=== PATIENT | female | born 1940 | race Caucasian/White ===

== ENCOUNTER 2016-09-04 19:56 | Emergency (ER) | payer MEDICARE, OTHER ==
[~2016-09-04] VITALS: Ht 170.2 cm; Wt 70.8 kg
[~2016-09-04 19:56] MED LIST: ACHD5005 PO; ALPR0.25 PO; ALPR0.254 PO; ALPR0.2550 PO; AMOX-355 PO; ASP81TEC PO; ASPI1TAB22 PO; BSP5T PO; DOXY100C2 PO; ESCI10TA55 PO; ESCT10T; ESCT10T PO; GFN600TCR; HYDR-3820 PO; LEVO25TA2 PO; LEVO500T69 PO; LSRT50T PO; MELO15TA14 PO; MELO15TA39 PO; MELO7.5T PO; METO-270 PO; MTP25TSR PO; NF-ESOM40C PO; POTA10TA14 PO; POTA10TA6 PO; PRD10T PO; PREG75CA PO; RIZA10TA23 PO; ROPI1TAB2 PO; ROPI2TAB3 PO; RPN.25T; TRAZ150T42 PO; TRAZ150T72 PO; TRAZ50TA67 PO; [UNRECOGNIZED DRUG - OTHER]
--- OUTSIDE RECORDS SUMMARY | 2016-09-04 20:00 | XMS REPORT | Continuity of Care Document ---
Author Author [facility] Organization [facility] Address Unknown Phone Unavailable Care Team Providers Care Spray Maker Name Role Phone MYRON AMARO MD PCP Insurance Providers Payer Name Policy Number Subscriber Name Relationship s Medicare [id number] Rosanna Fernando 17 Self / Same As Patient [facility] [id number] Rosanna Fernando 17 Self / Same As Patient Advance Directives Directive Response Recorded Date/Time Advance Directives No 12/04/14 8:29pm Health Care Power of All Source Intelligence No 12/04/14 8:29pm Organ Donor No 12/04/14 8:29pm Resuscitation Status Full Code 12/04/14 8:29pm Problems Medical Problems Problem Onset Date Status forearm sprain Unknown Active Cellulitis of right leg Unknown Active Medications Medication Dose Route Sig Days/Qty Instructions Order Date Discontinued Date Status Escitalopram Oxalate 02/25/08 08/28/10 Discontinued Ropinirole HCl 1 Mg TWICE A DAY 02/25/08 06/28/11 Discontinued [Dyserel] 07/09/08 08/28/10 Discontinued Escitalopram Oxalate 10 Mg PO DAILY 07/09/08 Active Meloxicam 15 Mg PO DAILY 07/09/08 06/28/11 Discontinued Guaifenesin 07/09/08 08/28/10 Discontinued Trazodone Hcl 50 Mg PO BEDTIME 08/28/10 06/28/11 Discontinued Esomeprazole Magnesium 40 Mg PO DAILY 08/28/10 Active Potassium Chloride 10 Meq PO TWICE A DAY WITH MEALS 06/27/11 Active Trazodone Hcl 150 Mg PO DAILY 06/27/11 06/27/11 Discontinued Pregabalin 75 Mg PO TWICE A DAY 06/27/11 06/27/11 Discontinued Aspirin 81 Mg PO DAILY 06/28/11 Active Metoprolol Succinate 25 Mg PO DAILY 06/28/11 06/08/12 Discontinued Meloxicam 15 Mg PO DAILY 06/28/11 06/08/12 Discontinued Ropinirole Hcl 1 Mg PO DAILY 1100 06/28/11 Active Trazodone Hcl 150 Mg PO BEDTIME 06/28/11 Active Acetaminophen/Hydrocodone Bitart (Lorcet 5/325MG) 1 - 2 Tab PO EVERY 6 HOURS 20 Qty 07/07/11 06/01/12 Discontinued Acetaminophen/Hydrocodone Bitart 1 Each PO EVERY 6 HOURS PRN PAIN 06/01 Active Ropinirole Hcl 2 Mg PO BEDTIME 06/01/12 Active Prednisone 10 Mg PO DAILY 06/08/12 08/19/13 Discontinued Levofloxacin 1 Each PO DAILY 06/08/12 08/19/13 Discontinued Losartan Potassium 50 Mg PO DAILY 06/08/12 Active Doxycycline Hyclate (Vibramycin) 1 Each PO TWICE A DAY 14 Qty 12/04/14 Active Social History Social History Problem Response Recorded Date/Time Alcohol Use Denies Use 12/04/2014 8:29pm Recreational Drug Use No 12/04/2014 8:29pm Recent Foreign Travel No 12/04/2014 8:21pm Recent Infectious Disease Exposure No 12/04/2014 8:21pm Hospitalization with Isolation Denies 12/04/2014 8:21pm Sexually Transmitted Disease No 12/04/2014 8:29pm Smoking Status Former Smoker 12/04/2014 8:29pm Query Response Start Date Stop Date Smoking Status Former Smoker 12/04/2014 Hospital Discharge Instructions No hospital discharge instructions. Plan of Care No plan of care. Functional Status No functional status results. Allergies, Adverse Reactions, Alerts Allergen Type Severity Reaction Status Last Updated Sulfa (Sulfonamide Antibiotics) ([id number]) Allergy Unknown Active 24/02 Immunizations Name Given Type Tetanus Booster (TDap) More than 5yrs Historical Vital Signs Acute Vital Signs Vital Response Date/Time Temperature (Fahrenheit) 97.3 degrees F (97.6 - 99.5) Temperature (Calculated Celsius) 36.56405 degrees C (36.4 - 37.5) Temperature Source Temporal Pulse Rate (adult) 67 bpm (60 - 90) Respiratory Rate 20 bpm (12 - 24) O2 Sat by Pulse Oximetry 93 % (88 - 100) Blood Pressure 128/80 mm Hg Pain Pain Intensity 4 Height (Feet) 5 feet Height (Inches) 7 inches Height (Calculated Centimeters) 170.429277 cm Weight (Pounds) 155 pounds Weight (Calculated Kilograms) 70.128293 kilograms Calculated BMI 24.27 Results No known relevant diagnostic tests, laboratory data and/or discharge summary. Procedures No known history of procedures. Encounters Encounter Location Date/Time Departed Emergency Room [facility] 12/04/14 8:17pm Recent Diagnosis
[2016-09-04] MEDS ORDERED: fentaNYL INJECTION 100 MCG/2 ML AMP IVP ONE ×2 (20:30→22:30)
[2016-09-04 20:48] LABS: PROTHROMBIN TIME PATIENT 13.2 SEC (12.2-14.7)
[2016-09-04 20:50] LABS: BASOPHILS % (AUTO) 0 % (0-10); EOSINOPHILS # (AUTO) 0.2 10^3/uL (0.0-0.3); EOSINOPHILS % (AUTO) 2 % (0-10); LYMPHOCYTES # (AUTO) 2.8 X 10^3 (1.0-4.0); LYMPHOCYTES % (AUTO) 26 % (12-44); MEAN CORPUSCULAR HEMOGLOBIN 31 PG (25-34); MEAN CORPUSCULAR HGB CONC 34 G/DL (32-36); MEAN CORPUSCULAR VOLUME 93 FL (80-99); MEAN PLATELET VOLUME 10.9 FL (7.4-10.4); MONOCYTES # (AUTO) 0.8 X 10^3 (0.0-1.0); MONOCYTES % (AUTO) 8 % (0-12); NEUTROPHILS # (AUTO) 6.9 X 10^3 (1.8-7.8); NEUTROPHILS % (AUTO) 64 % (42-75); PLATELET COUNT 234 10^3/uL (130-400); RED BLOOD COUNT 4.65 10^6/uL (4.35-5.85); RED CELL DISTRIBUTION WIDTH 13.6 % (10.0-14.5); WHITE BLOOD COUNT 10.7 10^3/uL (4.3-11.0)
[2016-09-04 21:01] LABS: CALCIUM 9.3 MG/DL (8.5-10.1); CREATININE SERUM 1.34 MG/DL (0.60-1.30); POTASSIUM 4.7 MMOL/L (3.6-5.0)
--- NOTE | 2016-09-04 21:48 | Diagnostic Imaging Report ---
PROCEDURE: CT chest without contrast. TECHNIQUE: Multiple contiguous axial images were obtained through the chest without the use of intravenous contrast. INDICATION: Left chest pain. Trauma. COMPARISON: Chest radiograph 05/17/2016. FINDINGS: Mild scarring in the lung apices and lung bases. The lungs are otherwise clear. Osseous structures are intact. Specifically, no rib fractures. No pleural effusion or pneumothorax. No pericardial effusion. Degenerative changes in the thoracic spine. Nonspecific enlargement of the left thyroid lobe containing small calcification. Mild arterial calcifications including the aortic arch. No mediastinal or hilar lymphadenopathy. The visualized upper abdominal contents, including the adrenal glands, are negative on this noncontrast exam. IMPRESSION: No acute CT findings in the chest. Specifically, the osseous structures are intact. Dictated by: Dictated on workstation # [id number]
--- NOTE | 2016-09-04 22:14 | ED Fall/Injury ---
General Chief Complaint: Trauma-Non Activation Stated Complaint: L ARM PAIN Nursing Triage Note: SEE TRAUMA NOTE. Source: patient Exam Limitations: no limitations History of Present Illness Time seen by provider: 19:58 Initial Comments This 76-year-old woman presents to the emergency room after having a fall at her home. She missed a step while walking down the [place] and fell into a 4 x 4 porch post. She complains of pain and bruising of the left upper arm and pain in the left chest where she struck the post. She denies head injury or loss of consciousness. Location Injury Occurred: HOME Occurred: just prior to arrival Allergies and Home Medications Allergies Coded Allergies: Iodinated Contrast Media - IV Dye (Unverified Allergy, Unknown, 05/06/16) Sulfa (Sulfonamide Antibiotics) (Verified Allergy, Unknown, 02/25/08) ciprofloxacin (Unverified Allergy, Unknown, 05/06/16) Home Medications Alprazolam 0.25 Mg Tablet 0.5-1 TAB PO BID PRN PRN ANXIETY (Reported) Alprazolam 0.25 Mg Tablet #20 0.5 MG PO Q8H PRN PRN anxiety Prescribed by: KANDY BENOIT on 05/09/16 1110 Amoxicillin/Potassium Clav 1 Each Tablet #10 1 EACH PO BID Prescribed by: KANDY BENOIT on 05/09/16 1058 Aspirin 81 Mg Tabec 81 MG PO DAILY (Reported) Aspirin/Acetaminophen/Caffeine 1 Each Tablet 2 TAB PO DAILY PRN PRN MIGRAINE ( Reported) Escitalopram Oxalate 10 Mg Tablet 10 MG PO DAILY (Reported) Hydrocodone/Acetaminophen 1 Each Tablet #30 1 TAB PO Q6H PRN PRN PAIN Prescribed by: KANDY BENOIT on 05/09/16 1058 Meloxicam 15 Mg Tablet 15 MG PO DAILY (Reported) Metoprolol Succinate 25 Mg Tab.er.24h 25 MG PO DAILY (Reported) Potassium Chloride 10 Meq Tab.er.prt 10 MEQ PO BID (Reported) Ropinirole HCl 1 Mg Tablet 2 MG PO HS (Reported) TAKES 2 (1MG) TABLETS Ropinirole Hcl 1 Mg Tablet 1 MG PO DAILY PRN PRN RESTLESSNESS (Reported) Trazodone HCl 150 Mg Tablet 150 MG PO HS (Reported) Constitutional: no symptoms reported Eyes: No Symptoms Reported Ears, Nose, Mouth, Throat: no symptoms reported Respiratory: no symptoms reported Cardiovascular: no symptoms reported Gastrointestinal: no symptoms reported Genitourinary: no symptoms reported : No Musculoskeletal: see HPI Skin: see HPI Psychiatric/Neurological: No Symptoms Reported Past Iqbjkuo-Uqngjj-Pqvttl Hx Patient Social History Alcohol Use: Denies Use Recreational Drug Use: No Smoking Status: Never a Smoker Former Smoker/When Quit: Dec 04, 2014 2nd Hand Smoke Exposure: No Recent Foreign Travel: No Contact w/Someone Who Travel: No Recent Infectious Disease Expo: No Recent Hopitalizations: No Immunizations Up To Date Tetanus Booster (TDap): More than 5yrs Seasonal Allergies Seasonal Allergies: Yes Surgeries HX Surgeries: Yes (HYSTERECTOMY) Surgeries: Hysterectomy Respiratory Hx Respiratory Disorders: No Cardiovascular Hx Cardiac Disorders: Yes Cardiac Disorders: Hypertension Neurological Hx Neurological Disorders: Yes Reproductive System Hx Reproductive Disorders: Yes Sexually Transmitted Disease: No 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 Genitourinary Hx Genitourinary Disorders: Yes Gastrointestinal Hx Gastrointestinal Disorders: No Musculoskeletal Hx Musculoskeletal Disorders: Yes Musculoskeletal Disorders: Arthritis Endocrine Hx Endocrine Disorders: Yes Endocrine Disorders: Hypothyroidsim HEENT HX ENT Disorders: Yes (CATARACTS REMOVED) HEENT Disorders: Cataract Cancer Hx Cancer: No Psychosocial Hx Psychiatric Problems: Yes Behavioral Health Disorders: Depression Integumentary HX Skin/Integumentary Disorder: No Blood Transfusions Hx Blood Disorders: No Physical Exam Vital Signs Vital Sign - Last 12Hours 09/04/16 20:10 Temp 97.1 Pulse 58 Resp 16 B/P 136/74 Pulse Ox 97 O2 Delivery Room Air Capillary Refill : Less Than 3 Seconds General Appearance: WD/WN mild distress HEENT: PERRL/EOMI normal ENT inspection Neck: normal inspection Cardiovascular: regular rate, rhythm no edema no murmur Respiratory: lungs clear normal breath sounds no respiratory distress no accessory muscle use other (left lateral and anterior lower chest wall tenderness to palpation) Gastrointestinal: non tender soft Extremities: no pedal edema other (tenderness over the left humerus and shoulder with significant ecchymosis to the mid humeral region.) 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 as tested no motor/sensory deficits alert normal mood/affect oriented x 3 Skin: normal color warm/dry Brittney Coma Score Best Eye Response: (4) Open Spontaneously Best Verbal Response: (5) Oriented Best Motor Response: (6) Obeys Commands Brittney Total: 15 Progress/Results/Core Measures Results/Orders Lab Results Laboratory Tests Test 09/04/16 20:25 Range/Units Activated Partial Thromboplast Time 29 24-35 SEC Anion Gap 13 5-14 MMOL/L BUN/Creatinine Ratio 19 Basophils # (Auto) 0.0 0.0-0.1 10^3/uL Basophils (%) (Auto) 0 0-10 % Blood Urea Nitrogen 25 H 7-18 MG/DL Calcium Level 9.3 8.5-10.1 MG/DL Carbon Dioxide Level 19 L 21-32 MMOL/L Chloride Level 101 98-107 MMOL/L Creatinine 1.34 H 0.60-1.30 MG/DL Eosinophils # (Auto) 0.2 0.0-0.3 10^3/uL Eosinophils (%) (Auto) 2 0-10 % Estimat Glomerular Filtration Rate 38 Glucose Level 122 H 70-105 MG/DL Hematocrit 43 35-52 % Hemoglobin 14.6 11.5-16.0 G/DL INR Comment 1.0 0.8-1.4 Lymphocytes # (Auto) 2.8 1.0-4.0 X 10^3 Lymphocytes (%) (Auto) 26 12-44 % Mean Corpuscular Hemoglobin 31 25-34 PG Mean Corpuscular Hemoglobin Concent 34 32-36 G/DL Mean Corpuscular Volume 93 80-99 FL Mean Platelet Volume 10.9 H 7.4-10.4 FL Monocytes # (Auto) 0.8 0.0-1.0 X 10^3 Monocytes (%) (Auto) 8 0-12 % Neutrophils # (Auto) 6.9 1.8-7.8 X 10^3 Neutrophils (%) (Auto) 64 42-75 % Platelet Count 234 130-400 10^3/uL Potassium Level 4.7 3.6-5.0 MMOL/L Prothrombin Time 13.2 12.2-14.7 SEC Red Blood Count 4.65 4.35-5.85 10^6/uL Red Cell Distribution Width 13.6 10.0-14.5 % Sodium Level 133 L 135-145 MMOL/L White Blood Count 10.7 4.3-11.0 10^3/uL My Orders Orders-FARHAN TANG MD Basic Metabolic Panel (09/04/16 20:22) Cbc With Automated Diff (09/04/16 20:22) Protime With Inr (09/04/16 20:22) Partial Thromboplastin Time (09/04/16 20:22) Shoulder, Left, 3 Views (09/04/16 20:22) Humerus, Left, 2 Views (09/04/16 20:22) Fentanyl Injection (Sublimaze Injection (09/04/16 20:30) Saline Lock/Iv-Start (09/04/16 20:22) Ct Chest Wo (09/04/16 21:09) Fentanyl Injection (Sublimaze Injection (09/04/16 22:30) Hydrocodone/Apap 5/325 Tablet (Lortab 5 (09/04/16 22:30) Medications Given in ED Current Medications Medications Dose Ordered Sig/Essie Route Start Time Stop Time Status Last Admin Dose Admin Acetaminophen/ Hydrocodone Bitart 1 tab ONCE ONCE PO 09/04/16 22:30 09/04/16 22:31 DC 09/04/16 22:34 1 TAB Fentanyl Citrate 25 mcg ONCE ONCE IVP 09/04/16 20:30 09/04/16 20:31 DC 09/04/16 20:50 25 MCG Fentanyl Citrate 25 mcg ONCE ONCE IVP 09/04/16 22:30 09/04/16 22:31 DC 09/04/16 22:35 25 MCG Vital Signs/I&O Vital Sign - Last 12Hours 09/04/16 09/04/16 20:10 22:36 Temp 97.1 97.1 Pulse 58 58 Resp 16 16 B/P 136/74 Pulse Ox 97 97 O2 Delivery Room Air Blood Pressure Mean: 94 Progress Note : Progress Note Patient was treated with fentanyl for initial pain management. Labs revealed renal insufficiency. For this reason IV contrast was avoided on the CT of the chest. No significant injuries were identified on the CT. Additional dose of fentanyl and a hydrocodone were given prior to dismissal. Patient was encouraged to increase oral hydration which started in the emergency room. Diagnostic Imaging Diagonstic Imaging: Xray Plain Films/CT/US/NM/MRI: other (left shoulder) Comments left shoulder x-ray viewed by me. Report not yet available. No acute abnormalities appreciated. Diagonstic Imaging: Xray Plain Films/CT/US/NM/MRI: other (humerus) Comments left humerus x-ray viewed by me. Report not yet available. No acute bony injury identified. Diagonstic Imaging: CT Plain Films/CT/US/NM/MRI: chest Comments CT chest without contrast viewed by me. Report reviewed. See report below: NAME: CELIO DE LA ROSA [facility] REC#: [id number] PT STATUS: DEP ER : 1940 PHYSICIAN: FARHAN TANG MD ADMIT DATE: 09/04/16/ER Signed Date of Exam: 09/04/16 CT CHEST WO PROCEDURE: CT chest without contrast. TECHNIQUE: Multiple contiguous axial images were obtained through the chest without the use of intravenous contrast. INDICATION: Left chest pain. Trauma. COMPARISON: Chest radiograph 05/17/2016. FINDINGS: Mild scarring in the lung apices and lung bases. The lungs are otherwise clear. Osseous structures are intact. Specifically, no rib fractures. No pleural effusion or pneumothorax. No pericardial effusion. Degenerative changes in the thoracic spine. Nonspecific enlargement of the left thyroid lobe containing small calcification. Mild arterial calcifications including the aortic arch. No mediastinal or hilar lymphadenopathy. The visualized upper abdominal contents, including the adrenal glands, are negative on this noncontrast exam. IMPRESSION: No acute CT findings in the chest. Specifically, the osseous structures are intact. Dictated by: Dictated on workstation # [id number] Dict: 09/04/162138 Trans: 09/04/162315 [facility] [id number] Interpreted by: EFRAIN NULL MD Electronically signed by:EFRAIN NULL MD 09/04/168 Departure Impression Impression: Primary Impression: Contusion of left arm Qualified Code: S40.022A - Contusion of left upper arm, initial encounter Additional Impressions: Chest wall contusion Qualified Code: S20.212A - Contusion of left front wall of thorax, initial encounter Fall on same level Qualified Code: W18.30XA - Fall on same level, unspecified, initial encounter Renal insufficiency Disposition: 01 HOME, SELF-CARE Condition: Improved Departure-Patient Inst. Decision time for Depature: 22:11 Referrals: MYRON AMARO MD (PCP/Family) Primary Care Physician Patient Instructions: Contusion (DC) Add. Discharge Instructions: You may continue taking your usual medications for pain. You may apply ice in 20 minute intervals to help with pain as well. Please increase your hydration as your kidney function is not as good as it has historically been. Your primary care provider needs to monitor your kidney function. You may need adjustment of your medications if it does not improve with better hydration. All discharge instructions reviewed with patient and/or family. Voiced understanding. Copy Copies To 1: MYRON AMARO MD, JOSHUA T MD Sep 04, 2016 22:14
[2016-09-04] MEDS ORDERED: HYDROcodone/APAP 5 MG/325 MG (LORTAB) TAB PO ONE (22:30)
[2016-09-04 22:36] VITALS: BP 136/74
--- NOTE | 2016-09-12 13:30 | RADIOLOGY REPORT ---
NAME: CELIO DE LA ROSA [facility] REC#: [id number] PT STATUS: REG ER : 1940 PHYSICIAN: FARHAN TANG MD ADMIT DATE: 09/04/16/ER Date of Exam:09/04/16 SHOULDER, LEFT, 3 VIEWS EXAM: SHOULDER, LEFT, 3 VIEWS INDICATION: Fall. Left arm and shoulder pain. COMPARISON: None. FINDINGS: No fracture or malalignment. No substantial degenerative changes. No radiopaque foreign bodies. IMPRESSION: Negative left shoulder. Dictated on workstation # [id number] Dict: 09/04/162107 Trans: 09/04/162110 [facility] [id number] Interpreted by: EFRAIN NULL MD Electronically signed by: EFRAIN NULL MD MTDD
--- NOTE | 2016-09-12 13:32 | RADIOLOGY REPORT ---
NAME: CELIO DE LA ROSA [facility] REC#: [id number] PT STATUS: REG ER : 1940 PHYSICIAN: FARHAN TANG MD ADMIT DATE: 09/04/16/ER Date of Exam:09/04/16 HUMERUS, LEFT, 2 VIEWS EXAM: HUMERUS, LEFT, 2 VIEWS INDICATION: Fall. Left arm and shoulder pain. COMPARISON: None. FINDINGS: No fracture or malalignment. No substantial degenerative changes. No radiopaque foreign bodies. IMPRESSION: Negative left humerus radiographs. Dictated on workstation # [id number] Dict: 09/04/162107 Trans: 09/04/16 211 [facility] [id number] Interpreted by: EFRAIN NULL MD Electronically signed by: EFRAIN NULL MD MTDD
== END 2016-09-04 22:36 | disposition home or self-care (01) ==
LOC: EDUNIT# 19:56 → ER 19:57
DX: S20.212A Contusion of left front wall of thorax, initial encounter (principal); S40.022A Contusion of left upper arm, initial encounter; N28.9 Disorder of kidney and ureter, unspecified; I10 Essential (primary) hypertension; Z79.82 Long term (current) use of aspirin; Z79.899 Other long term (current) drug therapy; W10.9XXA Fall (on) (from) unspecified stairs and steps, initial encounter; Y92.018 Other place in single-family (private) house as the place of occurrence of the external cause; Y99.8 Other external cause status
CPT/HCPCS: 36415; 71250; 73030; 73060; 80048; 85025; 85610; 85730; 96374; 96376

== ENCOUNTER 2017-05-21 18:04 | Emergency (ER) | payer MEDICARE, OTHER ==
[~2017-05-21] VITALS: Ht 170.2 cm; Wt 70.8 kg
[~2017-05-21 18:04] MED LIST changes: +ASPI-789 PO; -ASPI1TAB22 PO; -METO-270 PO; +METO-387 PO
[2017-05-21 18:15] VITALS: BP 148/102
[2017-05-21] MEDS ORDERED: fentaNYL INJECTION 100 MCG/2 ML AMP IM ONE (18:30)
--- NOTE | 2017-05-21 18:52 | ED Fall/Injury ---
General Stated Complaint: LT ARM INJ Source: patient, spouse Exam Limitations: no limitations History of Present Illness Time seen by provider: 18:19 Initial Comments Bending over to turn the lights on for her [place] tree and her left ankle twisted causing her to fall landing on her left forearm. She has no history of trauma to this forearm however she started having quite a bit of significant pain and swelling. She is able to move her wrist and move her fingers albeit very painfully. She has sensation in her hand. She has no numbness. She is not on a blood thinner other than a 81 mg aspirin daily. She takes blood pressure medicines and depression medicines as well. She does not smoke drink or use alcohol routinely. She denies loss of consciousness or striking her head. Allergies and Home Medications Allergies Coded Allergies: Iodinated Contrast Media - Oral and (Unverified Allergy, Unknown, 05/06/16) Sulfa (Sulfonamide Antibiotics) (Verified Allergy, Unknown, 02/25/08) ciprofloxacin (Unverified Allergy, Unknown, 05/06/16) Home Medications Alprazolam 0.25 Mg Tablet, 0.5-1 TAB PO BID PRN for ANXIETY, (Reported) Alprazolam 0.25 Mg Tablet, 0.5 MG PO Q8H PRN for anxiety, #20 Prescribed by: KANDY BENOIT on 05/09/16 1110 Amoxicillin/Potassium Clav 1 Each Tablet, 1 EACH PO BID, #10 Prescribed by: KANDY BENOIT on 05/09/16 1058 Aspirin 81 Mg Tabec, 81 MG PO DAILY, (Reported) Aspirin/Acetaminophen/Caffeine 1 Each Tablet, 2 TAB PO DAILY PRN for MIGRAINE, ( Reported) Escitalopram Oxalate 10 Mg Tablet, 10 MG PO DAILY, (Reported) Hydrocodone/Acetaminophen 1 Each Tablet, 1 TAB PO Q6H PRN for PAIN, #30 Prescribed by: KANDY BENOIT on 05/09/16 1058 Meloxicam 15 Mg Tablet, 15 MG PO DAILY, (Reported) Metoprolol Succinate 25 Mg Tab.er.24h, 25 MG PO DAILY, (Reported) Potassium Chloride 10 Meq Tab.er.prt, 10 MEQ PO BID, (Reported) Ropinirole HCl 1 Mg Tablet, 2 MG PO HS, (Reported) TAKES 2 (1MG) TABLETS Ropinirole Hcl 1 Mg Tablet, 1 MG PO DAILY PRN for RESTLESSNESS, (Reported) Trazodone HCl 150 Mg Tablet, 150 MG PO HS, (Reported) Constitutional: no symptoms reported Eyes: No Symptoms Reported, Denies Blindness, Denies Blurred Vision Ears, Nose, Mouth, Throat: no symptoms reported Respiratory: No cough, No short of breath Cardiovascular: no symptoms reported Gastrointestinal: No nausea, No vomiting Genitourinary: No discharge, No dysuria Musculoskeletal: see HPI, No back pain, joint pain (Left wrist), other Skin: No pruritus, No rash Psychiatric/Neurological: Denies Headache, Denies Numbness, Denies Paresthesia Past Bomiojp-Xoqemx-Zhoswu Hx Patient Social History Alcohol Use: Denies Use Recreational Drug Use: No Smoking Status: Never a Smoker 2nd Hand Smoke Exposure: No Recent Foreign Travel: No Contact w/Someone Who Travel: No Recent Hopitalizations: No Immunizations Up To Date Tetanus Booster (TDap): More than 5yrs Seasonal Allergies Seasonal Allergies: Yes Surgeries Surgeries: Hysterectomy Cardiovascular Cardiac Disorders: Hypertension Reproductive System Hx Reproductive Disorders: Yes Sexually Transmitted Disease: No 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 Musculoskeletal Musculoskeletal Disorders: Arthritis Endocrine Endocrine Disorders: Hypothyroidsim HEENT HEENT Disorders: Cataract Psychosocial Behavioral Health Disorders: Depression Physical Exam Vital Signs Vital Sign - Last 12Hours 05/21/17 18:15 Temp 98.2 Pulse 61 Resp 22 B/P (MAP) 148/102 Pulse Ox 97 Capillary Refill : General Appearance: WD/WN, mild distress HEENT: PERRL/EOMI, pharynx normal Neck: non-tender, full range of motion, normal inspection Cardiovascular: normal peripheral pulses, regular rate, rhythm, no edema Respiratory: chest non-tender, lungs clear, normal breath sounds Peripheral Pulses: 3+ Radial Pulses (R), 3+ Radial Pulses (L) Gastrointestinal: non tender, soft Neurologic/Psychiatric: alert, normal mood/affect, oriented x 3 Skin: warm/dry, ecchymosis Progress/Results/Core Measures Results/Orders My Orders Orders - JUAN MANUEL CHAVIRA Wrist, Left, 3 Views Or More (05/21/17 18:24) Fentanyl Injection (Sublimaze Injection (05/21/17 18:30) Medications Given in ED Current Medications Medications Dose Ordered Sig/Essie Route Start Time Stop Time Status Last Admin Dose Admin Fentanyl Citrate 25 mcg ONCE ONCE IM 05/21/17 18:30 05/21/17 18:31 DC 05/21/17 18:54 25 MCG Vital Signs/I&O Vital Sign - Last 12Hours 05/21/17 18:15 Temp 98.2 Pulse 61 Resp 22 B/P (MAP) 148/102 Pulse Ox 97 Diagnostic Imaging Diagonstic Imaging: Xray Plain Films/CT/US/NM/MRI: other Comments Closed nondisplaced ulnar styloid fracture and radial distal head compression fracture. NAME: CELIO DE LA ROSA MED REC#: [id number] PHYSICIAN: JUAN MANUEL CHAVIRA MD CC: KATHERINE CAMPBELL MD; JUAN MANUEL CHAVIRA Page 1 of 1 RADIOLOGY REPORT VIA [facility], [place] CC: KATHERINE CAMPBELL MD; JUAN MANUEL CHAVIRA Page 1 of 1 RADIOLOGY REPORT NAME: CELIO DE LA ROSA [place] MED REC#: [id number] PT STATUS: REG ER : 1940 PHYSICIAN: JUAN MANUEL CHAVIRA MD ADMIT DATE: 05/21/17/ER Signed Date of Exam: 05/21/17 WRIST, LEFT, 3 VIEWS OR MORE INDICATION: Fell, wrist pain FINDINGS: Three views of the right wrist demonstrate an angulated fracture through the left radial metaphysis and a nondisplaced fracture through the base of the ulnar styloid. Joint space is intact. Osteopenia is present. IMPRESSION: There is an angulated radial metaphyseal fracture and a nondisplaced ulnar styloid fracture. Dictated by: Dictated on workstation # [id number] Dict: 05/21/171914 Trans: 05/21/171920 Interpreted by: KATHERINE CAMPBELL MD Electronically signed by: KATHERINE CAMPBELL MD 05/21/171920 Reviewed: Reviewed by Me Departure Impression Impression: Primary Impression: Fall on same level Qualified Codes: W18.30XA - Fall on same level, unspecified, initial encounter Additional Impressions: Mild ankle sprain Qualified Codes: S93.402A - Sprain of unspecified ligament of left ankle, initial encounter Radial head fracture, closed Qualified Codes: S52.125A - Nondisplaced fracture of head of left radius, initial encounter for closed fracture Fracture of ulnar styloid Qualified Codes: S52.615A - Nondisplaced fracture of left ulna styloid process , initial encounter for closed fracture Disposition: 01 HOME, SELF-CARE Condition: Stable Departure-Patient Inst. Decision time for Depature: 19:28 Referrals: MYRON AMARO MD (PCP/Family) Primary Care Physician Patient Instructions: Wrist Fracture (DC) Add. Discharge Instructions: Ice, compression breath dressing, rest and keep it elevated above the level of your heart when possible. Continue taking her Mobic but do not use any other NSAIDs such as Aleve, ibuprofen, Naprosyn. He may use Tylenol 1000 mg every 8 hours or you may use your pain pills you have at home. While on opiate medicines such as the hydrocodone you should be using a stool softener such as Colace or laxative such as MiraLAX daily. Opiates can increase drowsiness and your risk of falls. Keep the sling and splint in place except to bathe. You have a closed, nondisplaced fracture of your ulnar styloid and a closed, angulated, nondisplaced compression fracture of the distal radial head. Tomorrow morning call Dr. Starkey at his clinic at [phone] [place] [address] to get an appointment to be seen either this week or early next week. Scripts Hydrocodone/Acetaminophen (Hydrocodon -Acetaminophen 5-325) 1 Each Tablet 1-2 EACH PO Q6H Y for BREAKTHROUGH PAIN, #20 TAB 0 Refills Prov: JUAN MANUEL CHAVIRA 05/21/17 Copy Copies To 1: MYRON AMARO MD Copies To 2: REDDY STARKEY MD, TITUS J May 21, 2017 18:51
--- NOTE | 2017-05-21 19:18 | Diagnostic Imaging Report ---
INDICATION: Fell, wrist pain FINDINGS: Three views of the right wrist demonstrate an angulated fracture through the left radial metaphysis and a nondisplaced fracture through the base of the ulnar styloid. Joint space is intact. Osteopenia is present. IMPRESSION: There is an angulated radial metaphyseal fracture and a nondisplaced ulnar styloid fracture. Dictated by: Dictated on workstation # [id number]
[2017-05-21] MEDS ORDERED: HYDR-3812 PO (19:31)
== END 2017-05-21 19:49 | disposition home or self-care (01) ==
LOC: EDUNIT# 18:04 → ER 18:06
DX: S52.125A Nondisplaced fracture of head of left radius, initial encounter for closed fracture (principal); S52.615A Nondisplaced fracture of left ulna styloid process, initial encounter for closed fracture; F32.9 Major depressive disorder, single episode, unspecified; I10 Essential (primary) hypertension; E03.9 Hypothyroidism, unspecified; M19.90 Unspecified osteoarthritis, unspecified site; Z90.710 Acquired absence of both cervix and uterus; Z79.82 Long term (current) use of aspirin; X50.0XXA Overexertion from strenuous movement or load, initial encounter; W18.39XA Other fall on same level, initial encounter
CPT/HCPCS: 73110; 96372; 99282

== ENCOUNTER → 2017-11-06 | Outpatient (CLI) | payer MEDICARE, OTHER ==
--- NOTE | 2017-11-06 12:48 | Diagnostic Imaging Report ---
PROCEDURE: MRI lumbar spine. TECHNIQUE: Multiplanar, multisequence MRI of the lumbar spine was performed without contrast. INDICATION: Chronic back pain, bilateral leg pain. FINDINGS: The previous MRI lumbar spine exam performed on 09/14/2013 noted degenerative disc and bony disease throughout the lumbar spine but failed to show any sign of spinal stenosis or nerve root encroachment. On this exam, the disc bulge at the L4-L5 level is perhaps slightly greater than on the prior exam. The disc indents the ventral aspect of the thecal sac and narrows the AP diameter to approximately 13.9 mm. On the prior exam, the AP diameter of the thecal sac at L4-L5 measured approximately 14.8 mm. There is mild narrowing of the neuroforamen bilaterally at this level. The neuroforaminal narrowing is also similar to the prior study. The disc bulge at the L3-L4 level seen previously is somewhat greater as well. The AP diameter of the thecal sac is narrowed to 13.4 mm as opposed to 13.7 mm on the prior study. There does not appear to be any significant neuroforaminal narrowing at this level. The remainder of the lumbar spine is essentially no different than on the prior exam. No new area of spinal stenosis or nerve root encroachment has developed. There is no abnormal signal arising from the cord or other vertebral bodies to indicate an acute abnormality. There is no sign of a paraspinal mass. The sacral cysts on the right at S1-S2 noted on the prior study are again evident and unchanged. IMPRESSION: 1. When compared to the previous study, there does not appear to have been any significant change. There is slightly greater narrowing of the thecal sac at L3-L4 and L4-L5 than noted on the prior exam but there is still no evidence for spinal stenosis or nerve root encroachment at either of these two levels. 2. There is no sign of an acute bony abnormality or of a cord lesion. Dictated by: Dictated on workstation # [id number]
== END ==
LOC: RAD 09:46
PROVIDERS: ATTEND Physician Assistant
DX: M54.9 Dorsalgia, unspecified (principal); M79.605 Pain in left leg; M79.604 Pain in right leg
CPT/HCPCS: 72148

== ENCOUNTER 2019-11-28 21:01 | Emergency (ER) | payer MEDICARE, OTHER ==
[~2019-11-28] VITALS: Ht 67 cm; Wt 68.0 kg
[~2019-11-28 21:01] MED LIST changes: +ACHYD1T PO; -HYDR-3820 PO; -METO-387 PO; +ROPI1TAB PO
--- OUTSIDE RECORDS SUMMARY | 2019-11-28 21:07 | XMS REPORT ---
Author Author [employer] [facility] [employer] Address [address] [address] Care Team Providers Care Utilities Service Investigator Name Role Phone MYRON AMARO Edilson Unavailable KITTY HIDALGO, FARHAN Dukes Unavailable Unavailable Unavailable Unavailable Allergies Normalized Allergy Reported Date of Reaction(s) Care Provider Facility Allergy Type classification allergen Allergy Onset DA (20 Unclassified Iodinated 05-06-2016 - no information BELEN WEBBER Not Available sources.) Contrast- Oral KITTY , (58040) and IV Dye Medications No Information Problems Active Problems Problem Normalized Date Last Normalized Normalized Provider Fa cility Classification Problem(s) Recorded Problem Problem Sta tus Duration Osteoporosis Age-related Chronic Active no name no info rmation (2 sources.) osteoporosis without current pathological fracture NEGATED Anxiety state, Chronic Active no name no info rmation no unspecified information (4 Translations: sources.) [ GENERALIZED ANXIETY DISORDER] Asthma (2 Asthma, Chronic Active no name no informatio n sources.) unspecified type, unspecified Spondylosis; 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; intervertebral other back disc problems (2 sources.) Mood disorders Depressive Chronic Active no name no inf ormation (2 sources.) disorder, not elsewhere classified Diverticulosis Diverticulosis Chronic Active no name no information and of colon diverticulitis (without (2 sources.) mention of hemorrhage) Esophageal Esophageal Chronic Active no name no informa tion disorders (2 reflux sources.) Thyroid Hypothyroidism Chronic Active no name no info rmation disorders (3 , unspecified sources.) NEGATED Low back pain Episodic Active no name no infor mation no Translations: information (4 [ PAIN IN sources.) THORACIC SPINE, DORSALGIA, UNSPECIFIED] Other Pain in left Episodic Active no name no inform ation connective leg tissue disease (2 sources.) Other Pain in right Episodic Active no name no infor mation connective leg tissue disease (2 sources.) Other Restless legs Chronic Active no name no infor mation hereditary and syndrome (RLS) degenerative nervous system conditions (2 sources.) Spondylosis; 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 ble intervertebral stenosis, (80864) disc thoracic disorders; region other back Translations: problems (1 [ SPONDYLOSIS source.) W/O MYELOPATHY OR RADICULOPA] Essential Unspecified Chronic Active FARHAN Not Availa ble hypertension essential CARAGEMANN , (23696) (11 sources.) hypertension MD Translations: [ ESSENTIAL (PRIMARY) HYPERTENSION] NEGATED Unspecified Chronic Active no name no informa tion no osteoarthritis information (5 , unspecified sources.) site Past or Other Problems Problem Normalized Date Last Normalized Normalized Provider Fa cility Classification Problem(s) Recorded Problem Problem Sta tus Duration Abdominal pain Abdominal Episodic Completed no name no info rmation (2 sources.) pain, generalized Unclassified Acquired Episodic Completed no name no informa tion (3 sources.) absence of both cervix and uterus Acute Acute Episodic Completed no name no informatio n bronchitis (2 bronchitis sources.) External Adverse effect no information no information no name no information Injury - of other Adverse synthetic effects of narcotics, medical drugs initial (2 sources.) encounter Other bone Chondrocostal Episodic Completed no name no info rmation disease and junction musculoskeleta syndrome l deformities [Tietze] (2 sources.) Other Constipation, Episodic Completed no name no infor mation gastrointestin unspecified al disorders (2 sources.) Superficial Contusion of Episodic Completed FARHAN Not Marcy ilable injury; left front KITTY , (86933) contusion (6 wall of MD sources.) thorax, initial encounter Translations: [ CONTUSION OF LEFT UPPER ARM, INITIAL ENC] Other lower Cough Episodic Completed no name no informat ion respiratory disease (2 sources.) Other diseases Disorder of Episodic Completed FARHAN Not A vailable of kidney and kidney and KITTY , (92458) ureters (4 ureter, MD sources.) unspecified External Exposure to no information no information no name no information Injury - other Natural / specified Environment (2 factors, sources.) initial encounter Hemorrhoids (2 External Episodic Completed no name no infor mation sources.) hemorrhoids without mention of complication External Fall from no information no information no name no information Injury - other Overexertion slipping, (2 sources.) tripping, or stumbling Allergic Localized skin Episodic Completed no name no info rmation reactions (2 eruption due sources.) to drugs and medicaments taken internally Other halfway Episodic Completed FARHAN Not Availabl e aftercare (7 (current) use MOIZASHLEY , (39702) sources.) of aspirin MD Mood disorders Major no information no information no name no information (3 sources.) depressive disorder, single episode, unspecified Fracture of Nondisplaced Episodic Completed no name no info rmation upper limb (3 fracture of sources.) head of left radius, initial encounter for closed fracture Translations: [ NONDISP FX OF LEFT ULNA STYLOID PROCESS,] External cause Other external no information no information MARIAH MARY Not Available codes: cause status KITTY , (48676) Unspecified (8 Translations: MD sources.) [ OTHER EXTERNAL CAUSE STATUS] External cause Other fall on no information no information BELEN UA Not Available codes: Fall (7 same level, KITTY , (79909) sources.) initial MD encounter Translations: [ FALL (ON) (FROM) UNSPECIFIED STAIRS AND ] Other Other long Episodic Completed FARHAN Not Availab le aftercare (4 term (current) BRUASHLEY , (90505) sources.) drug therapy MD External cause Other place in no information no information MARIAH MARY Not Available codes: Place single-family MOIZASHLEY , (94430) of occurrence (private) MD (6 sources.) house as the place of occurrence of the external cause Translations: [ ACCIDENT IN HOME] Bacterial Other Episodic Completed no name no informatio n infection (2 specified sources.) bacterial agents as the cause of diseases classified elsewhere Translations: [ KLEBSIELLA PNEUMONIAE THE CAUSE OF DI] Other Other Episodic Completed no name no informatio n gastrointestin specified al disorders disorders of (2 sources.) intestine Unclassified Overexertion no information no information no name no information (3 sources.) from strenuous movement or load, initial encounter Other Pain in left Episodic Completed no name no inform ation non-traumatic ankle and joint joints of left disorders (3 foot sources.) Other Pain in limb Episodic Completed no name no inform ation connective tissue disease (2 sources.) Abdominal pain Pelvic and no information no information no name no information (2 sources.) perineal pain Screening or Personal Episodic Completed no name no informa tion history of history of mental health nicotine and substance dependence abuse (2 sources.) Other injuries Shoulder and Episodic Completed no name no i nformation and conditions upper arm due to injury external causes (2 sources.) Unclassified Special Episodic Completed no name no informa tion (2 sources.) screening for malignant neoplasms of colon Other Swelling of Episodic Completed no name no informa tion connective limb tissue disease (2 sources.) Urinary tract Tubulo-interst Episodic Completed no name no information infections (2 itial sources.) nephritis, not specified as acute or chronic Other injuries Unspecified Episodic Completed FARHAN Not A vailable and conditions injury of left BRUEGBILLY , (42183) due to shoulder and MD external upper arm, causes (4 initial sources.) encounter Procedures The data below is from unstructured sourcesNo known history of procedures. Immunizations No Information Results The data below is from unstructured sourcesNo known relevant diagnostic tests, laboratory data and/or discharge summary. Vital Signs The data below is from unstructured sources Vital Response Date/Time Temperature (Fahrenheit) 97.3 degree s F (97.6 - 99.5) Temperature (Calculated Celsius) 36. 21657 degrees C (36.4 - 37.5) Temperature Source Temporal Pulse Rate (adult) 67 bpm (60 - 90) Respiratory Rate 20 bpm (12 - 24) O2 Sat by Pulse Oximetry 93 % (88 - 100) Blood Pressure 128/80 mm Hg Pain Pain Intensity 4 Height (Feet) 5 feet Height (Inches) 7 inches Height (Calculated Centimeters) 170. 434896 cm Weight (Pounds) 155 pounds Weight (Calculated Kilograms) 70.306 818 kilograms Calculated BMI 24.27 Vital Response Date/Time Temperature (Fahrenheit) 98.2 degree s F (97.6 - 99.5) 05/21/2017 6:15pm Temperature (Calculated Celsius) 36. 37011 degrees C (36.4 - 37.5) 05/21/2017 6:15pm Pulse Rate (adult) 61 bpm (60 - 90) 05/21/2017 6:15pm Respiratory Rate 22 bpm (12 - 24) 05/21/2017 6:15pm O2 Sat by Pulse Oximetry 97 % (88 - 100) 05/21/2017 6:15pm Blood Pressure 148/102 mm Hg 05/21/2017 6:15pm Blood Pressure Mean 117 mm Hg (65 - 110) 05/21/2017 6:15pm Pain Numeric Pain Scale 5-Moderate Pain 05/21/2017 6:15pm Height (Feet) 5 feet 6:15pm Height (Inches) 7.00 inches 05/21/2017 6:15pm Height (Calculated Centimeters) 170. 262680 cm 05/21/2017 6:15pm Height Method Stated 6:15pm Weight (Pounds) 156 pounds 05/21/2017 6:15pm Weight (Ounces) 0 oz 6:15pm Weight (Calculated Grams) 32804.410 gm 05/21/2017 6:15pm Weight (Calculated Kilograms) 70.760 410 kilograms 05/21/2017 6:15pm Calculated BMI 25.8 05/02 6:15pm Weight Method Stated 6:15pm Capillary Refill Capillary Refill Less Than 3 Seconds 05/21/2017 6:15pm Vital Response Date/Time Temperature (Fahrenheit) 98.2 degree s F (97.6 - 99.5) 05/21/2017 6:15pm Temperature (Calculated Celsius) 36. 03193 degrees C (36.4 - 37.5) 05/21/2017 6:15pm Pulse Rate (adult) 61 bpm (60 - 90) 05/21/2017 6:15pm Respiratory Rate 22 bpm (12 - 24) 05/21/2017 6:15pm O2 Sat by Pulse Oximetry 97 % (88 - 100) 05/21/2017 6:15pm Blood Pressure 148/102 mm Hg 05/21/2017 6:15pm Blood Pressure Mean 117 mm Hg (65 - 110) 05/21/2017 6:15pm Pain Numeric Pain Scale 5-Moderate Pain 05/21/2017 6:15pm Height (Feet) 5 feet 6:15pm Height (Inches) 7.00 inches 05/21/2017 6:15pm Height (Calculated Centimeters) 170. 740600 cm 05/21/2017 6:15pm Height Method Stated 6:15pm Weight (Pounds) 156 pounds 05/21/2017 6:15pm Weight (Ounces) 0 oz 6:15pm Weight (Calculated Grams) 52908.410 gm 05/21/2017 6:15pm Weight (Calculated Kilograms) 70.760 410 kilograms 05/21/2017 6:15pm Calculated BMI 25.8 05/02 6:15pm Weight Method Stated 6:15pm Capillary Refill Capillary Refill Less Than 3 Seconds 05/21/2017 6:15pm Interventions No Information Plan of Treatment The data below is from unstructured sources Discharge Date 05/21/17 7:49pm Disposition 01 HOME, SELF-CARE Condition at Discharge Stable Instructions/Education Provided Wris t Fracture (DC) Prescriptions See Medication Section Referrals MYRON AMARO MD Order Date: Primary Care Physician Address: [address] [place] [phone] [id number] Additional Instructions/Education Ic e, compression breath dressing, rest and keep it elevated above the level of your heart when possible. Continue taking her Mobic but do not use any other NSAIDs such as Aleve, ibuprofen, Naprosyn. He may use Tylenol 1000 mg every 8 hours or you may use your pain pills you have at home. While on opiate medicines such as the hydrocodone you should be using a stool softener such as Colace or laxative such as MiraLAX daily. Opiates can increase drowsiness and your risk of falls. Keep the sling and splint in place except to bathe. You have a closed, nondisplaced fracture of your ulnar styloid and a closed, angulated, nondisplaced compression fracture of the distal radial head. Tomorrow morning call Dr. Starkey at his clinic at [phone] to get an appointment to be seen either this week or early next week. Goals No Information Social History No Information Functional Status The data below is from unstructured sourcesNo functional status results.No functional status information available.No functional status information available. Mental Status No Information Encounters Encounter Normalized Encounter Encounter Diagnosis Care Provi parmjit Organization Date Type 09-04-2016 Emergency department no information no name no organization name - patient visit 09-04-2016 12-04-2014 Emergency department no information no name no organization name - patient visit 12-04-2014 08-19-2013 Emergency department no information no name no organization name - patient visit 08-19-2013 05-06-2016 Evaluation and no information no name no organ ization name - management of 05-09-2016 inpatient 06-01-2012 Evaluation and no information no name no organ ization name - management of 06-08-2012 inpatient 11-16-2017 Patient encounter no information no name no or ganization name 11-06-2017 Patient encounter no information no name no or ganization name 05-21-2017 Patient encounter no information no name no or ganization name 06-07-2016 Patient encounter no information no name no or ganization name 05-17-2016 Patient encounter no information no name no or ganization name 10-26-2015 Patient encounter no information no name no or ganization name 09-14-2013 Patient encounter no information no name no or ganization name 02-25-2013 Patient encounter no information no name no or ganization name 07-28-2012 Patient encounter no information no name no or ganization name - 07-28-2012 07-24-2012 Patient encounter no information no name no or ganization name 05-19-2012 Patient encounter no information no name no or ganization name 09-04-2016 Patient encounter no information no name no or ganization name procedure no information Pre-operative no name no organization name examination, unspecified Medical Equipment No Information Payers No Information Advance Directives Directive Response Recor ded Date/Time Advance Directives No 8:29pm Health Care Power of Composition Roll Maker And Cutter No 12/04/14 8:29pm Organ Donor No 12/04/14 8:29pm Resuscitation Status Full Code 12/04/14 8:29pm Directive Response Recor ded Date/Time Advance Directives No 6:15pm Health Care Power of Composition Roll Maker And Cutter No 05/21/17 6:15pm Organ Donor No 05/21/17 6:15pm Resuscitation Status Full Code 05/21/17 6:15pm Discharge Instructions No hospital discharge instructions.No hospital discharge instruction information available. Additional Source Comments This clinical document has been generated using [employer] software that has been certified by the Office of the National Coordinator for Health Information Technology (ONC 15.99.04.3023.Diam.[id number]) and the National Committee for Medical Billing And Coding Specialist (NCQA, as an eMeasure certified technology). FOR RECORDS PERTAINING TO PATIENTS WHO ARE OR HAVE BEEN ENROLLED IN A CHEMICAL D EPENDENCY/SUBSTANCE ABUSE PROGRAM, SOME INFORMATION MAY BE OMITTED. This clinica l summary was aggregated from multiple sources. Caution should be exercised in using it in the provision of clinical care. This summary normalizes information from multiple sources, and as a consequence, information in this document may ma terially change the coding, format and clinical context of patient data. In estrellita tion, data may be omitted in some cases. CLINICAL DECISIONS SHOULD BE BASED ON T HE PRIMARY CLINICAL RECORDS. [facility] [employer] [facility]. provides no warranty or guara ntee of the accuracy or completeness of information in this document.The followi information is based on time limited clinical information
--- OUTSIDE RECORDS SUMMARY | 2019-11-28 21:08 | XMS REPORT | Continuity of Care Document ---
Author Organization Unknown Address Unknown Phone Unavailable Allergies Active Description Code Type Severity Reaction Onset Reported/Identified Relationship to Patient Clinical Status Yes Sulfa (Sulfonamide Antibiotics) [id number] Drug Allergy Unknown N/A 008 Yes ciprofloxacin [id number] Aidan g Allergy Unknown N/A 05/06/2016 Yes Iodinated Contrast Media [id number] Drug Allergy Unknown N/A 05/06/2016 Yes Iodinated Contrast Media - IV Dye [id number] [id number] Drug Allergy Unknown N/A 016 Yes Iodinated Contrast Media - Oral and [id number] Drug Allergy Unknown N/A 05/06/2016 Yes Iodinated Contrast- Oral and IV Dye [id number] Drug Allergy Unknown N/A 05/06/2016 Medications There is no data. Problems Date Dx Coded Attending Type Code Diagnosis Diagnosed By 09/01/2010 Ot 112.1 CAND IDAL VULVOVAGINITIS 09/01/2010 Ot 276.8 HYPO POTASSEMIA 09/01/2010 Ot 292.81 AIDAN G-INDUCED DELIRIUM 09/01/2010 Ot 300.4 DYST HYMIC DISORDER 09/01/2010 Ot 530.81 ESO PHAGEAL REFLUX 09/01/2010 Ot 599.0 URIN TRACT INFECTION NOS 06/20/2011 Ot 780.79 OTH MALAISE FATIGUE 06/20/2011 Ot 791.9 ABN URINE FINDINGS NEC 06/28/2011 Ot 414.01 COR ONARY ATHEROSCLEROSIS OF [place] CORON 06/28/2011 Ot 427.69 PRE MATURE BEATS NEC 06/28/2011 Ot 427.89 CAR DIAC DYSRHYTHMIAS NEC 06/28/2011 Ot 780.79 OTH MALAISE FATIGUE 06/28/[address] PAIN NOS 06/28/2011 Ot 794.30 ABN CARDIOVASC STUDY NOS 07/07/2011 Ot 338.18 OTH ER ACUTE POSTOPERATIVE PAIN 07/07/2011 Ot 789.09 ABD OMINAL PAIN, OTHER SPECIFIED SITE 07/07/2011 Ot 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 06/08/2012 Ot 300.00 ANX IETY STATE NOS 06/08/2012 Ot 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 06/08/2012 Ot 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 06/08/2012 Ot 401.9 HYPE RTENSION NOS 06/08/2012 Ot 466.0 ACUT E BRONCHITIS 06/08/2012 Ot 493.90 AST HMA, UNSPECIFIED 06/08/2012 Ot 530.81 ESO PHAGEAL REFLUX 06/08/2012 Ot 564.00 UNS PEC CONSTIPATION 07/28/2012 Ot 455.3 EXT HEMORRHOID W/O COMPL 07/28/2012 Ot 562.10 DIV ERTICULOSIS COLON (W/O MENT OF HEMORR 07/28/2012 Ot 569.89 INT ESTINAL DISORDERS NEC 07/28/2012 Ot 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 6 CELLULITIS OF LEG 12/04/2014 AL HIDALGO, FORTUNATO Malagon Ot 729. 5 PAIN IN LIMB 12/07/2014 AL HIDALGO, FORTUNATO Malagon Ot 682. 6 12/07/2014 AL HIDALGO, FORTUNATO Malagon Ot 729. 5 12/25/2014 AL HIDALGO, FORTUNATO Malagon Ot 682. 6 12/25/2014 AL HIDALGO, FORTUNATO Malagon Ot 729. 5 10/26/[address] PAIN NOS 10/26/2015 Ot 789.07 ABD OMINAL PAIN, GENERALIZED 10/26/2015 Ot V72.84 EXA M PRE- OPERATIVE NOS 10/26/2015 PREM HIDALGO, MYRON Waggoner Ot 729.81 SWELLING OF LIMB 10/26/2015 CASTRO MILLIGAN DO Ot 722.52 LUMB/LUMBOSAC DISC DEGEN 10/28/2015 MRYON AMARO MD, Ot M94.0 CHONDROCOSTAL JUNCTION SYNDROME [TIETZE] 10/28/2015 MYRON AMARO MD Ot S23.3XXA SPRAIN OF LIGAMENTS OF THORACIC SPINE, I 10/28/2015 MYRON AMARO MD Ot X58.XXXA EXPOSURE TO OTHER SPECIFIED FACTORS, INI 10/28/2015 MYRON AMARO MD Ot Y99.8 OTHER EXTERNAL CAUSE STATUS 11/16/2015 MYRON AMARO MD, Ot M94.0 CHONDROCOSTAL JUNCTION SYNDROME [TIETZE] 11/16/2015 MYRON AMARO MD, Ot S23.3XXA SPRAIN OF LIGAMENTS OF THORACIC SPINE, I 11/16/2015 MYRON AMARO MD Ot X58.XXXA EXPOSURE TO OTHER SPECIFIED FACTORS, INI 11/16/2015 MYRON AMARO MD Ot Y99.8 OTHER EXTERNAL CAUSE STATUS 05/07/2016 CLOVER QUINTANILLA MD Ot B96.89 OTH BACTERIAL AGENTS THE CAUSE OF DIS 05/07/2016 CLOVER QUINTANLILA MD Ot F41 .1 GENERALIZED ANXIETY DISORDER 05/07/2016 CLOVER QUINTANILLA MD Ot I10 ESSENTIAL (PRIMARY) HYPERTENSION 05/07/2016 CLOVER QUINTANILLA MD Ot L27 .1 LOC SKIN ERUPTION DUE TO DRUGS AND MEDS 05/07/2016 CLOVER QUINTANILLA MD Ot M19.90 UNSPECIFIED OSTEOARTHRITIS, UNSPECIFIED 05/07/2016 CLOVER QUINTANILLA MD Ot N12 TUBULO-INTERSTITIAL NEPHRITIS, NOT SPCF 05/07/2016 CLOVER QUINTANILLA MD Ot T40.4X5A ADVERSE EFFECT OF OTHER SYNTHETIC NARCOT 05/07/2016 CLOVER QUINTANILLA MD Ot Z87.891 PERSONAL HISTORY OF NICOTINE DEPENDENCE 05/09/2016 CLOVER QUINTANILLA MD Ot B96 .1 KLEBSIELLA PNEUMONIAE THE CAUSE OF DI 05/09/2016 CLOVER QUINTANILLA MD Ot B96.89 OTH BACTERIAL AGENTS THE CAUSE OF DIS 05/09/2016 CLOVER QUINTANILLA MD Ot F41 .1 GENERALIZED ANXIETY DISORDER 05/09/2016 CLOVER QUINTANILLA MD Ot I10 ESSENTIAL (PRIMARY) HYPERTENSION 05/09/2016 CLOVER QUINTANILLA MD Ot L27 .1 LOC SKIN ERUPTION DUE TO DRUGS AND MEDS 05/09/2016 CLOVER QUINTANILLA MD Ot M19.90 UNSPECIFIED OSTEOARTHRITIS, UNSPECIFIED 05/09/2016 CLOVER QUINTANILLA MD Ot N12 TUBULO-INTERSTITIAL NEPHRITIS, NOT SPCF 05/09/2016 CLOVER QUINTANILLA MD Ot T40.4X5A ADVERSE EFFECT OF OTHER SYNTHETIC NARCOT 05/09/2016 CLOVER QUINTANILLA MD Ot Z87.891 PERSONAL HISTORY OF NICOTINE DEPENDENCE 05/15/[address] PAIN NOS 05/15/2016 Ot 789.07 ABD OMINAL PAIN, GENERALIZED 05/15/2016 Ot V72.84 EXA M PRE- OPERATIVE NOS 05/15/2016 MYRON AMARO MD Ot 729.81 SWELLING OF LIMB 05/15/2016 CHEL JOHN CASTRO Al Ot 722.52 LUMB/LUMBOSAC DISC DEGEN 05/15/2016 MYRON AMARO MD Ot M94.0 CHONDROCOSTAL JUNCTION SYNDROME [TIETZE] 05/15/2016 MYRON AMARO MD Ot S23.3XXA SPRAIN OF LIGAMENTS OF THORACIC SPINE, I 05/15/2016 MYRON AMARO MD Ot X58.XXXA EXPOSURE TO OTHER SPECIFIED FACTORS, INI 05/15/2016 MYRON AMARO MD Ot Y99.8 OTHER EXTERNAL CAUSE STATUS 05/18/2016 MYRON AMARO MD Ot M54.5 LOW BACK PAIN 05/18/2016 MYRON AMARO MD Ot M54.6 PAIN IN THORACIC SPINE 05/18/2016 MYRON AMARO MD Ot R0 5 COUGH 05/18/2016 MYRON AMARO MD Ot R10.2 PELVIC AND PERINEAL PAIN 06/07/2016 MYRON AMARO MD Ot M81.0 AGE-RELATED OSTEOPOROSIS W/O CURRENT PAT 06/08/2016 MYRON AMARO MD Ot M54.5 LOW BACK PAIN 06/08/2016 MYRON AMARO MD Ot M54.6 PAIN IN THORACIC SPINE 06/08/2016 MYRON AMARO MD Ot R0 5 COUGH 06/08/2016 MYRON AMARO MD Ot R10.2 PELVIC AND PERINEAL PAIN 06/08/2016 MYRON AMARO MD Ot M81.0 AGE-RELATED OSTEOPOROSIS W/O CURRENT PAT 06/11/2016 MYRON AMARO MD Ot M81.0 AGE-RELATED OSTEOPOROSIS W/O CURRENT PAT 06/29/2016 MYRON AMARO MD Ot M81.0 AGE-RELATED OSTEOPOROSIS W/O CURRENT PAT 09/04/2016 FARHAN TANG MD, Ot I10 ESSENTIAL (PRIMARY) HYPERTENSION 09/04/2016 FARHAN TANG MD Ot N28.9 DISORDER OF KIDNEY AND URETER, UNSPECIFI 09/04/2016 FARHAN TANG MD, Ot S20.212A CONTUSION OF LEFT FRONT WALL OF THORAX, 09/04/2016 FARHAN TANG MD, Ot S40.022A CONTUSION OF LEFT UPPER ARM, INITIAL ENC 09/04/2016 FARHAN TANG MD, Ot S49.92XA UNSP INJURY OF LEFT SHOULDER AND UPPER A 09/04/2016 FARHAN TANG MD Ot W10.9XXA FALL (ON) (FROM) UNSPECIFIED STAIRS AND 09/04/2016 FARHAN TANG MD, Ot Y92.[address] IN [facility] 09/04/2016 FARHAN TANG MD Ot Y99.8 OTHER EXTERNAL CAUSE STATUS 09/04/2016 FARHAN TANG MD Ot Z79.82 FPC (CURRENT) USE OF ASPIRIN 09/04/2016 FARHAN TANG MD Ot Z79.899 OTHER FPC (CURRENT) DRUG THERAPY 09/05/2016 FARHAN TANG MD, Ot I10 ESSENTIAL (PRIMARY) HYPERTENSION 09/05/2016 FARHAN TANG MD, Ot N28.9 DISORDER OF KIDNEY AND URETER, UNSPECIFI 09/05/2016 FARHAN TANG MD Ot S20.212A CONTUSION OF LEFT FRONT WALL OF THORAX, 09/05/2016 FARHAN TANG MD, Ot S40.022A CONTUSION OF LEFT UPPER ARM, INITIAL ENC 09/05/2016 FARHAN TANG MD Ot S49.92XA UNSP INJURY OF LEFT SHOULDER AND UPPER A 09/05/2016 FARHAN TANG MD, Ot W10.9XXA FALL (ON) (FROM) UNSPECIFIED STAIRS AND 09/05/2016 FARHAN TANG MD Ot Y92.[address] IN [facility] 09/05/2016 FARHAN TANG MD Ot Y99.8 OTHER EXTERNAL CAUSE STATUS 09/05/2016 FARHAN TANG MD Ot 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 09/05/2016 FARHAN TANG MD Ot Z79.899 OTHER BIOPHYSICS PROFESSOR (CURRENT) DRUG THERAPY 09/06/2016 FARHAN TANG MD Ot I10 ESSENTIAL (PRIMARY) HYPERTENSION 09/06/2016 FARHAN TANG MD Ot N28.9 DISORDER OF KIDNEY AND URETER, UNSPECIFI 09/06/2016 FARHAN TANG MD Ot S20.212A CONTUSION OF LEFT FRONT WALL OF THORAX, 09/06/2016 FARHAN TANG MD Ot S40.022A CONTUSION OF LEFT UPPER ARM, INITIAL ENC 09/06/2016 FARHAN TANG MD Ot S49.92XA UNSP INJURY OF LEFT SHOULDER AND UPPER A 09/06/2016 FARHAN TANG MD Ot W10.9XXA FALL (ON) (FROM) UNSPECIFIED STAIRS AND 09/06/2016 FARHAN TANG MD Ot Y92.[address] IN [facility] 09/06/2016 FARHAN TANG MD Ot Y99.8 OTHER EXTERNAL CAUSE STATUS 09/06/2016 FARHAN TANG MD Ot 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 9 HYPOTHYROIDISM, UNSPECIFIED 05/21/2017 JUAN MANUEL CHAVIRA MD Ot F32. 9 MAJOR DEPRESSIVE DISORDER, SINGLE EPISOD 05/21/2017 JUAN MANUEL CHAVIRA MD Ot I10 ESSENTIAL (PRIMARY) HYPERTENSION 05/21/2017 UJAN MANUEL CHAVIRA MD Ot M19. 90 UNSPECIFIED OSTEOARTHRITIS, UNSPECIFIED 05/21/2017 JUAN MANUEL CHAVIRA MD Ot M25.572 PAIN IN LEFT ANKLE AND JOINTS OF LEFT FO 05/21/2017 JUAN MANUEL CHAVIRA MD Ot S52.125A NONDISP FX OF HEAD OF LEFT RADIUS, INIT 05/21/2017 JUAN MANUEL CHAVIRA MD Ot S52.615A NONDISP FX OF LEFT ULNA STYLOID PROCESS, 05/21/2017 JUAN MANUEL CHAVIRA MD Ot W18.39XA OTHER FALL ON SAME LEVEL, INITIAL ENCOUN 05/21/2017 JUAN MANUEL CHAVIRA MD Ot X50.0XXA OVEREXERTION FROM STRENUOUS MOVEMENT OR 05/21/2017 JUAN MANUEL CHAVIRA MD Ot Z79. 82 BIOPHYSICS PROFESSOR (CURRENT) USE OF ASPIRIN 05/21/2017 JUAN MANUEL CHAVIRA MD Ot Z90.710 ACQUIRED ABSENCE OF BOTH CERVIX AND UTER 05/24/2017 JUAN MANUEL CHAVIRA MD Ot E03. 9 HYPOTHYROIDISM, UNSPECIFIED 05/24/2017 JUAN MANUEL CHAVIRA MD Ot F32. 9 MAJOR DEPRESSIVE DISORDER, SINGLE EPISOD 05/24/2017 JUAN MANUEL CHAVIRA MD Ot I10 ESSENTIAL (PRIMARY) HYPERTENSION 05/24/2017 JUAN MANUEL CHAVIRA MD Ot M19. 90 UNSPECIFIED OSTEOARTHRITIS, UNSPECIFIED 05/24/2017 JUAN MANUEL CHAVIRA MD Ot M25.572 PAIN IN LEFT ANKLE AND JOINTS OF LEFT FO 05/24/2017 JUAN MANUEL CHAVIRA MD Ot S52.125A NONDISP FX OF HEAD OF LEFT RADIUS, INIT 05/24/2017 JUAN MANUEL CHAVIRA MD Ot S52.615A NONDISP FX OF LEFT ULNA STYLOID PROCESS, 05/24/2017 JUAN MANUEL CHAVIRA MD Ot W18.39XA OTHER FALL ON SAME LEVEL, INITIAL ENCOUN 05/24/2017 JUAN MANUEL CHAVIRA MD Ot X50.0XXA OVEREXERTION FROM STRENUOUS MOVEMENT OR 05/24/2017 JUAN MANUEL CHAVIRA MD Ot Z79. 82 BIOPHYSICS PROFESSOR (CURRENT) USE OF ASPIRIN 05/24/2017 JUAN MANUEL CHAVIRA MD Ot Z90.710 ACQUIRED ABSENCE OF BOTH CERVIX AND UTER 11/04/2017 Ot 789.07 ABD OMINAL PAIN, GENERALIZED 11/04/2017 Ot V72.84 EXA M PRE- OPERATIVE NOS 11/04/2017 MYRON AMARO MD Ot 729.81 SWELLING OF LIMB 11/04/2017 CHEL DO, CASTRO F Ot 722.52 LUMB/LUMBOSAC DISC DEGEN 11/04/2017 MYRON AMARO MD Ot M94.0 CHONDROCOSTAL JUNCTION SYNDROME [TIETZE] 11/04/2017 MYRON AMARO MD Ot S23.3XXA SPRAIN OF LIGAMENTS OF THORACIC SPINE, I 11/04/2017 MYRON AMARO MD Ot X58.XXXA EXPOSURE TO OTHER SPECIFIED FACTORS, INI 11/04/2017 MYRON AMARO MD Ot Y99.8 OTHER EXTERNAL CAUSE STATUS 11/04/2017 MYRON AMARO MD Ot M54.5 LOW BACK PAIN 11/04/2017 MYRON AMARO MD Ot M54.6 PAIN IN THORACIC SPINE 11/04/2017 MYRON AMARO MD Ot R0 5 COUGH 11/04/2017 MYRON AMARO MD Ot R10.2 PELVIC AND PERINEAL PAIN 11/04/2017 MYRON AMARO MD Ot M81.0 AGE-RELATED OSTEOPOROSIS W/O CURRENT PAT 11/05/2017 Ot 789.07 ABD OMINAL PAIN, GENERALIZED 11/05/2017 Ot V72.84 EXA M PRE- OPERATIVE NOS 11/05/2017 MYRON AMARO MD Ot 729.81 SWELLING OF LIMB 11/05/2017 CHEL DO, CASTRO F Ot 722.52 LUMB/LUMBOSAC DISC DEGEN 11/05/2017 MYRON AMARO MD Ot M94.0 CHONDROCOSTAL JUNCTION 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 9 DORSALGIA, UNSPECIFIED 11/07/2017 SWEET PA, FARHAN R Ot M79.604 PAIN IN RIGHT LEG 11/07/2017 SWEET PA, FARHAN R Ot M79.605 PAIN IN LEFT LEG 11/27/2017 SWEET PA, FARHAN R Ot M54. 9 DORSALGIA, UNSPECIFIED 11/27/2017 SWEET PA, FARHAN R Ot M79.604 PAIN IN RIGHT LEG 11/27/2017 SWEET PA, FARHAN R Ot M79.605 PAIN IN LEFT LEG 12/06/2017 SWEET PA, FARHAN R Ot M47.814 SPONDYLOSIS W/O MYELOPATHY OR RADICULOPA 12/06/2017 SWEET PA, FARHAN R Ot M48. 04 SPINAL STENOSIS, THORACIC REGION Procedures There is no data. Results Test Result Range Complete urinalysis with reflex to cultu re - 05/06/16 09:00 Urine color determination YELLOW NRG Urine clarity determination SLIGHTLY CLOUDY NRG Urine pH measurement by test strip 7 5-9 Specific gravity of urine by test strip 1.010 1.016-1.022 Urine protein assay by test strip, semi-quantitative 1+ NEGATIVE Urine glucose detection by automated test strip NE GATIVE NEGATIVE Erythrocytes detection in urine sediment by light micr oscopy 2+ NEGATIVE Urine ketones detection by automated test strip NE GATIVE NEGATIVE Urine nitrite detection by test strip POSITIVE NEGATIVE Urine total bilirubin detection by test strip NEGA TIVE NEGATIVE Urine urobilinogen measurement by automated test strip (mass/volume) NORMAL NORMAL Urine leukocyte esterase detection by dipstick 3+ NEGATIVE Automated urine sediment erythrocyte cou nt by microscopy (number/high power field) NONE NRG Automated urine sediment leukocyte count by microscopy (number/high power field) [HPF] NRG Bacteria detection in urine sediment by light microsco py LARGE NRG Squamous epithelial cells detection in u rine sediment by light microscopy 10-25 NRG Crystals detection in urine sediment by light microsco py NONE NRG Casts detection in urine sediment by light microscopy NONE NRG Mucus detection in urine sediment by light microscopy NEGATIVE NRG Complete urinalysis with reflex to culture YES NRG Bacterial urine culture - 05/06/16 09:00 Bacterial urine culture [id number] NRG COLONY COUNT >100,000/ML NRG FTX;REPORTABLE SENSITIVITY REPORTED 05/07 17:00 NRG URINE CULTURE RESULTS <10,000/ML NRG Bacterial susceptibility panel - 6 09:00 Gentamicin susceptibility test by minimum inhibitory c oncentration <= NRG Trimethoprim/sulfamethoxazole susceptibi lity test by minimum inhibitoryconcentration <= NRG Ampicillin susceptibility test by minimum inhibitory c oncentration R NRG Tobramycin susceptibility test by minimum inhibitory c oncentration <= NRG Cefazolin susceptibility test by minimum inhibitory co ncentration <= NRG Ceftriaxone susceptibility test by minimum inhibitory concentration <= NRG Ampicillin/sulbactam susceptibility test by minimum inhibitory concentration <= NRG Piperacillin/tazobactam susceptibility t est by minimum inhibitory concentration <= NRG Ciprofloxacin susceptibility test by minimum inhibitor y concentration <= NRG Meropenem susceptibility test by minimum inhibitory co ncentration <= NRG Nitrofurantoin susceptibility test by mi nimum inhibitory concentration <= NRG Aztreonam susceptibility test by minimum inhibitory co ncentration <= NRG Extended spectrum beta lactamase (ESBL) producing bacteria susceptibility test by minimum inhibitory concentration - NRG Complete blood count (CBC) with automate d white blood cell (WBC) differential - 05/06/16 09:09 Blood leukocytes automated count (number/volume) 7.5 10*3/uL 4.3-11.0 Blood erythrocytes automated count (number/volume) 4.82 10*6/uL 4.35-5.85 Venous blood hemoglobin measurement (mass/volume) 15.3 g/dL 11.5-16.0 Blood hematocrit (volume fraction) 46 % 35-52 Automated erythrocyte mean corpuscular volume 94 [ foz_us] 80-99 Automated erythrocyte mean corpuscular h emoglobin (mass per erythrocyte) 32 pg 25-34 Automated erythrocyte mean corpuscular h emoglobin concentration measurement (mass/volume) 34 g/dL 32-36 Automated erythrocyte distribution width ratio 14. 2 % 10.0- 14.5 Automated blood platelet count (count/volume) 229 10*3/uL 130-400 Automated blood platelet mean volume measurement 10.2 [foz_us] 7.4-10.4 Automated blood neutrophils/100 leukocytes 58 % 42-75 Automated blood lymphocytes/100 leukocytes 29 % 12-44 Blood monocytes/100 leukocytes 10 % 0-12 Automated blood eosinophils/100 leukocytes 2 % 0-10 Automated blood basophils/100 leukocytes 0 % 0-10 Blood neutrophils automated count (number/volume) 4.4 10*3 1.8-7.8 Blood lymphocytes automated count (number/volume) 2.2 10*3 1.0-4.0 Blood monocytes automated count (number/volume) 0. 8 10*3 0.0-1.0 Automated eosinophil count 0.1 10*3/uL 0 .0-0.3 Automated blood basophil count (count/volume) 0.0 10*3/uL 0.0-0.1 Comprehensive metabolic panel - 05/06/16 09:09 Serum or plasma sodium measurement (moles/volume) 137 mmol/L 135-145 Serum or plasma potassium measurement (moles/volume) 4.1 mmol/L 3.6-5.0 Serum or plasma chloride measurement (moles/volume) 104 mmol/L 98-107 Carbon dioxide 23 mmol/L 21-32 Serum or plasma anion gap determination (moles/volume) 10 mmol/L 5-14 Serum or plasma urea nitrogen measurement (mass/volume ) 15 mg/dL 7-18 Serum or plasma creatinine measurement (mass/volume) 0.76 mg/dL 0.60-1.30 Serum or plasma urea nitrogen/creatinine mass ratio 20 NRG Serum or plasma creatinine measurement w ith calculation of estimated glomerular filtration rate > NRG Serum or plasma glucose measurement (mass/volume) 97 mg/dL 70-105 Serum or plasma calcium measurement (mass/volume) 9.5 mg/dL 8.5-10.1 Serum or plasma total bilirubin measurement (mass/volu me) 0.5 mg/dL 0.1-1.0 Serum or plasma alkaline phosphatase deborah surement (enzymatic activity/volume) 110 U/L 40-136 Serum or plasma aspartate aminotransfera se measurement (enzymatic activity/volume) 15 U/L 5-34 Serum or plasma alanine aminotransferase measurement (enzymatic activity/volume) 17 U/L 0-55 Serum or plasma protein measurement (mass/volume) 6.8 g/dL 6.4-8.2 Serum or plasma albumin measurement (mass/volume) 4.1 g/dL 3.2-4.5 Lipase - 05/06/16 09:09 Lipase 16 U/L 8-78 Complete urinalysis with reflex to cultu re - 05/07/16 04:22 Urine color determination YELLOW NRG Urine clarity determination CLEAR NR G Urine pH measurement by test strip 7 5-9 Specific gravity of urine by test strip 1.010 1.016-1.022 Urine protein assay by test strip, semi-quantitative 1+ NEGATIVE Urine glucose detection by automated test strip 3+ NEGATIVE Erythrocytes detection in urine sediment by light micr oscopy 1+ NEGATIVE Urine ketones detection by automated test strip NE GATIVE NEGATIVE Urine nitrite detection by test strip NEGATIVE NEGATIVE Urine total bilirubin detection by test strip NEGA TIVE NEGATIVE Urine urobilinogen measurement by automated test strip (mass/volume) NORMAL NORMAL Urine leukocyte esterase detection by dipstick 1+ NEGATIVE Automated urine sediment erythrocyte cou nt by microscopy (number/high power field) [HPF] NRG Automated urine sediment leukocyte count by microscopy (number/high power field) [HPF] NRG Bacteria detection in urine sediment by light microsco py TRACE NRG Squamous epithelial cells detection in u rine sediment by light microscopy 5-10 NRG Crystals detection in urine sediment by light microsco py NONE NRG Casts detection in urine sediment by light microscopy NONE NRG Mucus detection in urine sediment by light microscopy SMALL NRG Complete urinalysis with reflex to culture NO NRG Complete blood count (CBC) with automate d white blood cell (WBC) differential - 05/07/16 05:50 Blood leukocytes automated count (number/volume) 13.5 10*3/uL 4.3-11.0 Blood erythrocytes automated count (number/volume) 4.53 10*6/uL 4.35-5.85 Venous blood hemoglobin measurement (mass/volume) 14.3 g/dL 11.5-16.0 Blood hematocrit (volume fraction) 43 % 35-52 Automated erythrocyte mean corpuscular volume 95 [ foz_us] 80-99 Automated erythrocyte mean corpuscular h emoglobin (mass per erythrocyte) 32 pg 25-34 Automated erythrocyte mean corpuscular h emoglobin concentration measurement (mass/volume) 33 g/dL 32-36 Automated erythrocyte distribution width ratio 14. 1 % 10.0- 14.5 Automated blood platelet count (count/volume) 225 10*3/uL 130-400 Automated blood platelet mean volume measurement 10.7 [foz_us] 7.4-10.4 Automated blood neutrophils/100 leukocytes 80 % 42-75 Automated blood lymphocytes/100 leukocytes 13 % 12-44 Blood monocytes/100 leukocytes 7 % 0-12 Automated blood eosinophils/100 leukocytes 0 % 0-10 Automated blood basophils/100 leukocytes 0 % 0-10 Blood neutrophils automated count (number/volume) 10.8 10*3 1.8-7.8 Blood lymphocytes automated count (number/volume) 1.7 10*3 1.0-4.0 Blood monocytes automated count (number/volume) 1. 0 10*3 0.0-1.0 Automated eosinophil count 0.0 10*3/uL 0 .0-0.3 Automated blood basophil count (count/volume) 0.0 10*3/uL 0.0-0.1 Complete blood count (CBC) with automate d white blood cell (WBC) differential - 05/09/16 09:19 Blood leukocytes automated count (number/volume) 7.0 10*3/uL 4.3-11.0 Blood erythrocytes automated count (number/volume) 4.59 10*6/uL 4.35-5.85 Venous blood hemoglobin measurement (mass/volume) 14.3 g/dL 11.5-16.0 Blood hematocrit (volume fraction) 44 % 35-52 Automated erythrocyte mean corpuscular volume 95 [ foz_us] 80-99 Automated erythrocyte mean corpuscular h emoglobin (mass per erythrocyte) 31 pg 25-34 Automated erythrocyte mean corpuscular h emoglobin concentration measurement (mass/volume) 33 g/dL 32-36 Automated erythrocyte distribution width ratio 14. 5 % 10.0- 14.5 Automated blood platelet count (count/volume) 214 10*3/uL 130-400 Automated blood platelet mean volume measurement 10.4 [foz_us] 7.4-10.4 Automated blood neutrophils/100 leukocytes 55 % 42-75 Automated blood lymphocytes/100 leukocytes 31 % 12-44 Blood monocytes/100 leukocytes 11 % 0-12 Automated blood eosinophils/100 leukocytes 3 % 0-10 Automated blood basophils/100 leukocytes 1 % 0-10 Blood neutrophils automated count (number/volume) 3.9 10*3 1.8-7.8 Blood lymphocytes automated count (number/volume) 2.1 10*3 1.0-4.0 Blood monocytes automated count (number/volume) 0. 8 10*3 0.0-1.0 Automated eosinophil count 0.2 10*3/uL 0 .0-0.3 Automated blood basophil count (count/volume) 0.0 10*3/uL 0.0-0.1 Comprehensive metabolic panel - 05/09/16 09:19 Serum or plasma sodium measurement (moles/volume) 139 mmol/L 135-145 Serum or plasma potassium measurement (moles/volume) 3.7 mmol/L 3.6-5.0 Serum or plasma chloride measurement (moles/volume) 106 mmol/L 98-107 Carbon dioxide 25 mmol/L 21-32 Serum or plasma anion gap determination (moles/volume) 8 mmol/L 5-14 Serum or plasma urea nitrogen measurement (mass/volume ) 8 mg/dL 7-18 Serum or plasma creatinine measurement (mass/volume) 0.73 mg/dL 0.60-1.30 Serum or plasma urea nitrogen/creatinine mass ratio 11 NRG Serum or plasma creatinine measurement w ith calculation of estimated glomerular filtration rate > NRG Serum or plasma glucose measurement (mass/volume) 84 mg/dL 70-105 Serum or plasma calcium measurement (mass/volume) 8.7 mg/dL 8.5-10.1 Serum or plasma total bilirubin measurement (mass/volu me) 0.4 mg/dL 0.1-1.0 Serum or plasma alkaline phosphatase deborah surement (enzymatic activity/volume) 88 U/L 40-136 Serum or plasma aspartate aminotransfera se measurement (enzymatic activity/volume) 13 U/L 5-34 Serum or plasma alanine aminotransferase measurement (enzymatic activity/volume) 19 U/L 0-55 Serum or plasma protein measurement (mass/volume) 6.1 g/dL 6.4-8.2 Serum or plasma albumin measurement (mass/volume) 3.6 g/dL 3.2-4.5 Complete blood count (CBC) with automate d white blood cell (WBC) differential - 09/04/16 20:25 Blood leukocytes automated count (number/volume) 10.7 10*3/uL 4.3-11.0 Blood erythrocytes automated count (number/volume) 4.65 10*6/uL 4.35-5.85 Venous blood hemoglobin measurement (mass/volume) 14.6 g/dL 11.5-16.0 Blood hematocrit (volume fraction) 43 % 35-52 Automated erythrocyte mean corpuscular volume 93 [ foz_us] 80-99 Automated erythrocyte mean corpuscular h emoglobin (mass per erythrocyte) 31 pg 25-34 Automated erythrocyte mean corpuscular h emoglobin concentration measurement (mass/volume) 34 g/dL 32-36 Automated erythrocyte distribution width ratio 13. 6 % 10.0- 14.5 Automated blood platelet count (count/volume) 234 10*3/uL 130-400 Automated blood platelet mean volume measurement 10.9 [foz_us] 7.4-10.4 Automated blood neutrophils/100 leukocytes 64 % 42-75 Automated blood lymphocytes/100 leukocytes 26 % 12-44 Blood monocytes/100 leukocytes 8 % 0-12 Automated blood eosinophils/100 leukocytes 2 % 0-10 Automated blood basophils/100 leukocytes 0 % 0-10 Blood neutrophils automated count (number/volume) 6.9 10*3 1.8-7.8 Blood lymphocytes automated count (number/volume) 2.8 10*3 1.0-4.0 Blood monocytes automated count (number/volume) 0. 8 10*3 0.0-1.0 Automated eosinophil count 0.2 10*3/uL 0 .0-0.3 Automated blood basophil count (count/volume) 0.0 10*3/uL 0.0-0.1 PT panel in platelet poor plasma by coag ulation assay - 09/04/16 20:25 Prothrombin time (PT) in platelet poor plasma by coagu lation assay 13.2 s 12.2-14.7 INR in platelet poor plasma or blood by coagulation as say 1.0 0.8-1.4 Activated partial thromboplastin time (a PTT) in platelet poor plasma bycoagulation assay - 09/04/16 20:25 Activated partial thromboplastin time (a PTT) in platelet poor plasma bycoagulation assay 29 s 24-35 Whole blood basic metabolic panel - 01/14 20:25 Serum or plasma sodium measurement (moles/volume) 133 mmol/L 135-145 Serum or plasma potassium measurement (moles/volume) 4.7 mmol/L 3.6-5.0 Serum or plasma chloride measurement (moles/volume) 101 mmol/L 98-107 Carbon dioxide 19 mmol/L 21-32 Serum or plasma anion gap determination (moles/volume) 13 mmol/L 5-14 Serum or plasma urea nitrogen measurement (mass/volume ) 25 mg/dL 7-18 Serum or plasma creatinine measurement (mass/volume) 1.34 mg/dL 0.60-1.30 Serum or plasma urea nitrogen/creatinine mass ratio 19 NRG Serum or plasma creatinine measurement w ith calculation of estimated glomerular filtration rate 38 NRG Serum or plasma glucose measurement (mass/volume) 122 mg/dL 70-105 Serum or plasma calcium measurement (mass/volume) 9.3 mg/dL 8.5-10.1 Encounters ACCT No. Visit Date/Time Discharge Status Pt. Type Provider Facility Loc./Unit Complaint [id number] 04/02/2019 16:15:00 019 23:59:59 CLS Preadmit MYRON AMARO MD [facility] RAD ABN WEIGHT LOSS [id number] 11/16/2017 08:18:00 018 23:59:59 CLS Outpatient FARHAN GONZALES [facility] RAD THORACIC PAIN [id number] 11/06/2017 09:46:00 018 23:59:59 CLS Outpatient FARHAN GONZALES [facility] RAD BACK PAIN M54.9 [id number] 05/21/2017 18:06:00 017 19:49:00 DIS Emergency JUAN MANUEL CHAVIRA MD [facility] ER LT ARM INJ [id number] 10/23/2016 14:31:00 017 23:59:59 CLS Preadmit MYRON AMARO MD [facility] REHAB LBP RADIATING INTO LOWE R EXTREMITIES [id number] 09/04/2016 19:57:00 017 22:36:00 DIS Emergency FARHAN TANG MD [facility] ER L ARM PAIN [id number] 06/07/2016 07:49:00 016 23:59:59 CLS Outpatient MYRON AMARO MD [facility] RAD M81.0 [id number] 05/17/2016 15:43:00 016 23:59:59 CLS Outpatient MYRON AMARO MD [facility] RAD PELVIC AND PERINEAL PA IN [id number] 05/06/2016 10:53:00 016 12:14:00 DIS Inpatient SOCORRO HIDALGO, CLOVER Schneider [facility] 4TH RIGHT PYELONEPHRITIS [id number] 10/26/2015 10:16:00 016 23:59:59 CLS Outpatient MYRON AMARO MD [facility] RAD THORACIC BACK SPRAIN, L SIDE PAIN [id number] 12/04/2014 20:17:00 015 21:33:00 DIS Emergency FORTUNATO MELENDEZ MD [facility] ER R LEG PAIN,SWELLING,RED NESS [id number] 09/14/2013 10:16:00 014 23:59:59 CLS Outpatient CASTRO MILLIGAN DO F [facility] RAD LUMBAR RADICULO KIM [id number] 08/19/2013 17:32:00 014 18:58:00 DIS Emergency FARHAN TANG MD [facility] ER LEFT ARM INJ [id number] 02/25/2013 13:30:00 013 23:59:59 CLS Outpatient MYRON AMARO MD [facility] RAD SWELLING [id number] 07/28/2012 08:22:00 Document Registration [id number] 07/24/2012 07:12:00 Document Registration [id number] 06/01/2012 08:48:00 Document Registration [id number] 05/19/2012 13:48:00 Document Registration [id number] 07/06/2011 22:09:00 Document Registration [id number] 06/28/2011 09:01:00 Document Registration [id number] 06/27/2011 07:55:00 Document Registration [id number] 06/20/2011 17:10:00 Document Registration [id number] 08/28/2010 16:52:00 Document Registration
--- NOTE | 2019-11-28 21:27 | ED Fall/Injury ---
General Chief Complaint: Trauma-Non Activation Stated Complaint: FELL AT ,L FT PAIN, R HAND PAIN Source: patient Exam Limitations: no limitations History of Present Illness Date Seen by Provider: November 28, 2019 Time Seen by Provider: 21:04 Initial Comments The patient arrives to the ER by private conveyance from home by her and chief complaint that about an hour prior to arrival she had a fall while standing up out of her bed to go to the bathroom. She said she did not lose consciousness nor feel dizzy. She does not think she took a step. She has some pain swelling and difficulty when doing pressure on her left foot as well as her right wrist where she fell on outstretched forearms. She rates her pain as a 5 out of 10 and does not want anything for it presently. She did not take anything for at home. She did get to the bathroom before coming to the ER. She did not strike her head. No loss of consciousness nausea vomiting headache and neckache. No other soreness anywhere else. She is on aspirin but no blood thinners. She denies dysuria fever, chills, recent travel, cough, shortness of air or chest pain. Allergies and Home Medications Allergies Coded Allergies: Iodinated Contrast Media - Oral and (Unverified Allergy, Unknown, 05/06/16) Sulfa (Sulfonamide Antibiotics) (Verified Allergy, Unknown, 02/25/08) ciprofloxacin (Unverified Allergy, Unknown, 05/06/16) Home Medications Alprazolam 0.25 Mg Tablet, 0.5-1 TAB PO BID PRN for ANXIETY, (Reported) Alprazolam 0.25 Mg Tablet, 0.5 MG PO Q8H PRN for anxiety Prescribed by: KANDY BENOIT on 05/09/16 1110 Amoxicillin/Potassium Clav 1 Each Tablet, 1 EACH PO BID Prescribed by: KANDY BENOIT on 05/09/16 1058 Aspirin 81 Mg Tabec, 81 MG PO DAILY, (Reported) Aspirin/Acetaminophen/Caffeine 1 Each Tablet, 2 TAB PO DAILY PRN for MIGRAINE, (Reported) Escitalopram Oxalate 10 Mg Tablet, 10 MG PO DAILY, (Reported) Hydrocodone Bit/Acetaminophen 1 Each Tablet, 1 TAB PO Q6H PRN for PAIN Prescribed by: KANDY BENOIT on 05/09/16 1058 Hydrocodone Bit/Acetaminophen 1 Each Tablet, 1-2 EACH PO Q6H PRN for BREAKTHROUGH PAIN Prescribed by: JUAN MANUEL CHAVIRA on 05/21/171930 Meloxicam 15 Mg Tablet, 15 MG PO DAILY, (Reported) Metoprolol Succinate 25 Mg Tab.er.24h, 25 MG PO DAILY, (Reported) Potassium Chloride 10 Meq Tab.er.prt, 10 MEQ PO BID, (Reported) Ropinirole HCl 1 Mg Tablet, 2 MG PO HS, (Reported) TAKES 2 (1MG) TABLETS Ropinirole Hcl 1 Mg Tablet, 1 MG PO DAILY PRN for RESTLESSNESS, (Reported) Trazodone HCl 150 Mg Tablet, 150 MG PO HS, (Reported) Patient Home Medication List Home Medication List Reviewed: Yes Review of Systems Review of Systems Constitutional: No chills, No diaphoresis Eyes: Denies Blindness, Denies Blurred Vision, Denies Drainage Ears, Nose, Mouth, Throat: denies ear pain, denies ear discharge Respiratory: No cough, No short of breath Cardiovascular: No chest pain, No edema Gastrointestinal: No abdominal pain, No nausea Genitourinary: No discharge, No dysuria Musculoskeletal: see HPI; No back pain; joint pain All Other Systems Reviewed Negative Unless Noted: Yes Past Kfnmewi-Nwnlwk-Ziztmt Hx Patient Social History Alcohol Use: Denies Use Recreational Drug Use: No Smoking Status: Former Smoker 2nd Hand Smoke Exposure: No Recent Foreign Travel: No Contact w/Someone Who Travel: No Recent Hopitalizations: No Immunizations Up To Date Tetanus Booster (TDap): More than 5yrs Seasonal Allergies Seasonal Allergies: Yes Past Medical History Surgeries: Yes (HYSTERECTOMY) Hysterectomy Respiratory: No Cardiac: Yes Hypertension Neurological: Yes Reproductive Disorders: Yes 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 0oz. 70.082072lw; 25.8 BMI Method:Stated General Appearance: WD/WN, mild distress HEENT: PERRL/EOMI, normal ENT inspection, TMs normal, pharynx normal, other (atraumatic head without Johnson sign, hemotympanum or raccoon eyes.) Neck: non-tender, full range of motion, supple, normal inspection Cardiovascular: normal peripheral pulses, regular rate, rhythm Respiratory: lungs clear, normal breath sounds, no respiratory distress, no accessory muscle use Peripheral Pulses: 2+ Dorsalis Pedis (R), 2+ Left Dors-Pedis (L), 2+ Radial Pulses (R) (ulnar pulse also palpable 2 out of 4), 2+ Radial Pulses (L) Extremities: normal range of motion, normal capillary refill, other (moderate 4 x 6 cm hematoma over the left dorsum foot with tenderness over the proximal first second and third metatarsals. Range of motion intact. Right wrist with no deformity but tenderness over the ulnar styloid process and proximal carpals on the ulnar side. No pain over anatomic snuffbox. No pain on palpation of ulnar shaft. Full range of motion and strength) Neurologic/Psychiatric: planning supervisor II-XII nml as tested, no motor/sensory deficits, alert, normal mood/affect, oriented x 3 Progress/Results/Core Measures Results/Orders My Orders Orders - JUAN MANUEL CHAVIRA Ct Head/Cervical Spine Wo (11/28/19 21:19) Wrist, Right, 3 Views Or More (11/28/19 21:19) Foot, Left, 3 Views (11/28/19 21:19) Vital Signs/I&O 11/28/19 21:16 Temp 36.7 Pulse 84 Resp 18 B/P (MAP) 182/84 (116) Pulse Ox 94 O2 Delivery Room Air Progress Progress Note : Time: 21:[address] of the head and neck without IV contrast, x-ray of the right wrist, x-ray of the left foot. No pain over the ankle to suggest ankle fracture. She has declined anything for pain at this time. There is no call coverage with orthopedics today. Plan to have her follow-up with her primary care provider to help direct her appropriate outpatient resources. Diagnostic Imaging Diagonstic Imaging: Xray Plain Films/CT/US/NM/MRI: hand (right wrist) Comments NAME: CELIO DE LA ROSA MED REC#: [id number] PT STATUS: REG ER : 1940 PHYSICIAN: JUAN MANUEL CHAVIRA MD ADMIT DATE: 11/28/19/ER Draft Date of Exam:11/28/19 WRIST, RIGHT, 3 VIEWS OR MORE INDICATION: Right wrist pain. EXAMINATION: Three views of the right wrist. FINDINGS: Narrowing of the intercarpal joint spaces. There is some calcification of the triangular fibrocartilage. There is slight widening of the scapholunate joint space. There is no fracture or dislocation. IMPRESSION: Degenerative changes in the right wrist with slight widening of the scapholunate joint space that could be due to ligamentous injury. No fracture is seen. Dictated on workstation # [id number] Dict: 11/28/192149 Trans: 11/28/192154 P[facility] [id number] Interpreted by: GRUPO REYNOLDS MD Electronically signed by: Reviewed: Reviewed by Vt Diagonstic Imaging: Xray Plain Films/CT/US/NM/MRI: other (left foot) Comments Proximal fifth metatarsal, proximal fracture, closed, nondisplaced left foot [facility] [place], [place] NAME: CELIO DE LA ROSA [facility] REC#: [id number] PT STATUS: REG ER : 1940 PHYSICIAN: JUAN MANUEL CHAVIRA MD ADMIT DATE: 11/28/19/ER Signed Date of Exam:11/28/19 FOOT, LEFT, 3 VIEWS Indication: Left foot pain 3 views of left foot show nondisplaced avulsion fracture at base of the 5th metatarsal. IMPRESSION: Nondisplaced avulsion fracture of the base of 5th metatarsal. Dictated by: Dictated on workstation # [id number] Dict: 11/28/192158 Trans: 11/28/192200 TB [id number] Interpreted by: GRUPO REYNOLDS MD Electronically signed by: GRUPO REYNOLDS MD 11/28/192200 Reviewed: Reviewed by Vt Diagonstic Imaging: CT (without IV contrast) Plain Films/CT/US/NM/MRI: c-spine, head Comments No acute intracranial hemorrhage, mass effect, midline shift or tumor. No calvarial fracture. No C-spine malalignment or fracture. NAME: CELIO DE LA ROSA [facility] REC#: [id number] PT STATUS: REG ER : 1940 PHYSICIAN: JUAN MANUEL CHAVIRA MD ADMIT DATE: 11/28/19/ER Draft Date of Exam:11/28/19 CT HEAD/CERVICAL SPINE WO PROCEDURE: CT head and CT cervical spine without contrast. TECHNIQUE: Multiple contiguous axial images were obtained through the brain and cervical spine without the use of intravenous contrast. Sagittal and coronal reformations through the cervical spine were then performed. Auto Exposure Controls were utilized during the CT exam to meet ALARA standards for radiation dose reduction. INDICATION: Head injury from a fall. FINDINGS: CT head: The ventricles are normal in size, shape and position. There is no mass or hemorrhage. There is no extra-axial fluid collection. IMPRESSION: Negative CT head. CT cervical spine: Vertebral body height and alignment appear normal. There appears to be chronic herniated disc of C4-C5 causing a moderate ventral extradural defect. Sagittal diameter of the canal is reduced to 8 mm at that level. There are mild degenerative changes at C3-C4 and C6-C7. There is no fracture. IMPRESSION: Chronic appearing herniated disc at C4-C5 causing a central stenosis. No fracture or acute abnormality seen. Dictated on workstation # [id number] Dict: 11/28/192147 Trans: 11/28/192156 [facility] [id number] Interpreted by: GRUPO REYNOLDS MD Electronically signed by: Reviewed: Reviewed by Me Departure Impression Primary Impression: Fall on same level Qualified Codes: W18.30XA - Fall on same level, unspecified, initial encounter Additional Impressions: Traumatic hematoma of left foot Qualified Codes: S90.32XA - Contusion of left foot, initial encounter Fracture of metatarsal of left foot, closed Qualified Codes: S92.355A - Nondisplaced fracture of fifth metatarsal bone, left foot, initial encounter for closed fracture Sprain of right wrist Qualified Codes: S63.501A - Unspecified sprain of right wrist, initial enc ounter Disposition: 01 HOME, SELF-CARE Condition: Stable Departure-Patient Inst. Decision time for Depature: 22:05 Referrals: MYRON AMARO MD (PCP/Family) Primary Care Physician Patient Instructions: Foot Fracture (DC), HEMATOMA, Wrist Sprain (DC) Add. Discharge Instructions: Remove any obstacles between your bed and the bathroom. Obtain adequate nightlight lighting to help reduce her risk of falls. Tylenol 1000 mg every 8 hours as needed for pain. Ice applied for 20 minutes every couple hours as necessary for pain and swelling. Heating pads and topical creams can also be helpful. The hematoma on your foot will go away over the next couple weeks after changing several colors. Walking with weightbearing as tolerated. Use the walker for stability. Wear the boot while walking. Wear the wrist brace for the next 1-2 weeks to help stabilize her wrist. Plan on following up with the primary care doctor in the next week for appropriate referral to orthopedic surgery if necessary as well as management of your ongoing pain. Hydrocodone one tablet every 6 hours as needed for pain not controlled by Tylenol and/or ibuprofen. Hydrocodone will cause constipation as well as drowsiness and increase your risk of falls so use it with caution. All discharge instructions reviewed with patient and/or family. Voiced understanding. Scripts Walker (Ultra-Light Rollator) 1 Each Each EACH MC for Pain, #1 0 Refills Use as directed. Weightbearing as tolerated. Prov: JUAN MANUEL CHAVIRA 11/28/19 Hydrocodone/Acetaminophen (Hydrocodone-Acetamin 5-325 mg) 1 Each Tablet 1 EACH PO Q6H PRN for PAIN-BREAKTHROUGH, #15 TAB 0 Refills Prov: JUAN MANUEL CHAVIRA 11/28/19 Copy Copies To 1: MYRON AMARO MD, TITUS J November 28, 2019 21:27
--- NOTE | 2019-11-28 21:56 | Diagnostic Imaging Report ---
INDICATION: Right wrist pain. EXAMINATION: Three views of the right wrist. FINDINGS: Narrowing of the intercarpal joint spaces. There is some calcification of the triangular fibrocartilage. There is slight widening of the scapholunate joint space. There is no fracture or dislocation. IMPRESSION: Degenerative changes in the right wrist with slight widening of the scapholunate joint space that could be due to ligamentous injury. No fracture is seen. Dictated by: Dictated on workstation # [id number]
--- NOTE | 2019-11-28 21:58 | Diagnostic Imaging Report ---
PROCEDURE: CT head and CT cervical spine without contrast. TECHNIQUE: Multiple contiguous axial images were obtained through the brain and cervical spine without the use of intravenous contrast. Sagittal and coronal reformations through the cervical spine were then performed. Auto Exposure Controls were utilized during the CT exam to meet ALARA standards for radiation dose reduction. INDICATION: Head injury from a fall. FINDINGS: CT head: The ventricles are normal in size, shape and position. There is no mass or hemorrhage. There is no extra-axial fluid collection. IMPRESSION: Negative CT head. CT cervical spine: Vertebral body height and alignment appear normal. There appears to be chronic herniated disc of C4-C5 causing a moderate ventral extradural defect. Sagittal diameter of the canal is reduced to 8 mm at that level. There are mild degenerative changes at C3-C4 and C6-C7. There is no fracture. IMPRESSION: Chronic appearing herniated disc at C4-C5 causing a central stenosis. No fracture or acute abnormality seen. Dictated by: Dictated on workstation # [id number]
--- NOTE | 2019-11-28 22:03 | Diagnostic Imaging Report ---
Indication: Left foot pain 3 views of left foot show nondisplaced avulsion fracture at base of the 5th metatarsal. IMPRESSION: Nondisplaced avulsion fracture of the base of 5th metatarsal. Dictated by: Dictated on workstation # [id number]
[2019-11-28] MEDS ORDERED: WALK1EAC23 MC (22:09)
[2019-11-28] MEDS ORDERED: HYDR-83 PO (22:09)
[2019-11-28] MEDS ORDERED: RX-HYDROCODONE/APAP 5/325 MG #4 TAB PK PO PRN (22:30)
[2019-11-28 22:33] VITALS: BP 182/84
== END 2019-11-28 22:32 | disposition home or self-care (01) ==
LOC: EDUNIT# 21:01 → ER 21:03
DX: S92.355A Nondisplaced fracture of fifth metatarsal bone, left foot, initial encounter for closed fracture (principal); S90.32XA Contusion of left foot, initial encounter; S63.501A Unspecified sprain of right wrist, initial encounter; I10 Essential (primary) hypertension; F32.9 Major depressive disorder, single episode, unspecified; Z87.891 Personal history of nicotine dependence; Z91.041 Radiographic dye allergy status; Z88.1 Allergy status to other antibiotic agents; Z88.2 Allergy status to sulfonamides; W18.39XA Other fall on same level, initial encounter
CPT/HCPCS: 70450; 72125; 73110; 73630

== ENCOUNTER → 2020-01-19 | Outpatient (CLI) | payer MEDICARE, OTHER ==
[~2020-01-19] MED LIST changes: +HYDR-83 PO; +WALK1EAC23 MC
--- NOTE | 2020-01-19 13:07 | Diagnostic Imaging Report ---
INDICATION: Left foot pain. FINDINGS: Three views of the left foot show a subacute fracture at the base of the 5th metatarsal with lucency of the fracture line suggesting this may be healing by fibrous union. IMPRESSION: Avulsion fracture at the base of the 5th metatarsal may be healing by fibrous union. Dictated by: Dictated on workstation # [id number]
--- NOTE | 2020-01-19 13:10 | Diagnostic Imaging Report ---
INDICATION: Right hand pain. FINDINGS: Three views of the right hand show generalized osteopenia. There is no acute fracture or dislocation. There are degenerative changes of the intercarpal joints with joint space narrowing and some sclerosis of the opposing articular surfaces. IMPRESSION: Osteopenia. No acute fracture is seen in the hand. Degenerative arthritis of the intercarpal joints. Dictated by: Dictated on workstation # [id number]
== END ==
LOC: RAD 12:22
DX: S92.355D Nondisplaced fracture of fifth metatarsal bone, left foot, subsequent encounter for fracture with routine healing (principal); M19.041 Primary osteoarthritis, right hand; M85.841 Other specified disorders of bone density and structure, right hand
CPT/HCPCS: 73130; 73630

== ENCOUNTER → 2020-03-18 | Outpatient (CLI) | payer MEDICARE, OTHER ==
[~2020-03-18] MED LIST changes: -HYDR-83 PO
--- NOTE | 2020-03-18 11:28 | Diagnostic Imaging Report ---
EXAMINATION: Left foot, 3 views INDICATION: Follow-up of left 5th metatarsal fracture. COMPARISON: Multiple priors, most recent performed on 01/19/2020. FINDINGS: There is marked osteopenia of the visualized bones, limiting detailed evaluation. Again demonstrated is an avulsion injury involving the base of the 5th metatarsal. Fracture margins are more well-defined, with increasing sclerotic borders. No significant periosteal reaction is demonstrated. No new fracture is appreciated. Bony alignment is maintained. Soft tissues are unremarkable. IMPRESSION: Continued healing of avulsion fracture involving the base of the 5th metatarsal. Dictated by: Dictated on workstation # [id number]
--- NOTE | 2020-03-18 11:32 | Diagnostic Imaging Report ---
EXAMINATION: Left ankle, 2 views. INDICATION: Left ankle pain. COMPARISON: Prior left foot radiographs. FINDINGS: There is diffuse osteopenia of the visualized bones, limiting detailed evaluation. Again demonstrated is a healing avulsion fracture of the base of the 5th metatarsal, seen on the lateral view. No fracture or acute osseous abnormality involving the ankle. Soft tissues are unremarkable. No radiopaque foreign bodies demonstrated. IMPRESSION: No acute fracture or dislocation involving the ankle. Dictated by: Dictated on workstation # [id number]
== END ==
LOC: RAD 10:53
DX: S92.352D Displaced fracture of fifth metatarsal bone, left foot, subsequent encounter for fracture with routine healing (principal)
CPT/HCPCS: 73600; 73630

== ENCOUNTER 2020-04-23 11:23 | Inpatient (IN) | payer MEDICARE, OTHER ==
[~2020-04-23] VITALS: Ht 170.2 cm; Wt 70.8 kg
[~2020-04-23 11:23] MED LIST changes: +ALPR.25T PO; -ALPR0.254 PO
--- NOTE | 2020-04-23 12:08 | ED Cough/URI ---
General Chief Complaint: Respiratory Problems Stated Complaint: COUGH / SOA Nursing Triage Note: Pt to ED with c/o SOB and non-productive cough for the past several days. Pt pursed lip breathing at time of assessment. Pt reports being exposed to flu and COVID. is a pt at [facility]. Pt has fentanyl patch to R upper arm, pt reports for restless leg. Sepsis Screen: No Definite Risk History of Present Illness Date Seen by Provider: Apr 23, 2020 Time Seen by Provider: 11:55 Initial Comments This is an 79-year-old female who presents to the ER with complaints of not feeling well, cough, shortness of breath. States that her has been hospitalized at this facility with COVID on the of this month. Her symptom onset was 2 days ago. Unknown fever, denies chills, chest pain, nausea, vomiting, diarrhea, abdominal pain. Has no specific complaints other than "not feeling well". Has not taken any medications at home. Allergies and Home Medications Allergies Coded Allergies: Iodinated Contrast Media (Unverified Allergy, Unknown, 05/06/16) Sulfa (Sulfonamide Antibiotics) (Verified Allergy, Unknown, 02/25/08) ciprofloxacin (Unverified Allergy, Unknown, 05/06/16) Home Medications ALPRAZolam 0.25 Mg Tablet, 0.5 MG PO Q8H PRN for anxiety Prescribed by: KANDY BENOIT on 05/09/16 1110 Alprazolam 0.25 Mg Tablet, 0.5-1 TAB PO BID PRN for ANXIETY, (Reported) Amoxicillin/Potassium Clav 1 Each Tablet, 1 EACH PO BID Prescribed by: KANDY BENOIT on 05/09/16 1058 Aspirin 81 Mg Tabec, 81 MG PO DAILY, (Reported) Aspirin/Acetaminophen/Caffeine 1 Each Tablet, 2 TAB PO DAILY PRN for MIGRAINE, (Reported) Escitalopram Oxalate 10 Mg Tablet, 10 MG PO DAILY, (Reported) Hydrocodone Bit/Acetaminophen 1 Each Tablet, 1 TAB PO Q6H PRN for PAIN Prescribed by: KANDY BENOIT on 05/09/16 1058 Hydrocodone Bit/Acetaminophen 1 Each Tablet, 1-2 EACH PO Q6H PRN for BREAKTHROUGH PAIN Prescribed by: JUAN MANUEL CHAVIRA on 05/21/17 193 Hydrocodone/Acetaminophen 1 Each Tablet, 1 EACH PO Q6H PRN for PAIN-BREAKTHROUGH Prescribed by: JUAN MANUEL CHAVIRA on 11/28/192208 Meloxicam 15 Mg Tablet, 15 MG PO DAILY, (Reported) Metoprolol Succinate 25 Mg Tab.er.24h, 25 MG PO DAILY, (Reported) Potassium Chloride 10 Meq Tab.er.prt, 10 MEQ PO BID, (Reported) Ropinirole HCl 1 Mg Tablet, 2 MG PO HS, (Reported) TAKES 2 (1MG) TABLETS Ropinirole Hcl 1 Mg Tablet, 1 MG PO DAILY PRN for RESTLESSNESS, (Reported) Trazodone HCl 150 Mg Tablet, 150 MG PO HS, (Reported) Patient Home Medication List Home Medication List Reviewed: Yes Review of Systems Review of Systems Constitutional: see HPI EENTM: no symptoms reported Respiratory: see HPI Cardiovascular: no symptoms reported Gastrointestinal: no symptoms reported Genitourinary: no symptoms reported Musculoskeletal: no symptoms reported Skin: no symptoms reported Psychiatric/Neurological: No Symptoms Reported Hematologic/Lymphatic: No Symptoms Reported Immunological/Allergic: no symptoms reported Past Lntqlct-Qgfgft-Goxvzo Hx Patient Social History Alcohol Use: Denies Use Recreational Drug Use: No 2nd Hand Smoke Exposure: No Recent Foreign Travel: No Contact w/Someone Who Travel: No Recent Infectious Disease Expo: No Recent Hopitalizations: No Immunizations Up To Date Tetanus Booster (TDap): More than 5yrs Seasonal Allergies Seasonal Allergies: Yes Past Medical History Surgeries: Yes (HYSTERECTOMY) Hysterectomy Respiratory: No Cardiac: Yes Hypertension Neurological: Yes 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 0oz. 70.365420ll; 23.00 BMI Method:Stated General Appearance: WD/WN, mild distress Eyes: Bilateral Eye Normal Inspection, Bilateral Eye PERRL, Bilateral Eye EOMI HEENT: PERRL/EOMI, normal ENT inspection, pharynx normal Neck: non-tender, full range of motion, supple, normal inspection Respiratory: decreased breath sounds; No accessory muscle use; wheezing, expiration Cardiovascular: normal peripheral pulses, no edema, no murmur Gastrointestinal: normal bowel sounds, non tender, soft, no organomegaly, no pulsatile mass Extremities: normal range of motion, non-tender, normal inspection, no pedal edema, no calf tenderness, normal capillary refill Neurologic/Psychiatric: no motor/sensory deficits, alert, normal mood/affect, oriented x 3 Skin: normal color, warm/dry Focused Exam Lactate Level 04/23/20 12:50: Lactic Acid Level 1.80 Lactic Acid Level Laboratory Tests Test 04/23/20 12:50 Lactic Acid Level 1.80 MMOL/L (0.50-2.00) Progress/Results/Core Measures Suspected Sepsis Recent Fever Within 48 Hours: Yes Infection Criteria Present: None New/Unexplained Altered Menta: No Sepsis Screen: No Definite Risk SIRS Temperature: Pulse: 106 Respiratory Rate: 25 Laboratory Tests 04/23/20 12:50: White Blood Count 8.2 Blood Pressure 145 /79 Mean: 101 04/23/20 12:50: Lactic Acid Level 1.80 Laboratory Tests 04/23/20 12:50: Creatinine 0.66, INR Comment 1.0, Platelet Count 223, Total Bilirubin 0.5 Results/Orders Lab Results Laboratory Tests Test 04/23/20 12:04 04/23/20 12:45 04/23/20 12:50 Range/Units Coronavirus 2019 (MARILYN) Positive H Negative Urine Color YELLOW Urine Clarity SL CLOUDY Urine pH 6.5 5-9 Urine Specific [place] 1.025 H 1.016-1.022 Urine Protein 2+ H NEGATIVE Urine Glucose (UA) NEGATIVE NEGATIVE Urine Ketones 3+ H NEGATIVE Urine Nitrite NEGATIVE NEGATIVE Urine Bilirubin 1+ H NEGATIVE Urine Urobilinogen 1.0 < = 1.0 MG/DL Urine Leukocyte Esterase NEGATIVE NEGATIVE Urine RBC (Auto) 1+ H NEGATIVE Urine RBC 0-2 /HPF Urine WBC NONE /HPF Urine Squamous Epithelial Cells 2-5 /HPF Urine Crystals NONE /LPF Urine Bacteria FEW H /HPF Urine Casts NONE /LPF Urine Mucus SMALL H /LPF Urine Culture Indicated NO White Blood Count 8.2 4.3-11.0 10^3/uL Red Blood Count 5.42 H 3.80-5.11 10^6/uL Hemoglobin 16.4 H 11.5-16.0 g/dL Hematocrit 50 35-52 % Mean Corpuscular Volume 92 80-99 fL Mean Corpuscular Hemoglobin 30 25-34 pg Mean Corpuscular Hemoglobin Concent 33 32-36 g/dL Red Cell Distribution Width 14.1 10.0-14.5 % Platelet Count 223 130-400 10^3/uL Mean Platelet Volume 10.6 9.0-12.2 fL Immature Granulocyte % (Auto) 1 % Neutrophils (%) (Auto) 84 H 42-75 % Lymphocytes (%) (Auto) 9 L 12-44 % Monocytes (%) (Auto) 7 0-12 % Eosinophils (%) (Auto) 0 0-10 % Basophils (%) (Auto) 0 0-10 % Neutrophils # (Auto) 6.8 1.8-7.8 10^3/uL Lymphocytes # (Auto) 0.7 L 1.0-4.0 10^3/uL Monocytes # (Auto) 0.6 0.0-1.0 10^3/uL Eosinophils # (Auto) 0.0 0.0-0.3 10^3/uL Basophils # (Auto) 0.0 0.0-0.1 10^3/uL Immature Granulocyte # (Auto) 0.1 0.0-0.1 10^3/uL Prothrombin Time 13.9 12.2-14.7 SEC INR Comment 1.0 0.8-1.4 Activated Partial Thromboplast Time 33 24-35 SEC Sodium Level 137 135-145 MMOL/L Potassium Level 3.8 3.6-5.0 MMOL/L Chloride Level 102 98-107 MMOL/L Carbon Dioxide Level 23 21-32 MMOL/L Anion Gap 12 5-14 MMOL/L Blood Urea Nitrogen 13 7-18 MG/DL Creatinine 0.66 0.60-1.30 MG/DL Estimat Glomerular Filtration Rate > 60 BUN/Creatinine Ratio 20 Glucose Level 110 H 70-105 MG/DL Lactic Acid Level 1.80 0.50-2.00 MMOL/L Calcium Level 8.6 8.5-10.1 MG/DL Corrected Calcium 9.0 8.5-10.1 MG/DL Total Bilirubin 0.5 0.1-1.0 MG/DL Aspartate Amino Transf (AST/SGOT) 35 H 5-34 U/L Alanine Aminotransferase (ALT/SGPT) 18 0-55 U/L Alkaline Phosphatase 88 40-136 U/L Lactate Dehydrogenase 569 H 125-220 U/L C-Reactive Protein High Sensitivity 15.72 H 0.00-0.50 MG/DL Total Protein 7.2 6.4-8.2 GM/DL Albumin 3.5 3.2-4.5 GM/DL Micro Results Microbiology 04/23/20 Influenza Types A,B Antigen (DASHA) - Final, Complete My Orders Orders - PATIENCE TRAVIS APRN Influenza A And B Antigens (04/23/20 11:48) Cbc With Automated Diff (04/23/20 11:48) Comprehensive Metabolic Panel (04/23/20 11:48) Ua Culture If Indicated (04/23/20 11:48) Chest 1 View, Ap/Pa Only (04/23/20 11:48) Blood Culture (04/23/20 11:50) Sputum Culture (04/23/20 11:50) Protime With Inr (04/23/20 11:50) Partial Thromboplastin Time (04/23/20 11:50) Ed Iv/Invasive Line Start (04/23/20 11:50) Vital Signs Adult Sepsis Patie Q15M (04/23/20 11:50) O2 (04/23/20 11:50) Remove Rings In Anticipation O (04/23/20 11:50) Lactic Acid Analyzer (04/23/20 11:50) Vital Signs: Every 4 Hours (Or (04/23/20 11:50) Monitor-Rhythm Ecg Trace Only (04/23/20 11:50) Ferritin (04/23/20 11:50) LDH (04/23/20 11:50) Hs C Reactive Protein (04/23/20 11:50) Covid 19 Inhouse Test (04/23/20 11:57) Albuterol Inhaler (Ventolin Hfa) (04/23/20 12:45) Dexamethasone Oral Soln (Ed) (Decadron I (04/23/20 12:45) Dexamethasone Injection (Decadron Injec (04/23/20 12:43) Medications Given in ED Current Medications Medications Dose Ordered Sig/Essie Route Start Time Stop Time Status Last Admin Dose Admin Albuterol Sulfate Give 4 puffs with spacer ONCE ONCE IH 04/23/20 12:45 04/23/20 12:46 DC 04/23/20 12:57 18 GM Dexamethasone Sodium Phosphate 4 mg STK-MED ONCE .ROUTE 04/23/20 12:43 04/23/20 12:45 DC 04/23/20 13:02 6 MG Vital Signs/I&O 04/23/20 04/23/20 11:35 13:09 Temp 37.2 Pulse 106 Resp 25 B/P (MAP) 145/79 (101) Pulse Ox 86 94 O2 Delivery Room Air Nasal Cannula O2 Flow Rate 4.00 Capillary Refill : Less Than 3 Seconds Blood Pressure Mean: 101 Progress Note : Progress Note Upon ED arrival, she was noted to have oxygen saturation of 86% with increased respiratory effort. Was placed on oxygen 4 L via nasal cannula, which improved her oxygen saturation to 94%. Plan to proceed with COVID and a sepsis workup. Other than oxygen saturation remaining vitals are stable. Continued with increased respiratory effort, increased oxygen to 6 L to maintain oxygen saturation of 94%. Received first dose of dexamethasone and albuterol via inhaler and spacer. Tolerated well. Discussed case with Dr. Stanley, recommended inpatient ICU admission due to increasing oxygen needs. Discussed case with the patient and she is agreeable with inpatient admission. Diagnostic Imaging Diagonstic Imaging: Xray Plain Films/CT/US/NM/MRI: chest Comments NAME: CELIO DE LA ROSA [facility] REC#: [id number] PT STATUS: REG ER : 1940 PHYSICIAN: PATIENCE TRAVIS APRN ADMIT DATE: 04/23/20/ER Draft Date of Exam:04/23/20 CHEST 1 VIEW, AP/PA ONLY INDICATION: Hypoxia. Person under investigation for Covid. Comparison made to prior study from 05/17/2016. FINDINGS: There is enlargement of the cardiac silhouette but no evidence of current failure. While there are chronic interstitial changes within the lungs there appears to be some increased prominence of the basilar interstitial markings compared to the prior examination and a developing interstitial viral pneumonia cannot be excluded. There is no dense alveolar consolidation. There is no effusion. There is no pneumothorax. IMPRESSION: While there are chronic interstitial changes within the lungs, there is increased prominence of the basilar pulmonary interstitial markings compared to the prior examination which may be reflective of a developing interstitial pneumonia. There is no significant effusion. There is enlargement of the cardiac silhouette but the pulmonary vascularity appears appropriate. Dictated on workstation # [id number] Dict: 04/23/20 1334 Trans: 04/23/20 1346 [facility] [id number] Interpreted by: MEGHAN LANGSTON MD Electronically signed by: Departure Communication (Admissions) Time/Spoke to Admitting Phy: 13:[address] Stanley agreeable with inpatient admission to the ICU unit. Impression Primary Impression: COVID-19 Disposition: 09 ADMITTED INPATIENT Condition: Stable Admissions Decision to Admit Reason: Admit from ER (General) Decision to Admit/Date: Apr 23, 2020 Time/Decision to Admit Time: 13:15 Departure-Patient Inst. Referrals: MYRON AMARO MD (PCP/Family) Primary Care Physician PATIENCE TRAVIS APRN Apr 23, 2020 12:08
[2020-04-23] MEDS ORDERED: RT-ALBUTEROL INHALER HFA (VENTOLIN HFA) 18 GM IH ONE (12:45)
[2020-04-23 12:51] LABS: CLARITY,URINE SL CLOUDY; COLOR,URINE YELLOW; GLUCOSE, URINE (UA) NEGATIVE (NEGATIVE); KETONES,URINE 3+ (NEGATIVE); LEUKOCYTE ESTERASE ,URINE NEGATIVE (NEGATIVE); NITRITE,URINE NEGATIVE (NEGATIVE); PH,URINE 6.5 (5-9); PROTEIN,URINE 2+ (NEGATIVE)
[2020-04-23 13:04] LABS: BACTERIA,URINE FEW /HPF; BILIRUBIN,URINE 1+ (NEGATIVE); RBC,URINE 0-2 /HPF
[2020-04-23 13:07] LABS: BASOPHILS % (AUTO) 0 % (0-10); EOSINOPHILS % (AUTO) 0 % (0-10); HEMATOCRIT 50 % (35-52); HEMOGLOBIN 16.4 g/dL (11.5-16.0); LYMPHOCYTES # (AUTO) 0.7 10^3/uL (1.0-4.0); LYMPHOCYTES % (AUTO) 9 % (12-44); MEAN CORPUSCULAR HEMOGLOBIN 30 pg (25-34); MEAN CORPUSCULAR HGB CONC 33 g/dL (32-36); MEAN CORPUSCULAR VOLUME 92 fL (80-99); MEAN PLATELET VOLUME 10.6 fL (9.0-12.2); MONOCYTES # (AUTO) 0.6 10^3/uL (0.0-1.0); MONOCYTES % (AUTO) 7 % (0-12); NEUTROPHILS # (AUTO) 6.8 10^3/uL (1.8-7.8); NEUTROPHILS % (AUTO) 84 % (42-75); PLATELET COUNT 223 10^3/uL (130-400); WHITE BLOOD COUNT 8.2 10^3/uL (4.3-11.0)
[2020-04-23 13:18] LABS: ALBUMIN 3.5 GM/DL (3.2-4.5); CHLORIDE 102 MMOL/L (98-107); POTASSIUM 3.8 MMOL/L (3.6-5.0); SODIUM 137 MMOL/L (135-145)
[2020-04-23 13:20] LABS: CALCIUM 8.6 MG/DL (8.5-10.1); PROTHROMBIN TIME PATIENT 13.9 SEC (12.2-14.7)
[2020-04-23 13:21] LABS: GLUCOSE 110 MG/DL (70-105); TOTAL PROTEIN 7.2 GM/DL (6.4-8.2)
[2020-04-23 13:22] LABS: BILIRUBIN,TOTAL 0.5 MG/DL (0.1-1.0); CARBON DIOXIDE 23 MMOL/L (21-32)
[2020-04-23 13:24] LABS: ALKALINE PHOSPHATASE 88 U/L (40-136); CREATININE SERUM 0.66 MG/DL (0.60-1.30); GFR ESTIMATED > 60
--- NOTE | 2020-04-23 13:24 | NUR ---
Spoke to pt's son re: plan of care.
[2020-04-23 13:25] LABS: BUN/CREATININE RATIO 20
[2020-04-23 13:27] LABS: ALANINE AMINOTRANSFERASE 18 U/L (0-55)
--- NOTE | 2020-04-23 13:47 | Diagnostic Imaging Report ---
INDICATION: Hypoxia. Person under investigation for Covid. Comparison made to prior study from 05/17/2016. FINDINGS: There is enlargement of the cardiac silhouette but no evidence of current failure. While there are chronic interstitial changes within the lungs there appears to be some increased prominence of the basilar interstitial markings compared to the prior examination and a developing interstitial viral pneumonia cannot be excluded. There is no dense alveolar consolidation. There is no effusion. There is no pneumothorax. IMPRESSION: While there are chronic interstitial changes within the lungs, there is increased prominence of the basilar pulmonary interstitial markings compared to the prior examination which may be reflective of a developing interstitial pneumonia. There is no significant effusion. There is enlargement of the cardiac silhouette but the pulmonary vascularity appears appropriate. Dictated by: Dictated on workstation # [id number]
[2020-04-23] MEDS ORDERED: RT-ALBUTEROL INHALER HFA (VENTOLIN HFA) 18 GM IH PRN (15:15)
[2020-04-23] MEDS ORDERED: CATHETER FLUSH 10 ML SYR IV PRN (15:15)
[2020-04-23] MEDS ORDERED: ACETAMINOPHEN 325 MG TABLET PO PRN (15:15)
[2020-04-23] MEDS ORDERED: PANTOPRAZOLE 40 MG (PROTONIX) VIAL IV NR (15:45)
[2020-04-23] MEDS ORDERED: NS IV 500 ML 500 ML IV SCH (15:46)
[2020-04-23] MEDS ORDERED: REMDESIVIR INJ 200 MG in NS (IVPB) 210 ML IV NR (16:00)
[2020-04-23 16:29] VITALS: BP 145/79
[2020-04-23] MEDS ORDERED: rOPINIRole 1 MG (REQUIP) TABLET PO PRN (16:45)
[2020-04-23] MEDS: AZITHROMYCIN INJECTION 500 MG in NS (IVPB) 250 ML IV SCH (16:58)
[2020-04-23] MEDS: ENOXAPARIN 40 MG/0.4 ML (LOVENOX) SYR SC SCH (16:59)
[2020-04-23 17:47] VITALS: BP 156/87
[2020-04-23 17:52] VITALS: BP 159/86
[2020-04-23 17:57] VITALS: BP 155/87
[2020-04-23 18:02] VITALS: BP 162/83
[2020-04-23] MEDS: RT-ALBUTEROL INHALER HFA (VENTOLIN HFA) 18 GM IH SCH (18:39)
[2020-04-23] MEDS: rOPINIRole 1 MG (REQUIP) TABLET PO SCH (20:12)
[2020-04-23] MEDS: CATHETER FLUSH 10 ML SYR IV SCH (22:00)
--- NOTE | 2020-04-24 02:25 | NUR ---
PT ARRIVED ON FLOOR ACCOMPANIED BY ICU NURSE, REPORT RECEIVED FROM ALCON LI. PT INTRODUCED TO ROOM, CALL LIGHT GIVEN TO PT. ASSESSMENT DONE AT THIS TIME, FINE INSPIRATORY CRACKLES HEARD BILATERAL BASES. TEMP 96.8 F, HEART RATE 61, B/P 160/66. RR 30. PT REPORTS SOB, O2 85% WITH 1 L O2, INCREASED O2 TO 3.5L PT O2 SAT 90%, INHALER DONE PER ORDER, SEE EMAR, AFTER INHALER PT REPORTS FEELING BETTER, AND O2 SAT INCREASED TO 93% ON 2L. WILL CONTINUE TO MONITOR
[2020-04-24] MEDS: RT-ALBUTEROL INHALER HFA (VENTOLIN HFA) 18 GM IH SCH ×6 (03:03→22:50)
[2020-04-24 04:00] VITALS: BP 168/80
[2020-04-24] MEDS: CATHETER FLUSH 10 ML SYR IV SCH ×3 (06:35→22:08)
[2020-04-24 06:49] LABS: BASOPHILS % (AUTO) 0 % (0-10); EOSINOPHILS % (AUTO) 0 % (0-10); HEMATOCRIT 41 % (35-52); HEMOGLOBIN 13.8 g/dL (11.5-16.0); LYMPHOCYTES # (AUTO) 0.7 10^3/uL (1.0-4.0); LYMPHOCYTES % (AUTO) 17 % (12-44); MEAN CORPUSCULAR HEMOGLOBIN 31 pg (25-34); MEAN CORPUSCULAR HGB CONC 34 g/dL (32-36); MEAN CORPUSCULAR VOLUME 91 fL (80-99); MEAN PLATELET VOLUME 10.6 fL (9.0-12.2); MONOCYTES # (AUTO) 0.6 10^3/uL (0.0-1.0); MONOCYTES % (AUTO) 14 % (0-12); NEUTROPHILS # (AUTO) 2.8 10^3/uL (1.8-7.8); NEUTROPHILS % (AUTO) 69 % (42-75); PLATELET COUNT 203 10^3/uL (130-400); WHITE BLOOD COUNT 4.1 10^3/uL (4.3-11.0)
[2020-04-24 07:09] LABS: ALANINE AMINOTRANSFERASE 19 U/L (0-55); ALBUMIN 3.1 GM/DL (3.2-4.5); ALKALINE PHOSPHATASE 75 U/L (40-136); BILIRUBIN,TOTAL 0.5 MG/DL (0.1-1.0); BUN/CREATININE RATIO 25; CALCIUM 8.2 MG/DL (8.5-10.1); CARBON DIOXIDE 19 MMOL/L (21-32); CHLORIDE 106 MMOL/L (98-107); GFR ESTIMATED > 60; GLUCOSE 136 MG/DL (70-105); MAGNESIUM 1.8 MG/DL (1.6-2.4); POTASSIUM 2.7 MMOL/L (3.6-5.0); SODIUM 139 MMOL/L (135-145); TOTAL PROTEIN 6.3 GM/DL (6.4-8.2)
[2020-04-24 07:26] LABS: LYMPHOCYTES % (MANUAL) 6 %; MONOCYTES % (MANUAL) 11 %; NEUTROPHILS % (MANUAL) 83 %; RBC MORPH NORMAL
[2020-04-24] MEDS: PANTOPRAZOLE 40 MG (PROTONIX) VIAL IV SCH (08:21)
[2020-04-24] MEDS: AZITHROMYCIN INJECTION 500 MG in NS (IVPB) 250 ML IV SCH (08:31)
--- NOTE | 2020-04-24 08:40 | NUR ---
RN WENT TO ROOM TO ASSESSS AND PT LIPS WERE CYANOTIC AND SHE IS USING PURSED LIP BREATHING ON 3 L NC. 02 CHECKED AND SHE WAS AY 86%, RN HAD TO TURN UP AIR TO 6L AND NOW SHE IS UP TO 92%. SHE REPORTS ANXIETY AND REQUESTING NERVE PILL, WHICH ON HOME MED LIST IS XANAX 0.[address] YATES NOTIFIED, AWAITING ANSWER.
[2020-04-24] MEDS ORDERED: ALPRAZolam 0.25 MG (XANAX) TAB ONE (09:06)
[2020-04-24] MEDS ORDERED: ALPRAZolam 0.25 MG (XANAX) TAB PO PRN (09:15)
[2020-04-24 12:00] VITALS: BP 174/77
--- NOTE | 2020-04-24 12:14 | History & Physical-Hospitalist ---
History of Present Illness HPI/Chief Complaint Pt is an 79yoCF with a PMH of HTN, anxiety, who presented to the ER due to shortness of breath, fatigue, and cough. Her is COVID positive and was admitted to the hospital on 04/11. She started to develop worsening symptoms 3 days ago on 04/21 but had mild malaise for a few days prior to that. She denies fever. She has had poor appetite and lose of taste and smell. She was hypoxic on arrival as well. She was tested for COVID and that was positive in the ER. This morning she states she is feeling better but is very anxious. Source: patient Date Seen 04/24/20 Time Seen by a Provider: 12:34 Attending Physician Irvin Yates MD PCP Easton Palacios MD Referring Physician Date of Admission Apr 23, 2020 at 14:50 Home Medications & Allergies Home Medications Reviewed patient Home Medication Reconciliation performed by pharmacy medication reconciliations greenhouse technician and/or nursing. Patients Allergies have been reviewed. Allergies Allergies Coded Allergies Iodinated Contrast Media (Unverified Allergy, Unknown, 05/06/16) Sulfa (Sulfonamide Antibiotics) (Verified Allergy, Unknown, 02/25/08) ciprofloxacin (Unverified Allergy, Unknown, 05/06/16) Past Xukraux-Qrbbon-Zueoey Hx Past Med/Social Hx: Reviewed Nursing Past Med/Soc Hx Patient Social History Marrital Status: Employed/Student: retired Alcohol Use: Denies Use Recreational Drug Use: No Smoking Status: Unknown if Ever Smoked 2nd Hand Smoke Exposure: No Recent Foreign Travel: No Contact w/other who traveled: No Recent Hopitalizations: No Recent Infectious Disease Expo: No Immunizations Up To Date Tetanus Booster (TDap): More than 5yrs Seasonal Allergies Seasonal Allergies: Yes Past Medical History Surgeries: Hysterectomy Cardiac: Hypertension Reproductive: Yes Sexually Transmitted Disease: No Hysterectomy Musculoskeletal: Arthritis Endocrine: Hypothyroidsim HEENT: Cataract Psychosocial: Depression History of Blood Disorders: No Family History Reviewed Nursing Family Hx Review of Systems Constitutional: No fever; malaise EENTM: No nose congestion, No throat pain Respiratory: cough, short of breath Cardiovascular: No chest pain, No edema, No palpitations Gastrointestinal: No abdominal pain; loss of appetite; No nausea Genitourinary: no symptoms reported Musculoskeletal: no symptoms reported Skin: no symptoms reported Psychiatric/Neurological: Anxiety Physical Exam Physical Exam Vital Signs Vital Signs - First Documented 04/23/20 04/23/20 11:35 13:09 Temp 37.2 Pulse 106 Resp 25 B/P (MAP) 145/79 (101) Pulse Ox 86 O2 Delivery Room Air O2 Flow Rate 4.00 Capillary Refill : Less Than 3 Seconds Height, Weight, BMI Height: 5'7.00" Weight: 156lbs. 0oz. 70.056205ad; 23.00 BMI Method:Stated General Appearance: No Apparent Distress, WD/WN, Anxious HEENT: PERRL/EOMI, Moist Mucous Membranes; No Scleral Icterus (L), No Scleral Icterus (R) Neck: Normal Inspection, Supple Respiratory: Lungs Clear, No Accessory Muscle Use, Other (on 3lpm) Cardiovascular: Regular Rate, Rhythm, No Murmur Gastrointestinal: Normal Bowel Sounds, Non Tender, Soft Genital/Rectal: Other (cather in place) Extremity: Normal Capillary Refill, No Calf Tenderness, No Pedal Edema Neurologic/Psychiatric: Alert, Oriented x3, Other (very anxious) Skin: Normal Color, Warm/Dry Results Results/Procedures Labs Laboratory Tests 04/23/20 12:50 04/24/20 06:05 Patient resulted labs reviewed. Imaging: Reviewed Imaging Report Imaging [facility] [place] NAME: CELIO DE LA ROSA [facility] REC#: [id number] PT STATUS: REG ER : 1940 PHYSICIAN: PATIENCE TRAVIS APRN ADMIT DATE: 04/23/20/ER Signed Date of Exam:04/23/20 CHEST 1 VIEW, AP/PA ONLY INDICATION: Hypoxia. Person under investigation for Covid. Comparison made to prior study from 05/17/2016. FINDINGS: There is enlargement of the cardiac silhouette but no evidence of current failure. While there are chronic interstitial changes within the lungs there appears to be some increased prominence of the basilar interstitial markings compared to the prior examination and a developing interstitial viral pneumonia cannot be excluded. There is no dense alveolar consolidation. There is no effusion. There is no pneumothorax. IMPRESSION: While there are chronic interstitial changes within the lungs, there is increased prominence of the basilar pulmonary interstitial markings compared to the prior examination which may be reflective of a developing interstitial pneumonia. There is no significant effusion. There is enlargement of the cardiac silhouette but the pulmonary vascularity appears appropriate. Dictated by: Dictated on workstation # [id number] Dict: 04/23/20 1334 Trans: 04/23/20 1433 [facility] [id number] Interpreted by: MEGHAN LANGSTON MD Electronically signed by: MEGHAN LANGSTON MD 04/23/20 8271 Assessment/Plan Admission Diagnosis Acute hypoxic Respiratory Failure due to COVID19 Admission Status: Inpatient Order (span 2 midnights) Reason for Inpatient Admission: see below Assessment and Plan Acute hypoxic Respiratory Failure due to COVID19 Continue oxygen supplementation, wean as able Decadron EUA status of Remdesivir and convalescent plasma discussed with patient- patient agrees IS Lovenox Add procal Anxiety Visibly shaking while I was in room Resume home Xanax HTN BP trending up will resume home meds Hypothyroidism Continue home synthroid Chronic pain Wears a fentanyl patch at home, resume Resume hydrocodone DVT ppx: lovenox Gi ppx: Protonix Diet: Regular Diagnosis/Problems Diagnosis/Problems (1) Hypertension Qualifiers: Hypertension type: essential hypertension Qualified Codes: I10 - Essential (primary) hypertension (2) Hypothyroidism Status: Chronic Qualifiers: Hypothyroidism type: unspecified Qualified Codes: E03.9 - Hypothyroidism, unspecified (3) Acute respiratory failure Status: Acute Qualifiers: Respiratory failure complication: hypoxia Qualified Codes: J96.01 - Acute respiratory failure with hypoxia (4) Chronic pain Status: Chronic Qualifiers: Chronic pain type: other chronic pain Qualified Codes: G89.29 - Other chronic pain (5) Anxiety Status: Chronic (6) COVID-19 Status: Acute Clinical Quality Measures DVT/VTE Risk/Contraindication: Risk Factor Score Per Nursin RFS Level Per Nursing on Admit: 2=Moderate IRVIN YATES MD Apr 24, 2020 12:14
[2020-04-24] MEDS ORDERED: ANTACID SUSP 30 ML UDC (MYLANTA) PO PRN (12:30)
[2020-04-24] MEDS ORDERED: BENZONATATE 100 MG (TESSALON) CAPSULE PO PRN (12:30)
[2020-04-24] MEDS ORDERED: guaiFENesin/DM (ROBITUSSIN DM) 10 ML UDC PO PRN (12:30)
[2020-04-24] MEDS ORDERED: MILK OF MAGNESIA 400 MG/5 ML 30 ML UDC PO PRN (12:30)
[2020-04-24] MEDS ORDERED: ONDANSETRON 4 MG/2 ML (SDV) Z0FRAN IV PRN (12:30)
[2020-04-24] MEDS: ALPRAZolam 0.25 MG (XANAX) TAB PO PRN ×2 (13:39→20:11)
[2020-04-24] MEDS: fentaNYL PATCH 75 MCG (DURAGESIC) TD SCH (14:57)
[2020-04-24] MEDS: FENTANYL PATCH REMOVAL TP SCH (14:57)
[2020-04-24] MEDS: ENOXAPARIN 40 MG/0.4 ML (LOVENOX) SYR SC SCH (15:52)
[2020-04-24] MEDS: REMDESIVIR INJ 100 MG in NS (IVPB) 230 ML IV SCH (15:52)
[2020-04-24 16:59] VITALS: BP 187/81
[2020-04-24 17:20] VITALS: BP 140/64
[2020-04-24] MEDS: ACETAMINOPHEN 325 MG TABLET PO PRN (18:50)
[2020-04-24 19:06] VITALS: BP 140/50
[2020-04-24] MEDS: rOPINIRole 1 MG (REQUIP) TABLET PO SCH (20:11)
[2020-04-24] MEDS: traZODone 150 MG (DESYREL) TABLET PO SCH (20:12)
[2020-04-24] MEDS: MELATONIN 3 MG TABLET PO PRN (20:12)
[2020-04-24 23:16] VITALS: BP 133/65
[2020-04-25] MEDS: ACETAMINOPHEN 325 MG TABLET PO PRN (00:23)
[2020-04-25] MEDS: HYDROcodone/APAP 10 MG/325 MG (LORTAB) TAB PO PRN (02:49)
[2020-04-25] MEDS: RT-ALBUTEROL INHALER HFA (VENTOLIN HFA) 18 GM IH SCH ×6 (03:31→21:20)
[2020-04-25 06:01] LABS: BASOPHILS % (AUTO) 0 % (0-10); EOSINOPHILS % (AUTO) 0 % (0-10); HEMATOCRIT 42 % (35-52); HEMOGLOBIN 14.2 g/dL (11.5-16.0); LYMPHOCYTES # (AUTO) 0.8 10^3/uL (1.0-4.0); LYMPHOCYTES % (AUTO) 8 % (12-44); MEAN CORPUSCULAR HEMOGLOBIN 31 pg (25-34); MEAN CORPUSCULAR HGB CONC 34 g/dL (32-36); MEAN CORPUSCULAR VOLUME 91 fL (80-99); MEAN PLATELET VOLUME 10.8 fL (9.0-12.2); MONOCYTES # (AUTO) 0.9 10^3/uL (0.0-1.0); MONOCYTES % (AUTO) 9 % (0-12); NEUTROPHILS # (AUTO) 8.5 10^3/uL (1.8-7.8); NEUTROPHILS % (AUTO) 83 % (42-75); PLATELET COUNT 310 10^3/uL (130-400); WHITE BLOOD COUNT 10.2 10^3/uL (4.3-11.0)
[2020-04-25 06:22] LABS: ALBUMIN 3.2 GM/DL (3.2-4.5)
[2020-04-25 06:23] LABS: CHLORIDE 109 MMOL/L (98-107); POTASSIUM 3.1 MMOL/L (3.6-5.0); SODIUM 142 MMOL/L (135-145)
[2020-04-25 06:24] LABS: CALCIUM 8.4 MG/DL (8.5-10.1)
[2020-04-25 06:25] LABS: GLUCOSE 133 MG/DL (70-105); TOTAL PROTEIN 6.4 GM/DL (6.4-8.2)
[2020-04-25 06:26] LABS: CARBON DIOXIDE 20 MMOL/L (21-32)
[2020-04-25 06:27] LABS: BILIRUBIN,TOTAL 0.5 MG/DL (0.1-1.0)
[2020-04-25 06:28] LABS: ALKALINE PHOSPHATASE 74 U/L (40-136); PHOSPHORUS 2.6 MG/DL (2.3-4.7)
[2020-04-25 06:29] LABS: CREATININE SERUM 0.62 MG/DL (0.60-1.30); GFR ESTIMATED > 60
[2020-04-25 06:30] LABS: BUN/CREATININE RATIO 24
[2020-04-25 06:31] LABS: ALANINE AMINOTRANSFERASE 22 U/L (0-55)
[2020-04-25] MEDS: LEVOTHYROXINE 25 MCG (LEVOTHROID) TAB PO SCH (06:35)
[2020-04-25] MEDS: CATHETER FLUSH 10 ML SYR IV SCH ×3 (06:35→21:06)
[2020-04-25] MEDS: ALPRAZolam 0.25 MG (XANAX) TAB PO PRN ×3 (06:40→21:06)
[2020-04-25 07:20] VITALS: BP 165/87
[2020-04-25] MEDS: MAGNESIUM 1 GM/100 ML IVPB 100 ML IV SCH (08:27)
[2020-04-25] MEDS ORDERED: POTASSIUM CL 10MEQ/50ML IVPB 50 ML IV SCH (08:30)
[2020-04-25] MEDS: AZITHROMYCIN INJECTION 500 MG in NS (IVPB) 250 ML IV SCH (09:49)
[2020-04-25] MEDS: PANTOPRAZOLE 40 MG (PROTONIX) VIAL IV SCH (09:50)
[2020-04-25] MEDS: POTASSIUM CL 10MEQ/50ML IVPB 50 ML IV SCH (09:59)
[2020-04-25] MEDS: KCL 20 MEQ TAB (K-DUR) PO SCH (09:59)
[2020-04-25] MEDS: AZITHROMYCIN 250 MG TAB (ZITHROMAX) PO SCH (09:59)
[2020-04-25] MEDS ORDERED: KCL 20 MEQ TAB (K-DUR) PO ONE (11:45)
[2020-04-25] MEDS ORDERED: LEVO25TA2 PO (12:56)
[2020-04-25] MEDS ORDERED: MELO7.5T46 PO (12:56)
[2020-04-25] MEDS ORDERED: ESCI20TA45 PO (12:56)
--- NOTE | 2020-04-25 13:03 | Progress Note - Hospitalist ---
Subjective HPI/CC On Admission Date Seen by Provider: Apr 25, 2020 Time Seen by Provider: 11:00 Pt is an 79yoCF with a PMH of HTN, anxiety, who presented to the ER due to shortness of breath, fatigue, and cough. Her is COVID positive and was admitted to the hospital on 04/11. She started to develop worsening symptoms 3 days ago on 04/21 but had mild malaise for a few days prior to that. She denies fever. She has had poor appetite and lose of taste and smell. She was hypoxic on arrival as well. She was tested for COVID and that was positive in the ER. This morning she states she is feeling better but is very anxious. Subjective/Events-last exam She reports feeling well today. She says she is feeling better. She denies shortness of breath. She is asking about going home. We discussed the need for ongoing treatment due to her oxygen need. Focused Exam Lactate Level 04/23/20 12:50: Lactic Acid Level 1.80 Objective Exam Vital Signs Vital Signs Date Time Temp Pulse Resp B/P (MAP) Pulse Ox O2 Delivery O2 Flow Rate FiO2 04/25/20 09:00 93 High Flow N/C 5.00 04/25/20 07:20 35.8 68 20 165/87 (113) Capillary Refill : Less Than 3 Seconds General Appearance: No Apparent Distress, WD/WN Respiratory: Lungs Clear, Normal Breath Sounds, No Respiratory Distress Cardiovascular: Regular Rate, Rhythm, No Edema, No Murmur Gastrointestinal: Normal Bowel Sounds, Non Tender, Soft Extremity: Normal Inspection, Non Tender, No Pedal Edema Neurologic/Psychiatric: Alert, Oriented x3, No Motor/Sensory Deficits, Normal Mood/Affect Skin: Normal Color, Warm/Dry Results/Procedures Lab Laboratory Tests 04/25/20 05:34 Patient resulted labs reviewed. Imaging: Reviewed Imaging Report Assessment/Plan Assessment and Plan Assess & Plan/Chief Complaint Acute respiratory failure due to COVID-19 Continue oxygen supplementation, wean as able Decadron Remdesivir Convalescent plasma ordered IS Lovenox Anxiety Xanax HTN Continue home meds Hypothyroidism Continue synthroid Chronic pain Fentanyl patch Hydrocodone DVT prophylaxis: Lovenox Diagnosis/Problems Diagnosis/Problems (1) Acute respiratory failure due to COVID-19 Status: Acute (2) Hypokalemia Status: Acute (3) HTN (hypertension) Status: Chronic Qualifiers: Hypertension type: essential hypertension Qualified Codes: I10 - Essential (primary) hypertension (4) Hypothyroidism Status: Chronic Qualifiers: Hypothyroidism type: unspecified Qualified Codes: E03.9 - Hypothyroidism, unspecified (5) Anxiety Status: Chronic (6) Chronic pain Status: Chronic Qualifiers: Chronic pain type: other chronic pain Qualified Codes: G89.29 - Other chronic pain Clinical Quality Measures DVT/VTE Risk/Contraindication: Risk Factor Score Per Nursin RFS Level Per Nursing on Admit: 2=Moderate CELIA PEREZ MD Apr 25, 2020 13:02
[2020-04-25] MEDS ORDERED: FENT1PAT10 TD (13:17)
[2020-04-25] MEDS ORDERED: ASPI-1238 PO (13:17)
--- NOTE | 2020-04-25 13:22 | NUR ---
I SPOKE WITH THE PATIENT ON THE PHONE AND WENT THROUGH THE EXTERNAL MED HISTORY TO COMPLETE THIS MED REC. OTC: ASPIRIN
--- NOTE | 2020-04-25 13:26 | NUR ---
pt refuses albuterol inhaler. pt will not do it. rt tried to educate pt on why she needs an inhaler but still will not do. pt is refusing to do IS. Addendum: 04/25/20 at 1327 by JOSE ANTONIO BLOOM RT Amended: Links added.
--- NOTE | 2020-04-25 13:59 | NUR ---
"RD ASSESSMENT PMHx: HTN; hypothyroidism; PT INTERACTION: Note pt is currently in COVID isolation, per chart review. Note all diet information for nutrition assessment is per Yin PCT, or per chart review. Yin states current appetite is good. Note avg PO intake <25% meals, per chart review. Yin states recent issues with diarrhea. Note last BM was 04/24, and pt not currently on bowel regimen per chart review. Note recent 26# wt loss x5mon, per chart review. ABNORMAL NUTRITION-RELATED LAB VALUES LOW: K 3.1; Ca 8.2; HIGH: Cl 109; glu 133; AST 36 Est. kcal needs: 1700 kcal | 30 kcal/kg Est. Pro needs: 56 g Pro | 1.0 g Pro/kg PES STATEMENT: Inadequate oral intake (NI-2.1) related to loss of appetite | diarrhea as evidenced by chart review | avg PO intake <25% INTERVENTION: Continue with current diet order of Regular diet. Add Ensure Enlive (vary) to meals TID, for increased kcal intake. Provides 350 kcal and 20 g Pro per serving. Would encourage pt to eat when able. Will continue to follow and reassess as pt needs, intake, and status change. Imtiaz Barriga, MS RD LD"
--- NOTE | 2020-04-25 14:31 | Physical Therapy Evaluation ---
PT Evaluation-General Medical Diagnosis Admission Date Apr 23, 2020 at 14:50 Medical Diagnosis: covid, resp failure Onset Date: Apr 23, 2020 Therapy Diagnosis Therapy Diagnosis: impaired mobility, endurance Height/Weight Height (Feet): 5 Height (Inches): 7.00 Weight (Pounds): 156 Weight (Ounces): 0 Precautions Precautions/Isolations: Contact Isolation, Droplet Isolation, Fall Prevention Referral Physician: Ruth Ann Reason for Referral: Evaluation/Treatment Medical History Additional Medical History Past Medical History Surgeries: Hysterectomy Cardiac: Hypertension Reproductive: Yes Sexually Transmitted Disease: No Hysterectomy Musculoskeletal: Arthritis Endocrine: Hypothyroidsim HEENT: Cataract Psychosocial: Depression Reviewed History: Yes Social History Home: Multilevel Current Living Status: Spouse Entry Into Home: Stairs With Railing PT Steps Into Home: 6 PT Steps Inside Home: 5 Her is also in the hospital with covid Prior Prior Level of Function SCALE: Activities may be completed with or without assistive devices. 5-Jvpyddtvxw-unwienn completes the activity by him/herself with no assistance from a helper. 5-Set-up or Clean-up Assistance-helper sets up or cleans up; patient completes activity. [place] assists only prior to or following the activity. 4-Supervision or Touching Assistance-helper provides verbal cues and/or touching/steadying and/or contact guard assistance as patient completes activity. Assistance may be provided throughout the activity or intermittently. 3-Partial/Moderate Assistance-helper does LESS THAN HALF the effort. [place] li fts, holds or supports trunk or limbs, but provides less than half the effort. 2-Substantial/Maximal Assistance-helper does MORE THAN HALF the effort. [place] lifts or holds trunk or limbs and provides more than half the effort. 2-Lahajhvch-osrfcl does ALL the effort. Patient does none of the effort to complete the activity. Or, the assistance of 2 or more helpers is required for the patient to complete the activity. If activity was not attempted, code reason: 7-Patient Refused. 9-Not Applicable-not attempted and the patient did not perform the activity before the current illness, exacerbation or injury. 10-Not Attempted due to Environmental Limitations-(lack of equipment, weather restraints, etc.). 88-Not Attempted due to Medical Conditions or Safety Concerns. Bed Mobility: 6 Transfers (B,C,W/C): 6 Gait: 6 Stairs: 6 Indoor Mobility (Ambulation): Independent Stairs: Independent Patient is normally independent with mobility but recently she was using a rolling walker due to a left ankle fx. PT Evaluation-Current Subjective Patient in bed pre tx, agrees to PT, has no complaints of pain. Patient is currently very SOB she says just from trying to find her phone. Proper PPE donned before entering room. Pt/Family Goals "to breathe better" Objective Patient Orientation: Person, Place, Situation Attachments: Oxygen, [place] Catheter, IV ROM/Strength ROM Lower Extremities WNL (left ankle not tested) Strength Lower Extremities gross BLE 4+/5 Sensory Hearing: Functional Sensation Right Lower Extremit: Intact Sensation Left Lower Extremity: Intact Transfers Roll Left to Right (QC): 6 Sit to Lying (QC): 6 Lying to Sitting/Side of Bed(Q: 6 Patient refused to stand but was able to sit on the side of the bed for about 5 min for testing before needing to lay back down. After laying down she seemed to recover better than she was when PT first entered the room. Balance Sitting Static: Normal Sitting Dynamic: Normal Treatment BLE supine exercises x10 (AP, QS, HS), patient instructed to perform exercises a few times in the morning and a few times in the afternoon. Assessment/Needs Patient gets SOB very quickly with activity, poor endurance. Patient BTB post tx with nurse call, phone, tray, all needs met. Rehab Potential: Guarded PT Prison Goals Partner Goals PT Prison Goals Time Frame: May 02, 2020 Roll Left & Right (QC): 6 Sit to Lying (QC): 6 Lying-Sitting on Side/Bed(QC): 6 Sit to Stand (QC): 4 Chair/Lln-wd-Fuujb Xfer(QC): 4 Walk 10 feet (QC): 4 PT Plan Problem List Problem List: Activity Tolerance, Functional Strength, Safety, Balance, Gait, Transfer, Bed Mobility Treatment/Plan Treatment Plan: Continue Plan of Care Treatment Plan: Bed Mobility, Education, Functional Activity Yovana, Functional Strength, Gait, Safety, Therapeutic Exercise, Transfers Treatment Duration: May 02, 2020 Frequency: 6 times per week Estimated Hrs Per Day: .25 hour per day Patient and/or Family Agrees t: Yes Safety Risks/Education Patient Education: Correct Positioning, Safety Issues Teaching Recipient: Patient Teaching Methods: Demonstration, Discussion Response to Teaching: Reinforcement Needed Discharge Recommendations Plan Patient will perform bed mobility and transfer training, balance and endurance training, functional strengthening, stair training, gait training, and education, to improve functional mobility and independence at home. Therapy Discharge Recommendati: Post Acute PT Time/GCodes Time In: 1345 Time Out: 1358 Total Billed Treatment Time: 13 Total Billed Treatment 1 visit AIDE 13' JANES BARAJAS PT Apr 25, 2020 14:31
[2020-04-25 16:15] VITALS: BP 134/87
[2020-04-25] MEDS: ENOXAPARIN 40 MG/0.4 ML (LOVENOX) SYR SC SCH (16:22)
[2020-04-25] MEDS: REMDESIVIR INJ 100 MG in NS (IVPB) 230 ML IV SCH (16:40)
[2020-04-25] MEDS: traZODone 150 MG (DESYREL) TABLET PO SCH (20:21)
[2020-04-25] MEDS: rOPINIRole 1 MG (REQUIP) TABLET PO SCH (20:21)
[2020-04-26] VITALS: BP 127/87
[2020-04-26] MEDS: RT-ALBUTEROL INHALER HFA (VENTOLIN HFA) 18 GM IH SCH ×2 (02:33→07:07)
[2020-04-26] MEDS: CATHETER FLUSH 10 ML SYR IV SCH ×3 (05:59→22:01)
[2020-04-26] MEDS: LEVOTHYROXINE 25 MCG (LEVOTHROID) TAB PO SCH (05:59)
[2020-04-26 06:15] LABS: BASOPHILS % (AUTO) 0 % (0-10); EOSINOPHILS % (AUTO) 0 % (0-10); HEMATOCRIT 46 % (35-52); HEMOGLOBIN 15.2 g/dL (11.5-16.0); LYMPHOCYTES # (AUTO) 0.9 10^3/uL (1.0-4.0); LYMPHOCYTES % (AUTO) 8 % (12-44); MEAN CORPUSCULAR HEMOGLOBIN 30 pg (25-34); MEAN CORPUSCULAR HGB CONC 33 g/dL (32-36); MEAN CORPUSCULAR VOLUME 91 fL (80-99); MEAN PLATELET VOLUME 11.1 fL (9.0-12.2); MONOCYTES # (AUTO) 0.9 10^3/uL (0.0-1.0); MONOCYTES % (AUTO) 9 % (0-12); NEUTROPHILS # (AUTO) 8.4 10^3/uL (1.8-7.8); NEUTROPHILS % (AUTO) 82 % (42-75); PLATELET COUNT 255 10^3/uL (130-400); WHITE BLOOD COUNT 10.2 10^3/uL (4.3-11.0)
[2020-04-26 06:33] LABS: ALANINE AMINOTRANSFERASE 21 U/L (0-55); ALBUMIN 3.1 GM/DL (3.2-4.5); ALKALINE PHOSPHATASE 76 U/L (40-136); BILIRUBIN,TOTAL 0.7 MG/DL (0.1-1.0); BUN/CREATININE RATIO 31; CALCIUM 8.4 MG/DL (8.5-10.1); CARBON DIOXIDE 18 MMOL/L (21-32); CHLORIDE 109 MMOL/L (98-107); CREATININE SERUM 0.67 MG/DL (0.60-1.30); GFR ESTIMATED > 60; GLUCOSE 113 MG/DL (70-105); MAGNESIUM 1.9 MG/DL (1.6-2.4); PHOSPHORUS 2.2 MG/DL (2.3-4.7); SODIUM 138 MMOL/L (135-145); TOTAL PROTEIN 6.5 GM/DL (6.4-8.2)
[2020-04-26] MEDS: MAGNESIUM 1 GM/100 ML IVPB 100 ML IV SCH (06:46)
[2020-04-26] MEDS: KCL 20 MEQ TAB (K-DUR) PO SCH (06:48)
[2020-04-26] MEDS: POTASSIUM CL 10MEQ/50ML IVPB 50 ML IV SCH (06:48)
[2020-04-26 07:56] VITALS: BP 133/73
[2020-04-26] MEDS: PANTOPRAZOLE 40 MG (PROTONIX) VIAL IV SCH (09:02)
[2020-04-26] MEDS: AZITHROMYCIN 250 MG TAB (ZITHROMAX) PO SCH (09:03)
--- NOTE | 2020-04-26 11:51 | Physical Therapy Daily Note ---
PT Daily Note-Current Subjective Patient is very tearful about her transferring to ICU and currently on ventilator. Patient reluctantly agrees to PT. Mental Status Patient Orientation: Normal For Age Attachments: Oxygen Transfers SCALE: Activities may be completed with or without assistive devices. 8-Qrnmxryxey-klfobeu completes the activity by him/herself with no assistance fr om a helper. 5-Set-up or Clean-up Assistance-helper sets up or cleans up; patient completes activity. [place] assists only prior to or following the activity. 4-Supervision or Touching Assistance-helper provides verbal cues and/or touching/steadying and/or contact guard assistance as patient completes activity. Assistance may be provided throughout the activity or intermittently. 3-Partial/Moderate Assistance-helper does LESS THAN HALF the effort. [place] lifts, holds or supports trunk or limbs, but provides less than half the effort. 2-Substantial/Maximal Assistance-helper does MORE THAN HALF the effort. [place] lifts or holds trunk or limbs and provides more than half the effort. 2-Dvzjfgzad-pdaoyd does ALL the effort. Patient does none of the effort to complete the activity. Or, the assistance of 2 or more helpers is required for the patient to complete the activity. If activity was not attempted, code reason: 7-Patient Refused. 9-Not Applicable-not attempted and the patient did not perform the activity before the current illness, exacerbation or injury. 10-Not Attempted due to Environmental Limitations-(lack of equipment, weather restraints, etc.). 88-Not Attempted due to Medical Conditions or Safety Concerns. Sit to Lying (QC): 5 Lying to Sitting/Side of Bed(Q: 5 Sit to Stand (QC): 5 Gait Training Does the Patient Walk?: Yes Distance: 80' Walk 10 feet (QC): 5 Walk 50 ft with 2 Turns(QC): 5 Gait Assistive Device: FWW very slow, steady gait sequence Assessment Patient ceased treatment due to waiting on a phone call from family on the plan with her spouse. PT to increase activity as tolerated by patient. PT Residential Goals Residential Goals PT Admissions Officer Goals Time Frame: May 02, 2020 Roll Left & Right (QC): 6 Sit to Lying (QC): 6 Lying-Sitting on Side/Bed(QC): 6 Sit to Stand (QC): 4 Chair/Hfu-fd-Ymbih Xfer(QC): 4 Walk 10 feet (QC): 4 PT Plan Treatment/Plan Treatment Plan: Continue Plan of Care Treatment Plan: Bed Mobility, Education, Functional Activity Yovana, Functional Strength, Gait, Safety, Therapeutic Exercise, Transfers Treatment Duration: May 02, 2020 Frequency: 6 times per week Estimated Hrs Per Day: .25 hour per day Patient and/or Family Agrees t: Yes Time/GCodes Time In: 1055 Time Out: 1110 Total Billed Treatment Time: 15 Total Billed Treatment 1 visit GT 15 min HUGO COLEMAN PT Apr 26, 2020 11:51
--- NOTE | 2020-04-26 12:13 | Progress Note - Hospitalist ---
Subjective HPI/CC On Admission Date Seen by Provider: Apr 26, 2020 Time Seen by Provider: 10:05 Pt is an 79yoCF with a PMH of HTN, anxiety, who presented to the ER due to shortness of breath, fatigue, and cough. Her is COVID positive and was admitted to the hospital on 04/11. She started to develop worsening symptoms 3 days ago on 04/21 but had mild malaise for a few days prior to that. She denies fever. She has had poor appetite and lose of taste and smell. She was hypoxic on arrival as well. She was tested for COVID and that was positive in the ER. This morning she states she is feeling better but is very anxious. Subjective/Events-last exam She is anxious today. She is worried about her . He was transferred to the ICU yesterday and was intubated this morning. Focused Exam Lactate Level 04/23/20 12:50: Lactic Acid Level 1.80 Objective Exam Vital Signs Vital Signs Date Time Temp Pulse Resp B/P (MAP) Pulse Ox O2 Delivery O2 Flow Rate FiO2 04/26/20 09:00 95 High Flow N/C 5.00 04/26/20 07:56 35.6 63 20 133/73 (93) Capillary Refill : Less Than 3 Seconds General Appearance: No Apparent Distress, WD/WN Respiratory: Lungs Clear, Normal Breath Sounds, No Respiratory Distress Cardiovascular: Regular Rate, Rhythm, No Edema, No Murmur Gastrointestinal: Normal Bowel Sounds, Non Tender, Soft Extremity: Normal Inspection, Non Tender, No Pedal Edema Neurologic/Psychiatric: Alert, Oriented x3, No Motor/Sensory Deficits, Normal Mood/Affect Skin: Normal Color, Warm/Dry Results/Procedures Lab Laboratory Tests 04/26/20 05:48 Patient resulted labs reviewed. Imaging: Reviewed Imaging Report Assessment/Plan Assessment and Plan Assess & Plan/Chief Complaint Acute respiratory failure due to COVID-19 Pneumonia due to COVID-19 Continue oxygen supplementation, wean as able Decadron Remdesivir Convalescent plasma ordered IS Lovenox Anxiety Xanax HTN Continue home meds Hypothyroidism Continue synthroid Chronic pain Fentanyl patch Hydrocodone DVT prophylaxis: Lovenox Diagnosis/Problems Diagnosis/Problems (1) Acute respiratory failure due to COVID-19 Status: Acute (2) Pneumonia due to COVID-19 virus Status: Acute (3) Hypokalemia Status: Acute (4) HTN (hypertension) Status: Chronic Qualifiers: Hypertension type: essential hypertension Qualified Codes: I10 - Essential (primary) hypertension (5) Hypothyroidism Status: Chronic Qualifiers: Hypothyroidism type: unspecified Qualified Codes: E03.9 - Hypothyroidism, unspecified (6) Anxiety Status: Chronic (7) Chronic pain Status: Chronic Qualifiers: Chronic pain type: other chronic pain Qualified Codes: G89.29 - Other chronic pain Clinical Quality Measures DVT/VTE Risk/Contraindication: Risk Factor Score Per Nursin RFS Level Per Nursing on Admit: 2=Moderate CELIA PEREZ MD Apr 26, 2020 12:13
[2020-04-26] MEDS: ALPRAZolam 0.25 MG (XANAX) TAB PO PRN ×2 (12:54→21:02)
[2020-04-26] MEDS: ENOXAPARIN 40 MG/0.4 ML (LOVENOX) SYR SC SCH (15:26)
[2020-04-26] MEDS: REMDESIVIR INJ 100 MG in NS (IVPB) 230 ML IV SCH (15:26)
[2020-04-26 16:27] VITALS: BP 153/87
[2020-04-26] MEDS: traZODone 150 MG (DESYREL) TABLET PO SCH (21:02)
[2020-04-26] MEDS: rOPINIRole 1 MG (REQUIP) TABLET PO SCH (21:08)
[2020-04-26] MEDS: HYDROcodone/APAP 10 MG/325 MG (LORTAB) TAB PO PRN (23:00)
[2020-04-26] MEDS: MELATONIN 3 MG TABLET PO PRN (23:00)
[2020-04-26 23:52] VITALS: BP 150/89
[2020-04-27] MEDS: CATHETER FLUSH 10 ML SYR IV SCH ×3 (06:00→21:36)
[2020-04-27 06:07] LABS: HEMATOCRIT 44 % (35-52); HEMOGLOBIN 14.8 G/DL (11.5-16.0); MEAN CORPUSCULAR HEMOGLOBIN 31 PG (25-34); WHITE BLOOD COUNT 9.8 10^3/uL (4.3-11.0)
[2020-04-27 06:08] LABS: BASOPHILS % (AUTO) 0 % (0-10); EOSINOPHILS % (AUTO) 0 % (0-10); LYMPHOCYTES % (AUTO) 10 % (12-44); MEAN CORPUSCULAR HGB CONC 33 G/DL (32-36); MEAN CORPUSCULAR VOLUME 92 FL (80-99); MEAN PLATELET VOLUME 10.8 FL (7.4-10.4); MONOCYTES % (AUTO) 10 % (0-12); NEUTROPHILS # (AUTO) 7.8 X 10^3 (1.8-7.8); NEUTROPHILS % (AUTO) 80 % (42-75); PLATELET COUNT 262 10^3/uL (130-400)
[2020-04-27 06:20] LABS: BUN/CREATININE RATIO 47; CALCIUM 8.2 MG/DL (8.5-10.1); CARBON DIOXIDE 18 MMOL/L (21-32); CHLORIDE 109 MMOL/L (98-107); CREATININE SERUM 0.64 MG/DL (0.60-1.30); GFR ESTIMATED > 60; GLUCOSE 123 MG/DL (70-105); MAGNESIUM 2.2 MG/DL (1.6-2.4); PHOSPHORUS 3.2 MG/DL (2.3-4.7); SODIUM 138 MMOL/L (135-145)
[2020-04-27 06:21] LABS: ALANINE AMINOTRANSFERASE 17 U/L (0-55); ALBUMIN 2.9 GM/DL (3.2-4.5); ALKALINE PHOSPHATASE 66 U/L (40-136); BILIRUBIN,TOTAL 0.6 MG/DL (0.1-1.0)
[2020-04-27] MEDS: KCL 20 MEQ TAB (K-DUR) PO SCH (06:23)
[2020-04-27] MEDS: POTASSIUM CL 10MEQ/50ML IVPB 50 ML IV SCH (06:23)
[2020-04-27] MEDS: MAGNESIUM 1 GM/100 ML IVPB 100 ML IV SCH (06:23)
[2020-04-27] MEDS: LEVOTHYROXINE 25 MCG (LEVOTHROID) TAB PO SCH (06:35)
[2020-04-27 08:00] VITALS: BP 176/91
[2020-04-27] MEDS: PANTOPRAZOLE 40 MG (PROTONIX) TAB PO SCH (09:04)
--- NOTE | 2020-04-27 10:26 | NUR ---
Note from 04/26 at approx 1415: Background: Primary care nurse Bella spoke with me about patient voicing that she wants for her to be extubated. On 04/25 Rosanna spoke with her Rajeev before he went up to the ICU d/t worsen respiratory status r/t COVID 19. When she talked with her , he made her promise not to let us intubate him. However, once he got to ICU and continued to decompensate he changed his mind and requested to be intubated. This conversation was had with Dr. Coker and so I called and talked with Dr. Coker before going to talk with Rosanna. Dr. Coker indicated that Rajeev was alert and orientated and made the decision for intubation. After talking with Dr. Coker I looked up the patient's son Job's telephone number to take with me in case she wanted to talk with Job about Rajeev's continued plan of care. Primary Care Nurse, Service Control Operator, and this Nurse went to room to visit with Rosanna about her voiced concerns. Upon entering the room the patient's son Job called into the room to talk with his mom. After their conversation was completed Rosanna voiced that she wants to continue with the plan of care set in place and to keep Rajeev on the ventilator at this time. We talked for quite a long time and she was able to voice her concerns and wanting to honor her husbands wishes. She voiced understanding that this will be a trial to see if Rajeev is able to improve. Encouraged her that we would continue to support her and the doctors would be keeping her informed on if Rajeev is improving vs. not improving. She voiced relief from her conversation with her son and satisfaction in her decision to continue with the plan of care. They are a very close family and so we talked about that for quite some time. She requested that I go and talk with her Grand Daughter In Law, Tre that works as nurse in the [employer] [facility] here at the hospital and update her. I did f/u with Tre and she voiced relief in her grandmothers decision. I will be checking in and following along as support. No further needs noted at that time.
--- NOTE | 2020-04-27 10:32 | Physical Therapy Daily Note ---
PT Daily Note-Current Subjective Patient sitting EOB pre tx, agrees to PT, has no complaints of pain, has to use the restroom, she is able to push down her brief and clean and pull it back up herself, PT dons proper PPE before entering room. Appearance Patient sitting EOB post tx with nurse call, phone, tray, all needs met. Mental Status Patient Orientation: Normal For Age Attachments: Oxygen Transfers SCALE: Activities may be completed with or without assistive devices. 6-Lyimknvjvf-kfrtubq completes the activity by him/herself with no assistance from a helper. 5-Set-up or Clean-up Assistance-helper sets up or cleans up; patient completes activity. [place] assists only prior to or following the activity. 4-Supervision or Touching Assistance-helper provides verbal cues and/or touching/steadying and/or contact guard assistance as patient completes activity. Assistance may be provided throughout the activity or intermittently. 3-Partial/Moderate Assistance-helper does LESS THAN HALF the effort. [place] lifts, holds or supports trunk or limbs, but provides less than half the effort. 2-Substantial/Maximal Assistance-helper does MORE THAN HALF the effort. [place] lifts or holds trunk or limbs and provides more than half the effort. 3-Rcrwifdwn-mnqsql does ALL the effort. Patient does none of the effort to complete the activity. Or, the assistance of 2 or more helpers is required for the patient to complete the activity. If activity was not attempted, code reason: 7-Patient Refused. 9-Not Applicable-not attempted and the patient did not perform the activity before the current illness, exacerbation or injury. 10-Not Attempted due to Environmental Limitations-(lack of equipment, weather restraints, etc.). 88-Not Attempted due to Medical Conditions or Safety Concerns. Sit to Stand (QC): 4 SBA Gait Training Distance: 60' Walk 10 feet (QC): 4 Walk 50 ft with 2 Turns(QC): 4 Gait Persons Needed: 1 Gait Assistive Device: FWW close SBA, patient has some unsteadiness but no LOB, slow ambulation Exercises Seated Therapy Exercises: Ankle pumps, Long arc quads Seated Reps: 20 Treatments transfers, ambulation, toileting, LE exercise Assessment Current Status: Fair Progress less SOB with activity PT Wet Process Assistant Head Miller Goals Wet Process Assistant [place] Goals PT Senior Living Goals Time Frame: May 02, 2020 Roll Left & Right (QC): 6 Sit to Lying (QC): 6 Lying-Sitting on Side/Bed(QC): 6 Sit to Stand (QC): 4 Chair/Iyn-ao-Cbvrl Xfer(QC): 4 Walk 10 feet (QC): 4 PT Plan Problem List Problem List: Activity Tolerance, Functional Strength, Safety, Balance, Gait, Transfer Treatment/Plan Treatment Plan: Continue Plan of Care Treatment Plan: Bed Mobility, Education, Functional Activity Yovana, Functional Strength, Gait, Safety, Therapeutic Exercise, Transfers Treatment Duration: May 02, 2020 Frequency: 6 times per week Estimated Hrs Per Day: .25 hour per day Patient and/or Family Agrees t: Yes Safety Risks/Education Patient Education: Gait Training, Transfer Techniques, Correct Positioning, Safety Issues Teaching Recipient: Patient Teaching Methods: Demonstration, Discussion Response to Teaching: Reinforcement Needed Time/GCodes Time In: 1004 Time Out: 1018 Total Billed Treatment Time: 14 Total Billed Treatment 1 visit FA JANES AGUDELO PT Apr 27, 2020 10:32
--- NOTE | 2020-04-27 14:00 | NUR ---
RN Stephanie and this nurse took Rosanna up to ICU to see her Rajeev per Rosanna's request from yesterday. She voiced to me that she wanted to see that he is resting comfortably on the machine/vent. Stephanie stayed in the room with them while she visited. All of Rosanna's questions were answered and she spoke with Rajeev's primary care nurse Kris as well. She voiced that she felt better after seeing that he appears to be comfortable on the ventilator. We then helped her back to her room and Stephanie helped her get back into bed. She denies any other needs or requests at this time.
--- NOTE | 2020-04-27 14:06 | Progress Note - Hospitalist ---
Subjective HPI/CC On Admission Date Seen by Provider: Apr 27, 2020 Time Seen by Provider: 10:40 Pt is an 79yoCF with a PMH of HTN, anxiety, who presented to the ER due to shortness of breath, fatigue, and cough. Her is COVID positive and was admitted to the hospital on 04/11. She started to develop worsening symptoms 3 days ago on 04/21 but had mild malaise for a few days prior to that. She denies fever. She has had poor appetite and lose of taste and smell. She was hypoxic on arrival as well. She was tested for COVID and that was positive in the ER. This morning she states she is feeling better but is very anxious. Subjective/Events-last exam She is feeling better today. She is not feeling short of breath. She has been eating and drinking. She has no other complaints or concerns. Objective Exam Vital Signs Vital Signs Date Time Temp Pulse Resp B/P (MAP) Pulse Ox O2 Delivery O2 Flow Rate FiO2 04/27/20 11:15 Nasal Cannula 3.00 04/27/20 09:00 95 04/27/20 08:00 36.3 62 8 176/91 (119) Capillary Refill : Less Than 3 Seconds General Appearance: No Apparent Distress, WD/WN Respiratory: Lungs Clear, Normal Breath Sounds, No Respiratory Distress Cardiovascular: Regular Rate, Rhythm, No Edema, No Murmur Gastrointestinal: Normal Bowel Sounds, Non Tender, Soft Extremity: Normal Inspection, Non Tender, No Pedal Edema Neurologic/Psychiatric: Alert, Oriented x3, No Motor/Sensory Deficits, Normal Mood/Affect Skin: Normal Color, Warm/Dry Results/Procedures Lab Laboratory Tests 04/27/20 05:39 Patient resulted labs reviewed. Imaging: Reviewed Imaging Report Assessment/Plan Assessment and Plan Assess & Plan/Chief Complaint Acute respiratory failure due to COVID-19 Pneumonia due to COVID-19 Continue oxygen supplementation, wean as able Decadron Remdesivir s/p 1 unit convalescent plasma Anxiety Xanax HTN Continue home meds Hypothyroidism Continue synthroid Chronic pain Fentanyl patch Hydrocodone DVT prophylaxis: Lovenox Diagnosis/Problems Diagnosis/Problems (1) Acute respiratory failure due to COVID-19 Status: Acute (2) Pneumonia due to COVID-19 virus Status: Acute (3) Hypokalemia Status: Acute (4) HTN (hypertension) Status: Chronic Qualifiers: Hypertension type: essential hypertension Qualified Codes: I10 - Essential (primary) hypertension (5) Hypothyroidism Status: Chronic Qualifiers: Hypothyroidism type: unspecified Qualified Codes: E03.9 - Hypothyroidism, unspecified (6) Anxiety Status: Chronic (7) Chronic pain Status: Chronic Qualifiers: Chronic pain type: other chronic pain Qualified Codes: G89.29 - Other chronic pain Clinical Quality Measures DVT/VTE Risk/Contraindication: Risk Factor Score Per Nursin RFS Level Per Nursing on Admit: 2=Moderate CELIA PEREZ MD Apr 27, 2020 14:06
[2020-04-27] MEDS ORDERED: hydrALAZINE (APRESOLINE) 25 MG TAB PO PRN (14:15)
[2020-04-27] MEDS: REMDESIVIR INJ 100 MG in NS (IVPB) 230 ML IV SCH (14:34)
[2020-04-27] MEDS: fentaNYL PATCH 75 MCG (DURAGESIC) TD SCH (14:34)
[2020-04-27] MEDS: FENTANYL PATCH REMOVAL TP SCH (14:34)
[2020-04-27] MEDS: ALPRAZolam 0.25 MG (XANAX) TAB PO PRN ×2 (14:36→21:36)
[2020-04-27] MEDS: ENOXAPARIN 40 MG/0.4 ML (LOVENOX) SYR SC SCH (14:36)
[2020-04-27 15:52] VITALS: BP 136/80
[2020-04-27] MEDS: HYDROcodone/APAP 10 MG/325 MG (LORTAB) TAB PO PRN ×2 (16:50→21:36)
[2020-04-27] MEDS: rOPINIRole 1 MG (REQUIP) TABLET PO SCH (21:36)
[2020-04-27] MEDS: traZODone 150 MG (DESYREL) TABLET PO SCH (21:36)
[2020-04-28 00:14] VITALS: BP 154/70
[2020-04-28 05:57] LABS: BASOPHILS % (AUTO) 0 % (0-10); EOSINOPHILS % (AUTO) 0 % (0-10); HEMATOCRIT 44 % (35-52); HEMOGLOBIN 14.8 g/dL (11.5-16.0); LYMPHOCYTES # (AUTO) 1.1 10^3/uL (1.0-4.0); LYMPHOCYTES % (AUTO) 12 % (12-44); MEAN CORPUSCULAR HEMOGLOBIN 31 pg (25-34); MEAN CORPUSCULAR HGB CONC 34 g/dL (32-36); MEAN CORPUSCULAR VOLUME 92 fL (80-99); MEAN PLATELET VOLUME 10.8 fL (9.0-12.2); MONOCYTES # (AUTO) 0.9 10^3/uL (0.0-1.0); MONOCYTES % (AUTO) 10 % (0-12); NEUTROPHILS % (AUTO) 78 % (42-75); PLATELET COUNT 403 10^3/uL (130-400)
[2020-04-28] MEDS: LEVOTHYROXINE 25 MCG (LEVOTHROID) TAB PO SCH (06:06)
[2020-04-28] MEDS: CATHETER FLUSH 10 ML SYR IV SCH (06:14)
[2020-04-28 06:19] LABS: CHLORIDE 107 MMOL/L (98-107); SODIUM 138 MMOL/L (135-145)
[2020-04-28 06:21] LABS: CALCIUM 8.3 MG/DL (8.5-10.1)
[2020-04-28 06:22] LABS: GLUCOSE 115 MG/DL (70-105); TOTAL PROTEIN 6.1 GM/DL (6.4-8.2)
[2020-04-28] MEDS: POTASSIUM CL 10MEQ/50ML IVPB 50 ML IV SCH (06:22)
[2020-04-28 06:23] LABS: CARBON DIOXIDE 20 MMOL/L (21-32)
[2020-04-28] MEDS: KCL 20 MEQ TAB (K-DUR) PO SCH (06:23)
[2020-04-28 06:24] LABS: BILIRUBIN,TOTAL 0.6 MG/DL (0.1-1.0)
[2020-04-28 06:25] LABS: ALKALINE PHOSPHATASE 74 U/L (40-136); PHOSPHORUS 2.9 MG/DL (2.3-4.7)
[2020-04-28 06:26] LABS: CREATININE SERUM 0.69 MG/DL (0.60-1.30); GFR ESTIMATED > 60
[2020-04-28 06:27] LABS: BUN/CREATININE RATIO 43
[2020-04-28 06:28] LABS: ALANINE AMINOTRANSFERASE 17 U/L (0-55); MAGNESIUM 2.1 MG/DL (1.6-2.4)
[2020-04-28] MEDS: MAGNESIUM 1 GM/100 ML IVPB 100 ML IV SCH (06:31)
[2020-04-28] MEDS ORDERED: dexAMETHasone 6 MG TAB (DECADRON) PO SCH (07:00)
[2020-04-28 07:41] VITALS: BP 138/65
[2020-04-28] MEDS: PANTOPRAZOLE 40 MG (PROTONIX) TAB PO SCH (08:23)
--- NOTE | 2020-04-28 10:36 | NUR ---
pt was placed on room air for 30 minutes after 30 minutes pt saturation was 86%. pt was then placed on 3L nc and saturation came up to 90%. Addendum: 04/28/20 at 1037 by JOSE ANTONIO BLOOM RT Amended: Links added.
--- NOTE | 2020-04-28 12:01 | Discharge Summary ---
Discharge Summary Reconcile Patient Problems Problems Reviewed?: Yes Instructions for Patient [facility] Assessment/Instructions Take medications as prescribed. Follow up with Dr. Palacios. You are being set up with oxygen 3 L continuously. Return with worsening shortness of breath or if you feel like you are getting worse. Physician to follow Patient: Philip Discharge Diet for Home: No Restrictions Hospital Course Date of Admission: Apr 23, 2020 at 14:50 Admission Diagnosis : Acute respiratory failure due to COVID-19 Family Physician/Provider: Easton Palacios MD Date of Discharge: 04/28/20 Discharge Diagnosis: Acute respiratory failure due to COVID-19 Hospital Course: Rosanna Fernando is an 79-year-old female who was admitted with acute respiratory failure due to COVID-19. She was treated with Decadron. She received a course of Remdesivir. She received a dose of convalescent plasma. Her oxygen requirement improved, but she was still requiring 3 L continuously at the time of discharge. She was discharged home in stable condition. She should follow up with Dr. Palacios in a week or two. Labs and Pending Lab Test: Laboratory Tests 04/27/20 18:15: Troponin I < 0.028 04/28/20 05:33: White Blood Count 9.0, Red Blood Count 4.80, Hemoglobin 14.8, Hematocrit 44, Mean Corpuscular Volume 92, Mean Corpuscular Hemoglobin 31, Mean Corpuscular Hemoglobin Concent 34, Red Cell Distribution Width 13.7, Platelet Count 403H, Mean Platelet Volume 10.8, Immature Granulocyte % (Auto) 1, Neutrophils (%) (Auto) 78H, Lymphocytes (%) (Auto) 12, Monocytes (%) (Auto) 10, Eosinophils (%) (Auto) 0, Basophils (%) (Auto) 0, Neutrophils # (Auto) 7.0, Lymphocytes # (Auto) 1.1, Monocytes # (Auto) 0.9, Eosinophils # (Auto) 0.0, Basophils # (Auto) 0.0, Immature Granulocyte # (Auto) 0.1, Sodium Level 138, Potassium Level 4.0, Chloride Level 107, Carbon Dioxide Level 20L, Anion Gap 11, Blood Urea Nitrogen 30H, Creatinine 0.69, Estimat Glomerular Filtration Rate > 60, BUN/Creatinine Ratio 43, Glucose Level 115H, Calcium Level 8.3L, Corrected Calcium 9.1, Phosphorus Level 2.9, Magnesium Level 2.1, Total Bilirubin 0.6, Aspartate Amino Transf (AST/SGOT) 17, Alanine Aminotransferase (ALT/SGPT) 17, Alkaline Phosphatase 74, Total Protein 6.1L, Albumin 3.0L Microbiology 04/23/20 MRSA Screen - Final, Complete MRSA not isolated 04/23/20 Blood Culture - Preliminary, Resulted No growth Home Meds Active Reported Fentanyl Patch 75MCG (Fentanyl) 1 Each Patch.td72 75 Mcg TD Q72H Aspirin EC (Aspirin) 81 Mg Tablet.dr 81 Mg PO DAILY Meloxicam 7.5 Mg Tablet 7.5 Mg PO DAILY Synthroid (Levothyroxine Sodium) 25 Mcg Tablet 25 Mcg PO DAILY Escitalopram Oxalate 20 Mg Tablet 20 Mg PO DAILY Xanax (Alprazolam) 0.25 Mg Tablet 0.125-0.25 Mg PO BID PRN Metoprolol Succinate 25 Mg Tab.er.24h 25 Mg PO DAILY Klor-Con M10 (Potassium Chloride) 10 Meq Tab.er.prt 10 Meq PO BID Trazodone HCl 150 Mg Tablet 150 Mg PO HS Ropinirole HCl 1 Mg Tablet 2 Mg PO HS TAKES 2 (1MG) TABLETS Patient Allergies: Coded Allergies: Iodinated Contrast Media (Unverified Allergy, Unknown, 05/06/16) Sulfa (Sulfonamide Antibiotics) (Verified Allergy, Unknown, 02/25/08) ciprofloxacin (Unverified Allergy, Unknown, 05/06/16) Height (Feet): 5 Height (Inches): 7.00 Weight (Pounds): 156 Weight (Ounces): 0 Home Health Need/Face to Face Date of Face to Face: Apr 28, 2020 Clinical Findings: Shortness of breath I have seen Pt [id number]: Yes Discharged To: Home Diagnosis/Conditions: Acute respiratory failure due to COVID-19 Problems/Diagnosis/Condition: (1) Acute respiratory failure due to COVID-19 Patient is Homebound due to: Shortness of breath/distress Homebound Status Due to the above stated illness, injury or surgical procedure (medical condition or diagnosis) and associated clinical findings, the patient is homebound because of his/her inability to leave home except with aid of a supportive device and/or person AND leaving the home requires a considerable and taxing effort or is medically contraindicated. Pt req the following assistanc: Aid of another person Home Health Nursing Orders Home Health Services Order: Nursing Services, Physical Therapy-Evaluate & Treat Home Health Infusion Therapy Line Start Date: Apr 23, 2020 Therapy Orders Therapy Orders: Physical Therapy, PT to assess for OT Therapy Specific Orders: Teach enviro modifications/safety, Increase strength/endurance Certify Stmt I certify that this patient is under my care and that I, a nurse practitioner or a physician; a assistant to the vice president working with me, had a face to face encounter that - meets the physician face to face encounter requirements with this patient as dated. Discharge Physical Exam General: Alert, Oriented X3, Cooperative, No Acute Distress HEENT: Atraumatic, EOMI, Mucous Memb Moist/[place] Lungs: Clear to Auscultation, Normal Air Movement Heart: Regular Rate, Normal S1, Normal S2, No Murmurs Abdomen: Normal Bowel Sounds, Soft, No Tenderness Extremities: No Edema, No Tenderness/Swelling Skin: No Rashes, No Significant Lesion Neuro: Normal Speech Psych/Mental Status: Mental Status NL, Mood NL CELIA PEREZ MD Apr 28, 2020 12:00
--- NOTE | 2020-04-28 13:30 | NUR ---
CM FINALIZED DISCHARGE PLAN: Patient is discharging to home today with [facility] and [facility] for new O2 need. Patient offered choices for HHC and DME and she chose the above. HHC: [facility] for Nursing and Physical Therapy to evaluate for need of Occupational Therapy. Patient is out of the window for needing to be isolated d/t COVID 19. She continues to report that she is very weak and would like therapy to work with her for strengthening. She will also have new O2 and would like nursing to monitor her oxygen saturations and give education on new O2. DME: [facility] for new continuous oxygen need of O2 at 3LPM via [facility]. When O2 is delivered to the hospital then patient is ready for dismissal from a social work standpoint. Her son Job will pick her up. Spoke with Job and her grand daughter in law Debre about the above information.
[2020-04-28 14:30] VITALS: BP 138/65
--- NOTE | 2020-04-28 14:30 | NUR ---
CELIO DE LA ROSA demonstrates understanding of discharge instructions and accurately returns instructions upon questioning. Copy of Post-Discharge Instructions and Medication Discharge Instructions given to PT. CELIO DE LA ROSA is to manage continuing needs after discharge. Patients belongings returned to PT. Skin dry and intact; no breakdown noted. Patient discharged from 428-1 on at 1430. CELIO DE LA ROSA left floor via WC, accompanied by STAFF.
== END 2020-04-28 16:05 | disposition home health service (06) | DRG 177 ==
LOC: EDUNIT# 11:23 → ER 11:24 → ICU 14:50 → 4TH 04-24 02:19 → ICU 04-24 20:32
PROVIDERS: ADMIT Family Medicine; ATTEND Internal Medicine
PROC: XW033E5 Introduction of Remdesivir Anti-infective into Peripheral Vein, Percutaneous Approach, New Technology Group 5 (ICD-10-PCS; principal; 2020-04-23)
PROC: XW13325 Transfusion of Convalescent Plasma (Nonautologous) into Peripheral Vein, Percutaneous Approach, New Technology Group 5 (ICD-10-PCS; 2020-04-23)
DX: U07.1 COVID-19 (principal); J96.01 Acute respiratory failure with hypoxia; J12.89 Other viral pneumonia; I10 Essential (primary) hypertension; E03.9 Hypothyroidism, unspecified; J30.2 Other seasonal allergic rhinitis; M19.91 Primary osteoarthritis, unspecified site; F41.9 Anxiety disorder, unspecified; F32.9 Major depressive disorder, single episode, unspecified; G89.29 Other chronic pain; E87.6 Hypokalemia; G25.81 Restless legs syndrome
CPT/HCPCS: 36415; 71045; 80053; 81000; 82728; 83605; 83615; 83735; 84100; 84145; 84484; 85007; 85025; 85027; 85610; 85730; 86141; 86900; 86901; 87040; 87081; 87635; 87804; 93041; 94640; 94664; 94760; 94761

== ENCOUNTER 2020-05-01 07:23 | Inpatient (IN) | payer MEDICARE, OTHER ==
[~2020-05-01] VITALS: Ht 170 cm; Wt 67.4 kg
[~2020-05-01 07:23] MED LIST changes: +ASPI-1238 PO; +ESCI20TA45 PO; +FENT1PAT10 TD; +MELO7.5T46 PO
[2020-05-01] MEDS ORDERED: RX-ALBUTEROL INHALER (VENTOLIN HFA) 18 GM IH STA (07:31)
[2020-05-01] MEDS ORDERED: NS IV 500 ML 500 ML IV ONE (07:31)
--- NOTE | 2020-05-01 07:31 | ED Cough/URI ---
General Stated Complaint: COVID History of Present Illness Date Seen by Provider: May 01, 2020 Time Seen by Provider: 07:30 Initial Comments 79-year-old female presents with just not feeling well. Patient with known COVID diagnosis around 21 April with associated hospital stay for approximately one week. Patient was sent home with oxygen. Patient sent back in today for reevaluation because she is not getting any better. Her symptoms have not worsened and are similar. Patient's is normally on 2 L home O2 since her COVID diagnosis. EMS reports that she was in the upper 90s on 3 L after they picked her up. No reports of fever, chills, no increased cough. Patient's did pass yesterday at 82 years old following a bout with COVID. Allergies and Home Medications Allergies Coded Allergies: Iodinated Contrast Media (Unverified Allergy, Unknown, 05/06/16) Sulfa (Sulfonamide Antibiotics) (Verified Allergy, Unknown, 02/25/08) ciprofloxacin (Unverified Allergy, Unknown, 05/06/16) Home Medications Alprazolam 0.25 Mg Tablet, 0.125-0.25 MG PO BID PRN for ANXIETY, (Reported) Aspirin 81 Mg Tablet.dr, 81 MG PO DAILY, (Reported) Azithromycin 250 Mg Tablet, 250 MG PO DAILY Prescribed by: BETO AVALOS on 05/01/20923 Escitalopram Oxalate 20 Mg Tablet, 20 MG PO DAILY, (Reported) Fentanyl 1 Each Patch.td72, 75 MCG TD Q72H, (Reported) Levothyroxine Sodium 25 Mcg Tablet, 25 MCG PO DAILY, (Reported) Meloxicam 7.5 Mg Tablet, 7.5 MG PO DAILY, (Reported) Metoprolol Succinate 25 Mg Tab.er.24h, 25 MG PO DAILY, (Reported) Potassium Chloride 10 Meq Tab.er.prt, 10 MEQ PO BID, (Reported) Prednisone 20 Mg Tab, 40 MG PO DAILY Prescribed by: BETO AVALOS on 05/01/20923 Ropinirole HCl 1 Mg Tablet, 2 MG PO HS, (Reported) TAKES 2 (1MG) TABLETS Trazodone HCl 150 Mg Tablet, 150 MG PO HS, (Reported) Patient Home Medication List Home Medication List Reviewed: Yes Review of Systems Review of Systems Constitutional: No chills, No fever; malaise, weakness EENTM: no symptoms reported Respiratory: cough, short of breath Cardiovascular: No chest pain, No palpitations Gastrointestinal: no symptoms reported Genitourinary: no symptoms reported Musculoskeletal: no symptoms reported Skin: no symptoms reported Psychiatric/Neurological: No Symptoms Reported Hematologic/Lymphatic: No Symptoms Reported Immunological/Allergic: no symptoms reported Past Frllpst-Kphfdi-Sazhuw Hx Past Med/Social Hx: Reviewed Nursing Past Med/Soc Hx Patient Social History 2nd Hand Smoke Exposure: No Recent Hopitalizations: No Immunizations Up To Date Tetanus Booster (TDap): More than 5yrs Seasonal Allergies Seasonal Allergies: Yes Past Medical History Surgeries: Yes (HYSTERECTOMY) Hysterectomy Respiratory: No Cardiac: Yes Hypertension Neurological: Yes 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 0oz. 70.062338ms; 23.00 BMI Method:Stated General Appearance: no apparent distress, thin HEENT: PERRL/EOMI Neck: full range of motion Respiratory: no respiratory distress, no accessory muscle use, wheezing Cardiovascular: normal peripheral pulses, regular rate, rhythm (mild diffuse) Gastrointestinal: non tender, soft Extremities: normal range of motion, non-tender Neurologic/Psychiatric: sampler pickup II-XII nml as tested, no motor/sensory deficits, alert, normal mood/affect, oriented x 3 Skin: normal color, warm/dry Progress/Results/Core Measures Suspected Sepsis SIRS Temperature: Pulse: Respiratory Rate: Laboratory Tests 05/01/20 07:35: White Blood Count 17.4H Blood Pressure / Mean: Laboratory Tests 05/01/20 07:35: Creatinine 0.64, Platelet Count 230, Total Bilirubin 1.1H Results/Orders Lab Results Laboratory Tests Test 05/01/20 07:35 Range/Units White Blood Count 17.4 H 4.3-11.0 10^3/uL Red Blood Count 5.29 H 3.80-5.11 10^6/uL Hemoglobin 16.0 11.5-16.0 g/dL Hematocrit 49 35-52 % Mean Corpuscular Volume 92 80-99 fL Mean Corpuscular Hemoglobin 30 25-34 pg Mean Corpuscular Hemoglobin Concent 33 32-36 g/dL Red Cell Distribution Width 13.8 10.0-14.5 % Platelet Count 230 130-400 10^3/uL Mean Platelet Volume 10.7 9.0-12.2 fL Immature Granulocyte % (Auto) 1 % Neutrophils (%) (Auto) 87 H 42-75 % Lymphocytes (%) (Auto) 4 L 12-44 % Monocytes (%) (Auto) 8 0-12 % Eosinophils (%) (Auto) 0 0-10 % Basophils (%) (Auto) 0 0-10 % Neutrophils # (Auto) 15.1 H 1.8-7.8 10^3/uL Lymphocytes # (Auto) 0.6 L 1.0-4.0 10^3/uL Monocytes # (Auto) 1.5 H 0.0-1.0 10^3/uL Eosinophils # (Auto) 0.0 0.0-0.3 10^3/uL Basophils # (Auto) 0.0 0.0-0.1 10^3/uL Immature Granulocyte # (Auto) 0.2 H 0.0-0.1 10^3/uL Neutrophils % (Manual) 86 % Lymphocytes % (Manual) 4 % Monocytes % (Manual) 7 % Band Neutrophils 2 % Atypical Lymphocytes 1 % Blood Morphology Comment NORMAL Sodium Level 138 135-145 MMOL/L Potassium Level 3.9 3.6-5.0 MMOL/L Chloride Level 105 98-107 MMOL/L Carbon Dioxide Level 20 L 21-32 MMOL/L Anion Gap 13 5-14 MMOL/L Blood Urea Nitrogen 21 H 7-18 MG/DL Creatinine 0.64 0.60-1.30 MG/DL Estimat Glomerular Filtration Rate > 60 BUN/Creatinine Ratio 33 Glucose Level 150 H 70-105 MG/DL Calcium Level 9.0 8.5-10.1 MG/DL Corrected Calcium 9.6 8.5-10.1 MG/DL Total Bilirubin 1.1 H 0.1-1.0 MG/DL Aspartate Amino Transf (AST/SGOT) 14 5-34 U/L Alanine Aminotransferase (ALT/SGPT) 15 0-55 U/L Alkaline Phosphatase 89 40-136 U/L Total Protein 7.3 6.4-8.2 GM/DL Albumin 3.3 3.2-4.5 GM/DL Coronavirus 2019 (MARILYN) Positive H Negative Micro Results Microbiology 05/01/20 Influenza Types A,B Antigen (DASHA) - Final, Complete My Orders Orders - BETO AVALOS DO Chest 1 View, Ap/Pa Only (05/01/20 07:31) Cbc With Automated Diff (05/01/20 07:31) Comprehensive Metabolic Panel (05/01/20 07:31) Influenza A And B Antigens (05/01/20 07:31) Covid 19 Inhouse Test (05/01/20 07:31) Ed Iv/Invasive Line Start (05/01/20 07:31) Ns Iv 500 Ml (Sodium Chloride 0.9%) (05/01/20 07:31) Rx-Albuterol Inhaler (Rx-Ventolin Hfa) (05/01/20 07:31) Manual Differential (05/01/20 07:35) Dexamethasone Injection (Decadron Injec (05/01/20 08:30) Azithromycin Tablet (Zithromax Tablet) (05/01/20 08:30) Procalcitonin (Pct) (05/01/20 11:15) Lactic Acid Analyzer (05/01/20 11:17) Blood Culture (05/01/20 11:17) Medications Given in ED Current Medications Medications Dose Ordered Sig/Essie Route Start Time Stop Time Status Last Admin Dose Admin Azithromycin 500 mg ONCE ONCE PO 05/01/20 08:30 05/01/20 08:31 DC 05/01/20 08:31 500 MG Dexamethasone Sodium Phosphate 10 mg ONCE ONCE IV 05/01/20 08:30 05/01/20 08:31 DC 05/01/20 08:39 10 MG Sodium Chloride 500 ml @ 0 mls/hr Q0M ONCE IV 05/01/20 07:31 05/01/20 07:34 DC 05/01/20 08:17 0 MLS/HR Vital Signs/I&O 05/01/20 07:27 Temp 36.7 Pulse 105 Resp 28 B/P (MAP) 157/93 (114) Pulse Ox 93 O2 Delivery Nasal Cannula O2 Flow Rate 4.00 Capillary Refill : Progress Note : Time: 08:29 Progress Note Patient to be admitted due to concerns about potential worsening of symptoms and inability for family to care for her at this time. Patient is still COVID positive. She has some slight increase of infiltrates on her x-rays. She doesn't meet sepsis criteria. Discussed with Dr. Gonzalez. We will check a pro-calcitonin, lactic and blood cultures. We'll admit her for reevaluation and possible prison placement upon discharge for rehabilitation. I do think that there is some depression components due to her just losing her yesterday. Diagnostic Imaging Diagonstic Imaging: Xray Plain Films/CT/US/NM/MRI: chest Comments [facility]. [place], [place] NAME: CELIO DE LA ROSA [facility] REC#: [id number] PT STATUS: REG ER : 1940 PHYSICIAN: BETO AVALOS DO ADMIT DATE: 05/01/20/ER Draft Date of Exam:05/01/20 CHEST 1 VIEW, AP/PA ONLY INDICATION: Cough. EXAMINATION: Chest 05/01/2020 COMPARISON: 04/23/2020 FINDINGS: Scattered airspace opacities are new since previous imaging throughout the right upper lung and left lower lobe. There are no effusions. Heart and pulmonary vasculature stable. IMPRESSION: 1. New bilateral infiltrates as above. Dictated on workstation # [id number] Dict: 05/01/20 0840 Trans: 05/01/20 0847 CV [id number] Interpreted by: ASHER ALVARENGA MD Electronically signed by: Departure Impression Primary Impression: Pneumonia Qualified Codes: J18.9 - Pneumonia, unspecified organism Additional Impressions: COVID-19 Sepsis Qualified Codes: A41.9 - Sepsis, unspecified organism; R65.20 - Severe sepsis without septic shock Disposition: ADMITTED INPATIENT Condition: Stable Admissions Decision to Admit Reason: Admit from ER (General) Decision to Admit/Date: May 01, 2020 Time/Decision to Admit Time: 11:20 Departure-Patient Inst. Referrals: MYRON AMARO MD (PCP/Family) Primary Care Physician Patient Instructions: Pneumonia, Adult (DC), Coronavirus Disease 2019 (COVID- 19) (DC) Add. Discharge Instructions: Follow-up with your primary care provider in 2-3 days for recheck of today symptoms Return to the ER as needed Use the inhaler every 4 hours for the next 24 hours while awake then as needed Scripts Prednisone (Prednisone) 20 Mg Tab 40 MG PO DAILY, #6 TAB 0 Refills Prov: BETO AVALOS DO 05/01/20 Azithromycin (Azithromycin) 250 Mg Tablet 250 MG PO DAILY, #4 TAB 0 Refills Prov: BETO AVALOS DO 05/01/20 BETO AVALOS DO May 01, 2020 07:30
[2020-05-01 07:59] LABS: BASOPHILS % (AUTO) 0 % (0-10); EOSINOPHILS % (AUTO) 0 % (0-10); HEMATOCRIT 49 % (35-52); LYMPHOCYTES # (AUTO) 0.6 10^3/uL (1.0-4.0); LYMPHOCYTES % (AUTO) 4 % (12-44); MEAN CORPUSCULAR HEMOGLOBIN 30 pg (25-34); MEAN CORPUSCULAR HGB CONC 33 g/dL (32-36); MEAN CORPUSCULAR VOLUME 92 fL (80-99); MEAN PLATELET VOLUME 10.7 fL (9.0-12.2); MONOCYTES # (AUTO) 1.5 10^3/uL (0.0-1.0); MONOCYTES % (AUTO) 8 % (0-12); NEUTROPHILS # (AUTO) 15.1 10^3/uL (1.8-7.8); NEUTROPHILS % (AUTO) 87 % (42-75); PLATELET COUNT 230 10^3/uL (130-400); WHITE BLOOD COUNT 17.4 10^3/uL (4.3-11.0)
[2020-05-01 08:08] LABS: ALBUMIN 3.3 GM/DL (3.2-4.5); CHLORIDE 105 MMOL/L (98-107); POTASSIUM 3.9 MMOL/L (3.6-5.0); SODIUM 138 MMOL/L (135-145)
[2020-05-01 08:10] LABS: GLUCOSE 150 MG/DL (70-105); TOTAL PROTEIN 7.3 GM/DL (6.4-8.2)
[2020-05-01 08:11] LABS: CARBON DIOXIDE 20 MMOL/L (21-32)
[2020-05-01 08:12] LABS: BILIRUBIN,TOTAL 1.1 MG/DL (0.1-1.0)
[2020-05-01 08:14] LABS: ALKALINE PHOSPHATASE 89 U/L (40-136); CREATININE SERUM 0.64 MG/DL (0.60-1.30); GFR ESTIMATED > 60
[2020-05-01 08:15] LABS: BUN/CREATININE RATIO 33
[2020-05-01 08:17] LABS: ALANINE AMINOTRANSFERASE 15 U/L (0-55)
[2020-05-01 08:24] LABS: ATYPICAL LYMPHOCYTES 1 %; BAND NEUTROPHILS 2 %; LYMPHOCYTES % (MANUAL) 4 %; MONOCYTES % (MANUAL) 7 %; NEUTROPHILS % (MANUAL) 86 %; RBC MORPH NORMAL
[2020-05-01] MEDS ORDERED: AZITHROMYCIN 250 MG TAB (ZITHROMAX) PO ONE (08:30)
--- NOTE | 2020-05-01 08:47 | Diagnostic Imaging Report ---
INDICATION: Cough. EXAMINATION: Chest 05/01/2020 COMPARISON: 04/23/2020 FINDINGS: Scattered airspace opacities are new since previous imaging throughout the right upper lung and left lower lobe. There are no effusions. Heart and pulmonary vasculature stable. IMPRESSION: 1. New bilateral infiltrates as above. Dictated by: Dictated on workstation # [id number]
[2020-05-01] MEDS ORDERED: AZIT250T12 PO (09:24)
[2020-05-01] MEDS ORDERED: PRD20T PO (09:24)
--- NOTE | 2020-05-01 11:11 | NUR ---
SPOKE W SON AND HE STATES PT IS UNABLE TO CARE FOR SELF AT HOME AT THIS X
[2020-05-01] MEDS ORDERED: NS IV 1000 ML 1,000 ML ONE (12:27)
[2020-05-01] MEDS ORDERED: ANTACID SUSP 30 ML UDC (MYLANTA) PO PRN (13:15)
[2020-05-01] MEDS ORDERED: BISACODYL 10 MG SUPP (DULCOLAX) PR PRN (13:15)
[2020-05-01] MEDS ORDERED: diphenhydrAMINE 25 MG TAB (BENADRYL) PO PRN (13:15)
[2020-05-01] MEDS ORDERED: ONDANSETRON 4 MG (ZOFRAN) ORAL DISSOLVE TAB PO PRN (13:15)
[2020-05-01] MEDS ORDERED: polyethylene glycoL POWDER 17 GM (MIRALAX) PACK PO PRN (13:15)
[2020-05-01] MEDS ORDERED: ONDANSETRON 4 MG/2 ML (SDV) Z0FRAN IV PRN (13:15)
[2020-05-01] MEDS ORDERED: MELATONIN 3 MG TABLET PO PRN (13:15)
[2020-05-01] MEDS: NS IV 1000 ML 1,000 ML IV SCH (13:39)
[2020-05-01] MEDS: ENOXAPARIN 40 MG/0.4 ML (LOVENOX) SYR SC SCH (14:05)
[2020-05-01] MEDS: fentaNYL PATCH 75 MCG (DURAGESIC) TD SCH (14:05)
[2020-05-01 14:21] VITALS: BP 157/93
[2020-05-01] MEDS: RT-ALBUTEROL INHALER HFA (VENTOLIN HFA) 18 GM IH SCH ×3 (15:10→23:10)
[2020-05-01 16:13] VITALS: BP 208/94
[2020-05-01 16:23] VITALS: BP 162/105
[2020-05-01] MEDS ORDERED: hydrALAZINE (APRESOLINE) 25 MG TAB PO ONE (16:45)
[2020-05-01] MEDS ORDERED: rOPINIRole 1 MG (REQUIP) TABLET ONE (16:59)
[2020-05-01] MEDS: inSUlin ASPART (NovoLOG) 1 UNIT/0.01 ML (CHARGE PER UNIT) SC SCH ×2 (17:14→20:02)
[2020-05-01] MEDS: rOPINIRole 1 MG (REQUIP) TABLET PO SCH (17:15)
[2020-05-01 17:42] VITALS: BP 165/70
[2020-05-01 19:51] VITALS: BP 140/67
[2020-05-01] MEDS: CEFEPIME INJECTION 2,000 MG in WATER (STERILE) FOR INJECTION 20 ML IV SCH (21:04)
[2020-05-01] MEDS: DOCUSATE SODIUM 100 MG (COLACE) CAP PO SCH (21:05)
[2020-05-01] MEDS: SENNOSIDES 8.6 MG (SENOKOT) TAB PO SCH (21:05)
[2020-05-01] MEDS: traZODone 150 MG (DESYREL) TABLET PO SCH (21:05)
[2020-05-01] MEDS: ACETAMINOPHEN 325 MG TABLET PO PRN (21:10)
[2020-05-01] MEDS: ALPRAZolam 0.25 MG (XANAX) TAB PO PRN (21:11)
[2020-05-02] VITALS (7 sets, daily range): BP systolic 119–171; BP diastolic 56–78
[2020-05-02] MEDS: NS IV 1000 ML 1,000 ML IV SCH ×2 (03:02→16:12)
[2020-05-02] MEDS: ACETAMINOPHEN 325 MG TABLET PO PRN ×2 (03:22→10:18)
[2020-05-02 04:37] LABS: BASOPHILS % (AUTO) 0 % (0-10); EOSINOPHILS % (AUTO) 0 % (0-10); HEMATOCRIT 42 % (35-52); HEMOGLOBIN 13.6 g/dL (11.5-16.0); LYMPHOCYTES # (AUTO) 0.5 10^3/uL (1.0-4.0); LYMPHOCYTES % (AUTO) 4 % (12-44); MEAN CORPUSCULAR HEMOGLOBIN 30 pg (25-34); MEAN CORPUSCULAR HGB CONC 32 g/dL (32-36); MEAN CORPUSCULAR VOLUME 93 fL (80-99); MEAN PLATELET VOLUME 10.8 fL (9.0-12.2); MONOCYTES # (AUTO) 1.1 10^3/uL (0.0-1.0); MONOCYTES % (AUTO) 8 % (0-12); NEUTROPHILS # (AUTO) 11.4 10^3/uL (1.8-7.8); NEUTROPHILS % (AUTO) 87 % (42-75); PLATELET COUNT 209 10^3/uL (130-400); WHITE BLOOD COUNT 13.2 10^3/uL (4.3-11.0)
[2020-05-02 04:51] LABS: ALBUMIN 3.1 GM/DL (3.2-4.5); CHLORIDE 104 MMOL/L (98-107); POTASSIUM 4.2 MMOL/L (3.6-5.0); SODIUM 137 MMOL/L (135-145)
[2020-05-02 04:52] LABS: CALCIUM 8.7 MG/DL (8.5-10.1)
[2020-05-02 04:54] LABS: GLUCOSE 126 MG/DL (70-105); TOTAL PROTEIN 6.4 GM/DL (6.4-8.2)
[2020-05-02 04:55] LABS: CARBON DIOXIDE 22 MMOL/L (21-32)
[2020-05-02 04:56] LABS: BILIRUBIN,TOTAL 1.2 MG/DL (0.1-1.0)
[2020-05-02] MEDS: inSUlin ASPART (NovoLOG) 1 UNIT/0.01 ML (CHARGE PER UNIT) SC SCH ×4 (04:56→20:11)
[2020-05-02 04:57] LABS: ALKALINE PHOSPHATASE 76 U/L (40-136); CREATININE SERUM 0.59 MG/DL (0.60-1.30); GFR ESTIMATED > 60
[2020-05-02 04:58] LABS: BUN/CREATININE RATIO 25
[2020-05-02 05:00] LABS: ALANINE AMINOTRANSFERASE 20 U/L (0-55)
[2020-05-02] MEDS: LEVOTHYROXINE 25 MCG (LEVOTHROID) TAB PO SCH (05:57)
[2020-05-02] MEDS: AZITHROMYCIN 250 MG TAB (ZITHROMAX) PO SCH (08:02)
[2020-05-02] MEDS: ASPIRIN E.C. 81 MG (ECOTRIN) TAB PO SCH (08:02)
[2020-05-02] MEDS: DOCUSATE SODIUM 100 MG (COLACE) CAP PO SCH ×2 (08:02→21:10)
[2020-05-02] MEDS: PANTOPRAZOLE 40 MG (PROTONIX) TAB PO SCH (08:02)
[2020-05-02] MEDS: SENNOSIDES 8.6 MG (SENOKOT) TAB PO SCH ×2 (08:03→21:11)
[2020-05-02] MEDS: CEFEPIME INJECTION 2,000 MG in WATER (STERILE) FOR INJECTION 20 ML IV SCH (08:04)
[2020-05-02] MEDS: RT-ALBUTEROL INHALER HFA (VENTOLIN HFA) 18 GM IH SCH ×5 (08:26→23:00)
--- NOTE | 2020-05-02 11:14 | NUR ---
I SPOKE WITH THE PATIENT, WENT THROUGH PREVIOUS NOTES FROM LAST VISIT AND WENT THROUGH THE EXTERNAL MED HISTORY TO HELP ME COMPLETE THE MED REC. I AM UNSURE OF THE LAST FENTANYL PATCH APPLIED AT HOME, HOWEVER THEY HAVE RECEIVED ONE DURING THIS ADMISSION AND THEIR PREVIOUS ADMISSION 05/01/2020 @ 1400 04/27/2020 @ 1434 04/24/2020 @ 1457 AZITHROMYCIN AND PREDNISONE WERE SENT TO [facility] ON 05/01/2020 BY BETO AVALOS IN OUR ER. I DIDN'T PUT THIS ON THE MED REC BECAUSE SHE HAS NOT TAKEN THESE MEDICATIONS PRIOR TO BEING ADMITTED HERE ON 05/01/2020. OTC: ASPIRIN
--- NOTE | 2020-05-02 12:18 | History & Physical-Hospitalist ---
History of Present Illness HPI/Chief Complaint Pt is an 79yoCF who was recently admitted due to COVID19 and hypoxia. She was discharged last week with home oxygen. 2 days ago her who was admitted here from COVID19. Yesterday she's unsure if she got more SOB or weak but decided to come back to the ER via EMS. ER staff spoke with the family who state they are unable to care for her. She agrees that she is unable to take care of herself. I attempted to discuss plan for obtaining care and she stated she just wants to worry about getting her buried first. She denies any physical complaints at this time. Source: patient Date Seen 05/02/20 Time Seen by a Provider: 12:13 Attending Physician Tatiana Gonzalez MD PCP Easton Palacios MD Referring Physician Date of Admission May 01, 2020 at 11:20 Home Medications & Allergies Home Medications Reviewed patient Home Medication Reconciliation performed by pharmacy medication reconciliations pharmaceutical laboratory technician and/or nursing. Patients Allergies have been reviewed. Allergies Allergies Coded Allergies Iodinated Contrast Media (Unverified Allergy, Unknown, 05/06/16) Sulfa (Sulfonamide Antibiotics) (Verified Allergy, Unknown, 02/25/08) ciprofloxacin (Unverified Allergy, Unknown, 05/06/16) Past Stdbfrq-Brxekh-Wtsmcd Hx Past Med/Social Hx: Reviewed Nursing Past Med/Soc Hx Patient Social History Marrital Status: Alcohol Use: Denies Use Recreational Drug Use: No Smoking Status: Never a Smoker 2nd Hand Smoke Exposure: No Recent Foreign Travel: No Contact w/other who traveled: No Recent Hopitalizations: Yes (COVID 19) Recent Infectious Disease Expo: No Immunizations Up To Date Tetanus Booster (TDap): More than 5yrs Date of Pneumonia Vaccine: May 01, 2017 Seasonal Allergies Seasonal Allergies: Yes Past Medical History Surgeries: Hysterectomy Cardiac: Hypertension Reproductive: Yes Sexually Transmitted Disease: No Hysterectomy Musculoskeletal: Arthritis Endocrine: Hypothyroidsim HEENT: Cataract Psychosocial: Depression History of Blood Disorders: No Family History Reviewed Nursing Family Hx Patient reports no known family medical history. No Pertinent Family Hx Review of Systems ROS-Unable to Obtain: limited as patient quiet tearful and appropriately distracted Constitutional: No fever; malaise, weakness Respiratory: No cough; short of breath Physical Exam Physical Exam Vital Signs Vital Signs - First Documented 05/01/20 05/01/20 07:27 15:16 Temp 36.7 Pulse 105 Resp 28 B/P (MAP) 157/93 (114) Pulse Ox 93 O2 Delivery Nasal Cannula O2 Flow Rate 4.00 FiO2 88 Capillary Refill : Less Than 3 SecondsLess Than 3 Seconds Height, Weight, BMI Height: 5'7.00" Weight: 156lbs. 0oz. 70.187481wq; 23.32 BMI Method:Stated General Appearance: No Apparent Distress, Chronically ill HEENT: PERRL/EOMI, Moist Mucous Membranes; No Scleral Icterus (L), No Scleral Icterus (R) Neck: Normal Inspection, Supple Respiratory: Lungs Clear, No Accessory Muscle Use, No Respiratory Distress Cardiovascular: Regular Rate, Rhythm, No Murmur Gastrointestinal: Normal Bowel Sounds, Non Tender, Soft Extremity: Normal Capillary Refill, No Calf Tenderness, No Pedal Edema Neurologic/Psychiatric: Alert, Oriented x3, Depressed Affect (tearful) Skin: Normal Color, Warm/Dry Results Results/Procedures Labs Laboratory Tests 05/01/20 07:35 05/02/20 04:15 Patient resulted labs reviewed. Imaging: Reviewed Imaging Report Imaging [facility] [place], [place] NAME: [facility] REC#: [id number] PT STATUS: REG ER : 1940 PHYSICIAN: BETO AVALOS DO ADMIT DATE: 05/01/20/ER Signed Date of Exam:05/01/20 CHEST 1 VIEW, AP/PA ONLY INDICATION: Cough. EXAMINATION: Chest 05/01/2020 COMPARISON: 04/23/2020 FINDINGS: Scattered airspace opacities are new since previous imaging throughout the right upper lung and left lower lobe. There are no effusions. Heart and pulmonary vasculature stable. IMPRESSION: 1. New bilateral infiltrates as above. Dictated by: Dictated on workstation # [id number] Dict: 05/01/2040 Trans: 05/01/20 1020 CV [id number] Interpreted by: ASHER ALVARENGA MD Electronically signed by: ASHER ALVARENGA MD 05/01/20 1020 Assessment/Plan Admission Diagnosis Acute Hypoxic Respiratory Failure due to COVID19 Admission Status: Inpatient Order (span 2 midnights) Reason for Inpatient Admission: see below Assessment and Plan Acute Hypoxic Respiratory Failure due to COVID19 bilateral infiltrates Has completed Remdesivir and Decadron at previous admission New infiltrates on CXR Continue IV abx for now despite negative procal as she is requiring more oxygen Repeat procal in AM MAT protocol Wean oxygen as able Debility PT/OT emergency services director consulted Anxiety Continue Xanax HTN Continue home meds Hypothyroidism Continue synthroid Chronic pain Fentanyl patch Hydrocodone DVT prophylaxis: Lovenox Diagnosis/Problems Diagnosis/Problems (1) COVID-19 Status: Acute (2) Pneumonia due to COVID-19 virus Status: Acute (3) Acute respiratory failure due to COVID-19 Status: Acute (4) HTN (hypertension) Status: Chronic (5) Hypothyroidism Status: Chronic (6) Anxiety Status: Chronic Clinical Quality Measures DVT/VTE Risk/Contraindication: Risk Factor Score Per Nursin RFS Level Per Nursing on Admit: 4+=Very High IRVIN YATES MD May 02, 2020 12:17
[2020-05-02] MEDS: ENOXAPARIN 40 MG/0.4 ML (LOVENOX) SYR SC SCH (13:36)
--- NOTE | 2020-05-02 14:03 | Occupational Therapy Eval ---
OT Evaluation-General/PLF Medical Diagnosis Admission Date May 01, 2020 at 11:20 Medical Diagnosis: COVID+ Onset Date: Apr 27, 2020 Therapy Diagnosis Therapy Diagnosis: weakness, decreased ADL status Height/Weight Height (Feet): 5 Height (Inches): 7.00 Weight (Pounds): 156 Weight (Ounces): 0 Precautions Precautions/Isolations: Airborne Isolation, Droplet Isolation, Fall Prevention, Pressure Ulcer Referral Physician: Ruth Ann Referral Reason: Evaluation/Treatment Medical History Additional Medical History HTN, hysterectomy, arthritis, cataract, depression Current History Pt recently admitted to [facility] with dx of COVID+, pt discharged home last week with home O2. Pt returned to the ED due to SOB/weakness, pt indicates she is unable to take care of herself, and family indicate they are unable to care for her. Pt's in the hospital recently from COVID Reviewed History: Yes Social History Home: Single Level Current Living Status: Children Steps Inside Home: 3 ADL-Prior Level of Function SCALE: Activities may be completed with or without assistive devices. 1-Mtofdtibnf-idifszd completes the activity by him/herself with no assistance from a helper. 5-Set-up or Clean-up Assistance-helper sets up or cleans up; patient completes activity. [place] assists only prior to or following the activity. 4-Supervision or Touching Assistance-helper provides verbal cues and/or touching/steadying and/or contact guard assistance as patient completes activity. Assistance may be provided throughout the activity or intermittently. 3-Partial/Moderate Assistance-helper does LESS THAN HALF the effort. [place] lifts, holds or supports trunk or limbs, but provides less than half the effort. 2-Substantial/Maximal Assistance-helper does MORE THAN HALF the effort. [place] lifts or holds trunk or limbs and provides more than half the effort. 9-Hfyovjtdq-qqhidj does ALL the effort. Patient does none of the effort to com plete the activity. Or, the assistance of 2 or more helpers is required for the patient to complete the activity. If activity was not attempted, code reason: 7-Patient Refused. 9-Not Applicable-not attempted and the patient did not perform the activity before the current illness, exacerbation or injury. 10-Not Attempted due to Environmental Limitations-(lack of equipment, weather restraints, etc.). 88-Not Attempted due to Medical Conditions or Safety Concerns. ADL PLOF Comments Pt indicates she was independent wtih all ADLS and functional mobility at PLOF, without AE/AD Self Care: Independent Functional Cognition: Independent DME/Equipment: Tub/Shower OT Current Status Subjective Pt laying in bed, agreeable to OT Tx. Pt denies pain. Mental Status/Objective Patient Orientation: Person, Place, Time, Situation Attachments: IV, Oxygen Current Upper Extremity ROM WFL, BUE shoulder flexion to approx 150 degrees, Upper Extremity Coordination WFL Upper Extremity Sensation WFL Upper Extremity Strength 3+/5 ADL-Treatment Eating (QC): 6 (pt indicates independence with eating lunch) Other Treatments Pt laying in bed, agreeable to OT evaluation/tx. Pt provides information about PLOF and home set up. Pt transfers supine to sit EOB independently, she is able to reach to her feet and pull her sock up. Pt stands with CGA, slightly unsteady upon standing. Pt able to take a couple steps towards HOB, then sat on bed. Pt only able to stand ~30seconds before needing to sit back down. Pt transferred supine independently. Pt indicates he main concern right now is weakness and getting SOB with activity. OT educated pt on OT POC, including focus on increasing BUE strength and functional endurance, she verbalized agreement. Post OT Tx, pt laying in bed, call light in reach and all needs met. Education OT Patient Education: Correct positioning, Modified ADL techniques, Progress toward Goal/Update tx plan, Purpose of tx/functional activities, Rehab process Teaching Recipient: Patient Teaching Methods: Discussion Response to Teaching: Verbalize Understanding OT Usp Goals Senior Account Representative Goals Time Frame: May 13, 2020 Eating (QC): 6 Oral Hygiene (QC): 6 Toileting Hygiene (QC): 6 Shower/Bathe Self (QC): 6 Upper Body Dressing (QC): 6 Lower Body Dressing (QC): 6 On/Off Footwear (QC): 6 Additional Goals: 1-Demonstrate ADL Tasks, 2-Verbalize Understanding, 3- ImproveStrength/Yovana 1=Demonstrate adherence to instructed precautions during ADL tasks. 2=Patient will verbalize/demonstrate understanding of assistive devices/modifications for ADL. 3=Patient will improve strength/tolerance for activity to enable patient to perform ADL's. OT Education/Plan Problem List/Assessment Assessment: Decreased Activ Tolerance, Decreased UE Strength, Impaired Funct Balance, Impaired I ADL's, Impaired Self-Care Skills Discharge Recommendations Plan/Recommendations: Continue POC Treatment Plan/Plan of Care Patient would benefit from OT for education, treatment and training to promote independence in ADL's, mobility, safety and/or upper extremity function for ADL's. Plan of Care: ADL Retraining, Functional Mobility, UE Funct Exercise/Act Treatment Duration: May 13, 2020 Frequency: 5 times per week Estimated Hrs Per Day: .25 hour per day Agreement: Yes Rehab Potential: Fair Time/GCodes Start Time: 13:55 Stop Time: 14:08 Total Time Billed (hr/min): 13 Billed Treatment Time 1, DEJAH BORRERO OT May 02, 2020 14:03
--- NOTE | 2020-05-02 14:45 | Physical Therapy Evaluation ---
PT Evaluation-General Medical Diagnosis Admission Date May 01, 2020 at 11:20 Medical Diagnosis: COVID+ Onset Date: Apr 23, 2020 Therapy Diagnosis Therapy Diagnosis: impaired mobility, SOB Height/Weight Height (Feet): 5 Height (Inches): 7.00 Weight (Pounds): 156 Weight (Ounces): 0 Precautions Precautions/Isolations: Airborne Isolation, Droplet Isolation, Fall Prevention, Pressure Ulcer Referral Physician: Ruth Ann Reason for Referral: Evaluation/Treatment Medical History Additional Medical History Past Medical History Surgeries: Hysterectomy Cardiac: Hypertension Reproductive: Yes Sexually Transmitted Disease: No Hysterectomy Musculoskeletal: Arthritis Endocrine: Hypothyroidsim HEENT: Cataract Psychosocial: Depression Social History Home: Multilevel Current Living Status: Children Entry Into Home: Stairs With Railing PT Steps Into Home: 6 PT Steps Inside Home: 5 Patient's in the hospital a day or two ago from covid. Prior Prior Level of Function SCALE: Activities may be completed with or without assistive devices. 8-Iaiiuiuyom-uppilth completes the activity by him/herself with no assistance from a helper. 5-Set-up or Clean-up Assistance-helper sets up or cleans up; patient completes activity. [place] assists only prior to or following the activity. 4-Supervision or Touching Assistance-helper provides verbal cues and/or touch ing/steadying and/or contact guard assistance as patient completes activity. Assistance may be provided throughout the activity or intermittently. 3-Partial/Moderate Assistance-helper does LESS THAN HALF the effort. [place] lifts, holds or supports trunk or limbs, but provides less than half the effort. 2-Substantial/Maximal Assistance-helper does MORE THAN HALF the effort. [place] lifts or holds trunk or limbs and provides more than half the effort. 8-Qdlcjsitr-eqfqfq does ALL the effort. Patient does none of the effort to complete the activity. Or, the assistance of 2 or more helpers is required for the patient to complete the activity. If activity was not attempted, code reason: 7-Patient Refused. 9-Not Applicable-not attempted and the patient did not perform the activity before the current illness, exacerbation or injury. 10-Not Attempted due to Environmental Limitations-(lack of equipment, weather restraints, etc.). 88-Not Attempted due to Medical Conditions or Safety Concerns. Bed Mobility: 6 Transfers (B,C,W/C): 6 Gait: 6 Stairs: 6 Indoor Mobility (Ambulation): Independent Stairs: Independent PT Evaluation-Current Subjective Patient in bed pre tx, agrees to PT, has no complaints of pain. Patient states she is awaiting a call from the home to make arrangements for her but can participate for a few minutes. Pt/Family Goals "to breathe better" Objective Patient Orientation: Person, Place, Situation Attachments: Oxygen, IV ROM/Strength ROM Lower Extremities WNL Strength Lower Extremities 4+/5 gross BLE Sensory Hearing: Functional Sensation Right Lower Extremit: Intact Sensation Left Lower Extremity: Intact Transfers Roll Left to Right (QC): 6 Sit to Lying (QC): 6 Lying to Sitting/Side of Bed(Q: 6 Sit to Stand (QC): 4 Patient is able to stand with CGA, she is a little unsteady immediately upon standing, she can only stand for about 30 seconds before needing to sit back down, she is able to take a couple of steps toward the head of the bed before sitting down and then laying back down. Balance Sitting Static: Normal Sitting Dynamic: Normal Standing Static: Fair Assessment/Needs Patient has poor endurance, no ambulation on this date. Rehab Potential: Fair PT Quality Review Trainer Goals Half-Way Goals PT Half-Way Goals Time Frame: May 09, 2020 Roll Left & Right (QC): 6 Sit to Lying (QC): 6 Lying-Sitting on Side/Bed(QC): 6 Sit to Stand (QC): 6 Chair/Gqj-un-Vyjfs Xfer(QC): 6 Toilet Transfer (QC): 6 Walk 10 feet (QC): 4 Walk 50ft with 2 Turns (QC): 4 PT Plan Problem List Problem List: Activity Tolerance, Functional Strength, Safety, Balance, Gait, Transfer Treatment/Plan Treatment Plan: Continue Plan of Care Treatment Plan: Education, Functional Activity Yovana, Functional Strength, Gait, Safety, Therapeutic Exercise, Transfers Treatment Duration: May 09, 2020 Frequency: 6 times per week Estimated Hrs Per Day: .25 hour per day Patient and/or Family Agrees t: Yes Safety Risks/Education Patient Education: Transfer Techniques, Correct Positioning, Safety Issues Teaching Recipient: Patient Teaching Methods: Demonstration, Discussion Response to Teaching: Reinforcement Needed Discharge Recommendations Plan Patient will perform bed mobility and transfer training, balance and endurance training, functional strengthening, stair training, gait training, and education, to improve functional mobility and independence at home. Therapy Discharge Recommendati: Scheduled Assistance, Post Acute PT Time/GCodes Time In: 1400 Time Out: 1410 Total Billed Treatment Time: 10 Total Billed Treatment 1 visit JANES MENDES PT May 02, 2020 14:45
[2020-05-02] MEDS: traZODone 150 MG (DESYREL) TABLET PO SCH (21:11)
[2020-05-02] MEDS: rOPINIRole 1 MG (REQUIP) TABLET PO SCH (21:13)
[2020-05-02] MEDS: ALPRAZolam 0.25 MG (XANAX) TAB PO PRN (23:53)
[2020-05-03] MEDS: RT-ALBUTEROL INHALER HFA (VENTOLIN HFA) 18 GM IH SCH ×6 (02:13→22:09)
[2020-05-03 04:10] VITALS: BP 143/75
[2020-05-03] MEDS: NS IV 1000 ML 1,000 ML IV SCH (04:20)
[2020-05-03] MEDS: LEVOTHYROXINE 25 MCG (LEVOTHROID) TAB PO SCH (05:53)
[2020-05-03] MEDS: inSUlin ASPART (NovoLOG) 1 UNIT/0.01 ML (CHARGE PER UNIT) SC SCH ×4 (05:55→22:47)
[2020-05-03] MEDS: AZITHROMYCIN 250 MG TAB (ZITHROMAX) PO SCH (08:41)
[2020-05-03] MEDS: SENNOSIDES 8.6 MG (SENOKOT) TAB PO SCH ×2 (08:41→21:10)
[2020-05-03] MEDS: DOCUSATE SODIUM 100 MG (COLACE) CAP PO SCH ×2 (08:41→21:10)
[2020-05-03] MEDS: ASPIRIN E.C. 81 MG (ECOTRIN) TAB PO SCH (08:42)
[2020-05-03] MEDS: PANTOPRAZOLE 40 MG (PROTONIX) TAB PO SCH (08:42)
[2020-05-03] MEDS ORDERED: CEFEPIME INJECTION 2,000 MG in WATER (STERILE) FOR INJECTION 20 ML IV SCH (09:00)
--- NOTE | 2020-05-03 10:43 | Progress Note - Hospitalist ---
Subjective HPI/CC On Admission Date Seen by Provider: May 03, 2020 Time Seen by Provider: 10:39 Pt is an 79yoCF who was recently admitted due to COVID19 and hypoxia. She was discharged last week with home oxygen. 2 days ago her who was admitted here from COVID19. Yesterday she's unsure if she got more SOB or weak but decided to come back to the ER via EMS. ER staff spoke with the family who state they are unable to care for her. She agrees that she is unable to take care of herself. I attempted to discuss plan for obtaining care and she stated she just wants to worry about getting her buried first. She denies any physical complaints at this time. Subjective/Events-last exam Pt reports feeling ok. No complaints at this time. Discussed need for continued therapy for strengthening. She would like to pursue IRU if able. Focused Exam Lactate Level 05/01/20 12:00: Lactic Acid Level 1.51 Objective Exam Vital Signs Vital Signs Date Time Temp Pulse Resp B/P (MAP) Pulse Ox O2 Delivery O2 Flow Rate FiO2 05/03/20 08:49 66 92 Nasal Cannula 3.00 05/03/20 08:03 95 05/03/20 04:10 36.0 20 143/75 (97) Capillary Refill : Less Than 3 SecondsLess Than 3 Seconds General Appearance: No Apparent Distress, Chronically ill Respiratory: Lungs Clear, No Respiratory Distress Cardiovascular: Regular Rate, Rhythm, No Murmur Neurologic/Psychiatric: Alert, Oriented x3 Results/Procedures Lab Patient resulted labs reviewed. Imaging: Reviewed Imaging Report Assessment/Plan Assessment and Plan Assess & Plan/Chief Complaint Acute Hypoxic Respiratory Failure due to COVID19 bilateral infiltrates Has completed Remdesivir and Decadron at previous admission Procal is negative so will DC abx MAT protocol Wean oxygen as able Debility PT/OT retail services professional consulted IRU consulted Anxiety Continue Xanax HTN Continue home meds Hypothyroidism Continue synthroid Chronic pain Fentanyl patch Hydrocodone DVT prophylaxis: Lovenox Diagnosis/Problems Diagnosis/Problems (1) COVID-19 Status: Acute (2) Pneumonia due to COVID-19 virus Status: Acute (3) Acute respiratory failure due to COVID-19 Status: Acute (4) HTN (hypertension) Status: Chronic (5) Hypothyroidism Status: Chronic (6) Anxiety Status: Chronic Clinical Quality Measures DVT/VTE Risk/Contraindication: Risk Factor Score Per Nursin RFS Level Per Nursing on Admit: 4+=Very High IRVIN YATES MD May 03, 2020 10:43
[2020-05-03 11:54] VITALS: BP_SYST 103; BP_SYST 146; BP_DIAS 56; BP_DIAS 67
--- NOTE | 2020-05-03 14:31 | Occupational Ther Daily Note ---
OT Current Status-Daily Note Subjective Pt laying in bed, agreeable to OT tx. Pt indicates she wants to return home, but she needs to be stronger. Mental Status/Objective Patient Orientation: Person, Place, Time, Situation Attachments: Oxygen ADL-Treatment Therapy Code Descriptions/Definitions Functional [place] Measure: 0=Not Assessed/NA 4=Minimal Assistance 1=Total Assistance 5=Supervision or Setup 2=Maximal Assistance 6=Modified [place] 3=Moderate Assistance 7=Complete IndependenceSCALE: Activities may be completed with or without assistive devices. 5-Bmsgbbcukp-bziivgt completes the activity by him/herself with no assistance from a helper. 5-Set-up or Clean-up Assistance-helper sets up or cleans up; patient completes activity. [place] assists only prior to or following the activity. 4-Supervision or Touching Assistance-helper provides verbal cues and/or touching/steadying and/or contact guard assistance as patient completes activity. Assistance may be provided throughout the activity or intermittently. 3-Partial/Moderate Assistance-helper does LESS THAN HALF the effort. [place] lifts, holds or supports trunk or limbs, but provides less than half the effort. 2-Substantial/Maximal Assistance-helper does MORE THAN HALF the effort. [place] lifts or holds trunk or limbs and provides more than half the effort. 3-Wczgctspy-mzigql does ALL the effort. Patient does none of the effort to complete the activity. Or, the assistance of 2 or more helpers is required for the patient to complete the activity. If activity was not attempted, code reason: 7-Patient Refused. 9-Not Applicable-not attempted and the patient did not perform the activity before the current illness, exacerbation or injury. 10-Not Attempted due to Environmental Limitations-(lack of equipment, weather restraints, etc.). 88-Not Attempted due to Medical Conditions or Safety Concerns. Other Treatment In order to increase BUE strength and functional endurance, OT educated pt on theraband exercises using moderate resistance red theraband. Pt able to complete x10 reps of each exercise, BUE in all planes, with rest breaks between each exercise. Pt required min assistance with correct technique with each exercise after demonstration. OT educated pt on energy conservation techniques and activity modifications for when she returns home, pt verbalized understanding. Post OT Tx, pt laying in bed, call light in reach and all needs met. Education OT Patient Education: Correct positioning, Energy conservation, Exercise program, Modified ADL techniques, Progress toward Goal/Update tx plan, Purpose of tx/functional activities, Rehab process, Safety issues Teaching Recipient: Patient Teaching Methods: Discussion Response to Teaching: Verbalize Understanding OT Amusement Park Worker Goals Amusement Park Worker Goals Time Frame: May 13, 2020 Eating (QC): 6 Oral Hygiene (QC): 6 Toileting Hygiene (QC): 6 Shower/Bathe Self (QC): 6 Upper Body Dressing (QC): 6 Lower Body Dressing (QC): 6 On/Off Footwear (QC): 6 Additional Goals: 1-Demonstrate ADL Tasks, 2-Verbalize Understanding, 3- ImproveStrength/Yovana 1=Demonstrate adherence to instructed precautions during ADL tasks. 2=Patient will verbalize/demonstrate understanding of assistive devices/modifications for ADL. 3=Patient will improve strength/tolerance for activity to enable patient to perform ADL's. OT Education/Plan Problem List/Assessment Assessment: Decreased Activ Tolerance, Decreased UE Strength Discharge Recommendations Plan/Recommendations: Continue POC Treatment Plan/Plan of Care Patient would benefit from OT for education, treatment and training to promote independence in ADL's, mobility, safety and/or upper extremity function for ADL's. Plan of Care: ADL Retraining, Functional Mobility, UE Funct Exercise/Act Treatment Duration: May 13, 2020 Frequency: 5 times per week Estimated Hrs Per Day: .25 hour per day Agreement: Yes Rehab Potential: Fair Time/GCodes Start Time: 13:50 Stop Time: 14:13 Total Time Billed (hr/min): 23 Billed Treatment Time 1, EX 2 DEJAH TANNER OT May 03, 2020 14:31
--- NOTE | 2020-05-03 15:07 | Physical Therapy Daily Note ---
PT Daily Note-Current Subjective Patient is in bed and agrees to PT. Mental Status Patient Orientation: Normal For Age Attachments: Oxygen (5L [place] HF) Transfers SCALE: Activities may be completed with or without assistive devices. 0-Drhgneulkv-zjtnhpt completes the activity by him/herself with no assistance from a helper. 5-Set-up or Clean-up Assistance-helper sets up or cleans up; patient completes activity. [place] assists only prior to or following the activity. 4-Supervision or Touching Assistance-helper provides verbal cues and/or touching/steadying and/or contact guard assistance as patient completes activity. Assistance may be provided throughout the activity or intermittently. 3-Partial/Moderate Assistance-helper does LESS THAN HALF the effort. [place] lifts, holds or supports trunk or limbs, but provides less than half the effort. 2-Substantial/Maximal Assistance-helper does MORE THAN HALF the effort. [place] lifts or holds trunk or limbs and provides more than half the effort. 4-Urwsszbew-tfhydc does ALL the effort. Patient does none of the effort to complete the activity. Or, the assistance of 2 or more helpers is required for the patient to complete the activity. If activity was not attempted, code reason: 7-Patient Refused. 9-Not Applicable-not attempted and the patient did not perform the activity before the current illness, exacerbation or injury. 10-Not Attempted due to Environmental Limitations-(lack of equipment, weather restraints, etc.). 88-Not Attempted due to Medical Conditions or Safety Concerns. Roll Left & Right (QC): 6 Sit to Lying (QC): 6 Lying to Sitting/Side of Bed(Q: 6 Sit to Stand (QC): 5 Toilet Transfer (QC): 5 patient able to toilet self and wash hands after Gait Training Does the Patient Walk?: Yes Distance: 30' x 2 Walk 10 feet (QC): 5 Gait Assistive Device: FWW slow and steady Exercises Supine Ex: Ankle pumps, Quad Set, Heel Slides, Straight leg raise Supine Reps: 12 Seated Therapy Exercises: Ankle pumps, Long arc quads, Hip flexion Seated Reps: 12 Assessment Patient has increase SOA with minimal activity and requires time to complete all functional tasks. PT Officer Lieutenant Goals Halfway Goals PT Halfway Goals Time Frame: May 09, 2020 Roll Left & Right (QC): 6 Sit to Lying (QC): 6 Lying-Sitting on Side/Bed(QC): 6 Sit to Stand (QC): 6 Chair/Rxz-sr-Dsaeb Xfer(QC): 6 Toilet Transfer (QC): 6 Walk 10 feet (QC): 4 Walk 50ft with 2 Turns (QC): 4 PT Plan Treatment/Plan Treatment Plan: Continue Plan of Care Treatment Plan: Education, Functional Activity Yovana, Functional Strength, Gait, Safety, Therapeutic Exercise, Transfers Treatment Duration: May 09, 2020 Frequency: 6 times per week Estimated Hrs Per Day: .25 hour per day Patient and/or Family Agrees t: Yes Time/GCodes Time In: 1430 Time Out: 1456 Total Billed Treatment Time: 26 Total Billed Treatment 1 visit EX 12 min FA 14 min HUGO COLEMAN PT May 03, 2020 15:07
--- NOTE | 2020-05-03 15:26 | NUR ---
IRF Evaluation Determination: Accepted Chart review complete and findings discussed with Dr. Diop - patient accepted. CM/SS and Dr. Vallecillo notified. Called patient and discussed details specific to rehabilitation program. Patient agreeable to admission. Anticipate admission, 05/04/20. Thank you for this referral.
[2020-05-03] MEDS: ENOXAPARIN 40 MG/0.4 ML (LOVENOX) SYR SC SCH (15:29)
[2020-05-03 16:58] VITALS: BP 139/78
[2020-05-03 20:00] VITALS: BP 154/86
[2020-05-03] MEDS: rOPINIRole 1 MG (REQUIP) TABLET PO SCH (21:10)
[2020-05-03] MEDS: traZODone 150 MG (DESYREL) TABLET PO SCH (21:10)
[2020-05-03] MEDS: ALPRAZolam 0.25 MG (XANAX) TAB PO PRN (21:10)
[2020-05-03 21:13] VITALS: BP 154/86
[2020-05-04] VITALS (7 sets, daily range): BP systolic 117–140; BP diastolic 62–85
[2020-05-04] MEDS: RT-ALBUTEROL INHALER HFA (VENTOLIN HFA) 18 GM IH SCH ×5 (01:33→20:50)
[2020-05-04] MEDS: LEVOTHYROXINE 25 MCG (LEVOTHROID) TAB PO SCH (05:35)
[2020-05-04] MEDS: inSUlin ASPART (NovoLOG) 1 UNIT/0.01 ML (CHARGE PER UNIT) SC SCH ×4 (05:35→20:44)
[2020-05-04] MEDS: SENNOSIDES 8.6 MG (SENOKOT) TAB PO SCH ×2 (08:53→20:44)
[2020-05-04] MEDS: DOCUSATE SODIUM 100 MG (COLACE) CAP PO SCH ×2 (08:53→20:44)
[2020-05-04] MEDS: PANTOPRAZOLE 40 MG (PROTONIX) TAB PO SCH (12:03)
[2020-05-04] MEDS: ASPIRIN E.C. 81 MG (ECOTRIN) TAB PO SCH (12:03)
--- NOTE | 2020-05-04 12:07 | Occupational Ther Daily Note ---
OT Current Status-Daily Note Subjective Pt seen with hospital nursing assistant coming out of shower. Pt agrees to allow OT to assist from here. Pt does not c/o pain, no apparent SOB. Mental Status/Objective Patient Orientation: Person, Place, Situation Attachments: Oxygen ADL-Treatment Therapy Code Descriptions/Definitions Functional [place] Measure: 0=Not Assessed/NA 4=Minimal Assistance 1=Total Assistance 5=Supervision or Setup 2=Maximal Assistance 6=Modified [place] 3=Moderate Assistance 7=Complete IndependenceSCALE: Activities may be completed with or without assistive devices. 8-Jjxgoxvegq-gysvfng completes the activity by him/herself with no assistance from a helper. 5-Set-up or Clean-up Assistance-helper sets up or cleans up; patient completes activity. [place] assists only prior to or following the activity. 4-Supervision or Touching Assistance-helper provides verbal cues and/or touching/steadying and/or contact guard assistance as patient completes activity. Assistance may be provided throughout the activity or intermittently. 3-Partial/Moderate Assistance-helper does LESS THAN HALF the effort. [place] lifts, holds or supports trunk or limbs, but provides less than half the effort. 2-Substantial/Maximal Assistance-helper does MORE THAN HALF the effort. [place] lifts or holds trunk or limbs and provides more than half the effort. 3-Xwmgawxwq-nzlkao does ALL the effort. Patient does none of the effort to complete the activity. Or, the assistance of 2 or more helpers is required for the patient to complete the activity. If activity was not attempted, code reason: 7-Patient Refused. 9-Not Applicable-not attempted and the patient did not perform the activity before the current illness, exacerbation or injury. 10-Not Attempted due to Environmental Limitations-(lack of equipment, weather restraints, etc.). 88-Not Attempted due to Medical Conditions or Safety Concerns. Eating (QC): 6 (left with food in front of pt, no assist needed per pt.) Upper Body Dressing (QC): 5 (per clinical judgment) On/Off Footwear: 6 Other Treatment Pt completes ambulation from sc to chair with CGA. No SOB. Use of walker. Sits with control. Dons socks with IND, no SOB upon rising/ extending trunk. Pt completes hair grooming, blankets cover pt. Pt's vitals machine , is plugged in, unable to assess 02 sats. Pt completes all tasks, states fatigued and denies UE theraband ex. Pt educated on TV remote and use of TV guide. Pt expresses some confusion with this, demonstration provided. Pt states has recently passed, is somewhat tearful. Pt is comforted. All needs met, call light on lap, tray/ table over lap. DO enters upon OT exit. Education OT Patient Education: Correct positioning, Progress toward Goal/Update tx plan, Safety issues, Transfer techniques Teaching Recipient: Patient Teaching Methods: Demonstration, Discussion Response to Teaching: Verbalize Understanding, Return Demonstration OT Hand Ii Cutter Goals Hand Ii Cutter Goals Time Frame: May 13, 2020 Eating (QC): 6 Oral Hygiene (QC): 6 Toileting Hygiene (QC): 6 Shower/Bathe Self (QC): 6 Upper Body Dressing (QC): 6 Lower Body Dressing (QC): 6 On/Off Footwear (QC): 6 Additional Goals: 1-Demonstrate ADL Tasks, 2-Verbalize Understanding, 3- ImproveStrength/Yovana 1=Demonstrate adherence to instructed precautions during ADL tasks. 2=Patient will verbalize/demonstrate understanding of assistive devices/modifications for ADL. 3=Patient will improve strength/tolerance for activity to enable patient to perform ADL's. OT Education/Plan Problem List/Assessment Assessment: Decreased Activ Tolerance, Decreased UE Strength, Impaired I ADL's, Impaired Self-Care Skills Discharge Recommendations Plan/Recommendations: Continue POC Therapy Discharge Recommendati: Home & Family, Post Acute OT Treatment Plan/Plan of Care Treatment,Training & Education: Yes Patient would benefit from OT for education, treatment and training to promote independence in ADL's, mobility, safety and/or upper extremity function for ADL's. Plan of Care: ADL Retraining, Functional Mobility, UE Funct Exercise/Act Treatment Duration: May 13, 2020 Frequency: 5 times per week Estimated Hrs Per Day: .25 hour per day Agreement: Yes Rehab Potential: Fair Time/GCodes Start Time: 11:35 Stop Time: 11:55 Total Time Billed (hr/min): 20 Billed Treatment Time 1, ADL (20) ERIK PRETTY OTR May 04, 2020 12:07
--- NOTE | 2020-05-04 13:08 | Progress Note - Hospitalist ---
Subjective HPI/CC On Admission Date Seen by Provider: May 04, 2020 Time Seen by Provider: 13:02 Pt is an 79yoCF who was recently admitted due to COVID19 and hypoxia. She was discharged last week with home oxygen. 2 days ago her who was admitted here from COVID19. Yesterday she's unsure if she got more SOB or weak but decided to come back to the ER via EMS. ER staff spoke with the family who state they are unable to care for her. She agrees that she is unable to take care of herself. I attempted to discuss plan for obtaining care and she stated she just wants to worry about getting her buried first. She denies any physical complaints at this time. Subjective/Events-last exam Pt reports feeling better today. No complaints. Got a shower. Objective Exam Vital Signs Vital Signs Date Time Temp Pulse Resp B/P (MAP) Pulse Ox O2 Delivery O2 Flow Rate FiO2 05/04/20 11:17 36.4 75 20 140/73 (95) 94 Nasal Cannula 3.00 05/04/20 10:38 94 Capillary Refill : Less Than 3 SecondsLess Than 3 Seconds General Appearance: No Apparent Distress, WD/WN Respiratory: Lungs Clear, No Respiratory Distress Cardiovascular: Regular Rate, Rhythm, No Murmur Neurologic/Psychiatric: Alert, Oriented x3 Results/Procedures Lab Patient resulted labs reviewed. Imaging: Reviewed Imaging Report Assessment/Plan Assessment and Plan Assess & Plan/Chief Complaint Acute Hypoxic Respiratory Failure due to COVID19 bilateral infiltrates Has completed Remdesivir and Decadron at previous admission Procal is negative so will DC abx MAT protocol Wean oxygen as able Debility PT/OT customer technical services manager consulted IRU consulted, hopeful plan for DC there tomorrow Anxiety Continue Xanax HTN Continue home meds Hypothyroidism Continue synthroid Chronic pain Fentanyl patch Hydrocodone DVT prophylaxis: Lovenox Diagnosis/Problems Diagnosis/Problems (1) COVID-19 Status: Acute (2) Pneumonia due to COVID-19 virus Status: Acute (3) Acute respiratory failure due to COVID-19 Status: Acute (4) HTN (hypertension) Status: Chronic (5) Hypothyroidism Status: Chronic (6) Anxiety Status: Chronic Clinical Quality Measures DVT/VTE Risk/Contraindication: Risk Factor Score Per Nursin RFS Level Per Nursing on Admit: 4+=Very High IRVIN YATES MD May 04, 2020 13:08
[2020-05-04] MEDS ORDERED: PATCH REMOVAL TP SCH (14:00)
[2020-05-04] MEDS: ENOXAPARIN 40 MG/0.4 ML (LOVENOX) SYR SC SCH (15:00)
[2020-05-04] MEDS: fentaNYL PATCH 75 MCG (DURAGESIC) TD SCH (15:00)
--- NOTE | 2020-05-04 15:14 | Physical Therapy Daily Note ---
PT Daily Note-Current Subjective Patient in bed pre tx, agrees to PT, has no complaints of pain, patient doesn't want to get into recliner when done, she says she has been in it a lot today. Appearance Patient in bed post tx with nurse call, phone, tray, all needs met. Mental Status Patient Orientation: Normal For Age Attachments: Oxygen Transfers SCALE: Activities may be completed with or without assistive devices. 1-Mjutqvneah-tjqcgvn completes the activity by him/herself with no assistance from a helper. 5-Set-up or Clean-up Assistance-helper sets up or cleans up; patient completes activity. [place] assists only prior to or following the activity. 4-Supervision or Touching Assistance-helper provides verbal cues and/or touching/steadying and/or contact guard assistance as patient completes activity. Assistance may be provided throughout the activity or intermittently. 3-Partial/Moderate Assistance-helper does LESS THAN HALF the effort. [place] lifts, holds or supports trunk or limbs, but provides less than half the effort. 2-Substantial/Maximal Assistance-helper does MORE THAN HALF the effort. [place] lifts or holds trunk or limbs and provides more than half the effort. 6-[place]-qdfiml does ALL the effort. Patient does none of the effort to complete the activity. Or, the assistance of 2 or more helpers is required for the patient to complete the activity. If activity was not attempted, code reason: 7-Patient Refused. 9-Not Applicable-not attempted and the patient did not perform the activity before the current illness, exacerbation or injury. 10-Not Attempted due to Environmental Limitations-(lack of equipment, weather restraints, etc.). 88-Not Attempted due to Medical Conditions or Safety Concerns. Roll Left & Right (QC): 6 Sit to Lying (QC): 6 Lying to Sitting/Side of Bed(Q: 6 Sit to Stand (QC): 4 Chair/Fnr-kw-Lgaqq Xfer(QC): 4 Gait Training Distance: 20'x2 Walk 10 feet (QC): 4 Gait Persons Needed: 1 Gait Assistive Device: FWW CGA, slow but steady ambulation Treatments bed mobility and transfers, ambulation Assessment Current Status: Fair Progress Patient gets SOB with just ambulating 20' but can recover after about 30 seconds. PT Snf Goals Snf Goals PT Powder Expert Goals Time Frame: May 09, 2020 Roll Left & Right (QC): 6 Sit to Lying (QC): 6 Lying-Sitting on Side/Bed(QC): 6 Sit to Stand (QC): 6 Chair/Tbg-bm-Uyrob Xfer(QC): 6 Toilet Transfer (QC): 6 Walk 10 feet (QC): 4 Walk 50ft with 2 Turns (QC): 4 PT Plan Problem List Problem List: Activity Tolerance, Functional Strength, Safety, Balance, Gait, Transfer, Bed Mobility Treatment/Plan Treatment Plan: Continue Plan of Care Treatment Plan: Education, Functional Activity Yovana, Functional Strength, Gait, Safety, Therapeutic Exercise, Transfers Treatment Duration: May 09, 2020 Frequency: 6 times per week Estimated Hrs Per Day: .25 hour per day Patient and/or Family Agrees t: Yes Safety Risks/Education Patient Education: Gait Training, Transfer Techniques, Correct Positioning, Safety Issues Teaching Recipient: Patient Teaching Methods: Demonstration, Discussion Response to Teaching: Reinforcement Needed Time/GCodes Time In: 1455 Time Out: 1509 Total Billed Treatment Time: 14 Total Billed Treatment 1 visit FA JANES AGUDELO PT May 04, 2020 15:14
[2020-05-04] MEDS: traZODone 150 MG (DESYREL) TABLET PO SCH (20:44)
[2020-05-04] MEDS: rOPINIRole 1 MG (REQUIP) TABLET PO SCH (20:44)
[2020-05-04] MEDS: ALPRAZolam 0.25 MG (XANAX) TAB PO PRN (20:52)
[2020-05-04] MEDS ORDERED: RT-ALBUTEROL INHALER HFA (VENTOLIN HFA) 18 GM IH SCH (22:00)
[2020-05-05 00:12] VITALS: BP 145/82
[2020-05-05] MEDS: RT-ALBUTEROL INHALER HFA (VENTOLIN HFA) 18 GM IH SCH ×2 (02:54→08:13)
[2020-05-05 04:00] VITALS: BP 138/77
[2020-05-05] MEDS: inSUlin ASPART (NovoLOG) 1 UNIT/0.01 ML (CHARGE PER UNIT) SC SCH (05:39)
[2020-05-05] MEDS: LEVOTHYROXINE 25 MCG (LEVOTHROID) TAB PO SCH (06:18)
[2020-05-05 08:40] VITALS: BP 154/88
[2020-05-05] MEDS: ALPRAZolam 0.25 MG (XANAX) TAB PO PRN (08:47)
[2020-05-05] MEDS: ASPIRIN E.C. 81 MG (ECOTRIN) TAB PO SCH (08:47)
[2020-05-05] MEDS: SENNOSIDES 8.6 MG (SENOKOT) TAB PO SCH (08:47)
[2020-05-05] MEDS: PANTOPRAZOLE 40 MG (PROTONIX) TAB PO SCH (08:47)
[2020-05-05] MEDS: DOCUSATE SODIUM 100 MG (COLACE) CAP PO SCH (08:47)
--- NOTE | 2020-05-05 09:18 | Discharge Summary ---
Diagnosis/Chief Complaint Date of Admission May 01, 2020 at 11:20 Date of Discharge Discharge Date: May 05, 2020 Admission Diagnosis Acute Hypoxic Respiratory Failure due to COVID19 Primary Care Easton Palacios MD Discharge Diagnosis (1) COVID-19 Status: Acute (2) Pneumonia due to COVID-19 virus Status: Acute (3) Acute respiratory failure due to COVID-19 Status: Acute (4) HTN (hypertension) Status: Chronic (5) Hypothyroidism Status: Chronic (6) Anxiety Status: Chronic Discharge Summary Discharge Physical Exam Allergies: Coded Allergies: Iodinated Contrast Media (Unverified Allergy, Unknown, 05/06/16) Sulfa (Sulfonamide Antibiotics) (Verified Allergy, Unknown, 02/25/08) ciprofloxacin (Unverified Allergy, Unknown, 05/06/16) Vitals & I&Os Vital Signs Date Time Temp Pulse Resp B/P (MAP) Pulse Ox O2 Delivery O2 Flow Rate FiO2 05/05/20 08:40 36.4 90 18 154/88 (110) 94 High Flow N/C 1.00 05/05/20 08:13 95 General Appearance: No Apparent Distress, Chronically ill Cardiovascular: Regular Rate, Rhythm, No Murmur Gastrointestinal: Normal Bowel Sounds, Soft Neurologic/Psychiatric: Alert, Oriented x3 Hospital Course Pt was admitted due to worsening hypoxia and weakness from COVID19. She had been discharged a few days prior on 3lpm NC oxygen supplementation but returned and needed 6lpm and was much weaker. PT/OT was consulted and her oxygen was weaned down. She was transferred to IRU for continued strengthening. Labs (last 24 hrs) Microbiology 05/02/20 Blood Culture - Final, Complete No growth 05/01/20 Influenza Types A,B Antigen (DASHA) - Final, Complete Patient resulted labs reviewed. Pending Labs Imaging: Reviewed Imaging Report Discussion & Recommendations Discharge Planning: >30 minutes discharge planning Discharge Home Medications: Active Scripts Active Reported Fentanyl Patch 75MCG (Fentanyl) 1 Each Patch.td72 75 Mcg TD Q72H Aspirin EC (Aspirin) 81 Mg Tablet.dr 81 Mg PO DAILY Meloxicam 7.5 Mg Tablet 7.5 Mg PO DAILY Synthroid (Levothyroxine Sodium) 25 Mcg Tablet 25 Mcg PO DAILY Escitalopram Oxalate 20 Mg Tablet 20 Mg PO DAILY Xanax (Alprazolam) 0.25 Mg Tablet 0.125-0.25 Mg PO BID PRN Metoprolol Succinate 25 Mg Tab.er.24h 25 Mg PO DAILY Klor-Con M10 (Potassium Chloride) 10 Meq Tab.er.prt 10 Meq PO BID Trazodone HCl 150 Mg Tablet 150 Mg PO HS Ropinirole HCl 1 Mg Tablet 2 Mg PO HS TAKES 2 (1MG) TABLETS Instructions to patient/family Please see electronic discharge instructions given to patient. Clinical Quality Measures DVT/VTE Risk/Contraindication: Risk Factor Score Per Nursin RFS Level Per Nursing on Admit: 4+=Very High IRVIN YATES MD May 05, 2020 09:17
--- NOTE | 2020-05-06 06:03 | Physician Query Clarification ---
PQ-Uncertain Diagnosis Admission/Discharge Admission Date: May 01, 2020 at 11:20 Discharge Date: May 05, 2020 at 10:05 IRVIN Almonte MD The medical record reflects the following clinical scenario: History/Risk Factors: 79 y/o female patient admitted with Acute hypoxic Respiratory Failure due to COVID19 infection. ED physician note, 05/01: Pneumonia, COVID19, Sepsis. Hand P, 05/01: Acute hypoxic Respiratory Failure due to COVID19, bilateral infiltrates. Discharge summary, 05/05: Pneumonia due to COVID 19 virus, Acute hypoxic Respiratory Failure due to COVID19. Clinical Findings:WBC-17.4 H, Pulse 105 Treatment: Convalescent plasma, IV antibiotics Question: Is Sepsis a clinically valid diagnosis? Sepsis was documented in the ED physician note, 05/01 with no further documentation in the medical record. Please document a response in Progress Note or Discharge Summary. 1. Yes, clinically valid, condition resolved. 2. No, condition ruled out. 3. Other, with explanation of clinical findings. 4. Undetermined, no explanation for clinical findings. PHYSICIAN RESPONSE Diagnosis clinically valid: No, conditon ruled out Please remember a lack of response to the above will prompt a phone page by CDI/Coding staff. In responding to this query, please exercise your independent professional judgment. The purpose of this communication is to more accurately reflect the complexity of your patients condition. The fact that a question is asked does not imply that any particular answer is desired or expected. Thank you for your timely response to this clarification. Requestors name: [ ] Phone # [ ] THIS PHYSICIAN QUERY FORM IS A PERMANENT PART OF THE MEDICAL RECORD JACQUE DUNN May 06, 2020 06:03 IRVIN YATES MD May 06, 2020 15:30
[2020-05-11] MEDS ORDERED: SENN-20 PO (09:29)
[2020-05-11] MEDS ORDERED: ALBU18HF2 IH (09:29)
[2020-05-11] MEDS ORDERED: PANT40TA52 PO (09:29)
[2020-05-11] MEDS ORDERED: OXC5T PO (09:29)
[2020-05-11] MEDS ORDERED: GUAI473L29 PO (09:29)
== END 2020-05-05 10:05 | DRG 177 ==
LOC: EDUNIT# 07:23 → ER 07:24 → 4TH 11:20
PROVIDERS: ADMIT Internal Medicine; ATTEND Internal Medicine
DX: U07.1 COVID-19 (principal); J12.89 Other viral pneumonia; J96.01 Acute respiratory failure with hypoxia; I10 Essential (primary) hypertension; E03.9 Hypothyroidism, unspecified; F41.9 Anxiety disorder, unspecified; G89.29 Other chronic pain; R53.81 Other malaise; M19.91 Primary osteoarthritis, unspecified site; F32.9 Major depressive disorder, single episode, unspecified; J30.2 Other seasonal allergic rhinitis; Z99.81 Dependence on supplemental oxygen
CPT/HCPCS: 36415; 71045; 80053; 82962; 83605; 84145; 85007; 85025; 85027; 86850; 86900; 86901; 87040; 87077; 87635; 87804; 94640; 94760; 96361; 96374

== ENCOUNTER 2020-05-04 18:09 | Inpatient (IN) | payer MEDICARE ==
[~2020-05-04] VITALS: Ht 162 cm; Wt 64.8 kg
[~2020-05-04 18:09] MED LIST changes: +ALPRAZolam 0.25 MG (XANAX) TAB PO PRN; +AZIT250T12 PO; +BISACODYL 10 MG SUPP (DULCOLAX) PR PRN; +CALCIUM CARBONATE 500 MG (TUMS) TAB.CHEW PO PRN; +DOCUSATE SODIUM 100 MG (COLACE) CAP PO PRN; +FLEET ENEMA ADULT 1 EA BTL PR PRN; +LACTULOSE SYRUP 10GM/15ML (ENULOSE) 30ML UDC PO PRN; +LOPERAMIDE 2 MG (IMODIUM) TABLET PO PRN; +MELATONIN 3 MG TABLET PO PRN; +ONDANSETRON 4 MG (ZOFRAN) ORAL DISSOLVE TAB PO PRN; +PRD20T PO; +diphenhydrAMINE 25 MG TAB (BENADRYL) PO PRN; +guaiFENesin/CODEINE (ROBITUSSIN AC) 10ML UDC PO PRN
--- NOTE | 2020-05-05 10:14 | NUR ---
CELIO DE LA ROSA admitted to room 228, with an admitting diagnosis of MYOPATHY S/P COVID-19, on 05/05/20 from [facility] via WHEELCHAIR, accompanied by THERAPY. CELIO DE LA ROSA introduced to surroundings, call light, bed controls, phone, TV, temperature control, lights, meal times, smoking policy, visitor policy, side rail policy, bathrooms and showers. Patient Rights given to patient in the handbook. CELIO DE LA ROSA verbalizes understanding that [facility] is not responsible for the loss or damage to any personal effects or valuables that are kept in the patient's possession during their hospitalization. The following Patient Care Plans were discussed with the PATIENT: Discharge Planning, ACTIVITY INTOLERANCE, FATIGUE, HIGH RISK: INJURY, HIGH RISK: IMPAIRED SKIN INTEGRITY, PAIN, POTENTIAL FOR FALL, and KNOWLEDGE DEFICIT. CELIO DE LA ROSA verbalizes understanding of Interdisciplinary Patient Education. Patient received Patient Rights Booklet, which includes Privacy Act Statement and Data Collection Information Summary.
[2020-05-05] MEDS ORDERED: MELATONIN 3 MG TABLET PO PRN (10:45)
[2020-05-05] MEDS ORDERED: polyethylene glycoL POWDER 17 GM (MIRALAX) PACK PO PRN (10:45)
[2020-05-05] MEDS ORDERED: ACETAMINOPHEN 325 MG TABLET PO PRN (10:45)
[2020-05-05] MEDS ORDERED: ANTACID SUSP 30 ML UDC (MYLANTA) PO PRN (10:45)
[2020-05-05] MEDS ORDERED: ONDANSETRON 4 MG (ZOFRAN) ORAL DISSOLVE TAB PO PRN (10:45)
[2020-05-05] MEDS ORDERED: diphenhydrAMINE 25 MG TAB (BENADRYL) PO PRN (10:45)
[2020-05-05] MEDS ORDERED: ALPRAZolam 0.25 MG (XANAX) TAB PO PRN (10:45)
[2020-05-05] MEDS ORDERED: BISACODYL 10 MG SUPP (DULCOLAX) PR PRN (10:45)
[2020-05-05] MEDS ORDERED: ONDANSETRON 4 MG/2 ML (SDV) Z0FRAN IV PRN (10:45)
[2020-05-05 11:01] VITALS: BP 161/87
--- NOTE | 2020-05-05 11:06 | PM&R Post Admission Assessment ---
PM&R HP Date of Visit: May 05, 2020 Time of Visit: 11:30 History of Present Illness CC: Debility from COVID-19 HPI: This is an 79yoWF clinic patient of Dr Palacios who presents to the IRF in need of recovery from lengthy COVID-19 illness. She currently is on 1-2L/min and a bit dyspneic on exam during exertion. Patient reports she is having difficulty with grief since her of COVID-19 last week here at [facility]. BM+ and denies pain. Checked meds and labs and conferred wtih RN. ER HPI: Pt is an 79yoCF who was recently admitted due to COVID19 and hypoxia. She was discharged last week with home oxygen. 2 days ago her who was admitted here from COVID19. Yesterday she's unsure if she got more SOB or weak but decided to come back to the ER via EMS. ER staff spoke with the family who state they are unable to care for her. She agrees that she is unable to take care of herself. I attempted to discuss plan for obtaining care and she stated she just wants to worry about getting her buried first. She denies any physical complaints at this time. 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) Alcohol Use: Denies Use Smoking Status: Never a Smoker 2nd Hand Smoke Exposure: No Recent Foreign Travel: No Contact w/other who traveled: No Recent Hopitalizations: Yes (COVID 19) Recent Infectious Disease Expo: No Immunizations Up To Date Tetanus Booster (TDap): More than 5yrs Date of Pneumonia Vaccine: May 01, 2017 Seasonal Allergies Seasonal Allergies: Yes Past Medical History Surgeries: Hysterectomy Respiratory: Pneumonia COVID-19 Cardiac: Hypertension Reproductive: Yes Sexually Transmitted Disease: No Hysterectomy Musculoskeletal: Arthritis Endocrine: Hypothyroidsim HEENT: Cataract Psychosocial: Depression History of Blood Disorders: No Family History Patient reports no known family medical history. No Pertinent Family Hx PM&R Allergy/Meds/Data Review Allergies Coded Allergies: Iodinated Contrast Media (Unverified Allergy, Unknown, 05/06/16) Sulfa (Sulfonamide Antibiotics) (Verified Allergy, Unknown, 02/25/08) ciprofloxacin (Unverified Allergy, Unknown, 05/06/16) Home Medications Scheduled Aspirin (Aspirin EC), 81 MG PO DAILY, (Reported) Escitalopram Oxalate (Escitalopram Oxalate), 20 MG PO DAILY, (Reported) Fentanyl (Fentanyl Patch 75MCG), 75 MCG TD Q72H, (Reported) Levothyroxine Sodium (Synthroid), 25 MCG PO DAILY, (Reported) Meloxicam (Meloxicam), 7.5 MG PO DAILY, (Reported) Metoprolol Succinate (Metoprolol Succinate), 25 MG PO DAILY, (Reported) Potassium Chloride (Klor-Con M10), 10 MEQ PO BID, (Reported) Ropinirole HCl (Ropinirole HCl), 2 MG PO HS, (Reported) Trazodone HCl (Trazodone HCl), 150 MG PO HS, (Reported) Scheduled PRN Alprazolam (Xanax), 0.125-0.25 MG PO BID PRN for ANXIETY, (Reported) Discontinued Medications Azithromycin (Azithromycin), 250 MG PO DAILY Discontinued Reason: No Longer Taking Prednisone (Prednisone), 40 MG PO DAILY Discontinued Reason: No Longer Taking Current Medications Current Medications Reviewed Review of Systems Constitutional: see HPI, malaise, weakness Respiratory: dyspnea on exertion Psychiatric/Neurological: Anxiety, Depressed Physical Exam Physical Exam Vital Signs Vital Signs - First Documented 05/05/20 11:01 Temp 36.0 Pulse 80 Resp 20 B/P (MAP) 161/87 Pulse Ox 94 O2 Delivery Nasal Cannula O2 Flow Rate 1.00 Capillary Refill : Height, Weight, BMI Height: 5'7.00" Weight: 156lbs. 0oz. [id number]; 25.68 BMI Method:Stated General Appearance: No Apparent Distress, WD/WN, Chronically ill, Thin Eyes: Bilateral Eye Normal Inspection, Bilateral Eye PERRL HEENT: PERRL/EOMI, Normal ENT Inspection, Pharynx Normal Neck: Full Range of Motion, Normal Inspection, Non Tender, Supple, Carotid Bruit Respiratory: Chest Non Tender, No Accessory Muscle Use, No Respiratory Distress, Crackles, Decreased Breath Sounds Cardiovascular: Regular Rate, Rhythm, No Edema, No Gallop, No JVD, No Murmur, Normal Peripheral Pulses Gastrointestinal: Normal Bowel Sounds, No Organomegaly, No Pulsatile Mass, Non Tender, Soft Back: Normal Inspection, No CVA Tenderness, No Vertebral Tenderness Extremity: Normal Capillary Refill, Normal Inspection, Normal Range of Motion, Non Tender, No Calf Tenderness, No Pedal Edema Neurologic/Psychiatric: Alert, Oriented x3, No Motor/Sensory Deficits, superintendent ammunition 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 II- XII Norm as Tested, Depressed Affect Skin: Normal Color, Warm/Dry Lymphatic: No Adenopathy PM&R Medical Assessment & Plan REHAB/MEDICAL ASSESSMENT AND PLAN: REHAB IMPAIRMENT GROUP: COVID-19 debility ETIOLOGIC DIAGNOSIS: COVID-19 debility The comorbidities that impact the patients function and/or functional outcome by: advanced age, grief reaction, poor reserve, new hypoxia REHAB PLAN: The patient is being admitted to our comprehensive inpatient rehabilitation facility and can tolerate the intensity of service consisting of at least: 180 minutes of therapy a day, 5 out of 7 days a week Rehab treatment will consist of: PT OT will focus on regaining function in ambulatory skills along with increasing independence of ADL's in order to go h ome and live alone. The patient/family has a good understanding of our discharge process and will benefit from an interdisciplinary inpatient rehabilitation program. The patient has potential to make improvement and is in need of at least two of the follo wing multidisciplinary therapies including but not limited to physical, occupational, speech, and prosthetics and orthotics. Additionally the patient will need services from respiratory, nutritional services, wound care, psychology, etc. (Customize this to each patient). Given the patients complex condition and risk of further medical complications, rehabilitation services cannot be safely or effectively provided at a lower level of care such as a longterm facility. BARRIERS TO DISCHARGE: Lives alone ESTIMATED LOS: 7 days DISPOSITION: Home RELEVANT CHANGES SINCE PREADMISSION SCREENING: I have compared the patients medical and functional status at the time of the preadmission screening and there are: no changes PROGNOSIS: Good REHABILITATION GOALS: 1. PT OT will focus on regaining function in ambulatory skills along with increasing independence of ADL's in order to go home and live alone. All the above goals were reviewed with the patient and he/she is in agreement. By signing this document, I acknowledge that I have personally performed a full physical examination on this patient within 24 hours of admission to this inpatient rehabilitation facility and have determined the patient to be able to tolerate the above course of treatment at an intensive level for a reasonable period of time. I will be completing a detailed individualized Plan of Care for this patient by day #4 of the patients stay based upon the Preadmission Screen, the Post-Admission Evaluation, and the therapy evaluations. Admission Dx/Comorbidities: (1) Debility ICD Codes: R53.81 - Other malaise (2) Acute respiratory failure due to COVID-19 Status: Acute ICD Codes: U07.1 - COVID-19; J96.00 - Acute respiratory failure, unspecified whether with hypoxia or hypercapnia (3) HTN (hypertension) Status: Chronic ICD Codes: I10 - Essential (primary) hypertension (4) Hypothyroidism Status: Chronic ICD Codes: E03.9 - Hypothyroidism, unspecified (5) Anxiety Status: Chronic ICD Codes: F41.9 - Anxiety disorder, unspecified (6) Chronic pain Status: Chronic ICD Codes: G89.29 - Other chronic pain Assessment/Plan Assessment and Plan Assess & Plan/Chief Complaint Assessment: Debility from COVID-19 Chronic pain on Fentanyl patch Hypothyroidism HTN CRI Hypoxia Grief reaction Plan: O2 wean IRF protocol Monitor pain Home meds KANDY BENOIT DO May 05, 2020 11:06
[2020-05-05] MEDS: inSUlin ASPART (NovoLOG) 1 UNIT/0.01 ML (CHARGE PER UNIT) SC SCH ×3 (11:23→20:56)
[2020-05-05] MEDS: DOCUSATE SODIUM 100 MG (COLACE) CAP PO SCH ×4 (11:23→21:04)
[2020-05-05] MEDS: polyethylene glycoL POWDER 17 GM (MIRALAX) PACK PO SCH ×4 (11:23→21:05)
[2020-05-05] MEDS: SENNA W/DOCUSATE (SENOKOT S) TABLET PO SCH ×4 (11:23→21:04)
--- NOTE | 2020-05-05 12:08 | Physical Therapy Evaluation ---
PT Evaluation-General Medical Diagnosis Admission Date May 05, 2020 at 10:14 Medical Diagnosis: Myopathy, s/p covid 19 Onset Date: Apr 23, 2020 Therapy Diagnosis Therapy Diagnosis: Debility Height/Weight Height (Feet): 5 Height (Inches): 7.00 Weight (Pounds): 156 Weight (Ounces): 0 Precautions Precautions/Isolations: Fall Prevention, Standard Precautions Weight Bear Status Right Lower Extremity: Right Full Weight Bearing Left Lower Extremity: Left Full Weight Bearing Referral Physician: Jadon Reason for Referral: Evaluation/Treatment Medical History Pertinent Medical History: Arthritis, HTN, Hypothroidism Additional Medical History Past Medical History Surgeries: Hysterectomy Cardiac: Hypertension Reproductive: Yes Sexually Transmitted Disease: No Hysterectomy Musculoskeletal: Arthritis Endocrine: Hypothyroidsim HEENT: Cataract Psychosocial: Depression History of Blood Disorders: No Reviewed History: Yes Social History Home: Multilevel (split-level house) Current Living Status: Children (Son) Entry Into Home: Stairs With Railing PT Steps Into Home: 5 PT Steps Inside Home: 4 Prior Prior Level of Function SCALE: Activities may be completed with or without assistive devices. 2-Bxrkxpcaci-lmeauua completes the activity by him/herself with no assistance from a helper. 5-Set-up or Clean-up Assistance-helper sets up or cleans up; patient completes a ctivity. [place] assists only prior to or following the activity. 4-Supervision or Touching Assistance-helper provides verbal cues and/or touching/steadying and/or contact guard assistance as patient completes activity. Assistance may be provided throughout the activity or intermittently. 3-Partial/Moderate Assistance-helper does LESS THAN HALF the effort. [place] lifts, holds or supports trunk or limbs, but provides less than half the effort. 2-Substantial/Maximal Assistance-helper does MORE THAN HALF the effort. [place] lifts or holds trunk or limbs and provides more than half the effort. 1-Ecatfrlva-rdjbon does ALL the effort. Patient does none of the effort to complete the activity. Or, the assistance of 2 or more helpers is required for the patient to complete the activity. If activity was not attempted, code reason: 7-Patient Refused. 9-Not Applicable-not attempted and the patient did not perform the activity before the current illness, exacerbation or injury. 10-Not Attempted due to Environmental Limitations-(lack of equipment, weather restraints, etc.). 88-Not Attempted due to Medical Conditions or Safety Concerns. Bed Mobility: 6 Transfers (B,C,W/C): 6 Gait: 6 Stairs: 6 Wheelchair Mobility: 9 Indoor Mobility (Ambulation): Independent Stairs: Independent Prior Devices Use: None PT Evaluation-Current Subjective Pt agrees to PT. Pt reports no pain. Pt/Family Goals Return Home Objective Patient Orientation: Person, Place, Eyes Open, Situation Attachments: Oxygen ROM/Strength ROM Lower Extremities WFL Strength Lower Extremities R hip flexion 3/5 L hip flexion 3+/5 R knee ext 5/5 L knee ext 5/5 R knee flex 4/5 L knee flex 4/5 Sensory Vision: Wears Glasses Hearing: Functional Sensation Right Lower Extremit: Intact Sensation Left Lower Extremity: Intact Sensation Lower Extremities BLE sensation intact to light touch L2-S2 Transfers Roll Left & Right (QC): 6 Sit to Lying (QC): 6 Lying to Sitting/Side of Bed(Q: 6 Sit to Stand (QC): 4 Chair/Niv-ln-Xbcmq Xfer(QC): 4 Toilet Transfer (QC): 4 Car Transfer (QC): 4 Independent with rolling and lying<-> EOB; SBA with standing transfers Gait Does the Patient Walk?: Yes Mode of Locomotion: Walk Anticipated Mode of Locomotion: Walk Walk 10 feet (QC): 4 Walk 50 ft with 2 Turns(QC): 4 Walk 150 ft (QC): 4 Walking 10ft/uneven surface-QC: 4 Distance: 150', 50', 200' Gait Assistive Device: FWW Comments/Gait Description Pt requires seated break due to fatigue and SOB. Wheelchair Training Does the Pt Use a Wheelchair?: No Wheel 50 ft with 2 turns (QC): 9 Wheel 150 ft (QC): 9 Stairs #of Steps: 1 1 Step (curb) (QC): 4 4 Steps (QC): 88 12 Steps (QC): 88 Walking Assistive Device: Walker Balance Sitting Static: Good Sitting Dynamic: Good Standing Static: Good Standing Dynamic: Good Picking up an Object (QC): 4 Assessment/Needs Pt fatigues quickly with activity and becomes short of breath. Pt ambulates steadily but slowly and requires seated rest breaks to catch breath. Patient needs to build endurance to reach PLOF. Without O2 patient's sats drop to upper 80's, with one liter of O2 she sats in lower 90's Rehab Potential: Fair PT Short Term Goals Short Term Goals Time Frame: May 12, 2020 Roll Left & Right: 6 Sit to lyin Lying to sitting on side of be: 6 Sit to stand: 5 Chair/ksh-iy-meopr transfer: 5 Walk 10 feet: 5 Walk 50 feet with two turns: 5 4 steps: 4 PT Chemical Production Engineer Goals Chemical Production Engineer Goals PT [facility] Goals Time Frame: May 26, 2020 Roll Left & Right (QC): 6 Sit to Lying (QC): 6 Lying-Sitting on Side/Bed(QC): 6 Sit to Stand (QC): 6 Chair/Xde-jb-Tcfav Xfer(QC): 6 Toilet Transfer (QC): 6 Car Transfer (QC): 6 Does the Patient Walk: Yes Walk 10 feet (QC): 6 Walk 50ft with 2 Turns (QC): 6 Walk 150 ft (QC): 6 Walking 10ft on Uneven Surface: 6 1 Step (curb) (QC): 6 4 Steps (QC): 6 12 Steps (QC): 6 Picking up an Object (QC): 6 Does the Pt use WC or Scooter?: No Wheel 50 feet with 2 turns (QC: 9 Wheel 150 feet: 9 PT Plan Problem List Problem List: Activity Tolerance, Functional Strength, Safety, Balance, Gait, Transfer, Bed Mobility, ROM Treatment/Plan Treatment Plan: Continue Plan of Care Treatment Plan: Bed Mobility, Education, Functional Activity Yovana, Functional Strength, Group Therapy, Gait, Safety, Therapeutic Exercise, Transfers Treatment Duration: May 26, 2020 Frequency: At least 5 of 7 days/Wk (IRF) Estimated Hrs Per Day: 1.5 hours per day Patient and/or Family Agrees t: Yes Safety Risks/Education Patient Education: Gait Training, Transfer Techniques, Steps, Correct Positioning, Safety Issues Teaching Recipient: Patient Teaching Methods: Demonstration, Discussion Response to Teaching: Reinforcement Needed Discharge Recommendations Plan Patient will work on activity tolerance, balance and gait training, transfers, ad therapeutic exercises to improve strength. Therapy Discharge Recommendati: Home & Family Time/GCodes Time In: 1000 Time Out: 1100 Total Billed Treatment Time: 60 Total Billed Treatment 1 visit EVM 10' FA 50' JANES BARAJAS PT May 05, 2020 12:08
[2020-05-05] MEDS: ENOXAPARIN 40 MG/0.4 ML (LOVENOX) SYR SC SCH (14:37)
--- NOTE | 2020-05-05 14:45 | Occupational Therapy Eval ---
OT Evaluation-General/PLF Medical Diagnosis Admission Date May 05, 2020 at 10:14 Medical Diagnosis: Myopathy, s/p covid 19 Onset Date: Apr 23, 2020 Therapy Diagnosis Therapy Diagnosis: Weakness, Decreased ADL skills Height/Weight Height (Feet): 5 Height (Inches): 7.00 Weight (Pounds): 156 Weight (Ounces): 0 Precautions Precautions/Isolations: Fall Prevention, Standard Precautions Weight Bear Status Weight Bearing Restriction: Weight Bearing/Tolerated Referral Physician: Jadon Referral Reason: Activity Tolerance, Self Care, Evaluation/Treatment, Strengthening/ROM Medical History Pertinent Medical History: Arthritis, HTN, Hypothroidism Current History Pt. and spouse were both in the hospital secondary to Covid-19. Pt's spouse has , and pt. transferred down to in. rehab to gain strength and independence prior to return home. Reviewed History: Yes Social History Home: Multilevel (split-level house) Current Living Status: Children (Son) Entry Into Home: Stairs With Railing Steps Into Home: 5 Steps Inside Home: 4 ADL-Prior Level of Function SCALE: Activities may be completed with or without assistive devices. 6-Azrghtgnkq-xsvcckw completes the activity by him/herself with no assistance from a helper. 5-Set-up or Clean-up Assistance-helper sets up or cleans up; patient completes activity. [place] assists only prior to or following the activity. 4-Supervision or Touching Assistance-helper provides verbal cues and/or touching/steadying and/or contact guard assistance as patient completes activity. Assistance may be provided throughout the activity or intermittently. 3-Partial/Moderate Assistance-helper does LESS THAN HALF the effort. [place] lifts, holds or supports trunk or limbs, but provides less than half the effort. 2-Substantial/Maximal Assistance-helper does MORE THAN HALF the effort. [place] lifts or holds trunk or limbs and provides more than half the effort. 3-Liwhmtqsc-svvbfg does ALL the effort. Patient does none of the effort to complete the activity. Or, the assistance of 2 or more helpers is required for the patient to complete the activity. If activity was not attempted, code reason: 7-Patient Refused. 9-Not Applicable-not attempted and the patient did not perform the activity before the current illness, exacerbation or injury. 10-Not Attempted due to Environmental Limitations-(lack of equipment, weather restraints, etc.). 88-Not Attempted due to Medical Conditions or Safety Concerns. ADL PLOF Comments Pt. states that she was fully independent with daily skills prior to hospitalization. Pt. states that her son lives with her. Pt's spouse has in hospital, and pt. has not been home since that time. She has two sons, and a grandson that is very involved. Self Care: Independent (per pt.) Functional Cognition: Unknown DME/Equipment: Tub/Shower DME/Equipment Comments Pt. verbalizes that she does not have any equipment. OT Current Status Subjective Pt. is tearful when talking about her . She does not report pain, but does state, "I am moving slow." Mental Status/Objective Patient Orientation: Person Current Hand Dominance: Right Upper Extremity ROM WFL ADL-Treatment Eating (QC): 5 Oral Hygiene (QC): 4 Shower/Bathe Self (QC): 7 (Pt. states that she showered last night. Declines showering again at this time.) Upper Body Dressing (QC): 88 Lower Body Dressing (QC): 88 On/Off Footwear (QC): 4 (SBA to doff/don slipper socks.) Toileting Hygiene (QC): 4 Other Treatments Pt. seen twice this date. Pt. reports that she had already showered last night, and did not feel up to doing it again. Agreed to work otherwise with OT. Pt. very tearful during first session about her spouse. OT attempted to comfort her. Pt. verbalizes that she has a grandson named Davon that is very involved in her care. During treatment, pt. requires things to be repeated to her at times, and states, "I just can't get myself together." At second treatment, pt. transfers supine-sit with SBA, and then ambulates with slow steady gait to therapy gym, with CGA. OT engaged pt. in cognitive visual activity, in which she had to match corresponding colors of small clothespins. Pt. had great difficulty in beginning of treatment with understanding what was being asked of her. She would understand for a minute, but then ask again what she was supposed to do. This task was difficult for her at first, but then she was able to understand and complete it slowly. Speech therapist to assess pt. after OT, and so OT and pt. ambulated with walker over to speech therapist. All needs met. Education OT Patient Education: Correct positioning, Modified ADL techniques, Progress toward Goal/Update tx plan, Purpose of tx/functional activities, Reviewed precautions, Rehab process, Transfer techniques Teaching Recipient: Patient Teaching Methods: Demonstration, Discussion Response to Teaching: Verbalize Understanding, Return Demonstration OT Short Term Goals Short Term Goals Time Frame: May 12, 2020 Eatin Oral hygiene: 5 Toileting hygiene: 5 Shower/bathe self: 4 Upper body dressin Lower body dressin Putting on/taking off footwear: 4 OT Mcfp Goals Tail Trimmer Goals Time Frame: May 19, 2020 Eating (QC): 6 Oral Hygiene (QC): 6 Toileting Hygiene (QC): 6 Shower/Bathe Self (QC): 4 Upper Body Dressing (QC): 6 Lower Body Dressing (QC): 6 On/Off Footwear (QC): 6 Additional Goals: 1-Demonstrate ADL Tasks, 2-Verbalize Understanding, 3- ImproveStrength/Yovana 1=Demonstrate adherence to instructed precautions during ADL tasks. 2=Patient will verbalize/demonstrate understanding of assistive devices/modifications for ADL. 3=Patient will improve strength/tolerance for activity to enable patient to perform ADL's. OT Education/Plan Problem List/Assessment Assessment: Decreased Activ Tolerance, Decreased UE Strength, Dependent Transfers, Impaired Cognition, Impaired Funct Balance, Impaired I ADL's, Impaired Self-Care Skills Discharge Recommendations Plan/Recommendations: Continue POC Therapy Discharge Recommendati: Home & Family, Post Acute OT Treatment Plan/Plan of Care Treatment,Training & Education: Yes Patient would benefit from OT for education, treatment and training to promote independence in ADL's, mobility, safety and/or upper extremity function for ADL's. Plan of Care: ADL Retraining, Functional Mobility, UE Funct Exercise/Act Treatment Duration: May 19, 2020 Frequency: At least 5 of 7 days/Wk (IRF) Estimated Hrs Per Day: 1.5 hours per day Agreement: Yes Rehab Potential: Good Time/GCodes Start Time: 11:05 Stop Time: 13:40 Total Time Billed (hr/min): 90 Billed Treatment Time [id number] 1, EVM x 15minutes, ADL x 35minutes [id number] 1, FA x 40minutes DAVE CASTLE OT May 05, 2020 14:45
--- NOTE | 2020-05-05 14:51 | Physical Therapy Daily Note ---
PT Daily Note-Current Subjective Pt presents sitting upright in rehab gym under supervision vision of speech therapy. Pt agrees to PT. Pt reports no pain. Appearance At conclusion of PT treatment patient is supine in bed with access to tray, call button, and all needs have been met. Mental Status Patient Orientation: Person, Place, Time, Eyes Open, Situation Attachments: Oxygen Transfers SCALE: Activities may be completed with or without assistive devices. 1-Oxbxrgcmnf-knnnioh completes the activity by him/herself with no assistance from a helper. 5-Set-up or Clean-up Assistance-helper sets up or cleans up; patient completes activity. [place] assists only prior to or following the activity. 4-Supervision or Touching Assistance-helper provides verbal cues and/or touching/steadying and/or contact guard assistance as patient completes activity. Assistance may be provided throughout the activity or intermittently. 3-Partial/Moderate Assistance-helper does LESS THAN HALF the effort. [place] lifts, holds or supports trunk or limbs, but provides less than half the effort. 2-Substantial/Maximal Assistance-helper does MORE THAN HALF the effort. [place] lifts or holds trunk or limbs and provides more than half the effort. 5-Ijyyifpjz-zimrcz does ALL the effort. Patient does none of the effort to complete the activity. Or, the assistance of 2 or more helpers is required for the patient to complete the activity. If activity was not attempted, code reason: 7-Patient Refused. 9-Not Applicable-not attempted and the patient did not perform the activity before the current illness, exacerbation or injury. 10-Not Attempted due to Environmental Limitations-(lack of equipment, weather restraints, etc.). 88-Not Attempted due to Medical Conditions or Safety Concerns. Sit to Lying (QC): 4 Sit to Stand (QC): 4 Toilet Transfer (QC): 4 SBA. Weight Bearing Right Lower Extremity: Right Full Weight Bearing Left Lower Extremity: Left Full Weight Bearing Gait Training Does the Patient Walk?: Yes Distance: 200' Walk 10 feet (QC): 4 Walk 50 ft with 2 Turns(QC): 4 Walk 150 ft (QC): 4 Gait Assistive Device: FWW Patient ambulates with CGA; pt does no require a rest break but is SOB and wants to use restroom before getting into bed. Treatments Gait Training Assessment Current Status: Good Progress Pt is improving endurance in ambulation. Pt is able pull own briefs up and down as well as wipe for toileting; pt stands at sink to wash hands but leans against counter for balance. PT Short Term Goals Short Term Goals Time Frame: May 12, 2020 Roll Left & Right: 6 Sit to lyin Lying to sitting on side of be: 6 Sit to stand: 5 Chair/iel-hk-ziaan transfer: 5 Walk 10 feet: 5 Walk 50 feet with two turns: 5 4 steps: 4 PT Senior Living Goals Senior Living Goals PT Senior Living Goals Time Frame: May 26, 2020 Roll Left & Right (QC): 6 Sit to Lying (QC): 6 Lying-Sitting on Side/Bed(QC): 6 Sit to Stand (QC): 6 Chair/Olu-dv-Wsxjs Xfer(QC): 6 Toilet Transfer (QC): 6 Car Transfer (QC): 6 Does the Patient Walk: Yes Walk 10 feet (QC): 6 Walk 50ft with 2 Turns (QC): 6 Walk 150 ft (QC): 6 Walking 10ft on Uneven Surface: 6 1 Step (curb) (QC): 6 4 Steps (QC): 6 12 Steps (QC): 6 Picking up an Object (QC): 6 Does the Pt use WC or Scooter?: No Wheel 50 feet with 2 turns (QC: 9 Wheel 150 feet: 9 PT Plan Problem List Problem List: Activity Tolerance, Functional Strength, Safety, Balance, Gait, Transfer, Bed Mobility, ROM Treatment/Plan Treatment Plan: Continue Plan of Care Treatment Plan: Bed Mobility, Education, Functional Activity Yovana, Functional Strength, Group Therapy, Gait, Safety, Therapeutic Exercise, Transfers Treatment Duration: May 26, 2020 Frequency: At least 5 of 7 days/Wk (IRF) Estimated Hrs Per Day: 1.5 hours per day Patient and/or Family Agrees t: Yes Safety Risks/Education Patient Education: Gait Training, Transfer Techniques, Correct Positioning, Safety Issues Teaching Recipient: Patient Teaching Methods: Demonstration, Discussion Response to Teaching: Reinforcement Needed Time/GCodes Time In: 1400 Time Out: 1410 Total Billed Treatment Time: 10 Total Billed Treatment 1 visit GT 10' JANES BARAJAS PT May 05, 2020 14:51
--- NOTE | 2020-05-05 14:54 | NUR ---
PER PATIENT'S REQUEST... 'S WALLET RETRIEVED FROM ER SAFE AND GIVEN TO PATIENT. PATIENT DOES NOT WANT TO LOCK UP IN DRAWER AT THIS TIME. WANTS TO KEEP IT CLOSE.
--- NOTE | 2020-05-05 14:55 | ST Cognitive Linguistic Eval ---
Speech Evaluation-General Medical Diagnosis Myopathy, s/p covid 19 Onset Date: Apr 23, 2020 Therapy Diagnosis Therapy Diagnosis: Cognitive-communication Referral Referring Physician: Dr. Diop Medical History Pertinent Medical History: Arthritis, HTN, Hypothroidism Reviewed History: Yes Social History Current Living Status: Children (Son) Speech PLF-Current Status Prior Level of Function Patient lives in her home with her son. Prior to becoming ill she was independent for most of her daily needs. Subjective Patient was pleasant and cooperative with the cognitive assessment. Language Eval: Auditory Comprehends Simple Yes/No Ques: Functional Indent/Objects Multiple Mijares: Functional Ident/Pics in Multiple Mijares: Functional Follows 1-Step Commands: Mild Follows Complex Directions: Moderate Follows General Conversations: Functional Language Eval: Verbal Language Completes Spontaneous Greeting: Functional Produces Auto, Serial Info: Functional Imitates Simple Words/Phrases: Functional Word Finding: Mild Requests Basic Needs: Functional States Basic Personal Info: Functional Expresses Complex Ideas: Moderate Objective Cognitive Domain Attention: WNL Memory: Moderate Problem Solving: Mild Executive Functions: Mild Composite Severity Rating: Moderate Clock Drawing Severity Rating: Moderate Objective Formal/Standardized Tests [facility] Mental Status ([facility]) Results 13/30, Moderate Dementia range of function Oral Motor/Speech Production Within Normal Limits Impression Patient is a pleasant 79 y/o female who was admitted to the ARU due to COVID-19. The patient was noted to be pleasantly confused during the assessment. The patient was given the SLUMS with a score of 13/30 obtained. This score is within the Moderate Dementia range of function. The patient will receive skilled ST services with focus on improving cognitive skills so that she may return home safer. Speech Patient Assess Expression of Ideas/Wants: Frequently (2) Understanding Verbal Content: Usually Understands (3) Brief Interview-Mental Status: Yes Repetition of Three Words: Three (3) Temporal Orientation: Year: Correct (3) Temporal Orientation: Month: Accurate within 5 days(2) Temporal Orientation: Day: Correct (1) Recall : Wear to say "Sock": Yes,after cueing (1) Recall : Color: No, could not recall (0) Recall : Bed: No, could not recall (0) Memory/Recall Ability: Current season, That he or she is in a hsp/hsp unit Speech Short Term Goals Short Term Goals Short Term Goals 1) The patient will complete memory tasks related to her daily needs at 80% or greater with minimal cues. 2) The patient will complete problem solving tasks related to her daily needs at 80% or greater with minimal cues. 3) The patient will complete safety awareness tasks related to her daily needs at 80% or greater with minimal cues. Speech Mutual Fund Analyst Goals Fpc Goals The patient will improve cognitive-communication abilities related to her daily needs with minimal assist. Speech-Plan Patient/Family Goals Patient/Family Goals: The patient plans on returning to her home where she lives with her son. Treatment Plan Speech Therapy Treatment Plan: Continue Plan of Care Treatment Duration: May 19, 2020 Frequency: 4 times per week (Patient will receive skilled ST 4-5x per week) Estimated Hrs Per Day: .25 hour per day Rehab Potential: Fair Barriers to Learning: Patient's recent serious illness, age, cognitive deficits Pt/Family Agrees to Plan: Yes Safety Risks/Education Teaching Recipient: Patient Teaching Methods: Discussion Response to Teaching: Verbalize Understanding Education Topics Provided: Safety within her room, communication of wants/needs Time Speech Therapy Time In: 13:40 Speech Therapy Time Out: 14:00 Total Billed Time: 20 Billed Treatment Time 1, ANIYAH GARCIA BETHANIA ST May 05, 2020 14:55
[2020-05-05 17:09] VITALS: BP 133/73
[2020-05-05] MEDS: RT-ALBUTEROL INHALER HFA (VENTOLIN HFA) 18 GM IH SCH ×2 (17:29→19:40)
[2020-05-05] MEDS ORDERED: DOCUSATE SODIUM 100 MG (COLACE) CAP PO SCH (21:00)
[2020-05-05] MEDS: rOPINIRole 1 MG (REQUIP) TABLET PO SCH (21:04)
[2020-05-05] MEDS: traZODone 150 MG (DESYREL) TABLET PO SCH (21:04)
[2020-05-05] MEDS: SENNOSIDES 8.6 MG (SENOKOT) TAB PO SCH (21:10)
[2020-05-06] MEDS: RT-ALBUTEROL INHALER HFA (VENTOLIN HFA) 18 GM IH SCH ×4 (05:37→19:49)
[2020-05-06 05:55] LABS: BASOPHILS % (AUTO) 0 % (0-10); EOSINOPHILS # (AUTO) 0.2 10^3/uL (0.0-0.3); EOSINOPHILS % (AUTO) 3 % (0-10); HEMATOCRIT 43 % (35-52); HEMOGLOBIN 13.8 g/dL (11.5-16.0); LYMPHOCYTES # (AUTO) 1.2 10^3/uL (1.0-4.0); LYMPHOCYTES % (AUTO) 18 % (12-44); MEAN CORPUSCULAR HEMOGLOBIN 30 pg (25-34); MEAN CORPUSCULAR HGB CONC 32 g/dL (32-36); MEAN CORPUSCULAR VOLUME 94 fL (80-99); MEAN PLATELET VOLUME 10.9 fL (9.0-12.2); MONOCYTES # (AUTO) 0.9 10^3/uL (0.0-1.0); MONOCYTES % (AUTO) 13 % (0-12); NEUTROPHILS # (AUTO) 4.3 10^3/uL (1.8-7.8); NEUTROPHILS % (AUTO) 64 % (42-75); PLATELET COUNT 233 10^3/uL (130-400); WHITE BLOOD COUNT 6.8 10^3/uL (4.3-11.0)
[2020-05-06 05:58] VITALS: BP 159/75
[2020-05-06] MEDS: inSUlin ASPART (NovoLOG) 1 UNIT/0.01 ML (CHARGE PER UNIT) SC SCH ×4 (06:02→21:27)
[2020-05-06 06:08] LABS: ALBUMIN 3.1 GM/DL (3.2-4.5); CHLORIDE 103 MMOL/L (98-107); POTASSIUM 4.4 MMOL/L (3.6-5.0); SODIUM 136 MMOL/L (135-145)
[2020-05-06 06:10] LABS: CALCIUM 8.9 MG/DL (8.5-10.1)
[2020-05-06 06:11] LABS: GLUCOSE 107 MG/DL (70-105); TOTAL PROTEIN 6.5 GM/DL (6.4-8.2)
[2020-05-06 06:12] LABS: CARBON DIOXIDE 23 MMOL/L (21-32)
[2020-05-06 06:13] LABS: BILIRUBIN,TOTAL 0.8 MG/DL (0.1-1.0)
[2020-05-06 06:14] LABS: ALKALINE PHOSPHATASE 61 U/L (40-136); CREATININE SERUM 0.63 MG/DL (0.60-1.30); GFR ESTIMATED > 60
[2020-05-06 06:15] LABS: BUN/CREATININE RATIO 27
[2020-05-06 06:17] LABS: ALANINE AMINOTRANSFERASE 28 U/L (0-55)
[2020-05-06] MEDS: LEVOTHYROXINE 25 MCG (LEVOTHROID) TAB PO SCH (06:19)
--- NOTE | 2020-05-06 07:19 | Individualized Plan of Care ---
Individualized Plan of Care Rehab Nursing IPOC Order Admission Date May 05, 2020 at 10:14 Current Orders Orders Admission Order(Inpt,Obs,Sdc) (05/03/20 20:22) Vital Signs: Per Unit Policy ( 08,16,00 (05/03/20 20:22) Nolan Dennison , (05/03/20 20:22) Sequential Compression Device Q4H (05/03/20 20:22) Director Of Trauma-Inpt Rehab Con (05/03/20 20:22) Rehab Nursing Orders-Ipoc (05/03/20 20:22) Physical Therapy Rehab Orders (05/03/20:22) Occupational Therapy Rehab Ord (05/03/20:22) Speech Therapy Rehab Orders (05/03/20) Cbc With Automated Diff (05/06/20 06:00) Comprehensive Metabolic Panel (05/06/20 06:00) General/Regular (05/04/20 Breakfast) Intake & Output (05/03/20 20:22) Precautions (Aru) (05/03/20 20:22) Rehab-Intensity Of Therapy (05/03/20:22) Initiate Admission Nursing Pro .admission (05/03/20 20:22) Alprazolam Tablet (Xanax Tablet) (05/03/20 20:30) Calcium Carbonate Chew Tablet (Antacid C (05/03/20 20:30) Diphenhydramine Tablet (Benadryl Tablet) (05/03/20 20:30) Docusate Sodium Capsule (Colace Capsule) (05/03/20 21:00) Docusate Sodium Capsule (Colace Capsule) (05/03/20 20:30) Bisacodyl Suppository (Dulcolax Supposit (05/03/20 20:30) Lactulose Oral Solution (Enulose Oral So (05/03/20 20:30) Na Phos/Na Biphos Enema (Fleet Enema Magdiel (05/03/20 20:30) Guaifenesin/Codeine Syrup (Robitussin Ac (05/03/20 20:30) Loperamide Tablet (Imodium Tablet) (05/03/20 20:30) Melatonin Tablet (Melatonin Tablet) (05/03/20 20:30) Polyethylene Glycol Powder Pkt (Miralax (05/03/20 21:00) Ondansetron Oral Dissolve Tab (Zofran (05/03/20 20:30) Senna S Tablet (Senokot S Tablet) (05/03/20 21:00) Initiate Admission Nursing Pro .admission (05/03/20 20:22) Admission Arrival Bed Request (05/05/20 10:14) Acetaminophen Tablet/Caplet (Tylenol T (05/05/20 10:45) Code/Resuscitation (05/05/20 10:33) Accucheck Achs ACHS (05/05/20 10:33) Ensure Enlive (05/05/20 Lunch) General/Regular (05/05/20 Lunch) Albuterol Inhaler (Ventolin Hfa) (05/05/20 15:00) Aspirin Enteric Coated Tablet (Ecotrin T (05/06/20 09:00) Levothyroxine Tablet (Synthroid Tablet) (05/06/20 06:30) Enoxaparin Injection (Lovenox Injection) (05/05/20 14:00) Polyethylene Glycol Powder Pkt (Miralax (05/05/20 10:45) Antacid Suspension (Mylanta Suspension (05/05/20 10:45) Insulin Aspart (Novolog) (Novolog (Charg (05/05/20 11:00) Pantoprazole Tablet (Protonix Tablet) (05/06/20 09:00) Sennosides Tablet (Senokot Tablet) (05/05/20 21:00) Ondansetron Oral Dissolve Tab (Zofran (05/05/20 10:45) Metoprolol Succinate (Xl) Tab (Toprol Xl (05/06/20 09:00) Oxycodone Immediate Rel Tablet (Oxyir Ta (05/05/20 10:45) Ropinirole Tablet (Requip Tablet) (05/05/20 21:00) Trazodone Tablet (Desyrel Tablet) (05/05/20 21:00) Mat Initiate Protocol (05/05/20 10:33) Fentanyl Patch (Duragesic Patch) (05/07/20 14:00) Patch Removal (Patch Removal) (05/07/20 13:59) Ambulate 08,12,20 (05/05/20 11:58) Sequential Compression Device Q4H (05/05/20 11:58) Dvt/Vte Risk - Notifiy Physici Q4H (05/05/20 11:58) Patient Visit (05/05/20 ) Pt Eval Moderate Complexity (05/05/20 ) Functional Activities, Ea 15 (05/05/20 ) Incentive Spirometry Initial (05/05/20 15:01) Incentive Spirometry (Nursing) Q2H (05/05/20 15:01) Patient Visit (05/05/20 ) Gait Training, Ea 15 Min (05/05/20 ) Patient Visit (05/05/20 ) Speech Sound Lang Comp (05/05/20 ) Treat. Speech/Lang/Voice (05/05/20 ) Patient Visit (05/06/20 ) Treat. Speech/Lang/Voice (05/06/20 ) Patient Visit (05/06/20 ) Gait Training, Ea 15 Min (05/06/20 ) Functional Activities, Ea 15 (05/06/20 ) Exercise Therap, Ea 15 Min (05/06/20 ) Rehab Nursing Orders: Ongoing Assess. of Cognitive Status, Ongoing Assess. of Function Status, Bladder Management, Bladder Scan, Bladder Training, Bowel M anagement, Bowel Training, Disease Management & Educaiton, DVT Prophylaxis, Fall Prevention, Fluid/Electrolyte/Nutrition Mgmt, Infection Prevention, Medication Management & Education, Management of Risks & Complications, Management of Skin Intergrity, Nutrition Management, Pain Management, Patient/Family Support, Safety Management Intensity of Therapy to be met Patient to be seen: Min.3h per day/5 of 7d PT IPOC Problem List: Activity Tolerance, Functional Strength, Safety, Balance, Gait, Transfer, Bed Mobility, ROM Treatment Plan: Continue Plan of Care Bed Mobility, Education, Functional Activity Yovana, Functional Strength, Group Therapy, Gait, Safety, Therapeutic Exercise, Transfers Treatment Duration: May 26, 2020 Frequency: At least 5 of 7 days/Wk (IRF) Estimated Hrs Per Day: 1.5 hours per day OT IPOC Problems: Decreased Activ Tolerance, Decreased UE Strength, Dependent Transfers, Impaired Cognition, Impaired Funct Balance, Impaired I ADL's, Imp aired Self-Care Skills OT Treatment, Training and Edu: Yes Plan of Care: ADL Retraining, Functional Mobility, UE Funct Exercise/Act Treatment Duration: May 19, 2020 Frequency: At least 5 of 7 days/Wk (IRF) Estimated Hrs Per Day: 1.[address] IPOC Speech Therapy Treatment Plan: Continue Plan of Care Treatment Duration: May 19, 2020 Frequency: 4 times per week (Patient will receive skilled ST 4-5x per week) Estimated Hrs Per Day: .25 hour per day Director Of Trauma/Case Mgmt Director Of Trauma/Case Managemen: Discharge Planning Dietitian/Lumber Piler Dietitian/Lumber Piler to monitor nutritional status and make changes and/or recommendations as needed and work with speech pathology on dietary upgrades as the occur. Physician IPOC Medical Issues being managed closely and that require the 24 hour availability of a physician: Recent COVID-19 respiratory insufficiency will require close monitoring for decompensation and hypoxia while gaining strength in therapy Medical Issues: Bowel/Bladder Function, DVT Prophylaxis, Falls Precautions, Fluid/Electrolyte/Nutrition Balance, Infection Protection, Pain Management Brief Synthesis of Preadmission Screen, Post-Admission Evaluation, and Therapy Evaluations: PT OT will both focus on regaining strength and stamina while decreasing O2 supplement and increasing ambulatory skills. Medical Prognosis: Good Anticipated Length of Stay: 7 days KANDY BENOIT DO May 06, 2020 07:19
--- NOTE | 2020-05-06 07:19 | PM&R Progress Note ---
Subjective HPI/CC On Admission Date Seen by Provider: May 06, 2020 Time Seen by Provider: 11:45 Subjective/Events-last exam Pt doing very well Grief reaction noted will be buried today Has some questions about Covid hospital course she had Review of Systems General: Fatigue, Malaise Pulmonary: Dyspnea, Cough Objective Exam Vital Signs Vital Signs Date Time Temp Pulse Resp B/P (MAP) Pulse Ox O2 Delivery O2 Flow Rate FiO2 05/07/20 05:28 36.0 74 18 126/70 (88) 94 Nasal Cannula 1.00 Capillary Refill : Less Than 3 Seconds General Appearance: No Apparent Distress, WD/WN, Chronically ill, Thin HEENT: PERRL/EOMI, Normal ENT Inspection, Pharynx Normal Neck: Full Range of Motion, Normal Inspection, Non Tender, Supple, Carotid Bruit Respiratory: Chest Non Tender, No Accessory Muscle Use, No Respiratory Distress, Crackles, Decreased Breath Sounds Cardiovascular: Regular Rate, Rhythm, No Edema, No Gallop, No JVD, No Murmur, Normal Peripheral Pulses Gastrointestinal: Normal Bowel Sounds, No Organomegaly, No Pulsatile Mass, Non Tender, Soft Back: Normal Inspection, No CVA Tenderness, No Vertebral Tenderness Extremity: Normal Capillary Refill, Normal Inspection, Normal Range of Motion, Non Tender, No Calf Tenderness, No Pedal Edema Neurologic/Psychiatric: Alert, Oriented x3, No Motor/Sensory Deficits, senior bi developer II- XII Norm as Tested, Depressed Affect Skin: Normal Color, Warm/Dry Lymphatic: No Adenopathy Results/Procedures Lab Patient resulted labs reviewed. FIM Transfers Therapy Code Descriptions/Definitions Functional [place] Measure: 0=Not Assessed/NA 4=Minimal Assistance 1=Total Assistance 5=Supervision or Setup 2=Maximal Assistance 6=Modified [place] 3=Moderate Assistance 7=Complete IndependenceSCALE: Activities may be completed with or without assistive devices. 1-Joqwxlrfjx-asjbyfq completes the activity by him/herself with no assistance from a helper. 5-Set-up or Clean-up Assistance-helper sets up or cleans up; patient completes activity. [place] assists only prior to or following the activity. 4-Supervision or Touching Assistance-helper provides verbal cues and/or touching/steadying and/or contact guard assistance as patient completes activity. Assistance may be provided throughout the activity or intermittently. 3-Partial/Moderate Assistance-helper does LESS THAN HALF the effort. [place] lifts, holds or supports trunk or limbs, but provides less than half the effort. 2-Substantial/Maximal Assistance-helper does MORE THAN HALF the effort. [place] lifts or holds trunk or limbs and provides more than half the effort. 7-Yxyefqnhg-yruawt does ALL the effort. Patient does none of the effort to complete the activity. Or, the assistance of 2 or more helpers is required for the patient to complete the activity. If activity was not attempted, code reason: 7-Patient Refused. 9-Not Applicable-not attempted and the patient did not perform the activity before the current illness, exacerbation or injury. 10-Not Attempted due to Environmental Limitations-(lack of equipment, weather restraints, etc.). 88-Not Attempted due to Medical Conditions or Safety Concerns. Roll Left to Right (QC): 6 Sit to Lying (QC): 4 Sit to Stand (QC): 4 Chair/Pff-bu-Qaqjc Xfer(QC): 4 Car Transfer (QC): 4 Gait Training Does the Patient Walk?: Yes Distance: 200' Walk 10 feet (QC): 4 Walk 50 ft with 2 Turns(QC): 4 Walk 150 ft (QC): 4 Walking 10ft/uneven surface-QC: 4 Gait Assistive Device: FWW Wheelchair Training Does the Pt Use a Wheelchair?: No Wheel 50 ft with 2 turns (QC): 9 Wheel 150 ft (QC): 9 Stair Training #of Steps: 1 1 Step (curb) (QC): 4 4 Steps (QC): 88 12 Steps (QC): 88 Balance Picking up an Object (QC): 4 ADL-Treatment Eating (QC): 5 Oral Hygiene (QC): 4 Shower/Bathe Self (QC): 7 (Pt. states that she showered last night. Declines showering again at this time.) Upper Body Dressing (QC): 88 Lower Body Dressing (QC): 88 On/Off Footwear (QC): 4 (SBA to doff/don slipper socks.) Toileting Hygiene (QC): 4 Assessment/Plan Assessment and Plan Assess & Plan/Chief Complaint Assessment: Debility from COVID-19 Chronic pain on Fentanyl patch Hypothyroidism HTN CRI Hypoxia Grief reaction Plan: O2 wean IRF protocol Monitor pain Home meds 05/06/20: O2 wean IRF therapy Monitor for falls (1) Debility (2) Acute respiratory failure due to COVID-19 Status: Acute (3) HTN (hypertension) Status: Chronic (4) Hypothyroidism Status: Chronic (5) Anxiety Status: Chronic (6) Chronic pain Status: Chronic KANDY BENOIT DO May 06, 2020 07:19
[2020-05-06] MEDS: DOCUSATE SODIUM 100 MG (COLACE) CAP PO SCH ×2 (08:24→21:19)
[2020-05-06] MEDS: PANTOPRAZOLE 40 MG (PROTONIX) TAB PO SCH (08:25)
[2020-05-06] MEDS: SENNOSIDES 8.6 MG (SENOKOT) TAB PO SCH ×2 (08:25→21:27)
[2020-05-06] MEDS: ASPIRIN E.C. 81 MG (ECOTRIN) TAB PO SCH (08:25)
[2020-05-06] MEDS: SENNA W/DOCUSATE (SENOKOT S) TABLET PO SCH ×2 (08:25→21:19)
[2020-05-06] MEDS: polyethylene glycoL POWDER 17 GM (MIRALAX) PACK PO SCH ×3 (09:35→21:20)
--- NOTE | 2020-05-06 10:13 | Occupational Ther Daily Note ---
OT Current Status-Daily Note Subjective Pt seen in recliner. Alert/ oriented. Pt agrees to tx. Pt is educated on granddaughter coming ~1 p for 's through facetime. Pt agrees, is comforted through slight tears. Pt agrees to get cleaned up/ dressed. Pt denies pain throughout. Mental Status/Objective Patient Orientation: Person, Place, Situation Attachments: Oxygen ADL-Treatment Therapy Code Descriptions/Definitions Functional [place] Measure: 0=Not Assessed/NA 4=Minimal Assistance 1=Total Assistance 5=Supervision or Setup 2=Maximal Assistance 6=Modified [place] 3=Moderate Assistance 7=Complete IndependenceSCALE: Activities may be completed with or without assistive devices. 4-Dsivxlgufq-kqeiqkg completes the activity by him/herself with no assistance from a helper. 5-Set-up or Clean-up Assistance-helper sets up or cleans up; patient completes activity. [place] assists only prior to or following the activity. 4-Supervision or Touching Assistance-helper provides verbal cues and/or touching/steadying and/or contact guard assistance as patient completes activity. Assistance may be provided throughout the activity or intermittently. 3-Partial/Moderate Assistance-helper does LESS THAN HALF the effort. [place] lifts, holds or supports trunk or limbs, but provides less than half the effort. 2-Substantial/Maximal Assistance-helper does MORE THAN HALF the effort. [place] lifts or holds trunk or limbs and provides more than half the effort. 2-Aesqiiwle-pmzbry does ALL the effort. Patient does none of the effort to complete the activity. Or, the assistance of 2 or more helpers is required for the patient to complete the activity. If activity was not attempted, code reason: 7-Patient Refused. 9-Not Applicable-not attempted and the patient did not perform the activity before the current illness, exacerbation or injury. 10-Not Attempted due to Environmental Limitations-(lack of equipment, weather restraints, etc.). 88-Not Attempted due to Medical Conditions or Safety Concerns. Eating (QC): 6 Oral Hygiene (QC): 6 Bathing Location: L Arm, R Arm, L Upper Leg, R Upper Leg, L Lower Leg (including foot), R Lower Leg (including foot), Chest, Abdomen, Buttocks, Perineal Area Shower/Bathe Self (QC): 5 (Completes with IND post-s/u for IV coverage. Completes all washing in seated position. Pt lateral leans to cleanse buttocks. ) Upper Body Dressing (QC): 6 (s/u) Lower Body Dressing (QC): 4 (SBA all tasks. ) On/Off Footwear: 6 (IND. Cues for breath in seated. ) Toileting Hygiene (QC): 6 (IND in sit.) Toilet Transfer (QC): 4 (SBA, use of walker. ) Other Treatment Pt and OT discuss plans for this pm. Pt is comforted through tears. Pt agrees to therapy. Pt completes all tasks with SBA-IND level. Pt does ADLs as o utlined. 02 monitored post-shower/ post-bending for pant donning and sock donning with cues for breath in these positions with all being 89-mid 90's. Pt completes ambulation to recliner. Pt's 02 maintains above 90. Pt rests for ~5 min, discussion of home environment. Pt agrees to laundry task. Pt's laundry taken to laundry room, pt ambulates through cruz and rests with no SOB noted, 02 mid 80's in sit. Pt given cues for breath in stance. Pt completes standing laundry task for ~3 min, returns to chair ~20 feet away. Pt's 02 low 70's and pt able to recover within 15 seconds. Pt educated on modification of laundry at home for energy conservation/ safety. Pt ambulates back to room with continuous cues for breath. PT meets in room. Pt requests to lay down. Pt sits EOB, SUPERVISOR MICROWAVE is notified of low sats post-standing/ UE movement/ ambulation. Pt left with SUPERVISOR MICROWAVE end of session. All needs met. Education OT Patient Education: Correct positioning, Exercise program, Modified ADL techniques Teaching Recipient: Patient Teaching Methods: Demonstration, Discussion Response to Teaching: Verbalize Understanding, Return Demonstration OT Short Term Goals Short Term Goals Time Frame: May 12, 2020 Eatin Oral hygiene: 5 Toileting hygiene: 5 Shower/bathe self: 4 Upper body dressin Lower body dressin Putting on/taking off footwear: 4 OT Snf Goals Snf Goals Time Frame: May 19, 2020 Eating (QC): 6 Oral Hygiene (QC): 6 Toileting Hygiene (QC): 6 Shower/Bathe Self (QC): 4 Upper Body Dressing (QC): 6 Lower Body Dressing (QC): 6 On/Off Footwear (QC): 6 Additional Goals: 1-Demonstrate ADL Tasks, 2-Verbalize Understanding, 3-ImproveStrength/Yovana 1=Demonstrate adherence to instructed precautions during ADL tasks. 2=Patient will verbalize/demonstrate understanding of assistive devices/modifications for ADL. 3=Patient will improve strength/tolerance for activity to enable patient to perform ADL's. OT Education/Plan Problem List/Assessment Assessment: Decreased Activ Tolerance, Decreased UE Strength, Impaired Funct Balance, Impaired I ADL's, Impaired Self-Care Skills Discharge Recommendations Plan/Recommendations: Continue POC Therapy Discharge Recommendati: Intermittent Supervision, Home & Family Treatment Plan/Plan of Care Treatment,Training & Education: Yes Patient would benefit from OT for education, treatment and training to promote independence in ADL's, mobility, safety and/or upper extremity function for ADL's. Plan of Care: ADL Retraining, Functional Mobility, UE Funct Exercise/Act Treatment Duration: May 19, 2020 Frequency: At least 5 of 7 days/Wk (IRF) Estimated Hrs Per Day: 1.5 hours per day Agreement: Yes Rehab Potential: Good Time/GCodes Start Time: 08:45 Stop Time: 10:00 Total Time Billed (hr/min): 75 Billed Treatment Time 1, ADL 4 (60), FA (15)= 75 ERIK PRETTY OTR May 06, 2020 10:13
--- NOTE | 2020-05-06 11:44 | Speech Therapy Daily Note ---
Speech Daily Progress Note Subjective Date Seen by Provider: May 06, 2020 Time Seen by Provider: 00:30 The patient was resting in her bed following her other therapies. She is noted to tire easily, however she did complete the task. Objective Patient completed a series of q/a related to her daily needs with 75% with 25% cues. Assessment Assessment Current Status: Fair Progress Treatment Plan Continue Plan of Care Speech Short Term Goals Short Term Goals Short Term Goals 1) The patient will complete memory tasks related to her daily needs at 80% or greater with minimal cues. 2) The patient will complete problem solving tasks related to her daily needs at 80% or greater with minimal cues. 3) The patient will complete safety awareness tasks related to her daily needs at 80% or greater with minimal cues. Speech Chcf Goals Chcf Goals The patient will improve cognitive-communication abilities related to her daily needs with minimal assist. Speech-Plan Patient/Family Goals Patient/Family Goals: Patient plans on returning to her home where she lives with her son. Treatment Plan Speech Therapy Treatment Plan: Continue Plan of Care Treatment Duration: May 19, 2020 Frequency: 4 times per week (Patient will receive skilled ST 4-5x per week) Estimated Hrs Per Day: .25 hour per day Rehab Potential: Good Barriers to Learning: Patient's recent serious illness and age Pt/Family Agrees to Plan: Yes Safety Risks/Education Teaching Recipient: Patient Teaching Methods: Demonstration, Discussion Response to Teaching: Verbalize Understanding, Return Demonstration Education Topics Provided: Continued safety within her room and communication of wants/needs Time Speech Therapy Time In: 11:00 Speech Therapy Time Out: 11:30 Total Billed Time: 30 Billed Treatment Time 1, JOHN Schwab May 06, 2020 11:44
--- NOTE | 2020-05-06 13:37 | Physical Therapy Daily Note ---
PT Daily Note-Current Subjective Pt. just returning from OT. C/o she is fatigued, willing to do what she can but is not sure that will be much. OT shares pt. has walked to laundry area with port O2 and seemed somewhat SOB but appeared recovered as this ASSISTANT CREDIT MANAGER began Rx. Pt. then shares that she has lost her and will be joined by her grand daughter this afternoon to possibly attend her husbands via face time. Pt is tearful and emotional, looks down at her left ring finger and shares how and when her bought her each [place] ring. Pt. is cooperative for approx 45 min of Rx, then states she is exhausted and cannot do any more today. This ASSISTANT CREDIT MANAGER expresses understanding and shared that i would check back. Pt. was checked 2 more trials at 1245 pm with pt.declining Rx and states she wants no more therapies today. This ASSISTANT CREDIT MANAGER respectful of patients extraordinary situation having lost to covid and having very little time to spend with him as she herself became ill etc. Pain Location: No Pain Reported Mental Status Patient Orientation: Person, Place, Time, Situation Attachments: Oxygen (1-2 L), Other-See Comments (mask while out of room) Transfers SCALE: Activities may be completed with or without assistive devices. 1-Afzdqzjqvm-jgojeix completes the activity by him/herself with no assistance from a helper. 5-Set-up or Clean-up Assistance-helper sets up or cleans up; patient completes activity. [place] assists only prior to or following the activity. 4-Supervision or Touching Assistance-helper provides verbal cues and/or touching/steadying and/or contact guard assistance as patient completes activity. Assistance may be provided throughout the activity or intermittently. 3-Partial/Moderate Assistance-helper does LESS THAN HALF the effort. [place] lifts, holds or supports trunk or limbs, but provides less than half the effort. 2-Substantial/Maximal Assistance-helper does MORE THAN HALF the effort. [place] lifts or holds trunk or limbs and provides more than half the effort. 2-Mrhecpqsu-rhrhik does ALL the effort. Patient does none of the effort to complete the activity. Or, the assistance of 2 or more helpers is required for the patient to complete the activity. If activity was not attempted, code reason: 7-Patient Refused. 9-Not Applicable-not attempted and the patient did not perform the activity before the current illness, exacerbation or injury. 10-Not Attempted due to Environmental Limitations-(lack of equipment, weather restraints, etc.). 88-Not Attempted due to Medical Conditions or Safety Concerns. Roll Left & Right (QC): 6 Sit to Lying (QC): 6 Lying to Sitting/Side of Bed(Q: 6 Sit to Stand (QC): 6 Chair/Poe-qj-Rzvxq Xfer(QC): 6 Weight Bearing Right Lower Extremity: Right Full Weight Bearing Left Lower Extremity: Left Full Weight Bearing Gait Training Does the Patient Walk?: Yes Walk 10 feet (QC): 4 Walk 50 ft with 2 Turns(QC): 4 Walk 150 ft (QC): 88 Gait Persons Needed: 1 Gait Assistive Device: FWW pt. ambulating very short distances of approx 60 ft then requests to sit and has noted dyspnea, sats checked at 93% on 1.5 L, dyspnea resolves with rest and pt. walks further but consistently emotional today and c/o exhaustion Exercises Supine Ex: Bridging, Ankle pumps, Quad Set, Rolling, Heel Slides, Short Arc Quads, Scooting, Straight leg raise, Hip abd/add Supine Reps: 15 Seated Therapy Exercises: Ankle pumps, Sit to stand, Long arc quads, Hip flexion, Hip abd/add Seated Reps: 8 Assessment Current Status: Good Progress pt. emotional and "exhausted "today. warmed blanket brought to patient at end of Rx as she asks to be left alone to lay down for some rest and time alone. Pts. wishes respected on this day as pt. is attempting to have distance for via facetime with one permitted family member here at hospital . PT Short Term Goals Short Term Goals Time Frame: May 12, 2020 Roll Left & Right: 6 Sit to lyin Lying to sitting on side of be: 6 Sit to stand: 5 Chair/svl-ge-gbkzq transfer: 5 Walk 10 feet: 5 Walk 50 feet with two turns: 5 4 steps: 4 PT Fci Goals Fci Goals PT Fci Goals Time Frame: May 26, 2020 Roll Left & Right (QC): 6 Sit to Lying (QC): 6 Lying-Sitting on Side/Bed(QC): 6 Sit to Stand (QC): 6 Chair/Gfg-kg-Jgmlj Xfer(QC): 6 Toilet Transfer (QC): 6 Car Transfer (QC): 6 Does the Patient Walk: Yes Walk 10 feet (QC): 6 Walk 50ft with 2 Turns (QC): 6 Walk 150 ft (QC): 6 Walking 10ft on Uneven Surface: 6 1 Step (curb) (QC): 6 4 Steps (QC): 6 12 Steps (QC): 6 Picking up an Object (QC): 6 Does the Pt use WC or Scooter?: No Wheel 50 feet with 2 turns (QC: 9 Wheel 150 feet: 9 PT Plan Treatment/Plan Treatment Plan: Continue Plan of Care Treatment Plan: Bed Mobility, Education, Functional Activity Yovana, Functional Strength, Group Therapy, Gait, Safety, Therapeutic Exercise, Transfers Treatment Duration: May 26, 2020 Frequency: At least 5 of 7 days/Wk (IRF) Estimated Hrs Per Day: 1.5 hours per day Patient and/or Family Agrees t: Yes Safety Risks/Education Patient Education: Gait Training, Transfer Techniques, Correct Positioning, Disease Process, Safety Issues Teaching Recipient: Patient Teaching Methods: Demonstration, Discussion Response to Teaching: Verbalize Understanding, Return Demonstration, Reinforcement Needed Time/GCodes Time In: 1000 (1245) Time Out: 1045 (1250) Total Billed Treatment Time: 45 Total Billed Treatment 1x2,GT20m,FA10m,EX15m EMILIANA LANCASTER ASSISTANT CREDIT MANAGER May 06, 2020 13:37
--- NOTE | 2020-05-06 15:33 | NUR ---
"RD ASSESSMENT PMHx: pneumonia; COVID-19; HTN; hypothyroidism; PT INTERACTION: Pt was awake and pleasant during nutrition assessment. Pt states current appetite is fair. Note avg PO intake 50% x2meal, per chart review. Pt states no issues with nausea, vomiting, constipation, or diarrhea, and is unsure of her last BM. Note pt currently on bowel regimen of colace BID, senna BID, and miralax BID, per chart review. ABNORMAL NUTRITION-RELATED LAB VALUES LOW: alb 3.1; HIGH: glu 107; Est. kcal needs: 3069-4910 kcal | 25-30 kcal/kg Est. Pro needs: 54-67 g Pro | 0.8-1.0 g Pro/kg PES STATEMENT: Inadequate oral intake (NI-2.1) related to loss of appetite as evidenced by pt interview and avg PO intake 50% x2meal. INTERVENTION: Continue with current diet order of Regular diet. Continue with current supplementation order of Ensure Enlive with meals TID, for increased kcal intake. Provides 350 kcal and 20 g Pro per serving. Will continue to follow and reassess as pt needs, intake, and status change. Imtiaz Barriga, MS RD LD"
[2020-05-06] MEDS: ENOXAPARIN 40 MG/0.4 ML (LOVENOX) SYR SC SCH (15:41)
[2020-05-06 16:00] VITALS: BP 132/85
--- NOTE | 2020-05-06 16:53 | NUR ---
CM/SS ADMISSION Patient was admitted to ARU from [facility] Medical Unit for myopathy. Patient was inpatient at [place] 04/23-04/28 with Covid and discharged home. Her spouse Ronald Fernando was also a patient here with Covid and 04/30/20. Patient was readmitted 05/01/20 with worsening Covid, pneumonia, sepsis and remained there until transfer to ARU. Patient had resided at home with her spouse , now . Sadly, they were both ill on different timelines, here 04/11-04/30 during which time there were no visitors per protocols until end of life. Mr. Fernando's was today, patient remained hospitalized. Her wishes were followed regarding boundaries about viewing/having virtual presence at 's [facility] services this afternoon. PCP: Dr. Easton Palacios MD, [place] [facility]: [facility] Mail order INSURANCE: [employer], appears without Medicare or a supplement. DME: At 04/28 discharge, patient was sent home on new home O2 through [facility] Medical, 3L continuous. Will monitor for Rx change in O2 and update agency. Explore other DME needs in conjunction with therapy team regarding patient home performance and safety. HHC: At 04/28 discharge, patient was set up for HHC through [facility] but then readmitted. Patient will most likely require HHC post ARU stay, will seek the agency in her service area available to provide timely. BARRIERS TO DISCHARGE PLANNING: Patient will be presumed home alone due to spouse's . Will explore with patient and family. Patient grieving process interrupted by her own illness and inability to attend final graveside services. Monitor for grief process and journey of crisis loss with delayed ability to fully process partially due to Covid protocols, no visitors, etc. CONTACTS: Patient lists [place]: [place] [address] [phone] Patient understands the purpose and process of the weekly patient care conference and that her first review will be Saturday, May 11, 2020.
--- NOTE | 2020-05-06 19:22 | NUR ---
Bedside report received from CADE RONDON, assume care of pt
[2020-05-06 21:15] VITALS: BP 121/74
[2020-05-06] MEDS: rOPINIRole 1 MG (REQUIP) TABLET PO SCH (21:19)
[2020-05-06] MEDS: traZODone 150 MG (DESYREL) TABLET PO SCH (21:19)
--- NOTE | 2020-05-06 21:19 | NUR ---
fsbs 169 no ss insulin given, pt took Colace, Senokot & miralax
[2020-05-07] MEDS: RT-ALBUTEROL INHALER HFA (VENTOLIN HFA) 18 GM IH SCH ×2 (03:38→09:24)
[2020-05-07 05:28] VITALS: BP 126/70
[2020-05-07] MEDS: inSUlin ASPART (NovoLOG) 1 UNIT/0.01 ML (CHARGE PER UNIT) SC SCH ×4 (06:00→21:00)
--- NOTE | 2020-05-07 06:18 | PM&R Progress Note ---
Subjective HPI/CC On Admission Date Seen by Provider: May 07, 2020 Time Seen by Provider: 10:15 Subjective/Events-last exam 05/07/20: Son will bring makeup and hair styling products to "fix up" today to help her morale O2 supplement at 1L/min BM giving laxatives since narcotic bowel from Fentanyl is real possibility No pain reported Pt doing very well Grief reaction noted will be buried today Has some questions about Covid hospital course she had Review of Systems Pulmonary: Dyspnea, Cough Gastrointestinal: Constipation Objective Exam Vital Signs Vital Signs Date Time Temp Pulse Resp B/P (MAP) Pulse Ox O2 Delivery O2 Flow Rate FiO2 05/07/20 09:24 92 94 24 05/07/20 09:00 Nasal Cannula 1.00 05/07/20 05:28 36.0 18 126/70 (88) Capillary Refill : Less Than 3 Seconds General Appearance: No Apparent Distress, WD/WN, Chronically ill, Thin HEENT: PERRL/EOMI, Normal ENT Inspection, Pharynx Normal Neck: Full Range of Motion, Normal Inspection, Non Tender, Supple, Carotid Bruit Respiratory: Chest Non Tender, No Accessory Muscle Use, No Respiratory Distress, Crackles, Decreased Breath Sounds Cardiovascular: Regular Rate, Rhythm, No Edema, No Gallop, No JVD, No Murmur, Normal Peripheral Pulses Gastrointestinal: Normal Bowel Sounds, No Organomegaly, No Pulsatile Mass, Non Tender, Soft Back: Normal Inspection, No CVA Tenderness, No Vertebral Tenderness Extremity: Normal Capillary Refill, Normal Inspection, Normal Range of Motion, Non Tender, No Calf Tenderness, No Pedal Edema Neurologic/Psychiatric: Alert, Oriented x3, No Motor/Sensory Deficits, skin washer II- XII Norm as Tested, Depressed Affect Skin: Normal Color, Warm/Dry Lymphatic: No Adenopathy Results/Procedures Lab Patient resulted labs reviewed. FIM Transfers Therapy Code Descriptions/Definitions Functional [place] Measure: 0=Not Assessed/NA 4=Minimal Assistance 1=Total Assistance 5=Supervision or Setup 2=Maximal Assistance 6=Modified [place] 3=Moderate Assistance 7=Complete IndependenceSCALE: Activities may be completed with or without assistive devices. 1-Tvxfwfxslu-qppxyxc completes the activity by him/herself with no assistance from a helper. 5-Set-up or Clean-up Assistance-helper sets up or cleans up; patient completes activity. [place] assists only prior to or following the activity. 4-Supervision or Touching Assistance-helper provides verbal cues and/or touching/steadying and/or contact guard assistance as patient completes acti vity. Assistance may be provided throughout the activity or intermittently. 3-Partial/Moderate Assistance-helper does LESS THAN HALF the effort. [place] lifts, holds or supports trunk or limbs, but provides less than half the effort. 2-Substantial/Maximal Assistance-helper does MORE THAN HALF the effort. [place] lifts or holds trunk or limbs and provides more than half the effort. 0-Yuwnplpzm-sbcvwm does ALL the effort. Patient does none of the effort to complete the activity. Or, the assistance of 2 or more helpers is required for the patient to complete the activity. If activity was not attempted, code reason: 7-Patient Refused. 9-Not Applicable-not attempted and the patient did not perform the activity before the current illness, exacerbation or injury. 10-Not Attempted due to Environmental Limitations-(lack of equipment, weather restraints, etc.). 88-Not Attempted due to Medical Conditions or Safety Concerns. Roll Left to Right (QC): 6 Sit to Lying (QC): 6 Sit to Stand (QC): 6 Chair/Mva-os-Lcbwp Xfer(QC): 6 Car Transfer (QC): 4 Gait Training Does the Patient Walk?: Yes Distance: 200' Walk 10 feet (QC): 4 Walk 50 ft with 2 Turns(QC): 4 Walk 150 ft (QC): 88 Walking 10ft/uneven surface-QC: 4 Gait Persons Needed: 1 Gait Assistive Device: FWW Wheelchair Training Does the Pt Use a Wheelchair?: No Wheel 50 ft with 2 turns (QC): 9 Wheel 150 ft (QC): 9 Stair Training #of Steps: 1 1 Step (curb) (QC): 4 4 Steps (QC): 88 12 Steps (QC): 88 Balance Picking up an Object (QC): 4 ADL-Treatment Eating (QC): 6 Oral Hygiene (QC): 6 Bathing Location: L Arm, R Arm, L Upper Leg, R Upper Leg, L Lower Leg (including foot), R Lower Leg (including foot), Chest, Abdomen, Buttocks, Perineal Area Shower/Bathe Self (QC): 5 (Completes with IND post-s/u for IV coverage. Completes all washing in seated position. Pt lateral leans to cleanse buttocks. ) Upper Body Dressing (QC): 6 (s/u) Lower Body Dressing (QC): 4 (SBA all tasks. ) On/Off Footwear (QC): 6 (IND. Cues for breath in seated. ) Toileting Hygiene (QC): 6 (IND in sit.) Toilet Transfer (QC): 4 (SBA, use of walker. ) Assessment/Plan Assessment and Plan Assess & Plan/Chief Complaint Assessment: Debility from COVID-19 Chronic pain on Fentanyl patch Hypothyroidism HTN CRI Hypoxia Grief reaction Plan: O2 wean IRF protocol Monitor pain Home meds 05/06/20: O2 wean IRF therapy Monitor for falls 05/07/20: O2 maintained BM regime to intensify (1) Debility (2) Acute respiratory failure due to COVID-19 Status: Acute (3) HTN (hypertension) Status: Chronic (4) Hypothyroidism Status: Chronic (5) Anxiety Status: Chronic (6) Chronic pain Status: Chronic KANDY BENOIT DO May 07, 2020 06:18
[2020-05-07] MEDS: LEVOTHYROXINE 25 MCG (LEVOTHROID) TAB PO SCH (06:21)
[2020-05-07] MEDS ORDERED: RT-ALBUTEROL INHALER HFA (VENTOLIN HFA) 18 GM IH PRN (09:45)
[2020-05-07] MEDS: polyethylene glycoL POWDER 17 GM (MIRALAX) PACK PO SCH ×2 (10:17→22:01)
[2020-05-07] MEDS: SENNOSIDES 8.6 MG (SENOKOT) TAB PO SCH ×2 (10:17→22:02)
[2020-05-07] MEDS: DOCUSATE SODIUM 100 MG (COLACE) CAP PO SCH ×2 (10:17→22:02)
[2020-05-07] MEDS: PANTOPRAZOLE 40 MG (PROTONIX) TAB PO SCH (10:17)
[2020-05-07] MEDS: SENNA W/DOCUSATE (SENOKOT S) TABLET PO SCH ×2 (10:17→22:01)
[2020-05-07] MEDS: ASPIRIN E.C. 81 MG (ECOTRIN) TAB PO SCH (10:17)
--- NOTE | 2020-05-07 11:03 | Physical Therapy Daily Note ---
PT Daily Note-Current Subjective Pt resting in bed, pt denies pain. Pt agreeable and ready for PT. Pt requests she would like to call her son so he can bring her makeup and her curling iron. "I want to get my hair fixed and do my makeup. I am tired of looking like this." Pt states she plans to help out with the [place]. "I will be pitching in and doing what I can." Mental Status Patient Orientation: Person, Place, Situation Transfers SCALE: Activities may be completed with or without assistive devices. 4-Uuxfmjeyus-mvjpzfb completes the activity by him/herself with no assistance from a helper. 5-Set-up or Clean-up Assistance-helper sets up or cleans up; patient completes activity. [place] assists only prior to or following the activity. 4-Supervision or Touching Assistance-helper provides verbal cues and/or touching/steadying and/or contact guard assistance as patient completes ac tivity. Assistance may be provided throughout the activity or intermittently. 3-Partial/Moderate Assistance-helper does LESS THAN HALF the effort. [place] lifts, holds or supports trunk or limbs, but provides less than half the effort. 2-Substantial/Maximal Assistance-helper does MORE THAN HALF the effort. [place] lifts or holds trunk or limbs and provides more than half the effort. 8-Fjxakntdo-hbfaqq does ALL the effort. Patient does none of the effort to complete the activity. Or, the assistance of 2 or more helpers is required for the patient to complete the activity. If activity was not attempted, code reason: 7-Patient Refused. 9-Not Applicable-not attempted and the patient did not perform the activity before the current illness, exacerbation or injury. 10-Not Attempted due to Environmental Limitations-(lack of equipment, weather restraints, etc.). 88-Not Attempted due to Medical Conditions or Safety Concerns. All transfers all levels mod (I) Weight Bearing Right Lower Extremity: Right Full Weight Bearing Left Lower Extremity: Left Full Weight Bearing Gait Training Gait Assistive Device: FWW Pt amb with FWW and SBA-CGA x 350', steady speed. Exercises Supine Ex: Ankle pumps, Heel Slides, Short Arc Quads, Hip abd/add Supine Reps: 15 Assessment Current Status: Good Progress Pt eloise above well. Pt back to bed per request. Call light in reach and all needs met. Pt phoned her son at end of treatment. PT Short Term Goals Short Term Goals Time Frame: May 12, 2020 Roll Left & Right: 6 Sit to lyin Lying to sitting on side of be: 6 Sit to stand: 5 Chair/tlw-wk-tybjj transfer: 5 Walk 10 feet: 5 Walk 50 feet with two turns: 5 4 steps: 4 PT Business Info Consultant Goals Business Info Consultant Goals PT Mcc Goals Time Frame: May 26, 2020 Roll Left & Right (QC): 6 Sit to Lying (QC): 6 Lying-Sitting on Side/Bed(QC): 6 Sit to Stand (QC): 6 Chair/Obq-ht-Zfbek Xfer(QC): 6 Toilet Transfer (QC): 6 Car Transfer (QC): 6 Does the Patient Walk: Yes Walk 10 feet (QC): 6 Walk 50ft with 2 Turns (QC): 6 Walk 150 ft (QC): 6 Walking 10ft on Uneven Surface: 6 1 Step (curb) (QC): 6 4 Steps (QC): 6 12 Steps (QC): 6 Picking up an Object (QC): 6 Does the Pt use WC or Scooter?: No Wheel 50 feet with 2 turns (QC: 9 Wheel 150 feet: 9 PT Plan Treatment/Plan Treatment Plan: Continue Plan of Care Treatment Plan: Bed Mobility, Education, Functional Activity Yovana, Functional Strength, Group Therapy, Gait, Safety, Therapeutic Exercise, Transfers Treatment Duration: May 26, 2020 Frequency: At least 5 of 7 days/Wk (IRF) Estimated Hrs Per Day: 1.5 hours per day Patient and/or Family Agrees t: Yes Time/GCodes Time In: 855 Time Out: 922 Total Billed Treatment Time: 27 Total Billed Treatment 1, gait 15', Ex 12' INOCENTE CARRERO CPTA May 07, 2020 11:03
[2020-05-07] MEDS: FENTANYL PATCH REMOVAL TP SCH (14:44)
[2020-05-07] MEDS: ENOXAPARIN 40 MG/0.4 ML (LOVENOX) SYR SC SCH (14:44)
[2020-05-07] MEDS: fentaNYL PATCH 75 MCG (DURAGESIC) TD SCH (14:44)
[2020-05-07] MEDS ORDERED: MAGNESIUM CITRATE 300 ML BTL PO ONE (15:30)
[2020-05-07 18:00] VITALS: BP 124/68
--- NOTE | 2020-05-07 19:11 | NUR ---
Bedside report received from JENNIFER RONDON, assume care of pt
--- NOTE | 2020-05-07 21:05 | NUR ---
fsbs 132 no ss insulin req, pt had stool today after mag citrate given
[2020-05-07 21:50] VITALS: BP 137/67
[2020-05-07] MEDS: rOPINIRole 1 MG (REQUIP) TABLET PO SCH (22:01)
[2020-05-07] MEDS: traZODone 150 MG (DESYREL) TABLET PO SCH (22:02)
--- NOTE | 2020-05-07 22:02 | NUR ---
pt took all laxatives tonight, up to bathroom with 1 person assist & walker
[2020-05-08 05:06] VITALS: BP 95/56
[2020-05-08] MEDS: inSUlin ASPART (NovoLOG) 1 UNIT/0.01 ML (CHARGE PER UNIT) SC SCH ×4 (06:00→21:00)
[2020-05-08] MEDS: LEVOTHYROXINE 25 MCG (LEVOTHROID) TAB PO SCH (06:41)
[2020-05-08 08:15] VITALS: BP 131/72
--- NOTE | 2020-05-08 09:27 | NUR ---
PT IS IN NO RESPIRATORY DISTRESS. PT HAS NO NEEDS. Addendum: 05/08/20 at 0928 by JOSE ANTONIO BLOOM RT Amended: Links added.
[2020-05-08] MEDS: SENNOSIDES 8.6 MG (SENOKOT) TAB PO SCH ×2 (09:28→21:05)
[2020-05-08] MEDS: SENNA W/DOCUSATE (SENOKOT S) TABLET PO SCH ×2 (09:28→21:08)
[2020-05-08] MEDS: ASPIRIN E.C. 81 MG (ECOTRIN) TAB PO SCH (09:28)
[2020-05-08] MEDS: polyethylene glycoL POWDER 17 GM (MIRALAX) PACK PO SCH ×2 (09:28→21:08)
[2020-05-08] MEDS: DOCUSATE SODIUM 100 MG (COLACE) CAP PO SCH ×2 (09:28→21:05)
[2020-05-08] MEDS: PANTOPRAZOLE 40 MG (PROTONIX) TAB PO SCH (09:28)
[2020-05-08] MEDS: ENOXAPARIN 40 MG/0.4 ML (LOVENOX) SYR SC SCH (15:27)
[2020-05-08 17:01] VITALS: BP 111/69
--- NOTE | 2020-05-08 17:19 | PM&R Progress Note ---
Subjective HPI/CC On Admission Date Seen by Provider: May 08, 2020 Time Seen by Provider: 17:30 Subjective/Events-last exam 05/08/20: BM yesterday after Mag Citrate given BM moved again today also Dyspneic on exertion so increased O2 to 2L/min but on 1L/min currently at rest No pain reported Fentanyl patch maintained 05/07/20: Son will bring makeup and hair styling products to "fix up" today to help her morale O2 supplement at 1L/min BM giving laxatives since narcotic bowel from Fentanyl is real possibility No pain reported Pt doing very well Grief reaction noted will be buried today Has some questions about Covid hospital course she had Review of Systems General: Fatigue Pulmonary: Dyspnea Objective Exam Vital Signs Vital Signs Date Time Temp Pulse Resp B/P (MAP) Pulse Ox O2 Delivery O2 Flow Rate FiO2 05/08/20 21:06 Nasal Cannula 1.00 05/08/20 17:01 35.9 67 16 111/69 (83) 92 05/07/20 09:24 24 Capillary Refill : Less Than 3 Seconds General Appearance: No Apparent Distress, WD/WN, Chronically ill, Thin HEENT: PERRL/EOMI, Normal ENT Inspection, Pharynx Normal Neck: Full Range of Motion, Normal Inspection, Non Tender, Supple, Carotid Bruit Respiratory: Chest Non Tender, No Accessory Muscle Use, No Respiratory Distress, Crackles, Decreased Breath Sounds Cardiovascular: Regular Rate, Rhythm, No Edema, No Gallop, No JVD, No Murmur, Normal Peripheral Pulses Gastrointestinal: Normal Bowel Sounds, No Organomegaly, No Pulsatile Mass, Non Tender, Soft Back: Normal Inspection, No CVA Tenderness, No Vertebral Tenderness Extremity: Normal Capillary Refill, Normal Inspection, Normal Range of Motion, Non Tender, No Calf Tenderness, No Pedal Edema Neurologic/Psychiatric: Alert, Oriented x3, No Motor/Sensory Deficits, compressor station engineer chief II- XII Norm as Tested, Depressed Affect Skin: Normal Color, Warm/Dry Lymphatic: No Adenopathy Results/Procedures Lab Patient resulted labs reviewed. FIM Transfers Therapy Code Descriptions/Definitions Functional [place] Measure: 0=Not Assessed/NA 4=Minimal Assistance 1=Total Assistance 5=Supervision or Setup 2=Maximal Assistance 6=Modified [place] 3=Moderate Assistance 7=Complete IndependenceSCALE: Activities may be completed with or without assistive devices. 7-Miejpyimmc-xdiyyjb completes the activity by him/herself with no assistance from a helper. 5-Set-up or Clean-up Assistance-helper sets up or cleans up; patient completes activity. [place] assists only prior to or following the activity. 4-Supervision or Touching Assistance-helper provides verbal cues and/or touching/steadying and/or contact guard assistance as patient completes activity. Assistance may be provided throughout the activity or intermittently. 3-Partial/Moderate Assistance-helper does LESS THAN HALF the effort. [place] lifts, holds or supports trunk or limbs, but provides less than half the effort. 2-Substantial/Maximal Assistance-helper does MORE THAN HALF the effort. [place] lifts or holds trunk or limbs and provides more than half the effort. 7-Kdwpazqob-qbqgfi does ALL the effort. Patient does none of the effort to c omplete the activity. Or, the assistance of 2 or more helpers is required for the patient to complete the activity. If activity was not attempted, code reason: 7-Patient Refused. 9-Not Applicable-not attempted and the patient did not perform the activity before the current illness, exacerbation or injury. 10-Not Attempted due to Environmental Limitations-(lack of equipment, weather restraints, etc.). 88-Not Attempted due to Medical Conditions or Safety Concerns. Roll Left to Right (QC): 6 Sit to Lying (QC): 6 Sit to Stand (QC): 6 Chair/Ygv-fc-Rxlti Xfer(QC): 6 Car Transfer (QC): 4 Gait Training Does the Patient Walk?: Yes Distance: 200' Walk 10 feet (QC): 4 Walk 50 ft with 2 Turns(QC): 4 Walk 150 ft (QC): 88 Walking 10ft/uneven surface-QC: 4 Gait Persons Needed: 1 Gait Assistive Device: FWW Wheelchair Training Does the Pt Use a Wheelchair?: No Wheel 50 ft with 2 turns (QC): 9 Wheel 150 ft (QC): 9 Stair Training #of Steps: 1 1 Step (curb) (QC): 4 4 Steps (QC): 88 12 Steps (QC): 88 Balance Picking up an Object (QC): 4 ADL-Treatment Eating (QC): 6 Oral Hygiene (QC): 6 Bathing Location: L Arm, R Arm, L Upper Leg, R Upper Leg, L Lower Leg (including foot), R Lower Leg (including foot), Chest, Abdomen, Buttocks, Perineal Area Shower/Bathe Self (QC): 5 (Completes with IND post-s/u for IV coverage. Completes all washing in seated position. Pt lateral leans to cleanse buttocks. ) Upper Body Dressing (QC): 6 (s/u) Lower Body Dressing (QC): 4 (SBA all tasks. ) On/Off Footwear (QC): 6 (IND. Cues for breath in seated. ) Toileting Hygiene (QC): 6 (IND in sit.) Toilet Transfer (QC): 4 (SBA, use of walker. ) Assessment/Plan Assessment and Plan Assess & Plan/Chief Complaint Assessment: Debility from COVID-19 Chronic pain on Fentanyl patch Hypothyroidism HTN CRI Hypoxia Grief reaction Plan: O2 wean IRF protocol Monitor pain Home meds 05/06/20: O2 wean IRF therapy Monitor for falls 05/07/20: O2 maintained BM regimen to intensify 05/08/20: Wean O2 Therapy to increase stamina Check labs in am (1) Debility (2) Acute respiratory failure due to COVID-19 Status: Acute (3) HTN (hypertension) Status: Chronic (4) Hypothyroidism Status: Chronic (5) Anxiety Status: Chronic (6) Chronic pain Status: Chronic KANDY BENOIT DO May 08, 2020 17:19
--- NOTE | 2020-05-08 19:08 | NUR ---
Bedside report received from JENNIFER RONDON,assume care of pt
[2020-05-08] MEDS: traZODone 150 MG (DESYREL) TABLET PO SCH (21:05)
[2020-05-08] MEDS: rOPINIRole 1 MG (REQUIP) TABLET PO SCH (21:05)
--- NOTE | 2020-05-08 21:05 | NUR ---
pt took Colace & SENOKOT 8.6 refused another Senokot & miralax, accuchecks discontinued
[2020-05-09] MEDS: inSUlin ASPART (NovoLOG) 1 UNIT/0.01 ML (CHARGE PER UNIT) SC SCH (06:00)
[2020-05-09 06:06] LABS: BASOPHILS # (AUTO) 0.1 10^3/uL (0.0-0.1); BASOPHILS % (AUTO) 1 % (0-10); EOSINOPHILS # (AUTO) 0.2 10^3/uL (0.0-0.3); EOSINOPHILS % (AUTO) 3 % (0-10); HEMATOCRIT 43 % (35-52); HEMOGLOBIN 13.7 g/dL (11.5-16.0); LYMPHOCYTES # (AUTO) 1.3 10^3/uL (1.0-4.0); LYMPHOCYTES % (AUTO) 21 % (12-44); MEAN CORPUSCULAR HEMOGLOBIN 30 pg (25-34); MEAN CORPUSCULAR HGB CONC 32 g/dL (32-36); MEAN CORPUSCULAR VOLUME 95 fL (80-99); MEAN PLATELET VOLUME 11.2 fL (9.0-12.2); MONOCYTES # (AUTO) 0.9 10^3/uL (0.0-1.0); MONOCYTES % (AUTO) 13 % (0-12); NEUTROPHILS % (AUTO) 62 % (42-75); PLATELET COUNT 220 10^3/uL (130-400); WHITE BLOOD COUNT 6.5 10^3/uL (4.3-11.0)
[2020-05-09 06:12] LABS: ALBUMIN 3.2 GM/DL (3.2-4.5); CHLORIDE 100 MMOL/L (98-107); POTASSIUM 4.7 MMOL/L (3.6-5.0); SODIUM 136 MMOL/L (135-145)
[2020-05-09 06:14] LABS: GLUCOSE 114 MG/DL (70-105)
[2020-05-09 06:15] LABS: TOTAL PROTEIN 6.5 GM/DL (6.4-8.2)
[2020-05-09 06:16] LABS: BILIRUBIN,TOTAL 0.5 MG/DL (0.1-1.0); CARBON DIOXIDE 25 MMOL/L (21-32)
[2020-05-09 06:18] LABS: ALKALINE PHOSPHATASE 69 U/L (40-136); CREATININE SERUM 0.71 MG/DL (0.60-1.30); GFR ESTIMATED > 60
[2020-05-09 06:19] LABS: BUN/CREATININE RATIO 30
[2020-05-09 06:21] LABS: ALANINE AMINOTRANSFERASE 28 U/L (0-55)
[2020-05-09] MEDS: LEVOTHYROXINE 25 MCG (LEVOTHROID) TAB PO SCH (06:22)
[2020-05-09 06:29] VITALS: BP 119/56
[2020-05-09 08:00] VITALS: BP 119/65
[2020-05-09] MEDS: ASPIRIN E.C. 81 MG (ECOTRIN) TAB PO SCH (08:47)
[2020-05-09] MEDS: DOCUSATE SODIUM 100 MG (COLACE) CAP PO SCH ×2 (08:47→19:59)
[2020-05-09] MEDS: polyethylene glycoL POWDER 17 GM (MIRALAX) PACK PO SCH ×2 (08:49→19:59)
[2020-05-09] MEDS: SENNOSIDES 8.6 MG (SENOKOT) TAB PO SCH ×2 (08:49→19:59)
[2020-05-09] MEDS: SENNA W/DOCUSATE (SENOKOT S) TABLET PO SCH ×2 (08:49→19:59)
[2020-05-09] MEDS: PANTOPRAZOLE 40 MG (PROTONIX) TAB PO SCH (08:49)
--- NOTE | 2020-05-09 08:58 | PM&R Progress Note ---
Subjective HPI/CC On Admission Date Seen by Provider: May 09, 2020 Time Seen by Provider: 09:00 Subjective/Events-last exam 05/09/20: Still dyspneic on exertion requiring oxygen supplementation Bowels moved yesterday and today an narcotic bowel seems to be managed well Labs are stable this morning Overall improving 05/08/20: BM yesterday after Mag Citrate given BM moved again today also Dyspneic on exertion so increased O2 to 2L/min but on 1L/min currently at rest No pain reported Fentanyl patch maintained 05/07/20: Son will bring makeup and hair styling products to "fix up" today to help her morale O2 supplement at 1L/min BM giving laxatives since narcotic bowel from Fentanyl is real possibility No pain reported Pt doing very well Grief reaction noted will be buried today Has some questions about Covid hospital course she had Review of Systems General: Fatigue Pulmonary: Dyspnea Objective Exam Vital Signs Vital Signs Date Time Temp Pulse Resp B/P (MAP) Pulse Ox O2 Delivery O2 Flow Rate FiO2 05/09/20 20:10 Nasal Cannula 1.00 05/09/20 16:14 36.3 86 16 112/68 (83) 95 05/07/20 09:24 24 Capillary Refill : Less Than 3 Seconds General Appearance: No Apparent Distress, WD/WN, Chronically ill, Thin HEENT: PERRL/EOMI, Normal ENT Inspection, Pharynx Normal Neck: Full Range of Motion, Normal Inspection, Non Tender, Supple, Carotid Bruit Respiratory: Chest Non Tender, No Accessory Muscle Use, No Respiratory Distress, Crackles, Decreased Breath Sounds Cardiovascular: Regular Rate, Rhythm, No Edema, No Gallop, No JVD, No Murmur, Normal Peripheral Pulses Gastrointestinal: Normal Bowel Sounds, No Organomegaly, No Pulsatile Mass, Non Tender, Soft Back: Normal Inspection, No CVA Tenderness, No Vertebral Tenderness Extremity: Normal Capillary Refill, Normal Inspection, Normal Range of Motion, Non Tender, No Calf Tenderness, No Pedal Edema Neurologic/Psychiatric: Alert, Oriented x3, No Motor/Sensory Deficits, national account representative II- XII Norm as Tested, Depressed Affect Skin: Normal Color, Warm/Dry Lymphatic: No Adenopathy Results/Procedures Lab Patient resulted labs reviewed. FIM Transfers Therapy Code Descriptions/Definitions Functional [place] Measure: 0=Not Assessed/NA 4=Minimal Assistance 1=Total Assistance 5=Supervision or Setup 2=Maximal Assistance 6=Modified [place] 3=Moderate Assistance 7=Complete IndependenceSCALE: Activities may be completed with or without assistive devices. 3-Thazxschvw-jtkbihw completes the activity by him/herself with no assistance from a helper. 5-Set-up or Clean-up Assistance-helper sets up or cleans up; patient completes activity. [place] assists only prior to or following the activity. 4-Supervision or Touching Assistance-helper provides verbal cues and/or touching/steadying and/or contact guard assistance as patient completes activity. Assistance may be provided throughout the activity or intermittently. 3-Partial/Moderate Assistance-helper does LESS THAN HALF the effort. [place] lifts, holds or supports trunk or limbs, but provides less than half the effort. 2-Substantial/Maximal Assistance-helper does MORE THAN HALF the effort. [place] lifts or holds trunk or limbs and provides more than half the effort. 7-Ubhkmzzha-tbkpwi does ALL the effort. Patient does none of the effort to complete the activity. Or, the assistance of 2 or more helpers is required for the patient to complete the activity. If activity was not attempted, code reason: 7-Patient Refused. 9-Not Applicable-not attempted and the patient did not perform the activity before the current illness, exacerbation or injury. 10-Not Attempted due to Environmental Limitations-(lack of equipment, weather restraints, etc.). 88-Not Attempted due to Medical Conditions or Safety Concerns. Roll Left to Right (QC): 6 Sit to Lying (QC): 6 Sit to Stand (QC): 6 Chair/Urw-mq-Jaqbp Xfer(QC): 6 Car Transfer (QC): 4 Gait Training Does the Patient Walk?: Yes Distance: 200' Walk 10 feet (QC): 4 Walk 50 ft with 2 Turns(QC): 4 Walk 150 ft (QC): 88 Walking 10ft/uneven surface-QC: 4 Gait Persons Needed: 1 Gait Assistive Device: FWW Wheelchair Training Does the Pt Use a Wheelchair?: No Wheel 50 ft with 2 turns (QC): 9 Wheel 150 ft (QC): 9 Stair Training #of Steps: 1 1 Step (curb) (QC): 4 4 Steps (QC): 88 12 Steps (QC): 88 Balance Picking up an Object (QC): 4 ADL-Treatment Eating (QC): 6 Oral Hygiene (QC): 6 Bathing Location: L Arm, R Arm, L Upper Leg, R Upper Leg, L Lower Leg (including foot), R Lower Leg (including foot), Chest, Abdomen, Buttocks, Perineal Area Shower/Bathe Self (QC): 5 (Completes with IND post-s/u for IV coverage. Completes all washing in seated position. Pt lateral leans to cleanse buttocks. ) Upper Body Dressing (QC): 6 (s/u) Lower Body Dressing (QC): 4 (SBA all tasks. ) On/Off Footwear (QC): 6 (IND. Cues for breath in seated. ) Toileting Hygiene (QC): 6 (IND in sit.) Toilet Transfer (QC): 4 (SBA, use of walker. ) Assessment/Plan Assessment and Plan Assess & Plan/Chief Complaint Assessment: Debility from COVID-19 Chronic pain on Fentanyl patch Hypothyroidism HTN CRI Hypoxia Grief reaction Plan: O2 wean IRF protocol Monitor pain Home meds 05/06/20: O2 wean IRF therapy Monitor for falls 05/07/20: O2 maintained BM regimen to intensify 05/08/20: Wean O2 Therapy to increase stamina Check labs in am 05/09/20: Wean O2 if able Therapy to increase stamina (1) Debility (2) Acute respiratory failure due to COVID-19 Status: Acute (3) HTN (hypertension) Status: Chronic (4) Hypothyroidism Status: Chronic (5) Anxiety Status: Chronic (6) Chronic pain Status: Chronic KANDY BENOIT DO May 09, 2020 08:58
--- NOTE | 2020-05-09 09:33 | Occupational Ther Daily Note ---
OT Current Status-Daily Note Subjective No pain reported. Appearance Pt. up in chair. She states that she has been up for awhile and is tired. Declines showering but agrees to sponge bathe. Mental Status/Objective Patient Orientation: Person, Place Attachments: Oxygen ADL-Treatment Therapy Code Descriptions/Definitions Functional [place] Measure: 0=Not Assessed/NA 4=Minimal Assistance 1=Total Assistance 5=Supervision or Setup 2=Maximal Assistance 6=Modified [place] 3=Moderate Assistance 7=Complete IndependenceSCALE: Activities may be completed with or without assistive devices. 8-Sniecjajqi-dxvrnyq completes the activity by him/herself with no assistance from a helper. 5-Set-up or Clean-up Assistance-helper sets up or cleans up; patient completes activity. [place] assists only prior to or following the activity. 4-Supervision or Touching Assistance-helper provides verbal cues and/or touching/steadying and/or contact guard assistance as patient completes activity. Assistance may be provided throughout the activity or intermittently. 3-Partial/Moderate Assistance-helper does LESS THAN HALF the effort. [place] lifts, holds or supports trunk or limbs, but provides less than half the effort. 2-Substantial/Maximal Assistance-helper does MORE THAN HALF the effort. [place] lifts or holds trunk or limbs and provides more than half the effort. 6-Qoxnlhnkl-idesfp does ALL the effort. Patient does none of the effort to complete the activity. Or, the assistance of 2 or more helpers is required for the patient to complete the activity. If activity was not attempted, code reason: 7-Patient Refused. 9-Not Applicable-not attempted and the patient did not perform the activity before the current illness, exacerbation or injury. 10-Not Attempted due to Environmental Limitations-(lack of equipment, weather restraints, etc.). 88-Not Attempted due to Medical Conditions or Safety Concerns. Shower/Bathe Self (QC): 4 (SBA to stand at sink and wash georgette area. SBA to wash feet by bending over to them.) Upper Body Dressing (QC): 5 Lower Body Dressing (QC): 4 On/Off Footwear: 4 Toileting Hygiene (QC): 4 (Pt. was incontinent of stool in her underwear. However, she was able to doff them with SBA and cleanse self with SBA.) Other Treatment Pt. on . Nursing reports to this therapist that pt. at 92% saturation level, and if she becomes SOA, OT can bump oxygen to 2 L. Pt. ambulates to sink in bathroom with SBA and walker. Completes sponge bath with SBA. Pt. become SOA with bending over and activity, and is encouraged to take her time and b reathe deep. OT turns oxygen to 2 L. Pt. is able to complete all tasks with SBA, and ambulates back to bed, reporting that she is very tired. Pt. transfers to bed, and saturations taken again. They are 95% on 2 L. Oxygen turned to 1 L and nursing notified. All needs are met. Education OT Patient Education: Correct positioning, Modified ADL techniques, Progress toward Goal/Update tx plan, Purpose of tx/functional activities, Reviewed precautions, Transfer techniques Teaching Recipient: Patient Teaching Methods: Demonstration, Discussion Response to Teaching: Verbalize Understanding, Return Demonstration OT Short Term Goals Short Term Goals Time Frame: May 12, 2020 Eatin Oral hygiene: 5 Toileting hygiene: 5 Shower/bathe self: 4 Upper body dressin Lower body dressin Putting on/taking off footwear: 4 OT Fancy Needleworker Goals Group Home Goals Time Frame: May 19, 2020 Eating (QC): 6 Oral Hygiene (QC): 6 Toileting Hygiene (QC): 6 Shower/Bathe Self (QC): 4 Upper Body Dressing (QC): 6 Lower Body Dressing (QC): 6 On/Off Footwear (QC): 6 Additional Goals: 1-Demonstrate ADL Tasks, 2-Verbalize Understanding, 3-ImproveStrength/[place] 1=Demonstrate adherence to instructed precautions during ADL tasks. 2=Patient will verbalize/demonstrate understanding of assistive devices/modifications for ADL. 3=Patient will improve strength/tolerance for activity to enable patient to perform ADL's. OT Education/Plan Problem List/Assessment Assessment: Decreased Activ Tolerance, Impaired I ADL's, Impaired Self-Care Skills Discharge Recommendations Plan/Recommendations: Continue POC Therapy Discharge Recommendati: Home & Family, Post Acute OT Treatment Plan/Plan of Care Treatment,Training & Education: Yes Patient would benefit from OT for education, treatment and training to promote independence in ADL's, mobility, safety and/or upper extremity function for ADL's. Plan of Care: ADL Retraining, Functional Mobility, UE Funct Exercise/Act Treatment Duration: May 19, 2020 Frequency: At least 5 of 7 days/Wk (IRF) Estimated Hrs Per Day: 1.5 hours per day Agreement: Yes Rehab Potential: Good Time/GCodes Start Time: 08:30 Stop Time: 09:25 Total Time Billed (hr/min): 55 Billed Treatment Time 1, ADL x 4 DAVE CASTLE OT May 09, 2020 09:33
--- NOTE | 2020-05-09 11:14 | Progress Note ---
KARLEE STEPHEN MED STUDENT 05/09/20 1114: Progress Note Rosanna Fernando is an 79 year old white female who was originally admitted to the [facility] with acute respiratory failure secondary to COVID 19. PMH is significant for COVID-19, hypothyroidism, HTN, anxiety, debility, and acute grief reaction. She was admitted April 23 and discharged to home April 28. She returned to the ED on May 01 for worsening symptoms and was again admitted. She was transferred to the inpatient rehab floor on May 05 after improving significantly clinically. She has been working with PT, OT, and ST regularly while on the rehab floor. She states that she is improving significantly, but is still requiring 1 L oxygen via [place]. She reports her fatigue and weakness are still present, but are significantly improved today. She is able to ambulate independently, feed herself, and perform other ADL's well. Plan is to continue therapies, wean her oxygen, and discharge her to home in the near term future. ALYSE BENOIT DO 05/10/20 0510: Supervisory-Addendum Brief Verification & Attestation Participated in pt care: history, MDM, physical Personally performed: exam, history, MDM, supervision of care Care discussed with: Medical Student Procedures: n/a Results interpretation: Verified all documentation Verification and Attestation of Medical Student E/M Service A medical student performed and documented this service in my presence. I reviewed and verified all information documented by the medical student and made modifications to such information, when appropriate. I personally performed the physical exam and medical decision making. Alyse Benoit, May 10, 2020,05:10 KARLEE STEPHEN MED STUDENT May 09, 2020 11:14 ALYSE BENOIT DO May 10, 2020 05:10
--- NOTE | 2020-05-09 11:16 | Speech Therapy Daily Note ---
Speech Daily Progress Note Subjective Date Seen by Provider: May 09, 2020 Time Seen by Provider: 00:30 The patient was resting in her bed. notes grief process due to patient's will be laid to rest today. Objective Patient completed a series of q/a related to her needs and upon her return home with 80% given 20% cues. Assessment Assessment Current Status: Fair Progress Treatment Plan Continue Plan of Care Speech Short Term Goals Short Term Goals Short Term Goals 1) The patient will complete memory tasks related to her daily needs at 80% or greater with minimal cues. 2) The patient will complete problem solving tasks related to her daily needs at 80% or greater with minimal cues. 3) The patient will complete safety awareness tasks related to her daily needs at 80% or greater with minimal cues. Speech Financial Recording Clerk Goals Financial Recording Clerk Goals The patient will improve cognitive-communication abilities related to her daily needs with minimal assist. Speech-Plan Patient/Family Goals Patient/Family Goals: Patient plans on returning to her home where she lives with her son. Treatment Plan Speech Therapy Treatment Plan: Continue Plan of Care Treatment Duration: May 19, 2020 Frequency: 4 times per week (Patient will receive skilled ST 4-5x per week) Estimated Hrs Per Day: .25 hour per day Rehab Potential: Good Barriers to Learning: Patient's recent serious illness, loss of her Pt/Family Agrees to Plan: Yes Safety Risks/Education Teaching Recipient: Patient Teaching Methods: Demonstration, Discussion Response to Teaching: Verbalize Understanding, Return Demonstration Education Topics Provided: Continued safety within her room, communication of wants/needs Time Speech Therapy Time In: 10:00 Speech Therapy Time Out: 10:30 Total Billed Time: 30 Billed Treatment Time 1ANIYAH BETHANIA ST May 09, 2020 11:16
--- NOTE | 2020-05-09 12:02 | Physical Therapy Daily Note ---
PT Daily Note-Current Subjective Pt. agrees to Rx. Does not remember this PUBLIC SAFETY DISPATCHER or the rehab gym from previous Rxs. Pt. needs reminders several times during Rx what her recent history is and sequence etc. C/o fatigue and of being tired of wearing a mask and O2 Pain Numeric Pain Scale: 4 Location: Left (low) Location Body Site: Back Pain Description: Ache Mental Status Patient Orientation: Confused Attachments: Oxygen (1L), Other-See Comments (mask while out of room) Transfers SCALE: Activities may be completed with or without assistive devices. 0-Loroimnpnl-teiuyvn completes the activity by him/herself with no assistance from a helper. 5-Set-up or Clean-up Assistance-helper sets up or cleans up; patient completes activity. [place] assists only prior to or following the activity. 4-Supervision or Touching Assistance-helper provides verbal cues and/or touching/steadying and/or contact guard assistance as patient completes activity. Assistance may be provided throughout the activity or intermittently. 3-Partial/Moderate Assistance-helper does LESS THAN HALF the effort. [place] lifts, holds or supports trunk or limbs, but provides less than half the effort. 2-Substantial/Maximal Assistance-helper does MORE THAN HALF the effort. [place] lifts or holds trunk or limbs and provides more than half the effort. 4-Zgyplebsw-hfkoyu does ALL the effort. Patient does none of the effort to complete the activity. Or, the assistance of 2 or more helpers is required for the patient to complete the activity. If activity was not attempted, code reason: 7-Patient Refused. 9-Not Applicable-not attempted and the patient did not perform the activity before the current illness, exacerbation or injury. 10-Not Attempted due to Environmental Limitations-(lack of equipment, weather restraints, etc.). 88-Not Attempted due to Medical Conditions or Safety Concerns. Roll Left & Right (QC): 6 Sit to Lying (QC): 6 Lying to Sitting/Side of Bed(Q: 6 Sit to Stand (QC): 6 Chair/Mrf-fw-Jlpnc Xfer(QC): 6 Toilet Transfer (QC): 4 Weight Bearing Right Lower Extremity: Right Full Weight Bearing Left Lower Extremity: Left Full Weight Bearing Gait Training Does the Patient Walk?: Yes Walk 10 feet (QC): 4 Walk 50 ft with 2 Turns(QC): 4 Walk 150 ft (QC): 4 Gait Persons Needed: 1 Gait Assistive Device: FWW slow, needs instructed for turning and positioning etc and where her destination is Exercises Supine Ex: Rolling, Heel Slides Supine Reps: 10 Seated Therapy Exercises: Ankle pumps, Sit to stand, Long arc quads, Hip flexion, Hip abd/add Seated Reps: 12 NuStep Minutes: 10 NuStep Workload: 2 Treatments toileted min assist for management of robe and O2 tubing Assessment Current Status: Good Progress fatigues but presses on with encouragement PT Short Term Goals Short Term Goals Time Frame: May 12, 2020 Roll Left & Right: 6 Sit to lyin Lying to sitting on side of be: 6 Sit to stand: 5 Chair/iht-gh-iugvf transfer: 5 Walk 10 feet: 5 Walk 50 feet with two turns: 5 4 steps: 4 PT Screw Machine Setter Goals Screw Machine Setter Goals PT Screw Machine Setter Goals Time Frame: May 26, 2020 Roll Left & Right (QC): 6 Sit to Lying (QC): 6 Lying-Sitting on Side/Bed(QC): 6 Sit to Stand (QC): 6 Chair/Rno-xr-Fwoyg Xfer(QC): 6 Toilet Transfer (QC): 6 Car Transfer (QC): 6 Does the Patient Walk: Yes Walk 10 feet (QC): 6 Walk 50ft with 2 Turns (QC): 6 Walk 150 ft (QC): 6 Walking 10ft on Uneven Surface: 6 1 Step (curb) (QC): 6 4 Steps (QC): 6 12 Steps (QC): 6 Picking up an Object (QC): 6 Does the Pt use WC or Scooter?: No Wheel 50 feet with 2 turns (QC: 9 Wheel 150 feet: 9 PT Plan Treatment/Plan Treatment Plan: Continue Plan of Care Treatment Plan: Bed Mobility, Education, Functional Activity [place], Functional Strength, Group Therapy, Gait, Safety, Therapeutic Exercise, Transfers Treatment Duration: May 26, 2020 Frequency: At least 5 of 7 days/Wk (IRF) Estimated Hrs Per Day: 1.5 hours per day Patient and/or Family Agrees t: Yes Safety Risks/Education Patient Education: Gait Training, Transfer Techniques, Correct Positioning, Disease Process, Safety Issues Teaching Recipient: Patient Teaching Methods: Demonstration Response to Teaching: Verbalize Understanding Time/GCodes Time In: 1100 Time Out: 1200 Total Billed Treatment Time: 60 Total Billed Treatment FA30m,GT20m,Ex10m EMILIANA LANCASTER PUBLIC SAFETY DISPATCHER May 09, 2020 12:02
--- NOTE | 2020-05-09 14:57 | Occupational Ther Daily Note ---
OT Current Status-Daily Note Subjective Pt. does not report pain but reports that she is "very cold." Mental Status/Objective Patient Orientation: Person Attachments: Oxygen ADL-Treatment Therapy Code Descriptions/Definitions Functional [place] Measure: 0=Not Assessed/NA 4=Minimal Assistance 1=Total Assistance 5=Supervision or Setup 2=Maximal Assistance 6=Modified [place] 3=Moderate Assistance 7=Complete IndependenceSCALE: Activities may be completed with or without assistive devices. 0-Lvczzrdabm-aapyhvr completes the activity by him/herself with no assistance from a helper. 5-Set-up or Clean-up Assistance-helper sets up or cleans up; patient completes activity. [place] assists only prior to or following the activity. 4-Supervision or Touching Assistance-helper provides verbal cues and/or touchin g/steadying and/or contact guard assistance as patient completes activity. Assistance may be provided throughout the activity or intermittently. 3-Partial/Moderate Assistance-helper does LESS THAN HALF the effort. [place] lifts, holds or supports trunk or limbs, but provides less than half the effort. 2-Substantial/Maximal Assistance-helper does MORE THAN HALF the effort. [place] lifts or holds trunk or limbs and provides more than half the effort. 3-Elzrxamcf-tntqdq does ALL the effort. Patient does none of the effort to complete the activity. Or, the assistance of 2 or more helpers is required for the patient to complete the activity. If activity was not attempted, code reason: 7-Patient Refused. 9-Not Applicable-not attempted and the patient did not perform the activity before the current illness, exacerbation or injury. 10-Not Attempted due to Environmental Limitations-(lack of equipment, weather restraints, etc.). 88-Not Attempted due to Medical Conditions or Safety Concerns. Upper Body Dressing (QC): 5 (Robe) Other Treatment Pt. in bed asleep when OT entered room after lunch. OT gently waked pt. and pt. becomes tearful. She states that she is so cold, and can't get warm. OT encourages her to participate in therapy to get warmed up. Pt. agitated but agrees. Transfers supine-sit with SBA and OT hands her her robe. Pt. is able to don it. Pt. does then state that she knows that she won't get any "stronger" if she doesn't walk. OT encourages her again and pt. agrees. Pt. ambulates to dining area, approximately 75 feet with CGA and walker. She is on 1L 02. Pt. rests in chair and OT brings her a warm blanket. Pt. verbalizes that it feels good, and seems more awake and alert. She indicates that she knows how important it is to participate in therapy, and she wants to get home. After rest break, she ambulates with walker and SBA back to room. She goes further this time, approximately 100 feet. Transfers to bed and all needs are met. Education OT Patient Education: Correct positioning, Modified ADL techniques, Progress toward Goal/Update tx plan, Purpose of tx/functional activities, Reviewed precautions, Rehab process, Transfer techniques Teaching Recipient: Patient Teaching Methods: Demonstration, Discussion Response to Teaching: Verbalize Understanding, Return Demonstration OT Short Term Goals Short Term Goals Time Frame: May 12, 2020 Eatin Oral hygiene: 5 Toileting hygiene: 5 Shower/bathe self: 4 Upper body dressin Lower body dressin Putting on/taking off footwear: 4 OT Group Home Goals Group Home Goals Time Frame: May 19, 2020 Eating (QC): 6 Oral Hygiene (QC): 6 Toileting Hygiene (QC): 6 Shower/Bathe Self (QC): 4 Upper Body Dressing (QC): 6 Lower Body Dressing (QC): 6 On/Off Footwear (QC): 6 Additional Goals: 1-Demonstrate ADL Tasks, 2-Verbalize Understanding, 3- ImproveStrength/[place] 1=Demonstrate adherence to instructed precautions during ADL tasks. 2=Patient will verbalize/demonstrate understanding of assistive devices/modific ations for ADL. 3=Patient will improve strength/tolerance for activity to enable patient to perform ADL's. OT Education/Plan Problem List/Assessment Assessment: Decreased Activ Tolerance, Dependent Transfers, Impaired Cognition, Impaired I ADL's, Impaired Self-Care Skills Discharge Recommendations Plan/Recommendations: Continue POC Therapy Discharge Recommendati: Home & Family, Post Acute OT Treatment Plan/Plan of Care Treatment,Training & Education: Yes Patient would benefit from OT for education, treatment and training to promote independence in ADL's, mobility, safety and/or upper extremity function for ADL's. Plan of Care: ADL Retraining, Functional Mobility, UE Funct Exercise/Act Treatment Duration: May 19, 2020 Frequency: At least 5 of 7 days/Wk (IRF) Estimated Hrs Per Day: 1.5 hours per day Agreement: Yes Rehab Potential: Good Time/GCodes Start Time: 13:00 Stop Time: 13:20 Total Time Billed (hr/min): 20 Billed Treatment Time 1, DAVE RODRIGUEZ OT May 09, 2020 14:57
--- NOTE | 2020-05-09 14:59 | Physical Therapy Daily Note ---
PT Daily Note-Current Subjective Patient is in bed and reports she has been cold all day. Temp taken 36.3 C. Pain Numeric Pain Scale: 0-No Pain Location: No Pain Reported Mental Status Patient Orientation: Person, Time, Situation Attachments: Oxygen (1L) Transfers SCALE: Activities may be completed with or without assistive devices. 2-Uzwfhcnwfb-swakvor completes the activity by him/herself with no assistance from a helper. 5-Set-up or Clean-up Assistance-helper sets up or cleans up; patient completes activity. [place] assists only prior to or following the activity. 4-Supervision or Touching Assistance-helper provides verbal cues and/or touching/steadying and/or contact guard assistance as patient completes activity. Assistance may be provided throughout the activity or intermittently. 3-Partial/Moderate Assistance-helper does LESS THAN HALF the effort. [place] lifts, holds or supports trunk or limbs, but provides less than half the effort. 2-Substantial/Maximal Assistance-helper does MORE THAN HALF the effort. [place] lifts or holds trunk or limbs and provides more than half the effort. 1-Cjcdgqfbv-hgxyky does ALL the effort. Patient does none of the effort to complete the activity. Or, the assistance of 2 or more helpers is required for the patient to complete the activity. If activity was not attempted, code reason: 7-Patient Refused. 9-Not Applicable-not attempted and the patient did not perform the activity before the current illness, exacerbation or injury. 10-Not Attempted due to Environmental Limitations-(lack of equipment, weather restraints, etc.). 88-Not Attempted due to Medical Conditions or Safety Concerns. Roll Left & Right (QC): 6 Sit to Lying (QC): 6 Lying to Sitting/Side of Bed(Q: 6 Sit to Stand (QC): 6 Toilet Transfer (QC): 6 patient toileted self independently after BM then washed hands Weight Bearing Right Lower Extremity: Right Full Weight Bearing Left Lower Extremity: Left Full Weight Bearing Gait Training Does the Patient Walk?: Yes Distance: 400' Walk 10 feet (QC): 5 Walk 50 ft with 2 Turns(QC): 5 Walk 150 ft (QC): 5 Gait Assistive Device: FWW slow and steady with SAO2 93% on 1L O2 NC Assessment Current Status: Excellent Progress Patient improving with treatment plan. Continues with SOA with exertion, however, improving. PT Short Term Goals Short Term Goals Time Frame: May 12, 2020 Roll Left & Right: 6 Sit to lyin Lying to sitting on side of be: 6 Sit to stand: 5 Chair/fic-ng-pjsrs transfer: 5 Walk 10 feet: 5 Walk 50 feet with two turns: 5 4 steps: 4 PT Jail Goals Elevator Troubleshooter Goals PT Jail Goals Time Frame: May 26, 2020 Roll Left & Right (QC): 6 Sit to Lying (QC): 6 Lying-Sitting on Side/Bed(QC): 6 Sit to Stand (QC): 6 Chair/Cps-rf-Pqunq Xfer(QC): 6 Toilet Transfer (QC): 6 Car Transfer (QC): 6 Does the Patient Walk: Yes Walk 10 feet (QC): 6 Walk 50ft with 2 Turns (QC): 6 Walk 150 ft (QC): 6 Walking 10ft on Uneven Surface: 6 1 Step (curb) (QC): 6 4 Steps (QC): 6 12 Steps (QC): 6 Picking up an Object (QC): 6 Does the Pt use WC or Scooter?: No Wheel 50 feet with 2 turns (QC: 9 Wheel 150 feet: 9 PT Plan Treatment/Plan Treatment Plan: Continue Plan of Care Treatment Plan: Bed Mobility, Education, Functional Activity Yovana, Functional Strength, Group Therapy, Gait, Safety, Therapeutic Exercise, Transfers Treatment Duration: May 26, 2020 Frequency: At least 5 of 7 days/Wk (IRF) Estimated Hrs Per Day: 1.5 hours per day Patient and/or Family Agrees t: Yes Time/GCodes Time In: 1430 Time Out: 1450 Total Billed Treatment Time: 20 Total Billed Treatment 1 visit FA 20 min HUGO COLEMAN PT May 09, 2020 14:59
[2020-05-09] MEDS: ENOXAPARIN 40 MG/0.4 ML (LOVENOX) SYR SC SCH (15:06)
--- NOTE | 2020-05-09 15:30 | NUR ---
CM/SS CONCURRENT DOCUMENTATION Visited with patient to review her continued recovery and progress. As earlier noted, patient and her spouse Ronald Fernando were both stricken with Covid and he while hospitalized during the short time she had discharged home. She was quickly readmitted due to worsening of her condition/symptoms and remained hospitalized during his graveside services. Patient chose not to participate in the services via virtual and had a long-time friend come to sit with her during the time it was occurring. Patient was pleasant and engaged in conversation, she expressed her concern about feeling forgetful and confused. ST progress notes support this observation. She indicates she did not have this issue prior to her onset of illness. Patient did not exhibit what would be a normal process of reacting to such a significant loss of a spouse, no expressed sadness, anger, guilt, anxiety, or despair. When talking about returning home, she would speak of "us" meaning her and , and then say that "he " so now it will be just me. When exploring returning home as far as resources and supports, patient stated that she knew she would "need help" but she was not able to describe exactly what kind of help. She did indicate she has a grandson Sergei who used to reside with them (or still does?) but that she would not want him to help her. Sales Exec explored to clarify she indicated personal care by this expressed limitation. Will continue to follow for in-home needs and potential for family to assist. Patient's son Job resides in [place] as well. She has a son Nitin Fernando who resides in [place], she stated he was disabled and had no vehicle. Danny Mai is Nitin's son.
[2020-05-09 16:14] VITALS: BP 112/68
--- NOTE | 2020-05-09 17:31 | Podiatry Progress Note ---
Standard Progress Note Progress Notes/Assess & Plan Date Seen by a Provider: May 09, 2020 Time Seen by a Provider: 17:30 Progress/Assessment & Plan Onychomycosis, Onychocryptosis / Consult dictated, foot care given. Follow up as needed. Final Diagnosis Onychomycosis, Onychocryptosis, DARYL Aggarwal DPM May 09, 2020 17:31
--- NOTE | 2020-05-09 20:13 | CONSULTATION REPORT ---
DATE OF SERVICE: 05/09/2020 REASON FOR CONSULTATION: Foot care. HISTORY OF PRESENT ILLNESS: This 79-year-old female of Dr. Palacios was admitted secondary to complications to COVID-19 illness. She is currently in rehabilitation to help build up strength and prepare for return to her home. She is also dealing with significant grief secondary to her passing away from COVID-19 complications. The patient is not complaining about any current shortness of breath, but she has had some issues in the past and that is the reason why she was apparently readmitted is due to shortness of breath. PAST MEDICAL HISTORY: Includes respiratory issues complicated by pneumonia and COVID-19, hypertension, arthritis, hypothyroidism, depression. PAST SURGICAL HISTORY: Include hysterectomy, cataract surgery. SOCIAL HISTORY: The patient is , retired from [employer], never smoker. ALLERGIES: She is allergic to IODINATED CONTRAST MEDIA, SULFA AND CIPROFLOXACIN. CURRENT MEDICATIONS: Listed on the patient's chart. PHYSICAL EXAMINATION: GENERAL: This is a well-developed female who has some retracted affect. PULSES AND EXTREMITIES: She has foot examination, 2/4 dorsalis pedis pulse on the right, 0/4 dorsalis pedis pulse, left; 0/4 posterior tibial pulse on the right and 2/4 posterior tibial pulse left. Cap refill time is less than 3 seconds. Thin skin is noted bilaterally. NEUROLOGIC: The patient has intact protective sensation with 10 gram monofilament wire examination bilaterally. Diminished deep tendon reflexes to the Achilles tendon, bilateral foot and lower leg. Diminished vibratory sensation is noted to the forefoot bilaterally. DERMATOLOGIC: The patient has thick yellow dystrophic toenail with subungual debris R1, 2; L2, 5 digits. Incurvated borders are noted to the R1, 2 and L2 digits. No erythema, edema or gross signs of bacterial infection noted to bilateral foot. No current breakdown of the heels are noted at this time. MUSCULOSKELETAL FINDINGS: She has contracted second digits bilaterally, 4/5 muscle strength to the four major quadrants of the foot. ASSESSMENT: 1. Atherosclerosis. 2. Idiopathic neuropathy. 3. Onychomycosis, onychocryptosis, Hammer digit syndrome. PLAN: Various options were discussed with the patient today. Her toenails were debrided manually mechanically. Betadine applied. We discussed treatment options. The patient is welcome to follow up in our office upon discharge. I recommend she use an extra depth shoe. Job ID: [id number] DocumentID: [id number] Dictated Date: 05/09/2020 17:30:05 Downstairs Maid Date: 05/09/2020 20:12:34 Dictated By: JB HAYES
[2020-05-09] MEDS: rOPINIRole 1 MG (REQUIP) TABLET PO SCH (20:52)
[2020-05-09] MEDS: traZODone 150 MG (DESYREL) TABLET PO SCH (20:52)
[2020-05-10] MEDS: LEVOTHYROXINE 25 MCG (LEVOTHROID) TAB PO SCH (06:15)
--- NOTE | 2020-05-10 06:16 | PM&R Progress Note ---
Subjective HPI/CC On Admission Date Seen by Provider: May 10, 2020 Time Seen by Provider: 09:30 Subjective/Events-last exam 05/10/20: Pt doing very well Wants to go home On 1L of oxygen Son lives with her so he will monitor her closely 05/09/20: Still dyspneic on exertion requiring oxygen supplementation Bowels moved yesterday and today an narcotic bowel seems to be managed well Labs are stable this morning Overall improving 05/08/20: BM yesterday after Mag Citrate given BM moved again today also Dyspneic on exertion so increased O2 to 2L/min but on 1L/min currently at rest No pain reported Fentanyl patch maintained 05/07/20: Son will bring makeup and hair styling products to "fix up" today to help her morale O2 supplement at 1L/min BM giving laxatives since narcotic bowel from Fentanyl is real possibility No pain reported Pt doing very well Grief reaction noted will be buried today Has some questions about Covid hospital course she had Review of Systems General: Fatigue Pulmonary: Dyspnea Objective Exam Vital Signs Vital Signs Date Time Temp Pulse Resp B/P (MAP) Pulse Ox O2 Delivery O2 Flow Rate FiO2 05/10/20 20:20 Nasal Cannula 1.00 05/10/20 15:55 36.0 66 16 119/62 (81) 92 05/07/20 09:24 24 Capillary Refill : Less Than 3 Seconds General Appearance: No Apparent Distress, WD/WN, Chronically ill, Thin HEENT: PERRL/EOMI, Normal ENT Inspection, Pharynx Normal Neck: Full Range of Motion, Normal Inspection, Non Tender, Supple, Carotid Bruit Respiratory: Chest Non Tender, No Accessory Muscle Use, No Respiratory Distress, Crackles, Decreased Breath Sounds Cardiovascular: Regular Rate, Rhythm, No Edema, No Gallop, No JVD, No Murmur, Normal Peripheral Pulses Gastrointestinal: Normal Bowel Sounds, No Organomegaly, No Pulsatile Mass, Non Tender, Soft Back: Normal Inspection, No CVA Tenderness, No Vertebral Tenderness Extremity: Normal Capillary Refill, Normal Inspection, Normal Range of Motion, Non Tender, No Calf Tenderness, No Pedal Edema Neurologic/Psychiatric: Alert, Oriented x3, No Motor/Sensory Deficits, [place] guide II- XII Norm as Tested, Depressed Affect Skin: Normal Color, Warm/Dry Lymphatic: No Adenopathy Results/Procedures Lab Patient resulted labs reviewed. FIM Transfers Therapy Code Descriptions/Definitions Functional [place] Measure: 0=Not Assessed/NA 4=Minimal Assistance 1=Total Assistance 5=Supervision or Setup 2=Maximal Assistance 6=Modified [place] 3=Moderate Assistance 7=Complete IndependenceSCALE: Activities may be completed with or without assistive devices. 2-Nprnsbxmxq-ccwsavm completes the activity by him/herself with no assistance from a helper. 5-Set-up or Clean-up Assistance-helper sets up or cleans up; patient completes activity. [place] assists only prior to or following the activity. 4-Supervision or Touching Assistance-helper provides verbal cues and/or touching/steadying and/or contact guard assistance as patient completes activity. Assistance may be provided throughout the activity or intermittently. 3-Partial/Moderate Assistance-helper does LESS THAN HALF the effort. [place] lifts, holds or supports trunk or limbs, but provides less than half the effort. 2-Substantial/Maximal Assistance-helper does MORE THAN HALF the effort. [place] lifts or holds trunk or limbs and provides more than half the effort. 6-Gnroibmij-zkresw does ALL the effort. Patient does none of the effort to complete the activity. Or, the assistance of 2 or more helpers is required for the patient to complete the activity. If activity was not attempted, code reason: 7-Patient Refused. 9-Not Applicable-not attempted and the patient did not perform the activity before the current illness, exacerbation or injury. 10-Not Attempted due to Environmental Limitations-(lack of equipment, weather restraints, etc.). 88-Not Attempted due to Medical Conditions or Safety Concerns. Roll Left to Right (QC): 6 Sit to Lying (QC): 6 Sit to Stand (QC): 6 Chair/Oed-fd-Hgdjb Xfer(QC): 6 Car Transfer (QC): 4 Gait Training Does the Patient Walk?: Yes Distance: 400' Walk 10 feet (QC): 5 Walk 50 ft with 2 Turns(QC): 5 Walk 150 ft (QC): 5 Walking 10ft/uneven surface-QC: 4 Gait Persons Needed: 1 Gait Assistive Device: FWW Wheelchair Training Does the Pt Use a Wheelchair?: No Wheel 50 ft with 2 turns (QC): 9 Wheel 150 ft (QC): 9 Stair Training #of Steps: 1 1 Step (curb) (QC): 4 4 Steps (QC): 88 12 Steps (QC): 88 Balance Picking up an Object (QC): 4 ADL-Treatment Eating (QC): 6 Oral Hygiene (QC): 6 Bathing Location: L Arm, R Arm, L Upper Leg, R Upper Leg, L Lower Leg (including foot), R Lower Leg (including foot), Chest, Abdomen, Buttocks, Perineal Area Shower/Bathe Self (QC): 4 (SBA to stand at sink and wash georgette area. SBA to wash feet by bending over to them.) Upper Body Dressing (QC): 5 (Robe) Lower Body Dressing (QC): 4 On/Off Footwear (QC): 4 Toileting Hygiene (QC): 4 (Pt. was incontinent of stool in her underwear. However, she was able to doff them with SBA and cleanse self with SBA.) Toilet Transfer (QC): 4 (SBA, use of walker. ) Assessment/Plan Assessment and Plan Assess & Plan/Chief Complaint Assessment: Debility from COVID-19 Chronic pain on Fentanyl patch Hypothyroidism HTN CRI Hypoxia Grief reaction Plan: O2 wean IRF protocol Monitor pain Home meds 05/06/20: O2 wean IRF therapy Monitor for falls 05/07/20: O2 maintained BM regimen to intensify 05/08/20: Wean O2 Therapy to increase stamina Check labs in am 05/09/20: Wean O2 if able Therapy to increase stamina 05/10/20: Wean O2 DC home soon (1) Debility (2) Acute respiratory failure due to COVID-19 Status: Acute (3) HTN (hypertension) Status: Chronic (4) Hypothyroidism Status: Chronic (5) Anxiety Status: Chronic (6) Chronic pain Status: Chronic KANDY BENOIT DO May 10, 2020 06:16
[2020-05-10 06:29] VITALS: BP 117/68
[2020-05-10] MEDS: PANTOPRAZOLE 40 MG (PROTONIX) TAB PO SCH (07:47)
[2020-05-10] MEDS: ASPIRIN E.C. 81 MG (ECOTRIN) TAB PO SCH (07:47)
[2020-05-10] MEDS: DOCUSATE SODIUM 100 MG (COLACE) CAP PO SCH ×2 (07:47→21:06)
[2020-05-10] MEDS: polyethylene glycoL POWDER 17 GM (MIRALAX) PACK PO SCH ×2 (07:48→21:03)
[2020-05-10] MEDS: SENNOSIDES 8.6 MG (SENOKOT) TAB PO SCH ×2 (07:48→21:06)
[2020-05-10] MEDS: SENNA W/DOCUSATE (SENOKOT S) TABLET PO SCH ×2 (07:48→21:11)
[2020-05-10 07:49] VITALS: BP 121/65
--- NOTE | 2020-05-10 11:40 | Occupational Ther Daily Note ---
OT Current Status-Daily Note Subjective No pain reported. Pt. states that she is unsure whether or not she was able to get any sleep last night. Appearance Pt. up in chair when OT entered room. Pt. agrees to work with OT. Mental Status/Objective Patient Orientation: Person, Place Attachments: IV, Oxygen ADL-Treatment Therapy Code Descriptions/Definitions Functional [place] Measure: 0=Not Assessed/NA 4=Minimal Assistance 1=Total Assistance 5=Supervision or Setup 2=Maximal Assistance 6=Modified [place] 3=Moderate Assistance 7=Complete IndependenceSCALE: Activities may be completed with or without assistive devices. 0-Sbhrvbavsv-nprnzqn completes the activity by him/herself with no assistance from a helper. 5-Set-up or Clean-up Assistance-helper sets up or cleans up; patient completes activity. [place] assists only prior to or following the activity. 4-Supervision or Touching Assistance-helper provides verbal cues and/or touching/steadying and/or contact guard assistance as patient completes activity. Assistance may be provided throughout the activity or intermittently. 3-Partial/Moderate Assistance-helper does LESS THAN HALF the effort. [place] l ifts, holds or supports trunk or limbs, but provides less than half the effort. 2-Substantial/Maximal Assistance-helper does MORE THAN HALF the effort. [place] lifts or holds trunk or limbs and provides more than half the effort. 3-Ddxebgqmd-ktmite does ALL the effort. Patient does none of the effort to complete the activity. Or, the assistance of 2 or more helpers is required for t he patient to complete the activity. If activity was not attempted, code reason: 7-Patient Refused. 9-Not Applicable-not attempted and the patient did not perform the activity before the current illness, exacerbation or injury. 10-Not Attempted due to Environmental Limitations-(lack of equipment, weather restraints, etc.). 88-Not Attempted due to Medical Conditions or Safety Concerns. Shower/Bathe Self (QC): 4 (SBA in shower.) Upper Body Dressing (QC): 5 Lower Body Dressing (QC): 4 (SBA to doff/don underwear and pants.) On/Off Footwear: 4 Pt. agrees to shower, but requires encouragement. She states that she has anxiety in the shower, and typically takes baths. OT explains walk in tub to her, and how hospital has one she can use today. She declines this, but agrees to shower. OT provides open shower so that she does not feel so claustrophobic. Pt. stands with SBA and walker and ambulates to large shower. Pt. is able to shower self, but requires cues of "what to do next." Pt. indicates that she does not know how to wash her hair well, as she gets this done at this beauty shop. OT does this for her. Pt. dresses in shower room with SBA, and ambulates back to room. OT provides blow dryer, and pt. states that she has never blow dried her hair before, and that OT has to do it. OT encourages her to attempt, as it will be a good UE activity. She agrees and dries her hair. Pt. and OT talk about pt. going home, as she states she would like to, and pt. begins to cry. OT attempts to comfort and encourage her. Pt. and OT then ambulate in [place], with one rest break, a total of 200 feet with SBA and walker. Pt. back in room in chair. All needs met. Education OT Patient Education: Correct positioning, Modified ADL techniques, Progress toward Goal/Update tx plan, Purpose of tx/functional activities, Reviewed precautions, Rehab process, Transfer techniques Teaching Recipient: Patient Teaching Methods: Demonstration, Discussion Response to Teaching: Verbalize Understanding, Return Demonstration OT Short Term Goals Short Term Goals Time Frame: May 12, 2020 Eatin Oral hygiene: 5 Toileting hygiene: 5 Shower/bathe self: 4 Upper body dressin Lower body dressin Putting on/taking off footwear: 4 OT Information Systems Project Manager Goals Detention Goals Time Frame: May 19, 2020 Eating (QC): 6 Oral Hygiene (QC): 6 Toileting Hygiene (QC): 6 Shower/Bathe Self (QC): 4 Upper Body Dressing (QC): 6 Lower Body Dressing (QC): 6 On/Off Footwear (QC): 6 Additional Goals: 1-Demonstrate ADL Tasks, 2-Verbalize Understanding, 3- ImproveStrength/Yovana 1=Demonstrate adherence to instructed precautions during ADL tasks. 2=Patient will verbalize/demonstrate understanding of assistive devices/modifications for ADL. 3=Patient will improve strength/tolerance for activity to enable patient to perform ADL's. OT Education/Plan Problem List/Assessment Assessment: Decreased Activ Tolerance, Impaired Cognition, Impaired I ADL's, Impaired Self-Care Skills Pt. requires encouragement and cues at times to sequence tasks, and to do for self. Requires encouragement to attempt tasks, as pt. does not always initiate them. Discharge Recommendations Plan/Recommendations: Continue POC Therapy Discharge Recommendati: Home & Family, Post Acute OT Barriers to Progress Spouse has recently in hospital. Pt. has not been home since this. Pt. tearful and anxious at times. Treatment Plan/Plan of Care Treatment,Training & Education: Yes Patient would benefit from OT for education, treatment and training to promote independence in ADL's, mobility, safety and/or upper extremity function for ADL's. Plan of Care: ADL Retraining, Functional Mobility, UE Funct Exercise/Act Treatment Duration: May 19, 2020 Frequency: At least 5 of 7 days/Wk (IRF) Estimated Hrs Per Day: 1.5 hours per day Agreement: Yes Rehab Potential: Good Time/GCodes Start Time: 08:30 Stop Time: 09:45 Total Time Billed (hr/min): 75 Billed Treatment Time 1, ADL x 5 DAVE CASTLE OT May 10, 2020 11:40
--- NOTE | 2020-05-10 12:06 | Physical Therapy Daily Note ---
PT Daily Note-Current Subjective Pt laying R side lying in bed upon arrival. Pt reports pain and Nurse gives pain med before leaving room. Pt agrees to PT. Pain Numeric Pain Scale: 8 Location: Right, Left Location Body Site: Thigh Pain Description: Ache, Tightness Mental Status Patient Orientation: Person, Place, Situation Attachments: Oxygen (1L) Transfers SCALE: Activities may be completed with or without assistive devices. 3-Dmfpwginym-chfnvlb completes the activity by him/herself with no assistance from a helper. 5-Set-up or Clean-up Assistance-helper sets up or cleans up; patient completes activity. [place] assists only prior to or following the activity. 4-Supervision or Touching Assistance-helper provides verbal cues and/or touching/steadying and/or contact guard assistance as patient completes activity. Assistance may be provided throughout the activity or intermittently. 3-Partial/Moderate Assistance-helper does LESS THAN HALF the effort. [place] lifts, holds or supports trunk or limbs, but provides less than half the effort. 2-Substantial/Maximal Assistance-helper does MORE THAN HALF the effort. [place] lifts or holds trunk or limbs and provides more than half the effort. 1-Ldkofemob-mshyhw does ALL the effort. Patient does none of the effort to co mplete the activity. Or, the assistance of 2 or more helpers is required for the patient to complete the activity. If activity was not attempted, code reason: 7-Patient Refused. 9-Not Applicable-not attempted and the patient did not perform the activity before the current illness, exacerbation or injury. 10-Not Attempted due to Environmental Limitations-(lack of equipment, weather restraints, etc.). 88-Not Attempted due to Medical Conditions or Safety Concerns. Sit to Lying (QC): 5 Lying to Sitting/Side of Bed(Q: 5 Sit to Stand (QC): 5 Toilet Transfer (QC): 5 Weight Bearing Right Lower Extremity: Right Full Weight Bearing Left Lower Extremity: Left Full Weight Bearing Gait Training Does the Patient Walk?: Yes Distance: 150' x2 Walk 10 feet (QC): 5 Walk 50 ft with 2 Turns(QC): 5 Walk 150 ft (QC): 5 Gait Persons Needed: 1 Gait Assistive Device: FWW Wheelchair Training Does the Pt Use a Wheelchair?: No Exercises Supine Ex: Ankle pumps, Quad Set, Heel Slides, Straight leg raise, Hip abd/add Supine Reps: 15 NuStep Minutes: 10 NuStep Workload: 3 Treatments Completed Supine Ex in bed. TF to standing then used BR before leaving room. Pt amb. in hallway then uses NuStep for 10m at WL 3. Pt takes short RB then returns to room to rest in bed, lunch to arrive shortly. Pt has all needs met, call light in hand. Assessment Current Status: Fair Progress Pain limits tx as well as pt reluctant to participate due to "having bad day". PT Short Term Goals Short Term Goals Time Frame: May 12, 2020 Roll Left & Right: 6 Sit to lyin Lying to sitting on side of be: 6 Sit to stand: 5 Chair/azi-zk-tjfhv transfer: 5 Walk 10 feet: 5 Walk 50 feet with two turns: 5 4 steps: 4 PT Penitentiary Goals Manager Process Excellence Goals PT Manager Process Excellence Goals Time Frame: May 26, 2020 Roll Left & Right (QC): 6 Sit to Lying (QC): 6 Lying-Sitting on Side/Bed(QC): 6 Sit to Stand (QC): 6 Chair/Wad-do-Hsuyx Xfer(QC): 6 Toilet Transfer (QC): 6 Car Transfer (QC): 6 Does the Patient Walk: Yes Walk 10 feet (QC): 6 Walk 50ft with 2 Turns (QC): 6 Walk 150 ft (QC): 6 Walking 10ft on Uneven Surface: 6 1 Step (curb) (QC): 6 4 Steps (QC): 6 12 Steps (QC): 6 Picking up an Object (QC): 6 Does the Pt use WC or Scooter?: No Wheel 50 feet with 2 turns (QC: 9 Wheel 150 feet: 9 PT Plan Problem List Problem List: Activity Tolerance, Functional Strength Treatment/Plan Treatment Plan: Continue Plan of Care Treatment Plan: Bed Mobility, Education, Functional Activity Yovana, Functional Strength, Group Therapy, Gait, Safety, Therapeutic Exercise, Transfers Treatment Duration: May 26, 2020 Frequency: At least 5 of 7 days/Wk (IRF) Estimated Hrs Per Day: 1.5 hours per day Patient and/or Family Agrees t: Yes Safety Risks/Education Patient Education: Gait Training, Transfer Techniques, Correct Positioning, Safety Issues Teaching Recipient: Patient Teaching Methods: Discussion Response to Teaching: Verbalize Understanding Time/GCodes Time In: 1100 Time Out: 1200 Total Billed Treatment Time: 60 Total Billed Treatment 1, GT (15m), FA (15m) & EX x2 (30m) SEKOU GOINS YIELD LOSS INSPECTOR May 10, 2020 12:06
--- NOTE | 2020-05-10 12:09 | Speech Therapy Daily Note ---
Speech Daily Progress Note Subjective Date Seen by Provider: May 10, 2020 Time Seen by Provider: 00:30 Patient was sitting up in her recliner when I entered her room. The patient was much more alert and participated well with therapy this date. Objective Patient completed a series of "what's wrong with this picture?" related to various scenarios she may encounter upon her return home. Task completed with 80% given 20% repetitions. Assessment Assessment Current Status: Good Progress Treatment Plan Continue Plan of Care Speech Short Term Goals Short Term Goals Short Term Goals 1) The patient will complete memory tasks related to her daily needs at 80% or greater with minimal cues. 2) The patient will complete problem solving tasks related to her daily needs at 80% or greater with minimal cues. 3) The patient will complete safety awareness tasks related to her daily needs at 80% or greater with minimal cues. Speech Chicken Picker Goals Chicken Picker Goals The patient will improve cognitive-communication abilities related to her daily needs with minimal assist. Speech-Plan Patient/Family Goals Patient/Family Goals: Patient plans on returning to her home where she lives with her son. Treatment Plan Speech Therapy Treatment Plan: Continue Plan of Care Treatment Duration: May 19, 2020 Frequency: 4 times per week (Patient will receive skilled ST 4-5x per week) Estimated Hrs Per Day: .25 hour per day Rehab Potential: Good Barriers to Learning: Patient's recent serious illness, age Pt/Family Agrees to Plan: Yes Safety Risks/Education Teaching Recipient: Patient Teaching Methods: Demonstration, Discussion Response to Teaching: Verbalize Understanding, Return Demonstration Education Topics Provided: Safety within her room and upon her return home Time Speech Therapy Time In: 10:15 Speech Therapy Time Out: 10:45 Total Billed Time: 30 Billed Treatment Time 1ANIYAH BETHANIA ST May 10, 2020 12:09
--- NOTE | 2020-05-10 13:21 | Physical Therapy Daily Note ---
PT Daily Note-Current Subjective Pt laying asleeep supine in bed upon arrival. Pt relucantly agrees to PT, reporting having a bad day. Pain Numeric Pain Scale: 7 Location Body Site: Back Pain Description: Ache Mental Status Patient Orientation: Person, Place, Situation Transfers SCALE: Activities may be completed with or without assistive devices. 2-Schalbfunq-irahrmz completes the activity by him/herself with no assistance from a helper. 5-Set-up or Clean-up Assistance-helper sets up or cleans up; patient completes activity. [place] assists only prior to or following the activity. 4-Supervision or Touching Assistance-helper provides verbal cues and/or touching/steadying and/or contact guard assistance as patient completes activity. Assistance may be provided throughout the activity or intermittently. 3-Partial/Moderate Assistance-helper does LESS THAN HALF the effort. [place] lifts, holds or supports trunk or limbs, but provides less than half the effort. 2-Substantial/Maximal Assistance-helper does MORE THAN HALF the effort. [place] lifts or holds trunk or limbs and provides more than half the effort. 3-Wunwyxubu-toyemm does ALL the effort. Patient does none of the effort to co mplete the activity. Or, the assistance of 2 or more helpers is required for the patient to complete the activity. If activity was not attempted, code reason: 7-Patient Refused. 9-Not Applicable-not attempted and the patient did not perform the activity before the current illness, exacerbation or injury. 10-Not Attempted due to Environmental Limitations-(lack of equipment, weather restraints, etc.). 88-Not Attempted due to Medical Conditions or Safety Concerns. Weight Bearing Right Lower Extremity: Right Full Weight Bearing Left Lower Extremity: Left Full Weight Bearing Treatments Pt and PACKAGE REINSPECTOR discuss pt education items including continued benefit of Therapy to gain strength and activity tolerance for improved Quality of life for home. Assessment Current Status: Fair Progress Pt appears down and unmotivated today. PT Short Term Goals Short Term Goals Time Frame: May 12, 2020 Roll Left & Right: 6 Sit to lyin Lying to sitting on side of be: 6 Sit to stand: 5 Chair/roz-jd-gxujr transfer: 5 Walk 10 feet: 5 Walk 50 feet with two turns: 5 4 steps: 4 PT Usp Goals Vacuum Metalizing Supervisor Goals PT Vacuum Metalizing Supervisor Goals Time Frame: May 26, 2020 Roll Left & Right (QC): 6 Sit to Lying (QC): 6 Lying-Sitting on Side/Bed(QC): 6 Sit to Stand (QC): 6 Chair/Nyh-ot-Sobes Xfer(QC): 6 Toilet Transfer (QC): 6 Car Transfer (QC): 6 Does the Patient Walk: Yes Walk 10 feet (QC): 6 Walk 50ft with 2 Turns (QC): 6 Walk 150 ft (QC): 6 Walking 10ft on Uneven Surface: 6 1 Step (curb) (QC): 6 4 Steps (QC): 6 12 Steps (QC): 6 Picking up an Object (QC): 6 Does the Pt use WC or Scooter?: No Wheel 50 feet with 2 turns (QC: 9 Wheel 150 feet: 9 PT Plan Problem List Problem List: Activity Tolerance, Functional Strength Treatment/Plan Treatment Plan: Continue Plan of Care Treatment Plan: Bed Mobility, Education, Functional Activity Yovana, Functional Strength, Group Therapy, Gait, Safety, Therapeutic Exercise, Transfers Treatment Duration: May 26, 2020 Frequency: At least 5 of 7 days/Wk (IRF) Estimated Hrs Per Day: 1.5 hours per day Patient and/or Family Agrees t: Yes Safety Risks/Education Patient Education: Gait Training, Transfer Techniques, Correct Positioning, Safety Issues Teaching Recipient: Patient Teaching Methods: Discussion Response to Teaching: Verbalize Understanding Time/GCodes Time In: 1300 Time Out: 1315 Total Billed Treatment Time: 15 Total Billed Treatment 1, FA (15m) SEKOU GOINS PACKAGE REINSPECTOR May 10, 2020 13:21
[2020-05-10] MEDS: FENTANYL PATCH REMOVAL TP SCH (14:10)
[2020-05-10] MEDS: fentaNYL PATCH 75 MCG (DURAGESIC) TD SCH (14:11)
[2020-05-10] MEDS: ENOXAPARIN 40 MG/0.4 ML (LOVENOX) SYR SC SCH (14:12)
[2020-05-10 15:55] VITALS: BP 119/62
[2020-05-10] MEDS: rOPINIRole 1 MG (REQUIP) TABLET PO SCH (21:06)
[2020-05-10] MEDS: traZODone 150 MG (DESYREL) TABLET PO SCH (21:06)
[2020-05-11] MEDS: LEVOTHYROXINE 25 MCG (LEVOTHROID) TAB PO SCH (06:37)
[2020-05-11 06:44] VITALS: BP 118/58
[2020-05-11] MEDS: DOCUSATE SODIUM 100 MG (COLACE) CAP PO SCH (08:21)
[2020-05-11] MEDS: SENNA W/DOCUSATE (SENOKOT S) TABLET PO SCH (08:21)
[2020-05-11] MEDS: ASPIRIN E.C. 81 MG (ECOTRIN) TAB PO SCH (08:21)
[2020-05-11] MEDS: PANTOPRAZOLE 40 MG (PROTONIX) TAB PO SCH (08:21)
[2020-05-11] MEDS: ACETAMINOPHEN 325 MG TABLET PO PRN ×2 (08:25→14:36)
[2020-05-11] MEDS: polyethylene glycoL POWDER 17 GM (MIRALAX) PACK PO SCH (08:35)
[2020-05-11] MEDS: SENNOSIDES 8.6 MG (SENOKOT) TAB PO SCH (08:35)
[2020-05-11] MEDS ORDERED: OXC5T PO (09:29)
[2020-05-11] MEDS ORDERED: GUAI473L29 PO (09:29)
[2020-05-11] MEDS ORDERED: PANT40TA52 PO (09:29)
[2020-05-11] MEDS ORDERED: ALBU18HF2 IH (09:29)
[2020-05-11] MEDS ORDERED: SENN-20 PO (09:29)
--- NOTE | 2020-05-11 09:31 | Discharge Summary ---
Diagnosis/Chief Complaint Date of Admission May 05, 2020 at 10:14 Date of Discharge Discharge Date: May 11, 2020 Discharge Diagnosis Assessment: Debility from COVID-19 Chronic pain on Fentanyl patch Hypothyroidism HTN CRI Hypoxia Grief reaction Plan: O2 wean IRF protocol Monitor pain Home meds 05/06/20: O2 wean IRF therapy Monitor for falls 05/07/20: O2 maintained BM regimen to intensify 05/08/20: Wean O2 Therapy to increase stamina Check labs in am 05/09/20: Wean O2 if able Therapy to increase stamina 05/10/20: Wean O2 DC home soon (1) Debility (2) Acute respiratory failure due to COVID-19 Status: Acute (3) HTN (hypertension) Status: Chronic (4) Hypothyroidism Status: Chronic (5) Anxiety Status: Chronic (6) Chronic pain Status: Chronic Discharge Summary Discharge Physical Examination Allergies: Coded Allergies: Iodinated Contrast Media (Unverified Allergy, Unknown, 05/06/16) Sulfa (Sulfonamide Antibiotics) (Verified Allergy, Unknown, 02/25/08) ciprofloxacin (Unverified Allergy, Unknown, 05/06/16) Vitals & I&Os Vital Signs Date Time Temp Pulse Resp B/P (MAP) Pulse Ox O2 Delivery O2 Flow Rate FiO2 05/11/20 13:59 36.8 82 20 118/58 91 Room Air 05/11/20 07:06 1.00 05/07/20 09:24 24 General Appearance: Alert, Oriented X3, Cooperative Respiratory: Clear to Auscultation Cardiovascular: Regular Rate Neuro: Normal Gait, Normal Speech, Strength at 5/5 X4 Ext Psych/Mental Status: Mental Status NL Hospital Course Was the Problem List Reviewed?: Yes Hospital Course: Pt had an uneventful seven day hospital course she was 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 She remained on O2 supplementation and overall dramatically improved and was able to regain enough function to be able to go home on home care. She does have chronic pain she is on a Fentanyl Patch and she does have chronic sciatica of the left back and she overall did very well but therapy was beginning to cause issues with her sciatica so she was deemed stable for DC and she lives with her grandson and overall did very well but will remain on O2 until weaned but after patient dc RT noted she no longer needed home O2 so that order was DC.. Labs (last 24 hrs) Laboratory Tests 05/05/20 10:54: Glucometer 130H 05/05/20 16:22: Glucometer 111H 05/05/20 20:37: Glucometer 132H 05/06/20 05:15: White Blood Count 6.8, Red Blood Count 4.56, Hemoglobin 13.8, Hematocrit 43, Mean Corpuscular Volume 94, Mean Corpuscular Hemoglobin 30, Mean Corpuscular Hemoglobin Concent 32, Red Cell Distribution Width 13.6, Platelet Count 233, Mean Platelet Volume 10.9, Immature Granulocyte % (Auto) 2, Neutrophils (%) (Auto) 64, Lymphocytes (%) (Auto) 18, Monocytes (%) (Auto) 13H, Eosinophils (%) (Auto) 3, Basophils (%) (Auto) 0, Neutrophils # (Auto) 4.3, Lymphocytes # (Auto) 1.2, Monocytes # (Auto) 0.9, Eosinophils # (Auto) 0.2, Basophils # (Auto) 0.0, Immature Granulocyte # (Auto) 0.2H, Sodium Level 136, Potassium Level 4.4, Chloride Level 103, Carbon Dioxide Level 23, Anion Gap 10, Blood Urea Nitrogen 17, Creatinine 0.63, Estimat Glomerular Filtration Rate > 60, BUN/Creatinine Ratio 27, Glucose Level 107H, Calcium Level 8.9, Corrected Calcium 9.6, Total Bilirubin 0.8, Aspartate Amino Transf (AST/SGOT) 21, Alanine Aminotransferase (ALT/SGPT) 28, Alkaline Phosphatase 61, Total Protein 6.5, Albumin 3.1L 05/06/20 05:47: Glucometer 103 05/06/20 10:46: Glucometer 102 05/06/20 15:42: Glucometer 107 05/06/20 20:50: Glucometer 169H 05/07/20 05:40: Glucometer 101 05/07/20 11:34: Glucometer 122H 05/07/20 16:59: Glucometer 130H 05/07/20 20:33: Glucometer 132H 05/08/20 05:27: Glucometer 116H 05/08/20 11:50: Glucometer 99 05/08/20 15:50: Glucometer 124H 05/09/20 05:30: White Blood Count 6.5, Red Blood Count 4.52, Hemoglobin 13.7, Hematocrit 43, Mean Corpuscular Volume 95, Mean Corpuscular Hemoglobin 30, Mean Corpuscular Hemoglobin Concent 32, Red Cell Distribution Width 13.2, Platelet Count 220, Mean Platelet Volume 11.2, Immature Granulocyte % (Auto) 1, Neutrophils (%) (Auto) 62, Lymphocytes (%) (Auto) 21, Monocytes (%) (Auto) 13H, Eosinophils (%) (Auto) 3, Basophils (%) (Auto) 1, Neutrophils # (Auto) 4.0, Lymphocytes # (Auto) 1.3, Monocytes # (Auto) 0.9, Eosinophils # (Auto) 0.2, Basophils # (Auto) 0.1, Immature Granulocyte # (Auto) 0.1, Sodium Level 136, Potassium Level 4.7, Chloride Level 100, Carbon Dioxide Level 25, Anion Gap 11, Blood Urea Nitrogen 21H, Creatinine 0.71, Estimat Glomerular Filtration Rate > 60, BUN/Creatinine Ratio 30, Glucose Level 114H, Calcium Level 9.0, Corrected Calcium 9.6, Total Bilirubin 0.5, Aspartate Amino Transf (AST/SGOT) 21, Alanine Aminotransferase (ALT/SGPT) 28, Alkaline Phosphatase 69, Total Protein 6.5, Albumin 3.2 Pending Labs Laboratory Tests 05/05/20 10:54: Glucometer 130 05/05/20 16:22: Glucometer 111 05/05/20 20:37: Glucometer 132 05/06/20 05:15: White Blood Count 6.8, Red Blood Count 4.56, Hemoglobin 13.8, Hematocrit 43, Mean Corpuscular Volume 94, Mean Corpuscular Hemoglobin 30, Mean Corpuscular Hemoglobin Concent 32, Red Cell Distribution Width 13.6, Platelet Count 233, Mean Platelet Volume 10.9, Immature Granulocyte % (Auto) 2, Neutrophils (%) (Auto) 64, Lymphocytes (%) (Auto) 18, Monocytes (%) (Auto) 13, Eosinophils (%) (Auto) 3, Basophils (%) (Auto) 0, Neutrophils # (Auto) 4.3, Lymphocytes # (Auto) 1.2, Monocytes # (Auto) 0.9, Eosinophils # (Auto) 0.2, Basophils # (Auto) 0.0, Immature Granulocyte # (Auto) 0.2, Sodium Level 136, Potassium Level 4.4, Chloride Level 103, Carbon Dioxide Level 23, Anion Gap 10, Blood Urea Nitrogen 17, Creatinine 0.63, Estimat Glomerular Filtration Rate > 60, BUN/Creatinine Ratio 27, Glucose Level 107, Calcium Level 8.9, Corrected Calcium 9.6, Total Bilirubin 0.8, Aspartate Amino Transf (AST/SGOT) 21, Alanine Aminotransferase (ALT/SGPT) 28, Alkaline Phosphatase 61, Total Protein 6.5, Albumin 3.1 05/06/20 05:47: Glucometer 103 05/06/20 10:46: Glucometer 102 05/06/20 15:42: Glucometer 107 05/06/20 20:50: Glucometer 169 05/07/20 05:40: Glucometer 101 05/07/20 11:34: Glucometer 122 05/07/20 16:59: Glucometer 130 05/07/20 20:33: Glucometer 132 05/08/20 05:27: Glucometer 116 05/08/20 11:50: Glucometer 99 05/08/20 15:50: Glucometer 124 05/09/20 05:30: White Blood Count 6.5, Red Blood Count 4.52, Hemoglobin 13.7, Hematocrit 43, Mean Corpuscular Volume 95, Mean Corpuscular Hemoglobin 30, Mean Corpuscular Hemoglobin Concent 32, Red Cell Distribution Width 13.2, Platelet Count 220, Mean Platelet Volume 11.2, Immature Granulocyte % (Auto) 1, Neutrophils (%) (Auto) 62, Lymphocytes (%) (Auto) 21, Monocytes (%) (Auto) 13, Eosinophils (%) (Auto) 3, Basophils (%) (Auto) 1, Neutrophils # (Auto) 4.0, Lymphocytes # (Auto) 1.3, Monocytes # (Auto) 0.9, Eosinophils # (Auto) 0.2, Basophils # (Auto) 0.1, Immature Granulocyte # (Auto) 0.1, Sodium Level 136, Potassium Level 4.7, Chloride Level 100, Carbon Dioxide Level 25, Anion Gap 11, Blood Urea Nitrogen 21, Creatinine 0.71, Estimat Glomerular Filtration Rate > 60, BUN/Creatinine Ratio 30, Glucose Level 114, Calcium Level 9.0, Corrected Calcium 9.6, Total Bilirubin 0.5, Aspartate Amino Transf (AST/SGOT) 21, Alanine Aminotransferase (ALT/SGPT) 28, Alkaline Phosphatase 69, Total Protein 6.5, Albumin 3.2 Discharge Home Medications: Active Scripts Active Guaifenesin AC Cough Syrup (Guaifenesin/Codeine Phosphate) 473 Ml Liquid 10 Ml PO Q4H Pantoprazole Sodium 40 Mg Tablet.dr 40 Mg PO DAILY Senna-Time S Tablet (Sennosides/Docusate Sodium) 1 Each Tablet 1 Ea PO BID Oxyir Tablet (Oxycodone HCl) 5 Mg Tab 2.5-5 Mg PO Q4H PRN Ventolin Hfa (Albuterol Sulfate) 18 Gm Hfa.aer.ad 0 Gm IH RTQ2H PRN Reported Fentanyl Patch 75MCG (Fentanyl) 1 Each Patch.td72 75 Mcg TD Q72H Aspirin EC (Aspirin) 81 Mg Tablet.dr 81 Mg PO DAILY Meloxicam 7.5 Mg Tablet 7.5 Mg PO DAILY Synthroid (Levothyroxine Sodium) 25 Mcg Tablet 25 Mcg PO DAILY Escitalopram Oxalate 20 Mg Tablet 20 Mg PO DAILY Xanax (Alprazolam) 0.25 Mg Tablet 0.125-0.25 Mg PO BID PRN Metoprolol Succinate 25 Mg Tab.er.24h 25 Mg PO DAILY Klor-Con M10 (Potassium Chloride) 10 Meq Tab.er.prt 10 Meq PO BID Trazodone HCl 150 Mg Tablet 150 Mg PO HS Ropinirole HCl 1 Mg Tablet 2 Mg PO HS TAKES 2 (1MG) TABLETS Instructions to patient/family Please see electronic discharge instructions given to patient. Diagnosis/Problems Diagnosis/Problems (1) Debility (2) Acute respiratory failure due to COVID-19 Status: Acute (3) HTN (hypertension) Status: Chronic (4) Hypothyroidism Status: Chronic (5) Anxiety Status: Chronic (6) Chronic pain Status: Chronic Clinical Quality Measures DVT/VTE Risk/Contraindication: Risk Factor Score Per Nursin RFS Level Per Nursing on Admit: 3=High KANDY BENOIT DO May 11, 2020 09:31
--- NOTE | 2020-05-11 09:31 | D/C HH Face to Face Order ---
D/C Face to Face Orders Reconcile Patient Problems Problems Reviewed?: Yes Instructions for Patient [facility], Patient Instructions/FollowUp: DR Palacios 1 week Physician to follow Patient: Philip Discharge Diet for Home: No Restrictions Patient Problems: COVID-19 Hypoxia New O2 dependent Patient Data-Allergies,Ht & Wt Patient Allergies: Coded Allergies: Iodinated Contrast Media (Unverified Allergy, Unknown, 05/06/16) Sulfa (Sulfonamide Antibiotics) (Verified Allergy, Unknown, 02/25/08) ciprofloxacin (Unverified Allergy, Unknown, 05/06/16) Height (Feet): 5 Height (Inches): 7.00 Weight (Pounds): 156 Weight (Ounces): 0 Home Health Need/Face to Face Date of Face to Face: May 11, 2020 Clinical Findings: Generalized weakness and fatigue, Muscle weakness, Shortness of breath I have seen Pt igts-[id number]: Yes Discharged To: Home Diagnosis/Conditions: COVID-19 Hypoxia New O2 dependent Patient is Homebound due to: [place] fall risk due to instabilty, Muscle weakness, Shortness of breath/distress Homebound Status Due to the above stated illness, injury or surgical procedure (medical condition or diagnosis) and associated clinical findings, the patient is homebound because of his/her inability to leave home except with aid of a supportive device and/or person AND leaving the home requires a considerable and taxing effort or is medically contraindicated. Pt req the following assistanc: [facility] Nursing Orders Home Health Services Order: Nursing Services, [place]-Evaluate & Treat, Physical Therapy-Evaluate & Treat Certify Stmt I certify that this patient is under my care and that I, a nurse practitioner or a physician; a food trades assistants working with me, had a face to face encounter that - meets the physician face to face encounter requirements with this patient as dated. KANDY BENOIT DO May 11, 2020 09:30
--- NOTE | 2020-05-11 10:36 | Progress Note ---
KARLEE STEPHEN MED STUDENT 05/11/20 1036: Progress Note Hospital Course: Rosanna Fernando is an 79 year old white female who was originally admitted to the [facility] [place] with acute respiratory failure secondary to COVID 19. PMH is significant for COVID-19, hypothyroidism, HTN, anxiety, debility, and acute grief reaction. She was admitted April 23 and discharged to home April 28. She returned to the ED on May 01 for worsening symptoms and was again admitted. She was transferred to the inpatient rehab floor on May 05 after improving significantly clinically. She has been working with PT, OT, and ST regularly while on the rehab floor. She states that she is improving significantly, but is still requiring 1 L oxygen via [place]. She reports her fatigue and weakness are still present, but are improving a little bit each day. She remains anxious and tearful while talking with her as her on April 30 while a patient here. She will have a home oxygen evaluation completed today and be discharged to home today. She states her grandson can help her out at home. She states "I'm ready to get home and get back to where I belong so I can take care of all the things I need to do." She reports that PT, OT, and ST have helped her greatly while in inpatient rehab and she feels safe to return to home. ALYSE BENOIT DO 05/12/20 0543: Supervisory-Addendum Brief Verification & Attestation Participated in pt care: history, MDM, physical Personally performed: exam, history, MDM, supervision of care Care discussed with: Medical Student Procedures: n/a Results interpretation: Verified all documentation Verification and Attestation of Medical Student E/M Service A medical student performed and documented this service in my presence. I reviewed and verified all information documented by the medical student and made modifications to such information, when appropriate. I personally performed the physical exam and medical decision making. Alyse Benoit, May 12, 2020,05:43 KARLEE STEPHEN MED STUDENT May 11, 2020 10:36 ALYSE BENOIT DO May 12, 2020 05:43
--- NOTE | 2020-05-11 10:57 | Occ Therapy Progress Note ---
Therapy Progress Note OT attempted treatment with pt. Pt. in bed. She appears in no distress, but states that her left LE is hurting, and she thinks it is her "sciatica." OT asks about her pain level and pt. starts to become agitated. She states she has already had pain medication, and that she is not moving today. She states she just wants to go home. OT asks her if she feels that she can manage at home, and pt. reports that she can, and that she will have help from her son and roberta cunningham. Pt. becomes increasingly agitated with mention of pt. participating in therapy, or even exercises at this time. OT offers to make pt. comfortable in any way possible, and she states that she would just like to be left alone. OT reported this to nursing, and then to rehabilitation attendant. Will continue to follow and provide care if willing. 1, visit x 10minutes [id number] DAVE CASTLE OT May 11, 2020 10:57
--- NOTE | 2020-05-11 11:08 | Speech Therapy Daily Note ---
Speech Daily Progress Note Subjective Date Seen by Provider: May 11, 2020 Time Seen by Provider: 00:30 Patient c/o sciatic back pain this date. She is ready to return home today. Objective Patient completed a series of q/a related to her daily needs upon her return home at 90%. Assessment Assessment Current Status: Good Progress Treatment Plan Discontinue ST, Goals Met Speech Short Term Goals Short Term Goals Short Term Goals 1) The patient will complete memory tasks related to her daily needs at 80% or greater with minimal cues. 2) The patient will complete problem solving tasks related to her daily needs at 80% or greater with minimal cues. 3) The patient will complete safety awareness tasks related to her daily needs at 80% or greater with minimal cues. Speech Boy'S Adviser Goals Longterm Goals The patient will improve cognitive-communication abilities related to her daily needs with minimal assist. Speech-Plan Patient/Family Goals Patient/Family Goals: Patient is returning to her home today where she lives with her son. Treatment Plan Speech Therapy Treatment Plan: Discontinue ST, Goals Met Treatment Duration: May 19, 2020 Frequency: 4 times per week (Patient will receive skilled ST 4-5x per week) Estimated Hrs Per Day: .25 hour per day Rehab Potential: Good Barriers to Learning: Patient's recent COVID illness, age Pt/Family Agrees to Plan: Yes Safety Risks/Education Teaching Recipient: Patient Teaching Methods: Discussion Response to Teaching: Verbalize Understanding Education Topics Provided: Continued safety upon her return home Time Speech Therapy Time In: 10:30 Speech Therapy Time Out: 11:00 Total Billed Time: 30 Billed Treatment Time 1, SLTS No QUALITY CODES: EXPRESSION OF IDEAS/WANTS:4 UNDERSTANDING VERBAL CONTENT: 4 BRIEF INTERVIEW OF MENTAL STATUS: YES REPETITION OF 3 WORDS: 3 TEMPORAL ORIENTATION: YEAR: CORRECT, MONTH: CORRECT, DAY: CORRECT RECALL SOCK: YES WITH CUE, COLOR: YES, BED: YES MEMORY/RECALL ABILITY: SEASON, THAT SHE IS IN THE HOSPITAL, LOCATION OF HER ROOM JOHN MILLER May 11, 2020 11:08
--- NOTE | 2020-05-11 12:14 | Physical Therapy Daily Note ---
PT Daily Note-Current Subjective Pt laying R sidelying in bed upon arrival. Pt agrees to PT for QC scoring for DC. Pain Numeric Pain Scale: 7 Location: Left, Lower Location Body Site: Back Pain Description: Ache, Tightness Comment: Pt reports Sciatic pain at R hip. Mental Status Patient Orientation: Person, Situation Attachments: Oxygen O2 is tested at end of tx & RT states pt does not need O2. Transfers SCALE: Activities may be completed with or without assistive devices. 4-Iewwtpdxyr-zvarbqc completes the activity by him/herself with no assistance from a helper. 5-Set-up or Clean-up Assistance-helper sets up or cleans up; patient completes activity. [place] assists only prior to or following the activity. 4-Supervision or Touching Assistance-helper provides verbal cues and/or touching/steadying and/or contact guard assistance as patient completes activity. Assistance may be provided throughout the activity or intermittently. 3-Partial/Moderate Assistance-helper does LESS THAN HALF the effort. [place] lifts, holds or supports trunk or limbs, but provides less than half the effort. 2-Substantial/Maximal Assistance-helper does MORE THAN HALF the effort. [place] lifts or holds trunk or limbs and provides more than half the effort. 6-Htyadioyl-hntccb does ALL the effort. Patient does none of the effort to complete the activity. Or, the assistance of 2 or more helpers is required for the patient to complete the activity. If activity was not attempted, code reason: 7-Patient Refused. 9-Not Applicable-not attempted and the patient did not perform the activity before the current illness, exacerbation or injury. 10-Not Attempted due to Environmental Limitations-(lack of equipment, weather restraints, etc.). 88-Not Attempted due to Medical Conditions or Safety Concerns. Roll Left & Right (QC): 6 Sit to Lying (QC): 6 Lying to Sitting/Side of Bed(Q: 6 Sit to Stand (QC): 6 Chair/Xqh-gg-Fhxax Xfer(QC): 6 Toilet Transfer (QC): 6 Car Transfer (QC): 6 Weight Bearing Right Lower Extremity: Right Full Weight Bearing Left Lower Extremity: Left Full Weight Bearing Gait Training Does the Patient Walk?: Yes Distance: 150' Walk 10 feet (QC): 5 Walk 50 ft with 2 Turns(QC): 5 Walk 150 ft (QC): 5 Walking 10ft/uneven surface-QC: 5 Gait Persons Needed: 1 Gait Assistive Device: FWW Pt reports pain with walking and R hip gives at times. Wheelchair Training Does the Pt Use a Wheelchair?: No Stair Training Stair Training: Handrails/: 2 handrails #of Steps: 4 1 Step (curb) (QC): 5 4 Steps (QC): 5 12 Steps (QC): 7 Stairs: Pattern: Step to Balance Picking up an Object (QC): 88 Special Test Comments Pt does not attempt due to pain in R hip. Pt will use reimbursement spec at home. Treatments QC scoring obtained (see above). Pt returns to room to pack as she is DC today. Sitting EOB, All needs met, call light next to pt. Assessment Current Status: Good Progress Pt has gained strength and activity tolerance but states pain that just started overnight is limiting pt today. PT Short Term Goals Short Term Goals Time Frame: May 12, 2020 Roll Left & Right: 6 Sit to lyin Lying to sitting on side of be: 6 Sit to stand: 5 Chair/txh-tk-wxmdy transfer: 5 Walk 10 feet: 5 Walk 50 feet with two turns: 5 4 steps: 4 PT Mcfp Goals Mcfp Goals PT Infection Control Coordinator Goals Time Frame: May 26, 2020 Roll Left & Right (QC): 6 Sit to Lying (QC): 6 Lying-Sitting on Side/Bed(QC): 6 Sit to Stand (QC): 6 Chair/Jzk-dg-Tegcu Xfer(QC): 6 Toilet Transfer (QC): 6 Car Transfer (QC): 6 Does the Patient Walk: Yes Walk 10 feet (QC): 6 Walk 50ft with 2 Turns (QC): 6 Walk 150 ft (QC): 6 Walking 10ft on Uneven Surface: 6 1 Step (curb) (QC): 6 4 Steps (QC): 6 12 Steps (QC): 6 Picking up an Object (QC): 6 Does the Pt use WC or Scooter?: No Wheel 50 feet with 2 turns (QC: 9 Wheel 150 feet: 9 PT Plan Problem List Problem List: Activity Tolerance Treatment/Plan Treatment Plan: Continue Plan of Care Treatment Plan: Bed Mobility, Education, Functional Activity Yovana, Functional Strength, Group Therapy, Gait, Safety, Therapeutic Exercise, Transfers Treatment Duration: May 26, 2020 Frequency: At least 5 of 7 days/Wk (IRF) Estimated Hrs Per Day: 1.5 hours per day Patient and/or Family Agrees t: Yes Safety Risks/Education Patient Education: Steps, Correct Positioning, Safety Issues Teaching Recipient: Patient Teaching Methods: Discussion Response to Teaching: Verbalize Understanding Time/GCodes Time In: 1115 Time Out: 1200 Total Billed Treatment Time: 45 Total Billed Treatment 1, GT (20m) & FA x3 (40m) SEKOU GOINS TYPING SECTION CHIEF May 11, 2020 12:14
--- NOTE | 2020-05-11 12:15 | NUR ---
patient walked from PT room to their room and and sat was still 90% on room air. Addendum: 05/11/20 at 1216 by ARELIS BANERJEE RT Amended: Links added.
[2020-05-11 13:59] VITALS: BP 118/58
--- NOTE | 2020-05-11 14:04 | Therapy Team Discharge Summary ---
Therapy Discharge Summary Discharge Recommendations Date of Discharge Occupational Therapy Decreased Activ Tolerance, Impaired I ADL's Speech-Language Pathology Patient was admitted to the ARU due to COVID-19 affects. Patient was given the SLUMS with score indicating the patient qualified for ST services. The patient met her ST goals. Patient is being discharged to her home with family this date. PT Floriculturist Goals Floriculturist Goals PT Floriculturist Goals Time Frame: May 26, 2020 Roll Left to Right (QC): 6 Sit to Lying (QC): 6 Lying-Sitting on Side/Bed(QC): 6 Sit to Stand (QC): 6 Chair/Gqe-wa-Xvqpc Xfer(QC): 6 Car Transfer (QC): 6 Does the Patient Walk: Yes Walk 10 feet (QC): 6 Walk 10ft-Uneven Surface(QC): 6 Walk 50ft with 2 Turns (QC): 6 Walk 150 ft (QC): 6 Does the Pt use WC or Scooter?: No Wheel 50 feet with 2 turns (QC: 9 1 Step (curb) (QC): 6 4 Steps (QC): 6 12 Steps (QC): 6 Picking up an Object (QC): 6 OT Residential Goals Residential Goals Time Frame: May 19, 2020 Eating (FIM): 6 Eating (QC): 6 Oral Hygiene (QC): 6 Shower/Bathe Self (QC): 4 Upper Body Dressing (QC): 6 Lower Body Dressing (QC): 6 On/Off Footwear (QC): 6 Toileting(FIM): 6 Toileting Hygiene (QC): 6 Toilet/Commode Transfer (QC): 6 Additional Goals: 1-Demonstrate ADL Tasks, 2-Verbalize Understanding, 3- ImproveStrength/Yovana 1=Demonstrate adherence to instructed precautions during ADL tasks. 2=Patient will verbalize/demonstrate understanding of assistive devices/modifications for ADL. 3=Patient will improve strength/tolerance for activity to enable patient to perform ADL's. Speech Floriculturist Goals Floriculturist Goals The patient will improve cognitive-communication abilities related to her daily needs with minimal assist. JOHN MILLER May 11, 2020 14:04
--- NOTE | 2020-05-11 14:24 | Therapy Team Discharge Summary ---
Therapy Discharge Summary Discharge Recommendations Date of Discharge 05-11-20 Therapy D/C Recommendations: Home w/ Family Support, Occupational Therapy Home Care Occupational Therapy Pt. has been seen by occupational therapy to increase overall strength and independence. Pt. has made progress, and continues to make progress. At this time, pt. requires SBA/set up assistance for most tasks. She has decreased activity tolerance, but it is improving slowly. Pt. is eager to return home, and verbalizes that she will have plenty of family support. No equipment needs at this time. Recommend continued OT care to increase overall strength and independence within her home environment. Decreased Activ Tolerance, Impaired I ADL's PT Group Home Goals Motor Polarizer Goals PT Motor Polarizer Goals Time Frame: May 26, 2020 Roll Left to Right (QC): 6 Sit to Lying (QC): 6 Lying-Sitting on Side/Bed(QC): 6 Sit to Stand (QC): 6 Chair/Icj-td-Fsnxw Xfer(QC): 6 Car Transfer (QC): 6 Does the Patient Walk: Yes Walk 10 feet (QC): 6 Walk 10ft-Uneven Surface(QC): 6 Walk 50ft with 2 Turns (QC): 6 Walk 150 ft (QC): 6 Does the Pt use WC or Scooter?: No Wheel 50 feet with 2 turns (QC: 9 1 Step (curb) (QC): 6 4 Steps (QC): 6 12 Steps (QC): 6 Picking up an Object (QC): 6 OT Motor Polarizer Goals Group Home Goals Time Frame: May 19, 2020 Eating (FIM): 6 (met) Eating (QC): 6 (met) Oral Hygiene (QC): 6 (not met) Shower/Bathe Self (QC): 4 (met) Upper Body Dressing (QC): 6 (not met) Lower Body Dressing (QC): 6 (not met) On/Off Footwear (QC): 6 (not met) Toileting(FIM): 6 (not met) Toileting Hygiene (QC): 6 (not met) Toilet/Commode Transfer (QC): 6 (not met) Additional Goals: 1-Demonstrate ADL Tasks, 2-Verbalize Understanding, 3- ImproveStrength/Yovana 1=Demonstrate adherence to instructed precautions during ADL tasks. 2=Patient will verbalize/demonstrate understanding of assistive devices/modifications for ADL. 3=Patient will improve strength/tolerance for activity to enable patient to perform ADL's. Speech Motor Polarizer Goals Motor Polarizer Goals The patient will improve cognitive-communication abilities related to her daily needs with minimal assist. DAVE CASTLE OT May 11, 2020 14:24
--- NOTE | 2020-05-11 14:50 | NUR ---
CELIO DE LA ROSA demonstrates understanding of discharge instructions and accurately returns instructions upon questioning. Copy of Post-Discharge Instructions given to PT. CELIO DE LA ROSA is able to manage continuing needs after discharge. Patients belongings returned to PT. Patient discharged from 228-1 on 05/11/20 at 1450. CELIO DE LA ROSA left floor via W/C, accompanied by STAFF AND SON PER AUTO.
--- NOTE | 2020-05-11 14:52 | NUR ---
CM/SS DISCHARGE Patient is discharged home with her family today. HHC: Patient had [facility] set up when last discharged for two days and services were never opened. Spoke with son Job Fernando today and he specifically requested [facility] stating he had heard good things about them. Surgical Brace Maker sent referral for RN PT OT. [facility] is based in [place] but they have established an office in [facility] [place] [facility] [place] in service area. DME: Patient had [facility] new home 02 delivered when last discharged for approximately two days and the oxygen has remained at her home. However, RT completed home O2 study this date and patient does not require O2. Surgical Brace Maker spoke with RT[facility] who instructed physician needs to order patient's home O2 discontinued based on current study. Otherwise, patient will have to sign an AMA Medicare form to return the O2 and stop billing. Patient continues to appear very anxietal about timelines and processes in general. She was confused about when her son would be coming to pick her up, thought he was on the parking lot waiting for us to take her down. Redirected to the actual plan which seemed to calm patient. Unit RN is aware of all timelines and has spoken directly with son Job Fernando. He is working on the [place] and will come soon, will call Allyson once he arrives. Addendum: 05/11/20 at 1503 by EMILY GUILLERMO SS IMM2 reviewed, signed, charted. Patient verbalized no intention to appeal, she has indicated her readiness to return home with her family.
--- NOTE | 2020-05-12 09:48 | Therapy Team Discharge Summary ---
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 Upon evaluation patient performed bed mobility and supine <-> sit with independence, transfers and car transfer SBA, ambulated 200' with a rolling walker with SBA (including 50' with at least 2 turns of 90 degrees and 10' over an uneven surface), picked up an object from the floor with CGA and went up and down 1 step using a rolling walker with CGA. Patient has been performing bed mobility and transfer training, balance and endurance training, functional strengthening, stair training, gait training, and education. Patient has made good progress but has not met her terminal operator goals for ambulation or stairs. Now, patient performs bed mobility and transfers with independence, car transfer independent, ambulates 150' with a rolling walker with setup (including 50' with at least 2 turns of 90 degrees and 10' over an uneven surface), can go up and down 4 steps using 2 handrails with setup, and can excelsior picker an object from the floor with CGA. Patient has discharged from this facility and will be discharged from PT at this time. Occupational Therapy Decreased Activ Tolerance, Impaired I ADL's PT Injection Molding Process Technician Goals Injection Molding Process Technician Goals PT Injection Molding Process Technician Goals Time Frame: May 26, 2020 Roll Left to Right (QC): 6 Sit to Lying (QC): 6 Lying-Sitting on Side/Bed(QC): 6 Sit to Stand (QC): 6 Chair/Oku-cj-Kvhyx Xfer(QC): 6 Car Transfer (QC): 6 Does the Patient Walk: Yes Walk 10 feet (QC): 6 Walk 10ft-Uneven Surface(QC): 6 Walk 50ft with 2 Turns (QC): 6 Walk 150 ft (QC): 6 Does the Pt use WC or Scooter?: No Wheel 50 feet with 2 turns (QC: 9 1 Step (curb) (QC): 6 4 Steps (QC): 6 12 Steps (QC): 6 Picking up an Object (QC): 6 OT Mcfp Goals Mcfp Goals Time Frame: May 19, 2020 Eating (FIM): 6 (met) Eating (QC): 6 (met) Oral Hygiene (QC): 6 (not met) Shower/Bathe Self (QC): 4 (met) Upper Body Dressing (QC): 6 (not met) Lower Body Dressing (QC): 6 (not met) On/Off Footwear (QC): 6 (not met) Toileting(FIM): 6 (not met) Toileting Hygiene (QC): 6 (not met) Toilet/Commode Transfer (QC): 6 (not met) Additional Goals: 1-Demonstrate ADL Tasks, 2-Verbalize Understanding, 3- ImproveStrength/Yovana 1=Demonstrate adherence to instructed precautions during ADL tasks. 2=Patient will verbalize/demonstrate understanding of assistive devices/modifications for ADL. 3=Patient will improve strength/tolerance for activity to enable patient to perform ADL's. Speech Mcfp Goals Mcfp Goals The patient will improve cognitive-communication abilities related to her daily needs with minimal assist. JANES BARAJAS PT May 12, 2020 09:48
== END 2020-05-11 14:50 | disposition home health service (06) | DRG 948 ==
PROVIDERS: ADMIT Internal Medicine; ATTEND Internal Medicine
DX: R53.81 Other malaise (principal); Z86.19 Personal history of other infectious and parasitic diseases; R09.02 Hypoxemia; Z74.2 Need for assistance at home and no other household member able to render care; G89.29 Other chronic pain; F43.21 Adjustment disorder with depressed mood; F41.9 Anxiety disorder, unspecified; I12.9 Hypertensive chronic kidney disease with stage 1 through stage 4 chronic kidney disease, or unspecified chronic kidney disease; N18.9 Chronic kidney disease, unspecified; E03.9 Hypothyroidism, unspecified; M19.91 Primary osteoarthritis, unspecified site; J30.2 Other seasonal allergic rhinitis; B35.1 Tinea unguium; L60.0 Ingrowing nail; M20.42 Other hammer toe(s) (acquired), left foot; M20.41 Other hammer toe(s) (acquired), right foot; Z87.01 Personal history of pneumonia (recurrent); Z90.710 Acquired absence of both cervix and uterus
CPT/HCPCS: 36415; 80053; 82962; 85025; 94640; 94664; 94760; 94761

== ENCOUNTER 2023-05-20 18:36 | Inpatient (IN) | payer MEDICARE, OTHER ==
[~2023-05-20] VITALS: Ht 170.1 cm; Wt 77.3 kg
[~2023-05-20 18:36] MED LIST changes: +ALBU18HF2 IH; -ALPRAZolam 0.25 MG (XANAX) TAB PO PRN; -ASPI-789 PO; +ASPI1TAB23 PO; -BISACODYL 10 MG SUPP (DULCOLAX) PR PRN; -CALCIUM CARBONATE 500 MG (TUMS) TAB.CHEW PO PRN; -DOCUSATE SODIUM 100 MG (COLACE) CAP PO PRN; +ESCI-2 PO; -ESCI10TA55 PO; +ESCI20TA39 PO; -ESCI20TA45 PO; -FLEET ENEMA ADULT 1 EA BTL PR PRN; +GFCD10B PO; -LACTULOSE SYRUP 10GM/15ML (ENULOSE) 30ML UDC PO PRN; -LOPERAMIDE 2 MG (IMODIUM) TABLET PO PRN; -MELATONIN 3 MG TABLET PO PRN; -ONDANSETRON 4 MG (ZOFRAN) ORAL DISSOLVE TAB PO PRN; +OXC5T PO; +PANT40TA52 PO; +POTA-164 PO; -POTA10TA14 PO; -ROPI1TAB PO; +ROPI1TAB46 PO; +SENN-20 PO; -diphenhydrAMINE 25 MG TAB (BENADRYL) PO PRN; -guaiFENesin/CODEINE (ROBITUSSIN AC) 10ML UDC PO PRN
[2023-05-20] MEDS ORDERED: NS IV 1000 ML 1,000 ML IV STA (18:51)
--- NOTE | 2023-05-20 18:55 | ED Respiratory ---
General Chief Complaint: Respiratory Problems Stated Complaint: SOA Nursing Triage Note: PT ARRIVED BY [facility] ON 2L NC WITH CC OF SOB, COUGH, FEVER, FATIGUED, WEAKNESS, AND CHILLS SINCE SATURDAY. Source: patient Exam Limitations: no limitations History of Present Illness Date Seen by Provider: May 20, 2023 Time Seen by Provider: 18:40 Initial Comments Patient is an 82-year-old female who lives at home presents to the emergency ro om with a chief complaint of feeling short of breath, semiproductive cough, fever weakness and chills onset 2 or 3 days ago. She has taken some Mucinex as well as Tylenol, last doses of Tylenol were yesterday. She is quite tired, does not believe she has had any sick contacts. Last time she was ill like this she had COVID 3 years ago. She takes medications for restless legs and hypertension. No history of coronary artery disease. She does have a bit of right sided chest pain this evening worse with coughing and deep breaths. She denies swelling in her legs or pain in her calves. No dysuria, urgency or frequency. No diarrhea. No earache, sore throat or runny nose. Per EMS her oxygen saturations were in the upper 80s. On arrival her heart rate is 80 with room air sats of 93. She has quite prominent crackles in the bilateral lower lung boswell. Temp is 38 5. Patient states she made herself a "hot toddy" this afternoon for her cough and symptoms, but maybe a "little to much" and when it didn't help decided to call EMS. Timing/Duration: other (3 days) Severity: moderate Associated Symptoms: chest pain/soreness, cough, shortness of breath Allergies and Home Medications Allergies Coded Allergies: Iodinated Contrast Media (Unverified Allergy, Unknown, 05/06/16) Sulfa (Sulfonamide Antibiotics) (Verified Allergy, Unknown, 02/25/08) ciprofloxacin (Unverified Allergy, Unknown, 05/06/16) Patient Home Medication List Home Medication List Reviewed: Yes ALPRAZolam (ALPRAZolam) 0.25 Mg Tablet, 0.25 MG PO Q8H PRN for ANXIETY, (Reported) Entered as Reported by: KANDIS OLVERA on 05/21/23 5493 Last Action: Held Aspirin (Aspirin EC) 81 Mg Tablet.dr, 81 MG PO DAILY, (Reported) Entered as Reported by: STEFFANIE KENNEDY on 04/25/20 1317 Last Action: Continued Cyanocobalamin (Cyanocobalamin Injection) 1,000 Mcg/Ml Inj, 1,000 MCG SQ EVERY 2 WEEKS, (Reported) Entered as Reported by: KANDIS OLVERA on 05/21/231624 Last Action: Continued Hydrocodone/Acetaminophen (Hydrocodone-Acetamin 10-325 mg) 10 Mg-325 Mg Tablet, 1 EA PO QID PRN for PAIN-MODERATE (5-7), (Reported) Entered as Reported by: KANDIS OLVERA on 05/21/231624 Last Action: Continued Levothyroxine Sodium (Synthroid) 25 Mcg Tablet, 25 MCG PO DAILY, (Reported) Entered as Reported by: STEFFANIE KENNEDY on 04/25/20 125 Last Action: Continued Linaclotide (Linzess) 290 Mcg Capsule, 290 MCG PO DAILY, (Reported) Entered as Reported by: KANDIS OLVERA on 05/21/231624 Last Action: Converted Meloxicam (Meloxicam) 7.5 Mg Tablet, 7.5 MG PO DAILY, (Reported) Entered as Reported by: STEFFANIE KENNEDY on 04/25/20 125 Last Action: Continued Metoprolol Succinate (Metoprolol Succinate) 25 Mg Tab.er.24h, 25 MG PO DAILY, (Reported) Entered as Reported by: JUAN A GAFFNEY on 05/07/16 113 Last Action: Continued Potassium Chloride (Klor-Con M10) 10 Meq Tab.er.prt, 10 MEQ PO BID, (Reported) Entered as Reported by: JUAN A GAFFNEY on 05/07/16 113 Last Action: Converted Ropinirole HCl (Ropinirole HCl) 1 Mg Tablet, 2 MG PO HS, (Reported) Entered as Reported by: JUAN A GAFFNEY on 05/07/16 1129 Last Action: Continued Ropinirole HCl (Ropinirole HCl) 1 Mg Tablet, 1 MG PO 1900, (Reported) Entered as Reported by: KANDIS OLVERA on 05/21/231624 Last Action: Continued Vilazodone HCl (Vilazodone HCl) 20 Mg Tablet, 20 MG PO DAILY, (Reported) Entered as Reported by: KANDIS OLVERA on 11/21/23 1625 Last Action: Converted Discontinued Medications Albuterol Sulfate (Ventolin Hfa) 18 Gm Hfa.aer.ad, 0 GM IH RTQ2H PRN for SHORTNESS OF BREATH Discontinued Reason: No Longer Taking Prescribed by: KANDY BENOIT on 05/11/20928 Last Action: Discontinued Alprazolam (Xanax) 0.25 Mg Tablet, 0.125-0.25 MG PO BID PRN for ANXIETY, (Reported) Discontinued Reason: No Longer Taking Entered as Reported by: JUAN A GAFFNEY on 05/07/16 1141 Last Action: Discontinued Escitalopram Oxalate (Escitalopram Oxalate) 20 Mg Tablet, 20 MG PO DAILY, (Reported) Discontinued Reason: No Longer Taking Entered as Reported by: STEFFANIE KENNEDY on 04/25/20 1256 Last Action: Discontinued Fentanyl (Fentanyl Patch 75MCG) 1 Each Patch.td72, 75 MCG TD Q72H, (Reported) Discontinued Reason: No Longer Taking Entered as Reported by: STEFFANIE KENNEDY on 04/25/20 1317 Last Action: Discontinued Guaifenesin/Codeine (Robitussin Ac (Codeine) Syrup) 473 Ml Liquid, 10 ML PO Q4H Discontinued Reason: No Longer Taking Prescribed by: KANDY BENOIT on 05/11/20929 Last Action: Discontinued Oxycodone Hcl (Oxyir Tablet) 5 Mg Tab, 2.5-5 MG PO Q4H PRN for PAIN MOD TO SEVERE Discontinued Reason: No Longer Taking Prescribed by: KANDY BENOIT on 05/11/20929 Last Action: Discontinued Pantoprazole Sodium (Pantoprazole Sodium) 40 Mg Tablet.dr, 40 MG PO DAILY Discontinued Reason: No Longer Taking Prescribed by: KANDY BENOIT on 05/11/20928 Last Action: Discontinued Sennosides/Docusate Sodium (Senna-Time S Tablet) 1 Each Tablet, 1 EA PO BID Discontinued Reason: No Longer Taking Prescribed by: KANDY BENOIT on 05/11/20928 Last Action: Discontinued Trazodone HCl (Trazodone HCl) 150 Mg Tablet, 150 MG PO HS, (Reported) Discontinued Reason: No Longer Taking Entered as Reported by: JUAN A GAFFNEY on 05/07/16 1129 Last Action: Discontinued Review of Systems Review of Systems Constitutional: see HPI Past Rsrollu-Jymgps-Vnpekj Hx Patient Social History Tobacco Use?: No Substance use?: No Alcohol Use?: No Immunizations Up To Date Tetanus Booster (TDap): More than 5yrs Seasonal Allergies Seasonal Allergies: Yes Past Medical History Surgeries: Yes (HYSTERECTOMY) Hysterectomy Respiratory: No Cardiac: Yes Hypertension Neurological: Yes 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 No Pertinent Family Hx Physical Exam Vital Signs - First Documented 05/20/23 18:43 Temp 38.5 Pulse 90 Resp 25 B/P (MAP) 164/80 (108) Pulse Ox 93 O2 Delivery Nasal Cannula O2 Flow Rate 2.00 Capillary Refill : Height: 5'7.00" Weight: 156lbs. 0oz. 70.018011qa; 25.00 BMI Method:Stated General Appearance: WD/WN, no apparent distress Eyes: Bilateral Eye Normal Inspection, Bilateral Eye PERRL, Bilateral Eye EOMI HEENT: PERRL/EOMI Neck: full range of motion Respiratory: crackles (crackles at bases bilaterally) Cardiovascular: regular rate, rhythm Gastrointestinal: non tender, soft Extremities: normal range of motion, non-tender, normal inspection, no pedal edema, normal capillary refill Neurologic/Psychiatric: no motor/sensory deficits, alert, normal mood/affect, oriented x 3 Skin: normal color, warm/dry Focused Exam Lactate Level 05/20/23 18:51: Lactic Acid Level 0.91 Lactic Acid Level Laboratory Tests Test 05/20/23 18:51 Lactic Acid Level 0.91 MMOL/L (0.50-2.00) Progress/Results/Core Measures Suspected Sepsis SIRS Temperature: Pulse: 90 Respiratory Rate: 25 Laboratory Tests 05/20/23 18:45: White Blood Count 19.3H Blood Pressure 164 /80 Mean: 108 05/20/23 18:51: Lactic Acid Level 0.91 Laboratory Tests 05/20/23 18:45: Creatinine 0.69, INR Comment 1.1, Platelet Count 219, Total Bilirubin 0.9 Results/Orders Lab Results Laboratory Tests Test 05/20/23 18:45 05/20/23 18:51 05/20/23 19:28 Range/Units White Blood Count 19.3 H 4.3-11.0 10^3/uL Red Blood Count 4.83 3.80-5.11 10^6/uL Hemoglobin 15.3 11.5-16.0 g/dL Hematocrit 46 35-52 % Mean Corpuscular Volume 95 80-99 fL Mean Corpuscular Hemoglobin 32 25-34 pg Mean Corpuscular Hemoglobin Concent 33 32-36 g/dL Red Cell Distribution Width 13.5 10.0-14.5 % Platelet Count 219 130-400 10^3/uL Mean Platelet Volume 10.7 9.0-12.2 fL Immature Granulocyte % (Auto) 0 % Neutrophils (%) (Auto) 82 H 42-75 % Lymphocytes (%) (Auto) 9 L 12-44 % Monocytes (%) (Auto) 7 0-12 % Eosinophils (%) (Auto) 1 0-10 % Basophils (%) (Auto) 0 0-10 % Neutrophils # (Auto) 15.9 H 1.8-7.8 10^3/uL Lymphocytes # (Auto) 1.7 1.0-4.0 10^3/uL Monocytes # (Auto) 1.4 H 0.0-1.0 10^3/uL Eosinophils # (Auto) 0.1 0.0-0.3 10^3/uL Basophils # (Auto) 0.1 0.0-0.1 10^3/uL Immature Granulocyte # (Auto) 0.1 0.0-0.1 10^3/uL Neutrophils % (Manual) 83 % Lymphocytes % (Manual) 10 % Monocytes % (Manual) 6 % Eosinophils % (Manual) 1 % Blood Morphology Comment NORMAL Prothrombin Time 14.5 12.2-14.7 SEC INR Comment 1.1 0.8-1.4 Activated Partial Thromboplast Time 34 24-35 SEC Sodium Level 134 L 135-145 MMOL/L Potassium Level 3.9 3.6-5.0 MMOL/L Chloride Level 104 98-107 MMOL/L Carbon Dioxide Level 21 21-32 MMOL/L Anion Gap 9 5-14 MMOL/L Blood Urea Nitrogen 9 7-18 MG/DL Creatinine 0.69 0.60-1.30 MG/DL Estimat Glomerular Filtration Rate 86 BUN/Creatinine Ratio 13 Glucose Level 111 H 70-105 MG/DL Calcium Level 9.0 8.5-10.1 MG/DL Corrected Calcium 9.0 8.5-10.1 MG/DL Total Bilirubin 0.9 0.1-1.0 MG/DL Aspartate Amino Transf (AST/SGOT) 15 5-34 U/L Alanine Aminotransferase (ALT/SGPT) 12 0-55 U/L Alkaline Phosphatase 113 40-136 U/L Total Protein 7.0 6.4-8.2 GM/DL Albumin 4.0 3.2-4.5 GM/DL Influenza Type A (RT-PCR) Not Detected Not Detecte Influenza Type B (RT-PCR) Not Detected Not Detecte SARS-CoV-2 RNA (RT-PCR) Not Detected Not Detecte Lactic Acid Level 0.91 0.50-2.00 MMOL/L Urine Color YELLOW Urine Clarity CLEAR Urine pH 6.5 5-9 Urine Specific [place] 1.015 L 1.016-1.022 Urine Protein NEGATIVE NEGATIVE Urine Glucose (UA) NEGATIVE NEGATIVE Urine Ketones 2+ H NEGATIVE Urine Nitrite NEGATIVE NEGATIVE Urine Bilirubin NEGATIVE NEGATIVE Urine Urobilinogen 0.2 < = 1.0 MG/DL Urine Leukocyte Esterase NEGATIVE NEGATIVE Urine RBC (Auto) TRACE H NEGATIVE Urine RBC 0-2 /HPF Urine WBC RARE /HPF Urine Squamous Epithelial Cells 2-5 /HPF Urine Crystals NONE /LPF Urine Bacteria TRACE /HPF Urine Casts NONE /LPF Urine Mucus NEGATIVE /LPF Urine Culture Indicated CULTURE PENDING Micro Results Microbiology 05/20/23 Urine Culture - Final, Complete NO GROWTH 05/20/23 Blood Culture - Preliminary, Resulted 05/20/23 Blood Culture - Preliminary, Resulted My Orders Orders - HORTENSIA MORATAYA MD Cbc And Automated Diff (05/20/23 18:51) Comprehensive Metabolic Panel (05/20/23 18:51) Blood Culture (05/20/23 18:51) Sputum Culture (05/20/23 18:51) Urinalysis (05/20/23 18:51) Urine Culture (05/20/23 18:51) Protime With Inr (05/20/23 18:51) Partial Thromboplastin Time (05/20/23 18:51) Chest 1 View, Ap/Pa Only (05/20/23 18:51) Ed Iv/Invasive Line Start (05/20/23 18:51) Ed Iv/Invasive Line Start (05/20/23 18:51) Vital Signs Adult Sepsis Patie Q15M (05/20/23 18:51) O2 (05/20/23 18:51) Remove Rings In Anticipation O (05/20/23 18:51) Lactic Acid Analyzer (05/20/23 18:51) Covid 19 Inhouse Test (05/20/23 18:51) Influenza A And B By Pcr (05/20/23 18:51) Acetaminophen Tablet (Acetaminophen Ta (05/20/23 19:00) Ns Iv 1000 Ml (Ns Iv 1000 Ml) (05/20/23 18:51) Manual Differential (05/20/23 18:45) Ceftriaxone Iv/Im (Ceftriaxone Iv/Im) (05/20/23 19:30) Ed Admission (Communication) (05/20/23 20:25) Medications Given in ED Vital Signs/I&O 05/20/23 05/20/23 05/20/23 05/20/23 18:43 18:50 18:52 20:25 Temp 38.5 Pulse 90 61 Resp 25 B/P (MAP) 164/80 (108) 116/56 Pulse Ox 93 94 O2 Delivery Nasal Cannula Nasal Cannula Nasal Cannula Room Air O2 Flow Rate 2.00 2.00 2.00 05/20/23 20:40 Temp 36.6 Pulse 64 Resp 16 B/P (MAP) 148/67 (94) Pulse Ox 93 O2 Delivery Room Air 05/20/23 23:59 Intake Total 1050 ml Balance 1050 ml Capillary Refill : Blood Pressure Mean: 108 Progress Note : Time: 20:00 Progress Note Patient seen and evaluated by me. Evaluation today includes history and physical exam with "sepsis work-up" to include CBC, comprehensive metabolic panel, blood cultures with lactic acid, urinalysis with urine culture, COVID and flu test, coagulation profile. Pertinent physical exam findings include alert, pleasant elderly female, febrile at 38.5, a little tachy (HR 90-100), good BP, slightly tachypneic at 25. INitially reported as hypoxic on RA in the upper 80's but now 93% on RA. SHe has bilateral lower lobe prominent crackles, no wheezing, very mild distress. Heart is regular. Abdomen is soft. No LE edema or calf tenderness. No focal neuro deficits. ddx includes pneumonia, Covid, FLu Labs, chest x-ray independently reviewed and interpreted by me. Her CBC shows a white blood cell count of 19.3 with 82% segmented neutrophils, normal hemoglobin hematocrit and platelets. Her comprehensive metabolic panel is normal. UA shows no evidence of infection, she has 2+ ketones. Her COVID and flu are negative. Lactic acid is 0.91. Coags within normal limits. Chest x-ray shows no evidence of consolidation on my interpretation. She is treated in the emergency department with a gram of acetaminophen for her fever, a liter of normal saline and 1 g of Rocephin. I suspect pneumonia as clinically she is low on oxygen and has crackly rhonchus breath sounds, is febrile and has mild increased respiratory effort. She will be admitted to the hospital, inpatient Dr. Benoit. I have communicated this information to the family. All questions are sought and answered. Diagnostic Imaging Diagonstic Imaging: Xray Plain Films/CT/US/NM/MRI: chest Comments [facility]. [place], [place] NAME: CEL[facility] REC#: [id number] PT STATUS: REG ER : 1940 PHYSICIAN: HORTENSIA MORATAYA MD ADMIT DATE: 05/20/23/ER Draft Date of Exam:05/20/23 CHEST 1 VIEW, AP/PA ONLY INDICATION: Fever. COMPARISON: 05/01/2020 FINDINGS: Lungs are mildly hyperinflated. There are some chronic prominent interstitial markings. There is no airspace consolidation to suggest a recurrent pneumonia. There is no significant effusion or pneumothorax. Heart size appears appropriate without current edema or failure. IMPRESSION: 1. Mild hyperinflation. Lungs clear without current evidence of pneumonia or edema. Dictated on workstation # [id number] Dict: 05/20/231922 Trans: 05/20/231924 [facility] [id number] Interpreted by: MEGHAN LANGSTON MD Electronically signed by: Departure Communication (Admissions) Time/Spoke to Admitting Phy: 19:[address] Benoit (Hospitalist) Impression Primary Impression: Pneumonia Qualified Codes: J18.9 - Pneumonia, unspecified organism Disposition: ADMITTED INPATIENT Condition: Stable Admissions Decision to Admit Reason: Admit from ER (General) Decision to Admit/Date: May 20, 2023 Time/Decision to Admit Time: 19:42 HORTENSIA MORATAYA MD May 20, 2023 18:55
[2023-05-20 19:00] LABS: BASOPHILS # (AUTO) 0.1 10^3/uL (0.0-0.1); BASOPHILS % (AUTO) 0 % (0-10); EOSINOPHILS # (AUTO) 0.1 10^3/uL (0.0-0.3); EOSINOPHILS % (AUTO) 1 % (0-10); HEMATOCRIT 46 % (35-52); HEMOGLOBIN 15.3 g/dL (11.5-16.0); LYMPHOCYTES # (AUTO) 1.7 10^3/uL (1.0-4.0); LYMPHOCYTES % (AUTO) 9 % (12-44); MEAN CORPUSCULAR HEMOGLOBIN 32 pg (25-34); MEAN CORPUSCULAR HGB CONC 33 g/dL (32-36); MEAN CORPUSCULAR VOLUME 95 fL (80-99); MEAN PLATELET VOLUME 10.7 fL (9.0-12.2); MONOCYTES # (AUTO) 1.4 10^3/uL (0.0-1.0); MONOCYTES % (AUTO) 7 % (0-12); NEUTROPHILS # (AUTO) 15.9 10^3/uL (1.8-7.8); NEUTROPHILS % (AUTO) 82 % (42-75); PLATELET COUNT 219 10^3/uL (130-400); WHITE BLOOD COUNT 19.3 10^3/uL (4.3-11.0)
[2023-05-20] MEDS ORDERED: ACETAMINOPHEN 500 MG TABLET PO ONE (19:00)
[2023-05-20 19:03] LABS: POTASSIUM 3.9 MMOL/L (3.6-5.0)
[2023-05-20 19:07] LABS: BILIRUBIN,TOTAL 0.9 MG/DL (0.1-1.0)
[2023-05-20 19:09] LABS: CREATININE SERUM 0.69 MG/DL (0.60-1.30)
--- NOTE | 2023-05-20 19:25 | Diagnostic Imaging Report ---
INDICATION: Fever. COMPARISON: 05/01/2020 FINDINGS: Lungs are mildly hyperinflated. There are some chronic prominent interstitial markings. There is no airspace consolidation to suggest a recurrent pneumonia. There is no significant effusion or pneumothorax. Heart size appears appropriate without current edema or failure. IMPRESSION: 1. Mild hyperinflation. Lungs clear without current evidence of pneumonia or edema. Dictated by: Dictated on workstation # [id number]
[2023-05-20] MEDS ORDERED: cefTRIAXone IV/IM 1,000 MG in NS (IVPB) 50 ML 50 ML IV ONE (19:30)
[2023-05-20 19:32] LABS: EOSINOPHILS % (MANUAL) 1 %; INR 1.1 (0.8-1.4); LYMPHOCYTES % (MANUAL) 10 %; MONOCYTES % (MANUAL) 6 %; NEUTROPHILS % (MANUAL) 83 %; PROTHROMBIN TIME PATIENT 14.5 SEC (12.2-14.7); RBC MORPH NORMAL
[2023-05-20 19:45] LABS: BACTERIA,URINE TRACE /HPF; BILIRUBIN,URINE NEGATIVE (NEGATIVE); CLARITY,URINE CLEAR; COLOR,URINE YELLOW; GLUCOSE, URINE (UA) NEGATIVE (NEGATIVE); KETONES,URINE 2+ (NEGATIVE); LEUKOCYTE ESTERASE ,URINE NEGATIVE (NEGATIVE); NITRITE,URINE NEGATIVE (NEGATIVE); PH,URINE 6.5 (5-9); PROTEIN,URINE NEGATIVE (NEGATIVE); RBC,URINE 0-2 /HPF; WBC,URINE RARE /HPF
[2023-05-20 20:40] VITALS: BP 148/67
[2023-05-20] MEDS ORDERED: diphenhydrAMINE INJ 50 MG/ML VIAL IVP PRN (20:45)
[2023-05-20] MEDS ORDERED: LORazepam 0.5 MG TABLET PO PRN (20:45)
[2023-05-20] MEDS ORDERED: LACTULOSE SYRUP 10GM/15ML 30ML UDC PO PRN (20:45)
[2023-05-20] MEDS ORDERED: ACETAMINOPHEN 325 MG TABLET PO PRN (20:45)
[2023-05-20] MEDS ORDERED: BISACODYL 10 MG SUPPOSITORY PR PRN (20:45)
[2023-05-20] MEDS ORDERED: CALCIUM CARBONATE 500 MG CHEW TABLET PO PRN (20:45)
[2023-05-20] MEDS ORDERED: BENZONATATE 100 MG CAPSULE PO PRN (20:45)
[2023-05-20] MEDS ORDERED: HYDROmorphone INJECTION 2 MG/ML VIAL IV PRN (20:45)
[2023-05-20] MEDS ORDERED: MELATONIN 3 MG TABLET PO PRN (20:45)
[2023-05-20] MEDS ORDERED: ONDANSETRON INJECTION 4 MG/2 ML (SDV) IV PRN (20:45)
[2023-05-20] MEDS ORDERED: ANTACID SUSPENSION 30 ML UDC PO PRN (20:45)
[2023-05-20] MEDS ORDERED: ONDANSETRON 4 MG ORAL DISSOLVE TABLET PO PRN (20:45)
[2023-05-20] MEDS ORDERED: MILK OF MAGNESIA 400 MG/5 ML 30 ML UDC PO PRN (20:45)
[2023-05-20] MEDS ORDERED: diphenhydrAMINE 25 MG TABLET PO PRN (20:45)
[2023-05-20 21:27] VITALS: BP 148/67
[2023-05-20] MEDS ORDERED: rOPINIRole 1 MG TABLET ONE (21:27)
[2023-05-20] MEDS: rOPINIRole 1 MG TABLET PO SCH (21:28)
[2023-05-20] MEDS: SENNOSIDES 8.6 MG TABLET PO SCH (21:34)
[2023-05-20] MEDS: DOCUSATE SODIUM 100 MG CAPSULE PO SCH (21:34)
[2023-05-20] MEDS: NS IV 1000 ML 1,000 ML IV SCH (22:16)
[2023-05-20] MEDS: AZITHROMYCIN INJECTION 500 MG in NS (IVPB) 250 ML 250 ML IV SCH (22:16)
[2023-05-20] MEDS: ENOXAPARIN 40 MG/0.4 ML SYRINGE SC SCH (22:16)
[2023-05-20 23:33] VITALS: BP 147/76
[2023-05-21] VITALS (7 sets, daily range): BP systolic 134–192; BP diastolic 73–87
[2023-05-21] MEDS: oxyCODONE IMMEDIATE RELEASE 5 MG TABLET PO PRN (04:49)
[2023-05-21 06:10] LABS: ALBUMIN 3.6 GM/DL (3.2-4.5)
[2023-05-21 06:12] LABS: CALCIUM 8.4 MG/DL (8.5-10.1)
[2023-05-21 06:13] LABS: TOTAL PROTEIN 6.4 GM/DL (6.4-8.2)
[2023-05-21 06:15] LABS: BILIRUBIN,TOTAL 0.9 MG/DL (0.1-1.0)
[2023-05-21 06:17] LABS: CREATININE SERUM 0.66 MG/DL (0.60-1.30)
[2023-05-21 06:29] LABS: BASOPHILS # (AUTO) 0.1 10^3/uL (0.0-0.1); BASOPHILS % (AUTO) 1 % (0-10); EOSINOPHILS # (AUTO) 0.2 10^3/uL (0.0-0.3); EOSINOPHILS % (AUTO) 2 % (0-10); HEMATOCRIT 41 % (35-52); HEMOGLOBIN 13.5 g/dL (11.5-16.0); LYMPHOCYTES # (AUTO) 2.4 10^3/uL (1.0-4.0); LYMPHOCYTES % (AUTO) 23 % (12-44); MEAN CORPUSCULAR HEMOGLOBIN 32 pg (25-34); MEAN CORPUSCULAR HGB CONC 33 g/dL (32-36); MEAN CORPUSCULAR VOLUME 95 fL (80-99); MEAN PLATELET VOLUME 10.3 fL (9.0-12.2); MONOCYTES # (AUTO) 1.1 10^3/uL (0.0-1.0); MONOCYTES % (AUTO) 11 % (0-12); NEUTROPHILS # (AUTO) 6.8 10^3/uL (1.8-7.8); NEUTROPHILS % (AUTO) 64 % (42-75); PLATELET COUNT 186 10^3/uL (130-400); WHITE BLOOD COUNT 10.5 10^3/uL (4.3-11.0)
[2023-05-21] MEDS: NS IV 1000 ML 1,000 ML IV SCH (07:52)
[2023-05-21] MEDS: DOCUSATE SODIUM 100 MG CAPSULE PO SCH ×2 (08:15→20:27)
[2023-05-21] MEDS: SENNOSIDES 8.6 MG TABLET PO SCH ×2 (08:15→20:27)
--- NOTE | 2023-05-21 08:21 | History & Physical ---
History of Present Illness HPI/Chief Complaint Chief complaint: Sepsis from pneumonia HPI: This is an 82-year-old female who has a past medical history of hypertensio n who sees Bailee Maza in [facility] who presents to the ER with weakness and fever found to have pneumonia. The decision was made for supportive care and IV antibiotics to closely monitor due to high risk for decompensation. Currently she is doing much better and will Hep-Lock IV fluid and discontinue telemetry and initiate physical therapy. Source: patient, RN/MD, old records Exam Limitations: no limitations Date Seen 05/21/23 Time Seen by a Provider: 11:00 Attending Physician No,Local Physician PCP Admitting Physician: Alyse Diop DO Attending Physician: Alyse Diop DO Referring Physician Date of Admission May 20, 2023 at 20:44 Home Medications & Allergies Home Medications Reviewed patient Home Medication Reconciliation performed by pharmacy medication reconciliations optical manufacturing technician and/or nursing. Patients Allergies have been reviewed. Allergies Allergies Coded Allergies Iodinated Contrast Media (Unverified Allergy, Unknown, 05/06/16) Sulfa (Sulfonamide Antibiotics) (Verified Allergy, Unknown, 02/25/08) ciprofloxacin (Unverified Allergy, Unknown, 05/06/16) Past Aeqlrbt-Mqzrfu-Nujfem Hx Past Med/Social Hx: Reviewed Nursing Past Med/Soc Hx, Reviewed and Corrections made Patient Social History Marrital Status: Employed/Student: retired Alcohol Use: Denies Use Smoking Status: Never a Smoker 2nd Hand Smoke Exposure: No Recent Foreign Travel: No Recent Hopitalizations: Yes (COVID 19) Immunizations Up To Date Tetanus Booster (TDap): More than 5yrs Date of Pneumonia Vaccine: May 01, 2017 Seasonal Allergies Seasonal Allergies: Yes Past Medical History Surgeries: Hysterectomy Respiratory: Pneumonia COVID-19 Cardiac: Hypertension Reproductive: Yes Sexually Transmitted Disease: No Hysterectomy Musculoskeletal: Arthritis Endocrine: Hypothyroidsim HEENT: Cataract Psychosocial: Depression History of Blood Disorders: No Family History Patient reports no known family medical history. No Pertinent Family Hx Review of Systems Constitutional: see HPI Respiratory: cough, dyspnea on exertion Physical Exam Physical Exam Vital Signs Vital Signs - First Documented 05/20/23 05/20/23 18:43 21:27 Temp 38.5 Pulse 90 Resp 25 B/P (MAP) 164/80 (108) Pulse Ox 93 O2 Delivery Nasal Cannula O2 Flow Rate 2.00 FiO2 21 Capillary Refill : Height, Weight, BMI Height: 5'7.00" Weight: 156lbs. 0oz. 70.758598ej; 26.71 BMI Method:Stated General Appearance: No Apparent Distress, WD/WN, Chronically ill Eyes: Bilateral Eye Normal Inspection, Bilateral Eye PERRL, Bilateral Eye EOMI HEENT: PERRL/EOMI, Normal ENT Inspection, Pharynx Normal Neck: Full Range of Motion, Normal Inspection, Non Tender, Supple, Carotid Bruit Respiratory: Chest Non Tender, No Accessory Muscle Use, No Respiratory Distress, Crackles, Decreased Breath Sounds Cardiovascular: Regular Rate, Rhythm, No Edema, No Gallop, No JVD, No Murmur, Normal Peripheral Pulses Gastrointestinal: Normal Bowel Sounds, No Organomegaly, No Pulsatile Mass, Non Tender, Soft Back: Normal Inspection, No CVA Tenderness, No Vertebral Tenderness Extremity: Normal Capillary Refill, Normal Inspection, Normal Range of Motion, Non Tender, No Calf Tenderness, No Pedal Edema Neurologic/Psychiatric: Alert, Oriented x3, No Motor/Sensory Deficits, Normal Mood/Affect Skin: Normal Color, Warm/Dry Lymphatic: No Adenopathy Results Results/Procedures Labs Laboratory Tests 05/20/23 18:45 05/21/23 05:37 05/21/23 06:20 Patient resulted labs reviewed. Assessment/Plan Admission Diagnosis Assessment: Sepsis Pneumonia Acute hypoxic respiratory failure requiring supplemental oxygen Hypertension nap-cf-xmcrxpk Dehydration Cough Plan: IV antibiotics Supportive care Monitor closely Admission Status: Inpatient Order (span 2 midnights) Reason for Inpatient Admission: Sepsis with pneumonia ALYSE DIOP DO May 21, 2023 08:21
--- NOTE | 2023-05-21 08:25 | Diagnostic Imaging Report ---
EXAMINATION: Chest 1 view HISTORY: Pneumonia COMPARISON: 05/20/2023 FINDINGS: There is mild left base atelectasis Otherwise, the lungs are clear without edema or pneumonia. No pleural effusion or pneumothorax. Heart size is normal. IMPRESSION: 1. Mild atelectasis, otherwise clear lungs. Dictated by: Dictated on workstation # [id number]
--- NOTE | 2023-05-21 11:20 | Physical Therapy Evaluation ---
PT Evaluation-General Medical Diagnosis Admission Date May 20, 2023 at 20:44 Medical Diagnosis: pneumonia Onset Date: May 20, 2023 Therapy Diagnosis Therapy Diagnosis: debility Height/Weight Height (Feet): 5 Height (Inches): 7.00 Weight (Pounds): 156 Weight (Ounces): 0 Precautions Precautions/Isolations: Standard Precautions Referral Physician: Jadon Reason for Referral: Evaluation/Treatment Medical History Pertinent Medical History: Arthritis, HTN, Hypothroidism Current History EMS secondary to SOA, weakness and fatigue Reviewed History: Yes Social History Home: Single Level Current Living Status: Children Entry Into Home: Stairs With Railing PT Steps Into Home: 5 Prior Prior Level of Function SCALE: Activities may be completed with or without assistive devices. 5-Wshcequgqg-pfejytf completes the activity by him/herself with no assistance from a helper. 5-Set-up or Clean-up Assistance-helper sets up or cleans up; patient completes activity. [place] assists only prior to or following the activity. 4-Supervision or Touching Assistance-helper provides verbal cues and/or touching/steadying and/or contact guard assistance as patient completes activity. Assistance may be provided throughout the activity or intermittently. 3-Partial/Moderate Assistance-helper does LESS THAN HALF the effort. [place] lifts, holds or supports trunk or limbs, but provides less than half the effort. 2-Substantial/Maximal Assistance-helper does MORE THAN HALF the effort. [place] lifts or holds trunk or limbs and provides more than half the effort. 3-Xouffgjfd-ahihrn does ALL the effort. Patient does none of the effort to complete the activity. Or, the assistance of 2 or more helpers is required for the patient to complete the activity. If activity was not attempted, code reason: 7-Patient Refused. 9-Not Applicable-not attempted and the patient did not perform the activity befo re the current illness, exacerbation or injury. 10-Not Attempted due to Environmental Limitations-(lack of equipment, weather re straints, etc.). 88-Not Attempted due to Medical Conditions or Safety Concerns. Bed Mobility: 6 Transfers (B,C,W/C): 6 Gait: 6 Stairs: 6 Indoor Mobility (Ambulation): Independent Stairs: Independent Prior Devices Use: None PT Evaluation-Current Subjective Patient agrees to PT. Objective Patient Orientation: Normal For Age Attachments: IV ROM/Strength ROM Lower Extremities bilateral LE WFL Strength Lower Extremities 4/5 grossly bilateral LE all planes Integumentary/Posture Bowel Incontinence: No Bladder Incontinence: No Posture WFL Neuromuscular (Tone, Coordination, Reflexes) grossly intact Sensory Vision: Functional Hearing: Functional Transfers Lying to Sitting/Side of Bed(Q: 6 Sit to Stand (QC): 6 Chair/Ukr-vs-Zuvcx Xfer(QC): 6 Toilet Transfer (QC): 6 Gait Mode of Locomotion: Walk Anticipated Mode of Locomotion: Walk Walk 10 feet (QC): 6 Walk 50 ft with 2 Turns(QC): 6 Walk 150 ft (QC): 6 Distance: 300' Gait Assistive Device: None Comments/Gait Description safe and functional with no deviation Balance Sitting Static: Normal Sitting Dynamic: Normal Standing Static: Normal Standing Dynamic: Normal Assessment/Needs Patient is currently at independent LOF with all gross motor skills safely and does not require skilled PT intervention at this time. Rehab Potential: Fair PT Plan Treatment/Plan Treatment Plan: Discontinue PT, goals met Treatment Duration: May 21, 2023 Frequency: 1 time per week Estimated Hrs Per Day: .25 hour per day Patient and/or Family Agrees t: Yes Time Time In: 1016 Time Out: 1025 DATE: May 21, 2023 Total Billed Treatment Time: 9 Total Billed Treatment 1 visit EVMod 9 min HUGO COLEMAN PT May 21, 2023 11:20
--- NOTE | 2023-05-21 11:41 | Occ Therapy Progress Note ---
Therapy Progress Note NO OT Eval initiated, patient ambulating hallways and exercising bathroom privileges. DC OT JV PATEL OT May 21, 2023 11:41
[2023-05-21] MEDS ORDERED: LINA290C PO (16:25)
[2023-05-21] MEDS ORDERED: CNC1KV SQ (16:25)
[2023-05-21] MEDS ORDERED: VILA20TA2 PO (16:25)
[2023-05-21] MEDS ORDERED: ALPR0.254 PO (16:25)
[2023-05-21] MEDS ORDERED: ROPI1TAB46 PO (16:25)
[2023-05-21] MEDS ORDERED: HYDR-3820 PO (16:25)
[2023-05-21] MEDS: ALPRAZolam 0.25 MG TABLET PO PRN ×2 (17:56→23:24)
[2023-05-21] MEDS ORDERED: HYDROcodone/ACETAMINOPHEN 10/325 TABLET PO PRN (20:00)
[2023-05-21] MEDS: rOPINIRole 1 MG TABLET PO SCH (20:27)
[2023-05-21] MEDS: ENOXAPARIN 40 MG/0.4 ML SYRINGE SC SCH (20:27)
[2023-05-21] MEDS ORDERED: rOPINIRole 1 MG TABLET PO SCH (21:00)
[2023-05-21] MEDS ORDERED: cefTRIAXone IV/IM 1,000 MG in NS (IVPB) 50 ML 50 ML IV SCH (21:00)
[2023-05-21] MEDS: AZITHROMYCIN INJECTION 500 MG in NS (IVPB) 250 ML 250 ML IV SCH (22:10)
[2023-05-22 04:26] VITALS: BP 156/89
[2023-05-22] MEDS: oxyCODONE IMMEDIATE RELEASE 5 MG TABLET PO PRN ×2 (05:36→13:10)
[2023-05-22 06:02] LABS: ALBUMIN 3.8 GM/DL (3.2-4.5); POTASSIUM 4.1 MMOL/L (3.6-5.0)
[2023-05-22 06:03] LABS: CALCIUM 8.9 MG/DL (8.5-10.1)
[2023-05-22 06:04] LABS: TOTAL PROTEIN 6.7 GM/DL (6.4-8.2)
[2023-05-22 06:06] LABS: BILIRUBIN,TOTAL 0.4 MG/DL (0.1-1.0)
[2023-05-22 06:08] LABS: CREATININE SERUM 0.73 MG/DL (0.60-1.30)
[2023-05-22 06:36] LABS: BASOPHILS # (AUTO) 0.1 10^3/uL (0.0-0.1); BASOPHILS % (AUTO) 1 % (0-10); EOSINOPHILS # (AUTO) 0.4 10^3/uL (0.0-0.3); EOSINOPHILS % (AUTO) 5 % (0-10); HEMATOCRIT 44 % (35-52); HEMOGLOBIN 14.6 g/dL (11.5-16.0); LYMPHOCYTES % (AUTO) 38 % (12-44); MEAN CORPUSCULAR HEMOGLOBIN 32 pg (25-34); MEAN CORPUSCULAR HGB CONC 33 g/dL (32-36); MEAN CORPUSCULAR VOLUME 95 fL (80-99); MEAN PLATELET VOLUME 10.6 fL (9.0-12.2); MONOCYTES # (AUTO) 0.9 10^3/uL (0.0-1.0); MONOCYTES % (AUTO) 12 % (0-12); NEUTROPHILS # (AUTO) 3.5 10^3/uL (1.8-7.8); NEUTROPHILS % (AUTO) 44 % (42-75); PLATELET COUNT 207 10^3/uL (130-400); WHITE BLOOD COUNT 7.8 10^3/uL (4.3-11.0)
[2023-05-22] MEDS ORDERED: LEVOTHYROXINE 25 MCG TABLET PO SCH (07:00)
[2023-05-22 07:24] VITALS: BP 156/87
[2023-05-22] MEDS ORDERED: POTASSIUM CHLORIDE 10 MEQ TABLET PO SCH (08:00)
[2023-05-22] MEDS: SENNOSIDES 8.6 MG TABLET PO SCH (08:17)
[2023-05-22] MEDS: DOCUSATE SODIUM 100 MG CAPSULE PO SCH ×2 (08:17→08:22)
[2023-05-22] MEDS ORDERED: MELOXICAM 7.5 MG TABLET PO SCH (09:00)
[2023-05-22] MEDS ORDERED: CYANOCOBALAMIN 1000 MCG/ML 1 ML VIAL SQ SCH (09:00)
[2023-05-22] MEDS ORDERED: VILAZODONE HCL 20 MG PO SCH (09:00)
[2023-05-22] MEDS ORDERED: ASPIRIN enteric coated 81MG TABLET PO SCH (09:00)
[2023-05-22] MEDS ORDERED: LINACLOTIDE 290 MCG PO SCH (09:00)
[2023-05-22 11:10] VITALS: BP 151/81
[2023-05-22] MEDS ORDERED: AZIT250T12 PO (13:32)
[2023-05-22] MEDS ORDERED: CEFD300C3 PO (13:32)
[2023-05-22] MEDS ORDERED: BENZ100C18 PO (13:32)
--- NOTE | 2023-05-22 13:33 | Discharge Summary ---
Diagnosis/Chief Complaint Date of Admission May 20, 2023 at 20:44 Date of Discharge Discharge Date: May 22, 2023 Discharge Diagnosis Assessment: Sepsis Pneumonia Acute hypoxic respiratory failure requiring supplemental oxygen Hypertension [id number] Dehydration Cough Plan: IV antibiotics Supportive care Monitor closely Discharge Summary Discharge Physical Examination Allergies: Coded Allergies: Iodinated Contrast Media (Unverified Allergy, Unknown, 05/06/16) Sulfa (Sulfonamide Antibiotics) (Verified Allergy, Unknown, 02/25/08) ciprofloxacin (Unverified Allergy, Unknown, 05/06/16) Vitals & I&Os Vital Signs Date Time Temp Pulse Resp B/P (MAP) Pulse Ox O2 Delivery O2 Flow Rate FiO2 05/22/23 14:55 36.3 57 17 151/81 97 Room Air 2.00 05/20/23 21:27 21 General Appearance: Alert, Oriented X3, Cooperative Respiratory: Clear to Auscultation Cardiovascular: Regular Rate Psych/Mental Status: Mental Status NL Hospital Course Was the Problem List Reviewed?: Yes Uneventful course after admitted for sepsis and PNA and acute hypoxic resp failure. IVF maintained along with CAP abx. O2 requirement resolved. Patient was back to baseline and she was assessed to be ready for DC. Labs (last 24 hrs) Laboratory Tests 05/20/23 18:45: White Blood Count 19.3H, Red Blood Count 4.83, Hemoglobin 15.3, Hematocrit 46, Mean Corpuscular Volume 95, Mean Corpuscular Hemoglobin 32, Mean Corpuscular Hemoglobin Concent 33, Red Cell Distribution Width 13.5, Platelet Count 219, Mean Platelet Volume 10.7, Immature Granulocyte % (Auto) 0, Neutrophils (%) (Auto) 82H, Lymphocytes (%) (Auto) 9L, Monocytes (%) (Auto) 7, Eosinophils (%) (Auto) 1, Basophils (%) (Auto) 0, Neutrophils # (Auto) 15.9H, Lymphocytes # (Auto) 1.7, Monocytes # (Auto) 1.4H, Eosinophils # (Auto) 0.1, Basophils # (Auto) 0.1, Immature Granulocyte # (Auto) 0.1, Neutrophils % (Manual) 83, Lymphocytes % (Manual) 10, Monocytes % (Manual) 6, Eosinophils % (Manual) 1, Blood Morphology Comment NORMAL, Prothrombin Time 14.5, INR Comment 1.1, Activated Partial Thromboplast Time 34, Sodium Level 134L, Potassium Level 3.9, Chloride Level 104, Carbon Dioxide Level 21, Anion Gap 9, Blood Urea Nitrogen 9, Creatinine 0.69, Estimat Glomerular Filtration Rate 86, BUN/Creatinine Ratio 13, Glucose Level 111H, Calcium Level 9.0, Corrected Calcium 9.0, Total Bilirubin 0.9, Aspartate Amino Transf (AST/SGOT) 15, Alanine Aminotransferase (ALT/SGPT) 12, Alkaline Phosphatase 113, Total Protein 7.0, Albumin 4.0, Influenza Type A (RT-PCR) Not Detected, Influenza Type B (RT-PCR) Not Detected, SARS-CoV-2 RNA (RT-PCR) Not Detected 05/20/23 18:51: Lactic Acid Level 0.91 05/20/23 19:28: Urine Color YELLOW, Urine Clarity CLEAR, Urine pH 6.5, Urine Specific [place] 1.015L, Urine Protein NEGATIVE, Urine Glucose (UA) NEGATIVE, Urine Ketones 2+H, Urine Nitrite NEGATIVE, Urine Bilirubin NEGATIVE, Urine Urobilinogen 0.2, Urine Leukocyte Esterase NEGATIVE, Urine RBC (Auto) TRACEH, Urine RBC 0-2, Urine WBC RARE, Urine Squamous Epithelial Cells 2-5, Urine Crystals NONE, Urine Bacteria TRACE, Urine Casts NONE, Urine Mucus NEGATIVE, Urine Culture Indicated CULTURE PENDING 05/21/23 05:37: Sodium Level 138, Potassium Level 4.0, Chloride Level 110H, Carbon Dioxide Level 21, Anion Gap 7, Blood Urea Nitrogen 9, Creatinine 0.66, Estimat Glomerular Filtration Rate 87, BUN/Creatinine Ratio 14, Glucose Level 96, Calcium Level 8.4L, Corrected Calcium 8.7, Total Bilirubin 0.9, Aspartate Amino Transf (AST/SGOT) 14, Alanine Aminotransferase (ALT/SGPT) 11, Alkaline Phosphatase 95, Total Protein 6.4, Albumin 3.6 05/21/23 06:20: White Blood Count 10.5, Red Blood Count 4.29, Hemoglobin 13.5, Hematocrit 41, Mean Corpuscular Volume 95, Mean Corpuscular Hemoglobin 32, Mean Corpuscular Hemoglobin Concent 33, Red Cell Distribution Width 13.7, Platelet Count 186, Mean Platelet Volume 10.3, Immature Granulocyte % (Auto) 0, Neutrophils (%) (Auto) 64, Lymphocytes (%) (Auto) 23, Monocytes (%) (Auto) 11, Eosinophils (%) (Auto) 2, Basophils (%) (Auto) 1, Neutrophils # (Auto) 6.8, Lymphocytes # (Auto) 2.4, Monocytes # (Auto) 1.1H, Eosinophils # (Auto) 0.2, Basophils # (Auto) 0.1, Immature Granulocyte # (Auto) 0.0 05/22/23 05:27: Sodium Level 139, Potassium Level 4.1, Chloride Level 112H, Carbon Dioxide Level 21, Anion Gap 6, Blood Urea Nitrogen 13, Creatinine 0.73, Estimat Glomerular Filtration Rate 82, BUN/Creatinine Ratio 18, Glucose Level 98, Calcium Level 8.9, Corrected Calcium 9.1, Total Bilirubin 0.4, Aspartate Amino Transf (AST/SGOT) 12, Alanine Aminotransferase (ALT/SGPT) 12, Alkaline Phosphatase 104, Total Protein 6.7, Albumin 3.8 05/22/23 05:34: White Blood Count 7.8, Red Blood Count 4.64, Hemoglobin 14.6, Hematocrit 44, Mean Corpuscular Volume 95, Mean Corpuscular Hemoglobin 32, Mean Corpuscular Hemoglobin Concent 33, Red Cell Distribution Width 13.5, Platelet Count 207, Mean Platelet Volume 10.6, Immature Granulocyte % (Auto) 0, Neutrophils (%) (Auto) 44, Lymphocytes (%) (Auto) 38, Monocytes (%) (Auto) 12, Eosinophils (%) (Auto) 5, Basophils (%) (Auto) 1, Neutrophils # (Auto) 3.5, Lymphocytes # (Auto) 3.0, Monocytes # (Auto) 0.9, Eosinophils # (Auto) 0.4H, Basophils # (Auto) 0.1, Immature Granulocyte # (Auto) 0.0 Microbiology 05/20/23 Urine Culture - Final, Complete NO GROWTH 05/20/23 Blood Culture - Preliminary, Resulted Pending Labs Microbiology Date/Time Source Procedure Growth Status 05/20/23 19:28 Urine Clean Catch Urine Culture - Final NO GROWTH Complete 05/20/23 19:06 Peripheral Rt Hand Blood Culture - Preliminary Resulted 05/20/23 18:45 Peripheral Lt Hand Blood Culture - Preliminary Resulted Laboratory Tests 05/20/23 18:45: White Blood Count 19.3, Red Blood Count 4.83, Hemoglobin 15.3, Hematocrit 46, Mean Corpuscular Volume 95, Mean Corpuscular Hemoglobin 32, Mean Corpuscular Hemoglobin Concent 33, Red Cell Distribution Width 13.5, Platelet Count 219, Mean Platelet Volume 10.7, Immature Granulocyte % (Auto) 0, Neutrophils (%) (Auto) 82, Lymphocytes (%) (Auto) 9, Monocytes (%) (Auto) 7, Eosinophils (%) (Auto) 1, Basophils (%) (Auto) 0, Neutrophils # (Auto) 15.9, Lymphocytes # (Auto) 1.7, Monocytes # (Auto) 1.4, Eosinophils # (Auto) 0.1, Basophils # (Auto) 0.1, Immature Granulocyte # (Auto) 0.1, Neutrophils % (Manual) 83, Lymphocytes % (Manual) 10, Monocytes % (Manual) 6, Eosinophils % (Manual) 1, Blood Morphology Comment NORMAL, Prothrombin Time 14.5, INR Comment 1.1, Activated Partial Thromboplast Time 34, Sodium Level 134, Potassium Level 3.9, Chloride Level 104, Carbon Dioxide Level 21, Anion Gap 9, Blood Urea Nitrogen 9, Creatinine 0.69, Estimat Glomerular Filtration Rate 86, BUN/Creatinine Ratio 13, Glucose Level 111, Calcium Level 9.0, Corrected Calcium 9.0, Total Bilirubin 0.9, Aspartate Amino Transf (AST/SGOT) 15, Alanine Aminotransferase (ALT/SGPT) 12, Alkaline Phosphatase 113, Total Protein 7.0, Albumin 4.0, Influenza Type A (RT-PCR) Not Detected, Influenza Type B (RT-PCR) Not Detected, SARS-CoV-2 RNA (RT-PCR) Not Detected 05/20/23 18:51: Lactic Acid Level 0.91 05/20/23 19:28: Urine Color YELLOW, Urine Clarity CLEAR, Urine pH 6.5, Urine Specific [place] 1.015, Urine Protein NEGATIVE, Urine Glucose (UA) NEGATIVE, Urine Ketones 2+, Urine Nitrite NEGATIVE, Urine Bilirubin NEGATIVE, Urine Urobilinogen 0.2, Urine Leukocyte Esterase NEGATIVE, Urine RBC (Auto) TRACE, Urine RBC 0-2, Urine WBC RARE, Urine Squamous Epithelial Cells 2-5, Urine Crystals NONE, Urine Bacteria TRACE, Urine Casts NONE, Urine Mucus NEGATIVE, Urine Culture Indicated CULTURE PENDING 05/21/23 05:37: Sodium Level 138, Potassium Level 4.0, Chloride Level 110, Carbon Dioxide Level 21, Anion Gap 7, Blood Urea Nitrogen 9, Creatinine 0.66, Estimat Glomerular Filtration Rate 87, BUN/Creatinine Ratio 14, Glucose Level 96, Calcium Level 8.4, Corrected Calcium 8.7, Total Bilirubin 0.9, Aspartate Amino Transf (AST/SGOT) 14, Alanine Aminotransferase (ALT/SGPT) 11, Alkaline Phosphatase 95, Total Protein 6.4, Albumin 3.6 05/21/23 06:20: White Blood Count 10.5, Red Blood Count 4.29, Hemoglobin 13.5, Hematocrit 41, Mean Corpuscular Volume 95, Mean Corpuscular Hemoglobin 32, Mean Corpuscular Hemoglobin Concent 33, Red Cell Distribution Width 13.7, Platelet Count 186, Mean Platelet Volume 10.3, Immature Granulocyte % (Auto) 0, Neutrophils (%) (Auto) 64, Lymphocytes (%) (Auto) 23, Monocytes (%) (Auto) 11, Eosinophils (%) (Auto) 2, Basophils (%) (Auto) 1, Neutrophils # (Auto) 6.8, Lymphocytes # (Auto) 2.4, Monocytes # (Auto) 1.1, Eosinophils # (Auto) 0.2, Basophils # (Auto) 0.1, Immature Granulocyte # (Auto) 0.0 05/22/23 05:27: Sodium Level 139, Potassium Level 4.1, Chloride Level 112, Carbon Dioxide Level 21, Anion Gap 6, Blood Urea Nitrogen 13, Creatinine 0.73, Estimat Glomerular Filtration Rate 82, BUN/Creatinine Ratio 18, Glucose Level 98, Calcium Level 8.9, Corrected Calcium 9.1, Total Bilirubin 0.4, Aspartate Amino Transf (AST/SGOT) 12, Alanine Aminotransferase (ALT/SGPT) 12, Alkaline Phosphatase 104, Total Protein 6.7, Albumin 3.8 05/22/23 05:34: White Blood Count 7.8, Red Blood Count 4.64, Hemoglobin 14.6, Hematocrit 44, Mean Corpuscular Volume 95, Mean Corpuscular Hemoglobin 32, Mean Corpuscular Hemoglobin Concent 33, Red Cell Distribution Width 13.5, Platelet Count 207, Mean Platelet Volume 10.6, Immature Granulocyte % (Auto) 0, Neutrophils (%) (Auto) 44, Lymphocytes (%) (Auto) 38, Monocytes (%) (Auto) 12, Eosinophils (%) (Auto) 5, Basophils (%) (Auto) 1, Neutrophils # (Auto) 3.5, Lymphocytes # (Auto) 3.0, Monocytes # (Auto) 0.9, Eosinophils # (Auto) 0.4, Basophils # (Auto) 0.1, Immature Granulocyte # (Auto) 0.0 Discharge Home Medications: Active Scripts Active Azithromycin 250 Mg Tablet 250 Mg PO DAILY Cefdinir 300 Mg Capsule 300 Mg PO BID Tessalon Perles (Benzonatate) 100 Mg Capsule 200 Mg PO Q6H PRN Reported Ropinirole HCl 1 Mg Tablet 1 Mg PO 1900 Vilazodone HCl 20 Mg Tablet 20 Mg PO DAILY Linzess (Linaclotide) 290 Mcg Capsule 290 Mcg PO DAILY Cyanocobalamin Injection (Cyanocobalamin) 1,000 Mcg/Ml Inj 1,000 Mcg SQ EVERY 2 WEEKS ALPRAZolam 0.25 Mg Tablet 0.25 Mg PO Q8H PRN Hydrocodone-Acetamin 10-325 mg (Hydrocodone/Acetaminophen) 10 Mg-325 Mg Tablet 1 Ea PO QID PRN Aspirin EC (Aspirin) 81 Mg Tablet.dr 81 Mg PO DAILY Meloxicam 7.5 Mg Tablet 7.5 Mg PO DAILY Synthroid (Levothyroxine Sodium) 25 Mcg Tablet 25 Mcg PO DAILY Metoprolol Succinate 25 Mg Tab.er.24h 25 Mg PO DAILY Klor-Con M10 (Potassium Chloride) 10 Meq Tab.er.prt 10 Meq PO BID Ropinirole HCl 1 Mg Tablet 2 Mg PO HS TAKES 2 (1MG) TABLETS Instructions to patient/family Please see electronic discharge instructions given to patient. KANDY BENOIT DO May 22, 2023 13:33
[2023-05-22 14:55] VITALS: BP 151/81
[2023-05-22] MEDS ORDERED: rOPINIRole 1 MG TABLET PO SCH (19:00)
== END 2023-05-22 14:55 | disposition home or self-care (01) | DRG 871 ==
LOC: EDUNIT# 18:36 → ER 18:38 → 4TH 20:44
PROVIDERS: ADMIT Internal Medicine; ATTEND Internal Medicine
DX: A41.9 Sepsis, unspecified organism (principal); J18.9 Pneumonia, unspecified organism; J96.01 Acute respiratory failure with hypoxia; I10 Essential (primary) hypertension; E86.0 Dehydration; M19.90 Unspecified osteoarthritis, unspecified site; E03.9 Hypothyroidism, unspecified; F32.A Depression, unspecified; Z79.82 Long term (current) use of aspirin; Z79.899 Other long term (current) drug therapy; Z11.52 Encounter for screening for COVID-19
CPT/HCPCS: 36415; 71045; 80053; 81000; 83605; 85007; 85025; 85027; 85610; 85730; 87040; 87088; 87636